=== PATIENT | male | born 1955 | race Caucasian/White ===

== ENCOUNTER 2017-07-11 08:35 | Inpatient (IN) | payer OTHER ==
[~2017-07-11] VITALS: Ht 172.7 cm; Wt 100.2 kg
[2017-07-11 08:41] VITALS: BP 154/80
--- NOTE | 2017-07-11 08:50 | NUR ---
Pt taken to bed 10
--- NOTE | 2017-07-11 08:54 | NUR ---
Patient being evaluated by Dr. Chinchilla at bedside.
[2017-07-11] MEDS ORDERED: LEVOFLOXACIN 500 MG/D5W PREMIX 100 ML IV ONE (09:00)
[2017-07-11] MEDS ORDERED: KETOROLAC 30 MG/ML VIAL IVP ONE (09:00)
[2017-07-11] MEDS ORDERED: CLINDAMYCIN 600 MG in DEXTROSE 5% 50 ML IV ONE (09:00)
--- NOTE | 2017-07-11 09:01 | NUR ---
62/M bib daughter with complaints of left lower leg pain/foot pain x2 days. Pt states he has an ulcer to the bottom of his foot for the past 15 days but just two days ago the foot started to swelling and become erythematous. Leg hot to touch, pedal pulses presents bilaterally, strong and regular. Hx DM, HTN, hyperlipidemia. Ambulatory with steady gait. AOX4, panamanian speaking. VSS.
[2017-07-11] MEDS ORDERED: CLINDAMYCIN 600 MG/4 ML VIAL ONE ×2 (09:16→21:53)
--- NOTE | 2017-07-11 09:31 | NUR ---
XRAY AT BEDSIDE.
[2017-07-11] MEDS ORDERED: OMEP20TC12 PO (09:48)
[2017-07-11] MEDS ORDERED: METF1TAB34 PO (09:48)
[2017-07-11] MEDS ORDERED: MONT10TA35 PO (09:48)
[2017-07-11] MEDS ORDERED: BENA20TA PO (09:48)
[2017-07-11] MEDS ORDERED: FERR325E14 PO (09:48)
[2017-07-11] MEDS ORDERED: ASPI81CT89 PO (09:48)
[2017-07-11] MEDS ORDERED: ATOR40TA PO (09:48)
[2017-07-11] MEDS ORDERED: SIME80CT70 PO (09:48)
[2017-07-11] MEDS ORDERED: CETI10TA71 PO (09:48)
[2017-07-11] MEDS ORDERED: ORE25 PO (09:48)
[2017-07-11 09:59] LABS: BASOPHILS # (AUTO) 0.1 K/uL (0.00-0.22); BASOPHILS % (AUTO) 1.2 % (0.0-2.0); EOSINOPHILS # (AUTO) 0.1 K/uL (0-0.4); EOSINOPHILS % (AUTO) 0.8 % (0.0-4.0); HEMOGLOBIN 11.7 g/dL (12.0-18.0); LYMPHOCYTES % (AUTO) 8.5 % (20.5-51.1); MEAN CORPUSCULAR HEMOGLOBIN 31 pg (27-31); MEAN CORPUSCULAR HGB CONC 33 g/dL (33-37); MEAN CORPUSCULAR VOLUME 93 fL (80-94); MONOCYTES # (AUTO) 0.9 K/uL (0.8-1.0); MONOCYTES % (AUTO) 7.8 % (1.7-9.3); NEUTROPHILS # (AUTO) 9.7 K/uL (1.8-7.7); NEUTROPHILS % (AUTO) 81.7 % (42.2-75.2); PLATELET COUNT (AUTO) 299 K/uL (140-450); RED BLOOD CELL COUNT(AUTO) 3.78 MIL/uL (4.20-6.10); RED CELL DISTRIBUTION WIDTH 13.7 % (11.6-13.7); WHITE BLOOD COUNT (AUTO) 11.8 K/uL (4.8-10.8)
[2017-07-11 10:00] LABS: ANION GAP 11.1 (8-16); CARBON DIOXIDE 29.3 mmol/L (21-32); CREATININE 1.3 mg/dL (0.7-1.3); POTASSIUM 4.4 mmol/L (3.5-5.1)
[2017-07-11 10:01] LABS: PROTHROMBIN TIME 10.7 secs (10.8-13.4)
[2017-07-11 10:06] LABS: ALBUMIN 3.1 g/dL (3.4-5.0); TOTAL BILIRUBIN 0.6 mg/dL (0.0-1.0)
[2017-07-11] MEDS ORDERED: ACETAMINOPHEN 325 MG TAB PO PRN (10:20)
[2017-07-11] MEDS ORDERED: MORPHINE SULFATE 4 MG/ML SYR IVP PRN (10:20)
[2017-07-11] MEDS ORDERED: MORPHINE SULFATE 2 MG/ML SYR IVP PRN (10:20)
[2017-07-11] MEDS ORDERED: ONDANSETRON 4 MG/2 ML VIAL IVP PRN (10:20)
[2017-07-11] MEDS ORDERED: VANCOMYCIN PER PHARMACY MC PRN (10:20)
[2017-07-11] MEDS ORDERED: SIMETHICONE 80 MG TAB.CHEW PO PRN (10:30)
[2017-07-11 11:27] LABS: APPEARANCE,URINE CLEAR (CLEAR); BILIRUBIN,URINE NEGATIVE (NEGATIVE); BLOOD, URINE NEGATIVE (NEGATIVE); COLOR,URINE YELLOW (YELLOW); LEUKOCYTE ESTERASE ,URINE NEGATIVE (NEGATIVE); NITRITE, URINE NEGATIVE (NEGATIVE); PH,URINE 5.5 (5.0-9.0); UGLUCOSE NEGATIVE (NEGATIVE)
[2017-07-11 11:46] LABS: RBC,URINE NONE SEEN /HPF (0-5); WBC,URINE 0-5 (RARE) /HPF (0-5)
--- NOTE | 2017-07-11 11:55 | NUR ---
RECEIVED PATIENT FROM ER UNDER THE CARE OF DR GILLIS WITH A DX OF FOOT ULCER . PATIENT A/OX4 ENGLISH SPEAKING DAUGHTER AT THE BED SIDE HELPING WITH THE TRANSLATION. IV SITE RT AC GAUGE 22 INTACT AND PATIENT LEFT AND RT FOOT DIABETIC ULCER . UNIT ORIENTATION GIVEN SAFETY HAS BEEN TAUGHT , VITALS STABLE WILL CONTINUE TO MONITOR.
[2017-07-11 12:26] VITALS: BP 136/79
[2017-07-11] MEDS: NACL 0.9% 1,000 ML IV SCH (14:04)
[2017-07-11] MEDS: VANCOMYCIN 1GM/DEXT 5% PREMIX 200 ML IV SCH (14:04)
--- NOTE | 2017-07-11 14:37 | NUR ---
ENDORSE THE CARE TO DEYANIRA
[2017-07-11 16:00] VITALS: BP 142/71
[2017-07-11] MEDS: BLOOD GLUCOSE MONITORING 1 DEV DEV FS SCH ×3 (16:00→21:48)
--- NOTE | 2017-07-11 16:33 | NUR ---
DR STEPHENS HERE TO CONSULT. PT IS TO HAVE SURGERY TOMORROW MORNING. I AND D BILATERALLY. NPO AFTER MIDNIGHT.
[2017-07-11] MEDS: INSULIN LISPRO SLIDING SCALE 100 UNITS/ML VIAL SUBQ PRN ×2 (17:07→22:34)
[2017-07-11] MEDS: PIPERACILLIN/TAZOBACTAM 4.5 GM in NACL 0.9% 100 ML IV SCH ×2 (18:08→23:50)
--- NOTE | 2017-07-11 19:06 | NUR ---
PT'S FAMILY IS LEAVING. PT'S SON AND AWARE OF SURGERY TOMORROW. PT ATE 100% OF DINNER. DENIES ANY PAIN. NO COMPLAINTS. WILL CONTINUE TO MONITOR PT.
[2017-07-11 20:00] VITALS: BP 132/72
[2017-07-11] MEDS ORDERED: BLOOD GLUCOSE MONITORING 1 DEV DEV FS SCH (21:00)
[2017-07-11] MEDS: CLINDAMYCIN 600 MG in DEXTROSE 5% 50 ML IV SCH (21:00)
[2017-07-11] MEDS: ATORVASTATIN 20 MG TAB PO SCH (21:49)
--- NOTE | 2017-07-11 22:40 | NUR ---
ENDORSED PT TO THE SOLAR POOL HEATING INSTALLER CHARGE NURSE AT BEDSIDE FOR CONTINUITY OF CARE. PT IN STABLE CONDITION.
[2017-07-12] VITALS (11 sets, daily range): BP systolic 110–153; BP diastolic 51–79
--- NOTE | 2017-07-12 | NUR ---
AWAKE ALERT, UP TO BR WITHOUT DIFFICULTY AND VOIDED, NO COMPLAINTS.
--- NOTE | 2017-07-12 01:05 | NUR ---
RECEIVED REPORT FROM [facility] UGY. PT SLEEPING IN BED. NO S/S OF ACUTE DISTRESS. IV SITE PATENT AND INTACT. CALL LIGHT WITHIN REACH. SAFETY MEASURES ENSURED. WILL CONTINUE TO MONITOR.
[2017-07-12] MEDS: VANCOMYCIN 1GM/DEXT 5% PREMIX 200 ML IV SCH ×2 (03:07→14:05)
--- NOTE | 2017-07-12 04:15 | NUR ---
PT SLEEPING IN BED. NO S/S OF ACUTE DISTRESS. WILL CONTINUE TO MONITOR.
[2017-07-12] MEDS: NACL 0.9% 1,000 ML IV SCH ×3 (04:34→16:18)
[2017-07-12] MEDS ORDERED: CLINDAMYCIN 600 MG/4 ML VIAL ONE (05:50)
[2017-07-12] MEDS: CLINDAMYCIN 600 MG in DEXTROSE 5% 50 ML IV SCH ×2 (05:53→13:29)
[2017-07-12] MEDS: BLOOD GLUCOSE MONITORING 1 DEV DEV FS SCH ×4 (06:23→21:04)
[2017-07-12] MEDS: INSULIN LISPRO SLIDING SCALE 100 UNITS/ML VIAL SUBQ PRN ×3 (06:24→21:14)
[2017-07-12] MEDS: PIPERACILLIN/TAZOBACTAM 4.5 GM in NACL 0.9% 100 ML IV SCH ×3 (06:29→17:27)
--- NOTE | 2017-07-12 07:25 | NUR ---
ENDORSED PLAN OF CARE TO NIGHT RN. PT REMAINS STABLE.
--- NOTE | 2017-07-12 07:30 | NUR ---
RECEIVED PT IN BED. AWAKE. ALERT ORIENTEDX4. NO SOB NOTED. DENIES ANY PAIN OR DISCOMFORT AT THIS TIME. SAFETY PRECAUTION IN PLACE. AMBULATORY. CALL LIGHT WITHIN REACH.
[2017-07-12 07:55] LABS: BASOPHILS # (AUTO) 0.1 K/uL (0.00-0.22); BASOPHILS % (AUTO) 0.9 % (0.0-2.0); EOSINOPHILS # (AUTO) 0.1 K/uL (0-0.4); EOSINOPHILS % (AUTO) 0.9 % (0.0-4.0); HEMATOCRIT 32.9 % (36-52); LYMPHOCYTES # (AUTO) 1.3 K/uL (2.0-11.5); LYMPHOCYTES % (AUTO) 13.3 % (20.5-51.1); MEAN CORPUSCULAR HEMOGLOBIN 31 pg (27-31); MEAN CORPUSCULAR HGB CONC 34 g/dL (33-37); MEAN CORPUSCULAR VOLUME 94 fL (80-94); MONOCYTES # (AUTO) 0.7 K/uL (0.8-1.0); NEUTROPHILS # (AUTO) 7.9 K/uL (1.8-7.7); NEUTROPHILS % (AUTO) 77.9 % (42.2-75.2); PLATELET COUNT (AUTO) 267 K/uL (140-450); RED BLOOD CELL COUNT(AUTO) 3.51 MIL/uL (4.20-6.10); RED CELL DISTRIBUTION WIDTH 13.7 % (11.6-13.7); WHITE BLOOD COUNT (AUTO) 10.1 K/uL (4.8-10.8)
[2017-07-12 08:22] LABS: ALBUMIN 2.5 g/dL (3.4-5.0); ANION GAP 13.8 (8-16); CARBON DIOXIDE 25.2 mmol/L (21-32); CREATININE 1.2 mg/dL (0.7-1.3); TOTAL BILIRUBIN 0.5 mg/dL (0.0-1.0)
--- NOTE | 2017-07-12 08:28 | NUR ---
HELD LOVENOX SQ DUE TO PT SCHEDULED FOR I&D.
[2017-07-12] MEDS: ENOXAPARIN 30 MG/0.3 ML SYR SUBQ SCH (08:29)
--- NOTE | 2017-07-12 08:31 | NUR ---
HELD ALL PO MEDS DUE TO PT SCHEDULED FOR SURGERY. OR NURSE AWARE AND CAME TO FURNITURE DETAILER PT.
[2017-07-12] MEDS: LORATADINE 10 MG TAB PO SCH (08:36)
[2017-07-12] MEDS: BENAZEPRIL 20 MG TAB PO SCH (08:36)
[2017-07-12] MEDS: HYDROCHLOROTHIAZIDE 25 MG TAB PO SCH (08:37)
[2017-07-12] MEDS: MONTELUKAST SODIUM 10 MG TAB PO SCH (08:37)
[2017-07-12] MEDS: PANTOPRAZOLE 40 MG TABEC PO SCH (08:37)
[2017-07-12] MEDS ORDERED: NON-FORMULARY ITEM (Cetirizine HCl (Cetirizine Hcl) 10 MG) PO SCH (09:00)
[2017-07-12] MEDS ORDERED: ASPIRIN 81 MG TAB.CHEW PO SCH (09:00)
[2017-07-12] MEDS ORDERED: NON-FORMULARY ITEM (Omeprazole (Omeprazole) 20 MG) PO SCH (09:00)
--- NOTE | 2017-07-12 09:04 | NUR ---
PATIENT HAS BEEN SCREENED AND CATEGORIZED MODERATE NUTRITION RISK. PATIENT WILL BE SEEN WITHIN 3-5 DAYS OF ADMISSION. 07/14/17-07/16/[address]
[2017-07-12] MEDS ORDERED: SEVOFLURANE 250 ML BTL INH ONE (10:05)
[2017-07-12] MEDS ORDERED: ONDANSETRON 4 MG/2 ML VIAL ONE (10:05)
[2017-07-12] MEDS ORDERED: PROPOFOL 200 MG/20 ML VIAL IV ONE (10:05)
[2017-07-12] MEDS ORDERED: fentaNYL 0.05 MG/ML VIAL ONE (10:13)
[2017-07-12] MEDS ORDERED: BUPIVACAINE-MPF 0.25% 30 ML VIAL INJ ONE (10:32)
[2017-07-12] MEDS ORDERED: HYDROmorphone PFS 2 MG/ML SYR IVP PRN (10:55)
[2017-07-12] MEDS ORDERED: BLOOD GLUCOSE MONITORING 1 DEV DEV FS SCH (10:55)
[2017-07-12] MEDS ORDERED: ONDANSETRON 4 MG/2 ML VIAL IVP PRN (10:55)
--- NOTE | 2017-07-12 11:45 | NUR ---
PT CAME BACK FROM OR ASSISTED BY OR STAFF. PT ASLEEP AROUSABLE TO VOICE. NO SOB NOTED. DENIES ANY PAIN OR DISCOMFORT AT THIS TIME. VITAL SIGNS TAKEN AND RECORDED. DRESSING ON BOTH LEFT AND RIGHT FOOT DRY AND INTACT. PT ON STABLE CONDITION.
--- NOTE | 2017-07-12 15:39 | NUR ---
FAXED INITIAL REVIEW TO [facility] [phone] PHONE DECEMBER [phone]
--- NOTE | 2017-07-12 18:31 | NUR ---
PT KEPT CLEAN, DRY AND COMFORTABLE, NEEDS ATTENDED. WILL ENDORSE TO NEXT SHIFT. PT ON STABLE CONDITION, FOR CONTINUITY OF CARE. NO SOB, DENIES ANY PAIN OR DISCOMFORT AT THIS TIME.
--- NOTE | 2017-07-12 19:30 | NUR ---
RECEIVED PT IN STABLE CONDITION FROM AM NURSE. AWAKE,ALERT AND ORIENTED X4. INDONESIAN SPEAKING. ON TELE MONITOR. WITH NO C/O ANY PAIN. TIANNA FEET WITH DRESSING,ELEVATED ON PILLOW. WITH IV ACCESS LEAKING. DISCONTINUED. WILL START A NEW IV . PLAN OF CARE DISCUSSED AND VERBALIZED UNDERSTANDING. BED ON LOW POSITION. CALL LIGHT AND URINAL WITHIN EASY REACH. WILL CONTINUE TO MONITOR.
[2017-07-12] MEDS: ATORVASTATIN 20 MG TAB PO SCH (21:05)
--- NOTE | 2017-07-12 21:14 | NUR ---
BLOOD SUGAR WAS CHECKED RESULT 167. INSULIN COVERAGE GIVEN SUBQ. PROVIDED SOME SNACK. WILL CONTINUE TO MONITOR.
[2017-07-13] MEDS: NACL 0.9% 1,000 ML IV SCH ×3 (00:04→22:18)
[2017-07-13] MEDS: PIPERACILLIN/TAZOBACTAM 4.5 GM in NACL 0.9% 100 ML IV SCH ×4 (00:05→18:11)
[2017-07-13] MEDS: VANCOMYCIN 1GM/DEXT 5% PREMIX 200 ML IV SCH ×2 (01:56→14:00)
[2017-07-13 04:30] VITALS: BP 113/68
[2017-07-13] MEDS: BLOOD GLUCOSE MONITORING 1 DEV DEV FS SCH ×4 (06:07→20:57)
[2017-07-13] MEDS: INSULIN LISPRO SLIDING SCALE 100 UNITS/ML VIAL SUBQ PRN ×4 (06:08→21:01)
--- NOTE | 2017-07-13 06:08 | NUR ---
BLOOD SUGAR WAS CHECKED RESULT 178. INSULIN COVERAGE GIVEN SUB Q.
--- NOTE | 2017-07-13 07:14 | NUR ---
ENDORSED PT IN STABLE CONDITION TO AM NURSE.
[2017-07-13 07:31] LABS: BASOPHILS # (AUTO) 0.1 K/uL (0.00-0.22); BASOPHILS % (AUTO) 0.6 % (0.0-2.0); EOSINOPHILS # (AUTO) 0.1 K/uL (0-0.4); EOSINOPHILS % (AUTO) 0.9 % (0.0-4.0); HEMATOCRIT 31.1 % (36-52); HEMOGLOBIN 10.4 g/dL (12.0-18.0); LYMPHOCYTES # (AUTO) 1.7 K/uL (2.0-11.5); LYMPHOCYTES % (AUTO) 16.4 % (20.5-51.1); MEAN CORPUSCULAR HEMOGLOBIN 31 pg (27-31); MEAN CORPUSCULAR HGB CONC 34 g/dL (33-37); MEAN CORPUSCULAR VOLUME 94 fL (80-94); MONOCYTES # (AUTO) 0.8 K/uL (0.8-1.0); MONOCYTES % (AUTO) 8.1 % (1.7-9.3); NEUTROPHILS # (AUTO) 7.4 K/uL (1.8-7.7); PLATELET COUNT (AUTO) 274 K/uL (140-450); RED BLOOD CELL COUNT(AUTO) 3.33 MIL/uL (4.20-6.10); RED CELL DISTRIBUTION WIDTH 13.9 % (11.6-13.7); WHITE BLOOD COUNT (AUTO) 10.1 K/uL (4.8-10.8)
[2017-07-13 07:36] VITALS: BP 126/69
--- NOTE | 2017-07-13 07:56 | NUR ---
RECEIVED REPORT FROM NIGHT RN. PT SLEEPING IN BED. NO S/S OF ACUTE DISTRESS. AAOX4. IV SITE PATENT AND INTACT. DRESSINGS TO FEET DRY AND INTACT. PT DENIES PAIN. TELE BOX IN PLACE. PLAN OF CARE DISCUSSED. PT VERBALIZED UNDERSTANDING. CALL LIGHT WITHIN REACH. SAFETY MEASURES ENSURED. WILL CONTINUE TO MONITOR.
[2017-07-13 08:04] LABS: ALBUMIN 2.2 g/dL (3.4-5.0); ANION GAP 11.5 (8-16); CARBON DIOXIDE 27.6 mmol/L (21-32); CREATININE 1.1 mg/dL (0.7-1.3); POTASSIUM 4.1 mmol/L (3.5-5.1); TOTAL BILIRUBIN 0.7 mg/dL (0.0-1.0)
[2017-07-13] MEDS: MONTELUKAST SODIUM 10 MG TAB PO SCH (08:39)
[2017-07-13] MEDS: BENAZEPRIL 20 MG TAB PO SCH (08:39)
[2017-07-13] MEDS: LORATADINE 10 MG TAB PO SCH (08:39)
[2017-07-13] MEDS: HYDROCHLOROTHIAZIDE 25 MG TAB PO SCH (08:39)
[2017-07-13] MEDS: PANTOPRAZOLE 40 MG TABEC PO SCH (08:40)
[2017-07-13] MEDS: ENOXAPARIN 30 MG/0.3 ML SYR SUBQ SCH (08:42)
--- NOTE | 2017-07-13 08:43 | NUR ---
AM MEDS GIVEN WITH EDUCATION. PT DENIES PAIN. PT VERBALIZED UNDERSTANDING. WILL CONTINUE TO MONITOR.
--- NOTE | 2017-07-13 10:37 | NUR ---
SPOKE TO DR. STEPHENS ,CLARIFY ORDER OF FEET TREATMENT. DOCTOR GIVES INSTRUCTION TO REMOVED ALL IODOFORM AND REPACK IT WITHOUT PACKING THE TUNNELING. ORDER ALSO GIVEN TO RIGHT FOOT S/P DEBRIDEMENT.
--- NOTE | 2017-07-13 12:03 | NUR ---
WOUND CARE EVALUATION NOTES: REASON FOR EVALUATION: S/P I&D MULTIPLE WOUNDS COMPLETE SKIN ASSESSMENT DONE ON THIS 62 Y/O MALE PATIENT FROM HOME TO [facility], WITH INITIAL DIAGNOSIS OF LEFT FOOT PAIN AND REDNESS. PAST MEDICAL HISTORY INCLUDE DIABETES, HYPERTENSION AND NEUROPATHY. ALL ABOVE INFORMATION WAS OBTAINED FROM THE ADMISSION H&P AND PT. LABS ARE WBC 10.1, H/H 11.0/32.9, GLUCOSE 172, ALBUMIN 2.9. CURRENT MEDS INCLUDE PIPERACILLIN, VANCOMYCIN, PANTOPRAZOLE AND ATORVASTATIN. PATIENT IS AWAKE, ALERT, AND ABLE TO FOLLOW COMMANDS. SKIN WARM TO TOUCH WNL, THICKENED TOENAILS, NO EDEMA, NO HAIR GROWTH AND BILATERAL PEDAL PULSES PRESENT. PLAN OF CARE DISCUSSED WITH PT WITH FOREST EVANGELISTA IN [place]. PT VERBALIZES UNDERSTAND INTEGUMENTARY: -LEFT FOOT DORSAL S/P I&D WOUND 6X1 CM WOUND BED RED, CLEAN, SMALL AMOUNT SANGUINOUS DRAINAGE, NO ODOR, JAILENE WOUND FLAT, PAIN 0/10 -LEFT FOOT PLANTAR S/P I&D WOUND 5X2 CM WOUND BED RED, CLEAN, NO DRAINAGE, NO ODOR, PAIN 0/10 -RIGHT LATERAL 5TH TOE S/P DEBRIDED WOUND 2X2CM, WOUND BED RED, CLEAN AND MOIST NO ODOR NOTICE RECOMMENDATIONS: -FORMER[facility] TO FOLLOW FOR WOUND CARE DAILY UPON DISCHARGE -FOLLOW UP OUT PATIENT CLINICAL VISIT WITH PODIATRY AND SURGEON HERON SPARKS -CLEANSE LEFT FOOT DORSAL AND PLANTAR WOUND WITH NS PAT DRY AND PACK WITH IODOFORM, COVER WITH DRY DRESSING, WRAP WITH KERLIX QD AND PRN IF SOILING -CLEANSE RIGHT LATERAL 5TH THE S/P DEBRIDED WOUND WITH NS. PAT DRY APPLY SILVERSORB GEL COVER WITH DRYDRESSING AND WRAP WITH KERLIX QD AND PRN IF SOILING -OFFLOAD BILATERAL HEELS BY PLACING PILLOWS UNDER CALVES AT ALL TIMES, UNLESS OTHERWISE CONTRAINDICATED -PRESSURE REDISTRIBUTION SURFACE THERAPY -KEEP SKIN CLEAN AND DRY AT ALL TIMES RECOMMENDATIONS DISCUSSED WITH PRIMARY RN WILL FOLLOW UP PATIENT Q 7 -10 DAYS AND PRN. PLEASE CONTACT WOUND CARE NURSE FOR ANY CONCERNS AND CHANGES IN WOUND CONDITION Addendum: 07/13/17 at 1250 by Beto Samaniego RN (Grace) MEASUREMENT: -LEFT FOOT DORSAL S/P I&D WOUND [id number] -LEFT FOOT PLANTAR S/P I&D WOUND [id number] -TUNNELING IN BETWEEN DORSAL AND PLANTAR WOUNDS -RIGHT LATERAL 5TH TOE S/P DEBRIDED WOUND 2X2X0.1 CM
[2017-07-13] MEDS ORDERED: GAUZE TP PRN (12:30)
[2017-07-13] MEDS ORDERED: NACL 0.9% IRR 250 ML BOTTLE IR PRN (12:30)
[2017-07-13] MEDS: GAUZE TP SCH (12:42)
--- NOTE | 2017-07-13 12:42 | NUR ---
WOUND CARE DONE BY FOREST KHANNA. NO S/S OF ACUTE DISTRESS.PT DENIES PAIN. WILL CONTINUE TO MONITOR.
[2017-07-13] MEDS: NACL 0.9% IRR 250 ML BOTTLE IR SCH (13:53)
--- NOTE | 2017-07-13 14:31 | NUR ---
SPOKE TO DR. LÓPEZ, AND CHECK PT AT BEDSIDE FOR LEFT HALLUX WOUND, PER CHARGE NURSE IT WAS FROM [facility] SITE. RECOMMENDATION PROVIDES TO DR LÓPEZ FOR PODIATRY CONSULT. Addendum: 07/13/17 at 1436 by Beto Samaniego RN (Grace) ERROR ENTRY THE FOLLOWING DOCUMENTATION: "SPOKE TO DR. LÓPEZ, AND CHECK PT AT BEDSIDE FOR LEFT HALLUX WOUND, PER CHARGE NURSE IT WAS FROM [facility] SITE. RECOMMENDATION PROVIDES TO DR LÓPEZ FOR PODIATRY CONSULT."
--- NOTE | 2017-07-13 15:49 | NUR ---
CM NOTE CONCURRENT REVIEW FAXED TO [facility] / FAX# [phone], ATTN: WICHO #[phone]
[2017-07-13 16:00] VITALS: BP_SYST 131; BP_SYST 133; BP_DIAS 53; BP_DIAS 69
--- NOTE | 2017-07-13 16:24 | NUR ---
PT RESTING IN BED. NO S/S OF ACUTE DISTRESS. PT DENIES PAIN. CALL LIGHT WITHIN REACH. SAFETY MEASURES ENSURED. WILL CONTINUE TO MONITOR.
--- NOTE | 2017-07-13 19:12 | NUR ---
ENDORSED PLAN OF CARE TO NIGHT RN.
--- NOTE | 2017-07-13 19:15 | NUR ---
RECEIVED PT IN STABLE CONDITION FROM AM NURSE. AWAKE,ALERT AND ORIENTED X4. UPPER SORBIAN SPEAKING. MED SURG PT. DENIES ANY PAIN AT THIS TIME. WITH BILATERAL FEET WITH DRESSING. CLEAN AND DRY. ELEVATED ON PILLOW. IVF INFUSING WELL ON THE RT FA#[phone]. CLEAR AND PATENT. PLAN OF CARE DISCUSSED AND VERBALIZED UNDERSTANDING. CALL LIGHT AND URINAL PLACED WITHIN EASY REACH. WILL CONTINUE TO MONITOR.
[2017-07-13] MEDS: ATORVASTATIN 20 MG TAB PO SCH (20:39)
--- NOTE | 2017-07-13 21:01 | NUR ---
BLOOD SUGAR WAS CHECKED RESULT 205. INSULIN COVERAGE GIVEN SUBQ. PROVIDED SOME SNACK. WILL CONTINUE TO MONITOR.
--- NOTE | 2017-07-13 23:00 | NUR ---
MADE ROUNDS. PT IS SLEEPING. NO S/S OF ANY DISCOMFORT NOTED.
[2017-07-14 00:04] VITALS: BP 115/64
[2017-07-14] MEDS: VANCOMYCIN 1GM/DEXT 5% PREMIX 200 ML IV SCH ×2 (01:44→14:55)
--- NOTE | 2017-07-14 02:00 | NUR ---
ASLEEP. NO S/S OF ANY DISCOMFORT NOR PAIN NOTED. WILL CONITNUE TO MONITOR.
[2017-07-14] MEDS: NACL 0.9% 1,000 ML IV SCH ×3 (04:28→18:13)
--- NOTE | 2017-07-14 05:00 | NUR ---
AWAKE, BUT NO C/O OF ANY PAIN . WILL CONTINUE TO MONITOR.
[2017-07-14] MEDS: PIPERACILLIN/TAZOBACTAM 4.5 GM in NACL 0.9% 100 ML IV SCH ×6 (05:31→23:44)
[2017-07-14] MEDS: BLOOD GLUCOSE MONITORING 1 DEV DEV FS SCH ×4 (06:10→20:51)
[2017-07-14] MEDS: INSULIN LISPRO SLIDING SCALE 100 UNITS/ML VIAL SUBQ PRN ×4 (06:12→20:53)
--- NOTE | 2017-07-14 06:12 | NUR ---
BLOOD SUGAR THIS AM 245. INSULIN COVERAGE GIVEN SUBQ.
--- NOTE | 2017-07-14 07:13 | NUR ---
ENDORSED PT IN STABLE CONDITION TO AM NURSE.
--- NOTE | 2017-07-14 07:17 | NUR ---
RECEIVED REPORT FROM NIGHT RN. PT RESTING IN BED. AAO4, NO S/S OF ACUTE DISTRESS. PT DENIES PAIN. IV SITE PATENT AND INTACT. DRESSING TO BILATERAL FEET DRY AND INTACT. CALL LIGHT WITHIN REACH. SAFETY MEASURES ENSURED. WILL CONTINUE TO MONITOR.
[2017-07-14 07:41] VITALS: BP 131/70
[2017-07-14] MEDS: HYDROCHLOROTHIAZIDE 25 MG TAB PO SCH (08:29)
[2017-07-14] MEDS: BENAZEPRIL 20 MG TAB PO SCH (08:29)
[2017-07-14] MEDS: MONTELUKAST SODIUM 10 MG TAB PO SCH (08:30)
[2017-07-14] MEDS: PANTOPRAZOLE 40 MG TABEC PO SCH (08:30)
[2017-07-14] MEDS: ENOXAPARIN 30 MG/0.3 ML SYR SUBQ SCH (08:33)
--- NOTE | 2017-07-14 08:33 | NUR ---
AM MEDICATIONS GIVEN WITH EDUCATION. PT DENIES PAIN. PT VERBALIZED UNDERSTANDING. CALL LIGHT WITHIN REACH. SAFETY MEASURES ENSURED. WILL CONTINUE TO MONITOR.
[2017-07-14] MEDS: LORATADINE 10 MG TAB PO SCH (09:39)
--- NOTE | 2017-07-14 10:13 | NUR ---
CALLED PICC LINE NURSE. SHE SAID SHE HAD ONE MORE HOSPITAL THEN WOULD BE HEADING OVER FROM [place].
--- NOTE | 2017-07-14 11:48 | NUR ---
FAXED CONCURRENT REVIEW TO [facility] [phone] PHONE JAZZMINE [phone] RECEIVED ORDER FOR IV ANTIBIOTICS. I CALLED [facility] AND SPOKE WITH JORDAN. SHE SAID TO FAX THE H&P AND ORDER AND FACE SHEET TO HER AT [phone] PHONE [phone] [facility]. I CALLED THEM [phone] AND SPOKE WITH CALOS. SHE SAID TO [facility]CT THE [facility] AND THEN FAX THE ORDER TO HER AT [phone], WHICH I DID.
--- NOTE | 2017-07-14 12:05 | NUR ---
PT RESTING IN BED. NO S/S OF ACUTE DISTRESS.PT DENIES PAIN. CALL LIGHT WITHIN REACH. WILL CONTINUE TO MONITOR.
[2017-07-14] MEDS: GAUZE TP SCH (12:29)
[2017-07-14] MEDS: NACL 0.9% IRR 250 ML BOTTLE IR SCH (12:29)
[2017-07-14 12:43] LABS: PROTHROMBIN TIME 11.3 secs (10.8-13.4)
[2017-07-14] MEDS ORDERED: ACET-5629 PO (13:57)
--- NOTE | 2017-07-14 15:42 | NUR ---
PER GINO GARG, DOCTOR WAITING FOR CULTURE RESULTS. PATIENT NOT TO BE DISCHARGED TODAY. IF PATIENT DISCHARGED OVER THE WEEKEND FOR IV ANTIBIOTICS AND HOME HEALTH, CALL [facility] [phone]. FAX [phone] THE PHONE FOR [facility] IS [phone]. I INFORMED CALOS FROM [facility] THAT WE DON'T HAVE THE ORDER FOR THE IV ANTIBIOTICS OR DISCHARGE DATE YET.
[2017-07-14 16:00] VITALS: BP 139/73
--- NOTE | 2017-07-14 16:17 | NUR ---
ENDORSED PLAN OF CARE TO RN. PT REMAINS STABLE.
--- NOTE | 2017-07-14 16:30 | NUR ---
REPORT RECIEVED FROM TOMASA RN, PT RESTING QUIETLY IN NAD, RESP EVEN UNLABORED, DAUGHTER AT BEDSIDE, DENIES ANY IMMEIDATE NEEDS, WILL CONTINUE TO MONTIOR.
--- NOTE | 2017-07-14 17:15 | NUR ---
PICC NURSE AT BEDSIDE.
--- NOTE | 2017-07-14 19:30 | NUR ---
REPORT GIVEN TO CARMELA GARG, PT IN STABLE CONDITION.
--- NOTE | 2017-07-14 19:34 | NUR ---
RECEIVED REPORT FROM DAY RN, PATIENT RESTING IN BED, AWAKE ALERT ORIENTED X4, NO S/S OF DISTRESS NOTED, RESPIRATION EVEN AND UNLABORED, DENIES PAIN AT THIS TIME. PICC LINE NOTED ON THE RT UPPER ARM, DRESSING DRY AND INTACT. PLAN OF CARE DISCUSSED, PATIENT VERBALIZED UNDERSTANDING, CALL LIGHT WITHIN REACH, SAFETY MEASURE ENSURED, WILL CONTINUE TO MONITOR.
[2017-07-14] MEDS: ATORVASTATIN 20 MG TAB PO SCH (20:56)
--- NOTE | 2017-07-14 20:59 | NUR ---
DUE MEDICATION GIVEN, PATIENT TOLERATED WELL. NO S/S OF DISTRESS NOTED, WILL CONTINUE TO MONITOR.
--- NOTE | 2017-07-14 23:50 | NUR ---
PATIENT WAS SLEEPING, EASY TO AROUSE. NO S/S OF DISTRESS NOTED, RESPIRATION EVEN AND UNLABORED, CALL LIGHT WITHIN REACH, SAFETY MEASURE ENSURED ,WILL CONTINUE TO MONITOR.
[2017-07-15] VITALS: BP 142/67
[2017-07-15] MEDS: VANCOMYCIN 1GM/DEXT 5% PREMIX 200 ML IV SCH ×2 (02:23→14:01)
--- NOTE | 2017-07-15 02:31 | NUR ---
VANCOMYCIN STARTED, PATIENT TOLERATED WELL, WILL CONTINUE TO MONITOR.
[2017-07-15] MEDS: NACL 0.9% 1,000 ML IV SCH ×3 (04:31→23:39)
--- NOTE | 2017-07-15 04:31 | NUR ---
PATIENT IS SLEEPING AT THIS TIME, RESPIRATION EVEN AND UNLABORED, CALL LIGHT WITHIN REACH, SAFETY MEASURE ENSURED, WILL CONTINUE TO MONITOR.
[2017-07-15] MEDS: PIPERACILLIN/TAZOBACTAM 4.5 GM in NACL 0.9% 100 ML IV SCH ×4 (05:23→23:38)
--- NOTE | 2017-07-15 05:29 | NUR ---
DUE ZOSYN STARTED, PATIENT TOLERATED WELL, NO S/S OF DISTRESS NOTED, WILL CONTINUE TO MONITOR.
[2017-07-15] MEDS: BLOOD GLUCOSE MONITORING 1 DEV DEV FS SCH ×4 (06:30→20:36)
[2017-07-15] MEDS: INSULIN LISPRO SLIDING SCALE 100 UNITS/ML VIAL SUBQ PRN ×4 (06:31→20:39)
[2017-07-15 07:13] LABS: BASOPHILS # (AUTO) 0.1 K/uL (0.00-0.22); BASOPHILS % (AUTO) 1.3 % (0.0-2.0); EOSINOPHILS # (AUTO) 0.1 K/uL (0-0.4); EOSINOPHILS % (AUTO) 1.5 % (0.0-4.0); HEMATOCRIT 32.6 % (36-52); HEMOGLOBIN 10.9 g/dL (12.0-18.0); LYMPHOCYTES # (AUTO) 1.8 K/uL (2.0-11.5); LYMPHOCYTES % (AUTO) 22.5 % (20.5-51.1); MEAN CORPUSCULAR HEMOGLOBIN 31 pg (27-31); MEAN CORPUSCULAR HGB CONC 33 g/dL (33-37); MEAN CORPUSCULAR VOLUME 93 fL (80-94); MONOCYTES % (AUTO) 12.3 % (1.7-9.3); NEUTROPHILS % (AUTO) 62.4 % (42.2-75.2); PLATELET COUNT (AUTO) 296 K/uL (140-450); RED CELL DISTRIBUTION WIDTH 13.7 % (11.6-13.7)
--- NOTE | 2017-07-15 07:20 | NUR ---
ENDORSED PLAN OF CARE TO DAY RN, PATIENT IS STABLE, NO S/S OF DISTRESS NOTED.
--- NOTE | 2017-07-15 07:21 | NUR ---
RECEIVED REPORT FROM ANTHROPOLOGIST RN AT BEDSIDE FOR CONTINUITY OF CARE. PATIENT RESTING IN BED, AWAKE ALERT ORIENTED X4, ON ROOM AIR, NO S/S OF DISTRESS NOTED, DENIES PAIN AT THIS TIME. PICC LINE ON THE RT UPPER ARM, DRESSING DRY AND INTACT. LEFT AND RIGHT FOOT HAVE DRESSING, SMALL SIGNS OF DRAINAGE. WILL DO WOUND CARE LATER IN THE DAY. VITAL SIGNS WITHIN NORMAL LIMIT. CALL LIGHT WITHIN REACH, SAFETY MEASURE ENSURED, WILL CONTINUE TO MONITOR.
[2017-07-15 08:00] VITALS: BP 130/75
[2017-07-15] MEDS: LORATADINE 10 MG TAB PO SCH (09:18)
[2017-07-15] MEDS: BENAZEPRIL 20 MG TAB PO SCH (09:18)
[2017-07-15] MEDS: MONTELUKAST SODIUM 10 MG TAB PO SCH (09:19)
[2017-07-15] MEDS: HYDROCHLOROTHIAZIDE 25 MG TAB PO SCH (09:19)
[2017-07-15] MEDS: PANTOPRAZOLE 40 MG TABEC PO SCH (09:19)
[2017-07-15] MEDS: ENOXAPARIN 30 MG/0.3 ML SYR SUBQ SCH (09:20)
--- NOTE | 2017-07-15 09:24 | NUR ---
ADMINISTERED MORNING MEDS. PATIENT TOLERATED THEM WELL.
[2017-07-15] MEDS: NACL 0.9% IRR 250 ML BOTTLE IR SCH (13:00)
--- NOTE | 2017-07-15 13:00 | NUR ---
WOUND DRESSING CHANGE DONE. REMOVED OLD DRESSINGS AND PACKING. CLEANED WITH NS, PAT DRY. REPACKED WOUND AND APPLIED XEROFORM (TO R FOOT) AND GAUZE AND WRAPPED WITH KERLIX. PT TOLERATED WELL. WILL CONTINUE TO MONITOR.
[2017-07-15] MEDS: GAUZE TP SCH (13:04)
--- NOTE | 2017-07-15 14:57 | NUR ---
PT RESTING COMFORTABLY. FRIEND AT BEDSIDE. NO SIGNS OF DISTRESS. NO COMPLAINTS. WILL CONTINUE TO MONITOR PT.
[2017-07-15 16:00] VITALS: BP 144/88
--- NOTE | 2017-07-15 16:00 | NUR ---
OH HERE TO SEE PT'S WOUNDS. REOPENED DRESSING. REAPPLIED DRESSINGS. PT TOLERATED WELL. WILL CONTINUE TO MONITOR PT.
--- NOTE | 2017-07-15 19:21 | NUR ---
ENDORSED CARE TO ITEM REPAIR MANAGER RN AT BEDSIDE FOR CONTINUITY OF CARE. PATIENT IN STABLE CONDITION.
--- NOTE | 2017-07-15 19:23 | NUR ---
RECEIVED REPORT FROM DAY RN, PATIENT RESTING IN BED, NO S/S OF DISTRESS, RESPIRATION EVEN AND UNLABORED, DENIES PAIN AT THIS TIME. PICC LINE PATENT AND INFUSING NS AT 100ML/HR, PICC LINE DRESSING DRY AND INTACT. BOTH DRESSING ON BILATERAL FEET, DRY AND INTACT. PLAN OF CARE DISCUSSED, PATIENT VERBALIZED UNDERSTANDING, CALL LIGHT WITHIN REACH, SAFETY MEASURE ENSURED, WILL CONTINUE TO MONITOR.
[2017-07-15] MEDS: ATORVASTATIN 20 MG TAB PO SCH (20:41)
--- NOTE | 2017-07-15 20:43 | NUR ---
DUE MEDICATION GIVEN, PATIENT TOLERATED WELL. NO S/S OF DISTRESS NOTED, WILL CONTINUE TO MONITOR.
--- NOTE | 2017-07-15 22:18 | NUR ---
PATIENT IS SLEEPING AT THIS TIME. NO S/S OF DISTRESS NOTED, RESPIRATION EVEN AND UNLABORED, CALL LIGHT WITHIN REACH, SAFETY MEASURE ENSURED, WILL CONTINUE TO MONITOR.
[2017-07-16] VITALS: BP 126/65
[2017-07-16] MEDS ORDERED: PIPERACILLIN/TAZOBACTAM 4.5 GM in NACL 0.9% 100 ML IV SCH ×4
--- NOTE | 2017-07-16 00:01 | NUR ---
VITAL SIGNS WITHIN NORMAL RANGE, ZOSYN STARTED. NO S/S OF DISTRESS NOTED, RESPIRATION EVEN AND UNLABORED, CALL LIGHT WITHIN REACH, SAFETY MEASURE ENSURED, WILL CONTINUE TO MONITOR.
--- NOTE | 2017-07-16 02:07 | NUR ---
NO CHANGE IN CONDITION, PATIENT IS SLEEPING AT THIS TIME, RESPIRATION EVEN AND UNLABORED, CALL LIGHT WITHIN REACH, SAFETY MEASURE ENSURED, WILL CONTINUE TO MONITOR.
--- NOTE | 2017-07-16 04:17 | NUR ---
PATIENT WENT TO THE RESTROOM, VOIDED X1, NO S/S OF DISTRESS NOTED, PATIENT IS RESTING IN BED AT THIS TIME, CALL LIGHT WITHIN REACH, SAFETY MEASURE ENSURED, WILL CONTINUE TO MONITOR.
[2017-07-16] MEDS: PIPERACILLIN/TAZOBACTAM 4.5 GM in NACL 0.9% 100 ML IV SCH ×4 (05:25→23:28)
[2017-07-16] MEDS: BLOOD GLUCOSE MONITORING 1 DEV DEV FS SCH ×4 (06:34→20:21)
[2017-07-16] MEDS: INSULIN LISPRO SLIDING SCALE 100 UNITS/ML VIAL SUBQ PRN ×4 (06:35→20:29)
--- NOTE | 2017-07-16 07:17 | NUR ---
ENDORSED PLAN OF CARE TO DAY SHIFT NURSE. PATIENT IS IN STABLE CONDITION. NO S/S OF DISTRESS NOTED.
--- NOTE | 2017-07-16 07:18 | NUR ---
RECEIVED REPORT FROM WEB CONTENT SPECIALIST RN AT BEDSIDE FOR CONTINUITY OF CARE. PATIENT RESTING IN BED, NO S/S OF DISTRESS, ON ROOM AIR, RESPIRATION EVEN AND UNLABORED, DENIES PAIN AT THIS TIME. PICC LINE ON RIGHT UPPER ARM PATENT AND INFUSING NS AT 100ML/HR, PICC LINE DRESSING DRY AND INTACT. BOTH DRESSING ON BILATERAL FEET, DRY AND INTACT. CALL LIGHT WITHIN REACH, SAFETY MEASURE ENSURED, WILL CONTINUE TO MONITOR.
[2017-07-16 07:55] LABS: BASOPHILS # (AUTO) 0.1 K/uL (0.00-0.22); BASOPHILS % (AUTO) 1.7 % (0.0-2.0); EOSINOPHILS # (AUTO) 0.1 K/uL (0-0.4); EOSINOPHILS % (AUTO) 1.6 % (0.0-4.0); HEMATOCRIT 33.1 % (36-52); HEMOGLOBIN 10.9 g/dL (12.0-18.0); LYMPHOCYTES # (AUTO) 1.9 K/uL (2.0-11.5); LYMPHOCYTES % (AUTO) 25.7 % (20.5-51.1); MEAN CORPUSCULAR HEMOGLOBIN 31 pg (27-31); MEAN CORPUSCULAR HGB CONC 33 g/dL (33-37); MEAN CORPUSCULAR VOLUME 93 fL (80-94); MONOCYTES # (AUTO) 0.9 K/uL (0.8-1.0); NEUTROPHILS # (AUTO) 4.4 K/uL (1.8-7.7); PLATELET COUNT (AUTO) 320 K/uL (140-450); RED BLOOD CELL COUNT(AUTO) 3.54 MIL/uL (4.20-6.10); RED CELL DISTRIBUTION WIDTH 13.6 % (11.6-13.7); WHITE BLOOD COUNT (AUTO) 7.4 K/uL (4.8-10.8)
[2017-07-16 08:00] VITALS: BP 127/75
[2017-07-16] MEDS: PANTOPRAZOLE 40 MG TABEC PO SCH (08:52)
[2017-07-16] MEDS: MONTELUKAST SODIUM 10 MG TAB PO SCH (08:52)
[2017-07-16] MEDS: HYDROCHLOROTHIAZIDE 25 MG TAB PO SCH (08:52)
[2017-07-16] MEDS: BENAZEPRIL 20 MG TAB PO SCH (08:52)
[2017-07-16] MEDS: LORATADINE 10 MG TAB PO SCH (08:52)
[2017-07-16] MEDS: ENOXAPARIN 30 MG/0.3 ML SYR SUBQ SCH (08:53)
--- NOTE | 2017-07-16 08:56 | NUR ---
ADMINISTERED MORNING MEDICATIONS. PATIENT TOLERATED THEM WELL. PATIENT SITTING UP IN BED, TALKING TO NEIGHBOR. NO COMPLAINTS. PATIENT SHOWS NO SIGNS OF DISTRESS. WILL CONTINUE TO MONITOR.
[2017-07-16] MEDS: NACL 0.9% 1,000 ML IV SCH ×2 (10:18→18:33)
--- NOTE | 2017-07-16 11:11 | NUR ---
07/16/17 RD INITIAL ASSESSMENT COMPLETED PLEASE REFER TO NUTRITION ASSESSMENT UNDER CARE ACTIVITY FOR ESTIMATED NUTRITIONAL NEEDS. RD RECOMMENDATIONS: 1. CONTINUE ON CCHO DIET TOLERATED. 2. RDN TO PROVIDE DIET HEALTH SHAKES WITH ALL MEALS TID TO HELP MEET NEEDS. 3. CONSULT RDN PRN. 4. RD WILL F/U 7 DAYS; LOW RISK. 5. RDN PROVIDED DIABETIC DIET EDUCATION TO PATIENT; PT AND FAMILY ACCEPTED DIABETIC DIET EDUCATION. ZAHEER BERKOWITZ, MS, RDN
--- NOTE | 2017-07-16 12:12 | NUR ---
PT RESTING COMFORTABLY. WATCHING TV. NO SIGNS OF DISTRESS. NO COMPLAINTS. WILL CONTINUE TO MONITOR PT.
[2017-07-16] MEDS: GAUZE TP SCH (13:22)
[2017-07-16] MEDS: NACL 0.9% IRR 250 ML BOTTLE IR SCH (13:22)
--- NOTE | 2017-07-16 13:22 | NUR ---
PERFORMED WOUND CARE. R FOOT: REMOVED DIRTY DRESSING, REMOVED XEROFORM. CLEANSED AREA WITH NS. PAT DRY. APPLIED SILVASORB GEL AND XEROFORM ON TOP. PLACED GAUZE AND WRAPPED WITH KERLIX. L FOOT: REMOVED DIRTY DRESSING, REMOVED PACKING. CLEANED AREA WITH NS. PAT DRY. REPACKED WITH IODOFORM, PLACED DRY GAUZE ON TOP AND WRAPPED WITH KERLIX. PT TOLERATED WELL. WILL CONTINUE TO MONITOR PT.
--- NOTE | 2017-07-16 15:12 | NUR ---
PT RESTING COMFORTABLY, WATCHING TV. PT DENIES ANY PAIN AT THIS TIME. ALL NEEDS METS. WILL CONTINUE TO MONITOR PT.
--- NOTE | 2017-07-16 15:30 | NUR ---
SPOKE TO NUC [facility] REGARDING DR. JACOBO'S ORDERS FOR BONE SCAN. NUC MED STATED THAT IT WILL BE A FALSE POSITIVE D/T THE FACT THAT I & D HAS ALREADY BEEN PREFORMED. TO HAVE A BONE SCAN, THE WOUND HAS TO BE COMPLETELY HEALED BEFORE THEY DO IT. EXPLAINED TO DR. JACOBO. DR JACOBO STILL WANTS THE BONE SCAN. TOLD THE NUC MED THE SITUATION, THEY STATED, IT WILL NOT BE A DIAGNOSTIC TEST. CAN DO THE SCAN TOMORROW SINCE IT TAKE ABOUT 4 HRS TO PREP FOR THE TEST. CHARGE NURSE AWARE.
[2017-07-16 16:00] VITALS: BP 127/73
--- NOTE | 2017-07-16 16:10 | NUR ---
SPOKE WITH DR HORTA TO CLARIFY THE BONE SCAN NEW ORDER OK TO DO BONE SCAN.
--- NOTE | 2017-07-16 19:17 | NUR ---
ENDORSED TO NEWSPAPER CORRESPONDENT RN. PATIENT IS IN STABLE CONDITION.
[2017-07-16] MEDS: ATORVASTATIN 20 MG TAB PO SCH (21:03)
--- NOTE | 2017-07-16 21:06 | NUR ---
DUE MEDICATION GIVEN, PATIENT TOLERATED WELL, NO S/S OF DISTRESS NOTED, WELL CONTINUE TO MONITOR.
[2017-07-17] VITALS: BP 120/67
--- NOTE | 2017-07-17 02:19 | NUR ---
NO CHANGE IN CONDITION, PATIENT IS SLEEPING AT THIS TIME, RESPIRATION EVEN AND UNLABORED, CALL LIGHT WITHIN REACH, SAFETY MEASURE ENSURED, WILL CONTINUE TO MONITOR.
[2017-07-17] MEDS: PIPERACILLIN/TAZOBACTAM 4.5 GM in NACL 0.9% 100 ML IV SCH ×3 (05:14→17:07)
--- NOTE | 2017-07-17 05:17 | NUR ---
ZOSYN STARTED, NO S/S OF DISTRESS NOTED, PATIENT RESTING IN BED, RESPIRATION EVEN AND UNLABORED, WILL CONTINUE TO MONITOR.
[2017-07-17] MEDS: NACL 0.9% 1,000 ML IV SCH ×2 (05:21→17:06)
[2017-07-17] MEDS: BLOOD GLUCOSE MONITORING 1 DEV DEV FS SCH ×4 (06:32→20:01)
[2017-07-17] MEDS: INSULIN LISPRO SLIDING SCALE 100 UNITS/ML VIAL SUBQ PRN ×4 (06:36→20:10)
--- NOTE | 2017-07-17 07:29 | NUR ---
ENDORSED PLAN OF CARE TO DAY RN, PATIENT RESTING IN BED, NO S/S OF DISTRESS, PATIENT IS IN STABLE CONDITION.
--- NOTE | 2017-07-17 07:32 | NUR ---
ENDORSEMENT RECEIVED FROM AUTOMOBILE DEALER NURSE. PATIENT IS ASLEEP COMFORTABLY. RESPIRATION EVEN, UNLABOR. SKIN DRY AND WARM. IV INFUSING WELL. NO DISTRESS NOTED AT THIS TIME. CALL LIGHT WITHIN REACH. BED AT LOW POSITION. WILL CONTINUE TO MONITOR
[2017-07-17 08:00] VITALS: BP 110/91
--- NOTE | 2017-07-17 08:15 | NUR ---
DR JACOBO WAS MADE AWARE THAT PATIENT HAD I&D ON 07/12/17, BONE SCAN RESULT WILL BE FALSE RESULT PER NUCLEAR MED TECH, ADVISED TO CONTINUE WITH THE TEST.
[2017-07-17] MEDS: PANTOPRAZOLE 40 MG TABEC PO SCH (08:50)
[2017-07-17] MEDS: MONTELUKAST SODIUM 10 MG TAB PO SCH (08:50)
[2017-07-17] MEDS: BENAZEPRIL 20 MG TAB PO SCH (08:50)
[2017-07-17] MEDS: HYDROCHLOROTHIAZIDE 25 MG TAB PO SCH (08:51)
[2017-07-17] MEDS: LORATADINE 10 MG TAB PO SCH (08:51)
[2017-07-17] MEDS: ENOXAPARIN 30 MG/0.3 ML SYR SUBQ SCH (08:52)
--- NOTE | 2017-07-17 09:30 | NUR ---
[facility] IS AT BEDSIDE TO TRANSFER THE PATIENT. PATIENT AMBULATES SELF TO THE WHEELCHAIR WITH STEADY GAIT
--- NOTE | 2017-07-17 13:00 | NUR ---
DRESSING CHANGED WAS DONE ON RIGHT AND LEFT FOOT. NO SIGN OF INFECTION SEEN. PICTURES WERE TAKEN ON THE LEFT FOOT S/P I&D. PATIENT TOLERATED WELL
[2017-07-17] MEDS: NACL 0.9% IRR 250 ML BOTTLE IR SCH (13:33)
[2017-07-17] MEDS: GAUZE TP SCH (13:33)
--- NOTE | 2017-07-17 13:49 | NUR ---
[facility] IS AT THE BEDSIDE TO TRANSFER THE PATIENT. PATIENT WALKED HIMSELF TO THE WHEELCHAIR, STEADY GAIT. DENIED PAIN AT THIS TIME.
--- NOTE | 2017-07-17 15:08 | NUR ---
CM NOTE CONCURRENT REVIEW FAXED TO [facility] / FAX# [phone], ATTN: WICHO #[phone]
[2017-07-17 16:00] VITALS: BP 142/76
--- NOTE | 2017-07-17 16:00 | NUR ---
PATIENT IS AWAKE, ALERT. RESPIRATION EVEN, UNLABOR, NO DISTRESS NOTED. DENIED PAIN AT THIS TIME. PICC LINE INFUSING WELL. CALL LIGHT WITHIN REACH.
--- NOTE | 2017-07-17 18:36 | NUR ---
DR. JACOBO WAS MADE AWARE OF THE RESULT OF THE BONE SCAN. PATIENT WILL BE SEEN BY DR. DONNELL TAVAREZ
--- NOTE | 2017-07-17 19:17 | NUR ---
ENDORSEMENT GIVEN TO THE TAX MANAGER CPA NURSE. PATIENT IS STABLE AT THIS TIME.
--- NOTE | 2017-07-17 19:18 | NUR ---
PATIENT REPORT RECEIVED AT BEDSIDE FROM MORNING NURSE. PATIENT IS AWAKE, ALERT, AND ORIENTED. NO SIGNS AND SYMPTOMS OF DISTRESS NOTED. NO COMPLAINTS OF PAIN AT THIS TIME. PATIENT'S FAMILY IS AT BEDSIDE. PLAN OF CARE DISCUSSED WITH PATIENT AT FAMILY, PATIENT VERBALIZED UNDERSTANDING. PICC LINE NOTED ON RIGHT UPPER ARM, WITH IVF INFUSING WELL. BED IN LOWEST POSITION, SIDE RAILS UP AND CALL LIGHT WITHIN REACH. WILL CONTINUE TO MONITOR.
[2017-07-17] MEDS: ATORVASTATIN 20 MG TAB PO SCH (20:00)
--- NOTE | 2017-07-17 22:00 | NUR ---
CHECKED ON PATIENT. PATIENT IS ASLEEP. NO SIGNS AND SYMPTOMS OF DISTRESS NOTED. WILL CONTINUE TO MONITOR.
[2017-07-17] MEDS: AMPICILLIN/SULBACTAM 3 GM in NACL 0.9% 100 ML IV SCH (23:41)
[2017-07-17] MEDS ORDERED: AMPICILLIN/SULBACTAM 3 GM VIAL ONE (23:43)
[2017-07-18] VITALS: BP 122/65
--- NOTE | 2017-07-18 | NUR ---
CHECKED ON PATIENT. PATIENT IS ASLEEP. NO SIGNS AND SYMPTOMS OF DISTRESS NOTED. WILL CONTINUE TO MONITOR.
[2017-07-18] MEDS: NACL 0.9% 1,000 ML IV SCH ×2 (02:18→12:18)
--- NOTE | 2017-07-18 03:30 | NUR ---
CHECKED ON PATIENT. PATIENT IS ASLEEP. NO SIGNS AND SYMPTOMS OF DISTRESS NOTED. WILL CONTINUE TO MONITOR.
[2017-07-18] MEDS ORDERED: AMPICILLIN/SULBACTAM 3 GM VIAL ONE (05:56)
[2017-07-18] MEDS: AMPICILLIN/SULBACTAM 3 GM in NACL 0.9% 100 ML IV SCH ×3 (06:14→17:07)
[2017-07-18] MEDS: INSULIN LISPRO SLIDING SCALE 100 UNITS/ML VIAL SUBQ PRN ×2 (06:18→17:06)
[2017-07-18] MEDS: BLOOD GLUCOSE MONITORING 1 DEV DEV FS SCH ×4 (06:31→17:07)
--- NOTE | 2017-07-18 07:26 | NUR ---
PATIENT REPORT GIVEN TO MORNING NURSE. PATIENT IS IN STABLE CONDITION.
[2017-07-18 08:00] VITALS: BP 138/77
[2017-07-18] MEDS: PANTOPRAZOLE 40 MG TABEC PO SCH (08:02)
[2017-07-18] MEDS: BENAZEPRIL 20 MG TAB PO SCH (08:02)
[2017-07-18] MEDS: LORATADINE 10 MG TAB PO SCH (08:02)
[2017-07-18] MEDS: HYDROCHLOROTHIAZIDE 25 MG TAB PO SCH (08:02)
[2017-07-18] MEDS: MONTELUKAST SODIUM 10 MG TAB PO SCH (08:02)
[2017-07-18] MEDS: ENOXAPARIN 30 MG/0.3 ML SYR SUBQ SCH (08:05)
--- NOTE | 2017-07-18 08:08 | NUR ---
VTALS TAKEN, DUE MEDS GIVEN, PT KEISHA WELL, DENIES PAIN OR DISCOMFORT, DENIES ANY IMMEDIATE NEEDS, WILL CONTINUE TO MONITOR.
[2017-07-18] MEDS ORDERED: LEVOFLOXACIN 750 MG TAB PO SCH (09:00)
[2017-07-18] MEDS ORDERED: LEVO750T2 PO (09:27)
[2017-07-18] MEDS ORDERED: AMPI1PDS19 IV (09:27)
--- NOTE | 2017-07-18 11:33 | NUR ---
spoke to patient regarding home health arrangment. will have home health iv antibiotic Unasyn for 6 weeks and wound care nurse for his left foot. spoke to Franko from [facility] and obtained the auth number [id number]. patient is aware. Also spoke to Nila from [facility] and faxed her H&P and labs, order . awaiting for call back to verify the approval
--- NOTE | 2017-07-18 12:45 | NUR ---
DR STEPHENS AT BEDSIDE, WOUND PICTURE TAKEN, WOUNDS CLEANED WITH NS, PAT DRIED, PACKED LEFT FOOT WOUNDS X2 4X4 APPLIED, WRAPPED WITH CLING, RIGTH FOOT WOUND APPLEID SILVER OINTMENT COVERED WITH 4X4 DRESSING AND WRAPPED WITH CLING. PT KEISHA WELL.
[2017-07-18] MEDS: NACL 0.9% IRR 250 ML BOTTLE IR SCH (13:00)
[2017-07-18] MEDS: GAUZE TP SCH (13:00)
--- NOTE | 2017-07-18 13:36 | NUR ---
FAXED CONCURRENT REVIEW TO [facility] [phone] PHONE DECEMBER [phone]
--- NOTE | 2017-07-18 14:02 | NUR ---
AWAITING HOMEHEALTH ARRANGEMENT CONFIRMATION BY [facility] BEFORE DC HOME. PT AND FAMILY AWARE OF PLAN, WILL CONTINUE TO MONTIOR.
--- NOTE | 2017-07-18 14:36 | NUR ---
RECEIVED A CALL FROM CALOS FROM [facility]. THEY NEED AN AUTH AND PHARMACY THAT IS CONTRACGED FOR THIS PATIENT. I CALLED ADRIANNE FROM [facility] AND HE SAID THAT THE MEDICATIONS GO THROUGH [facility]. I CALL CALLED ANJANA FAITH;Christopher AND SPOKE WITH DEBBY AND FAXED HIM THE FACE SHEET AND ORDER. I TOLD HIM THAT THE HOME HEALTH WILL BE [facility]. PHONE [phone].
[2017-07-18 16:00] VITALS: BP 135/75
--- NOTE | 2017-07-18 16:40 | NUR ---
SPOKE WITH STEFANIA FROM [facility]. C .[phone] THE MEDICATIONS WILL BE DELIVERED TO THE PATIENT'S HOUSE TOMORROW MORNING. THE PHARMACY WILL CALL THEM WITH A TIME FOR DELIVERY. PHONE [phone]. STEFANIA WILL CALL [facility] AND INFORM THEM TO WHEN THEY WILL DELIVER THE MEDICATION. STEFANIA SAID THEY WILL ALSO FURNISHED THE PUMP AND TUBING. I INFORMED GINO GARGBURR BENCH OPERATOR NURSE ABOUT DELIVERY.
--- NOTE | 2017-07-18 17:15 | NUR ---
DUE UNASYN STARTED, PT TO BE DC'D HOME AFTER INFUSION, SON CALLED BY CHARGE NURSE TO PICK PT UP.
--- NOTE | 2017-07-18 18:20 | NUR ---
DC INSTRUCTION AND RX INFO GIVEN AND EXPLAINED TO PT AND HIS SON, HOME HEALTH TO START TOMORROW AM FOR ANTIBIOTIC AND WOUND CARE, PT TO F/U WITH DR STEPHENS AND DR JACOBO, THEY VERBALIZED FULL UNDERSTANDING, PT UP OUT OF BED WITHOUT PROBLEM, ESCORTED OUT TO LOBBY IN WHEELCHAIR, DC HOME WITH HOME HEALTH.
== END 2017-07-18 18:25 | disposition home health service (06) | DRG 344 ==
LOC: MED 08:35 → MIC 11:20 → MTU 11:37
PROVIDERS: ADMIT Hospitalist; ATTEND Hospitalist
PROC: 0JBQ0ZZ Excision of Right Foot Subcutaneous Tissue and Fascia, Open Approach (ICD-10-PCS; 2017-07-12)
PROC: 0JBR0ZZ Excision of Left Foot Subcutaneous Tissue and Fascia, Open Approach (ICD-10-PCS; principal; 2017-07-12 09:20)
PROC: 02HV33Z Insertion of Infusion Device into Superior Vena Cava, Percutaneous Approach (ICD-10-PCS; 2017-07-17)
PROC: B548ZZA Ultrasonography of Superior Vena Cava, Guidance (ICD-10-PCS; 2017-07-17)
DX: E11.628 Type 2 diabetes mellitus with other skin complications (principal); M86.172 Other acute osteomyelitis, left ankle and foot; E87.2 Acidosis; E11.52 Type 2 diabetes mellitus with diabetic peripheral angiopathy with gangrene; E11.621 Type 2 diabetes mellitus with foot ulcer; E44.0 Moderate protein-calorie malnutrition; E11.42 Type 2 diabetes mellitus with diabetic polyneuropathy; L03.116 Cellulitis of left lower limb; E11.69 Type 2 diabetes mellitus with other specified complication; E11.622 Type 2 diabetes mellitus with other skin ulcer; I10 Essential (primary) hypertension; E78.5 Hyperlipidemia, unspecified; L97.529 Non-pressure chronic ulcer of other part of left foot with unspecified severity; D64.9 Anemia, unspecified; L97.519 Non-pressure chronic ulcer of other part of right foot with unspecified severity; M72.9 Fibroblastic disorder, unspecified; L02.612 Cutaneous abscess of left foot; E78.00 Pure hypercholesterolemia, unspecified; B95.2 Enterococcus as the cause of diseases classified elsewhere; B96.6 Bacteroides fragilis [B. fragilis] as the cause of diseases classified elsewhere; Z68.34 Body mass index [BMI] 34.0-34.9, adult; Z79.82 Long term (current) use of aspirin; Z79.899 Other long term (current) drug therapy; Z79.4 Long term (current) use of insulin
CPT/HCPCS: 36415; 71010; 73630; 78315; 80053; 80202; 81001; 82948; 83036; 83605; 85025; 85610; 85651; 85730; 86140; 86886; 86900; 86901; 87040; 87070; 87075; 87081; 87086; 87186; 87205; 88304; 93005; 93925; 96365; 96367; 96375; 99285; C1751; J0295; J1650; J1815; J1885; J1956; J2405; J2543; J2704; J3010; J3370; J3490; J7030; J7060; Q0092

== ENCOUNTER 2019-05-10 12:40 | Inpatient (IN) | payer OTHER ==
[~2019-05-10] VITALS: Ht 172.7 cm; Wt 91.6 kg
[~2019-05-10 12:40] MED LIST: ASPI-1718 PO; ATOR40TA PO; BENA20TA PO; CLIN300C2 PO; FERR325E14 PO; METF500T PO; NOVN SUBQ; ORE25 PO
[2019-05-10 12:49] VITALS: BP 106/56
--- NOTE | 2019-05-10 12:54 | NUR ---
PATIENT WHEELCHAIR ASSISTED TO BED 3.
--- NOTE | 2019-05-10 13:01 | NUR ---
BIB DAUGHTER C/O CELLULITIS ON LEFT FOOT. PT WAS SENT BY PODIATRY FOR ADMISSION FOR AN I&D AND POSSIBLE BONE DEBRIDEMENT. PT DID AMPUTATION TO HIS LEFT TOES DUE TO DIABETES. LEFT FOOT IS COVERED BY DRESSING AND LEFT ANKLE IS EYRTHYMOUS AND WARM TO TOUCH. PT DENIES ANY OTHER DISCOMFORTS OR PAIN AT THIS TIME. PATIENT STATES HAVING PAIN ON WALKING; VSS; PATIENT POSITIONED FOR COMFORT; HOB ELEVATED; BEDRAILS UP X1; BED DOWN. ER MD MADE AWARE OF PT STATUS. DAUGHTER IS AT BEDSIDE.
[2019-05-10] MEDS ORDERED: METF850T PO (13:25)
[2019-05-10] MEDS ORDERED: OMEP40EC24 PO (13:25)
[2019-05-10] MEDS ORDERED: METO25TA PO (13:25)
[2019-05-10] MEDS ORDERED: TAMS0.4C96 PO (13:25)
[2019-05-10] MEDS ORDERED: TRI48 PO (13:25)
[2019-05-10] MEDS ORDERED: NACL 0.9% 500 ML IV SCH (13:44)
--- NOTE | 2019-05-10 13:51 | NUR ---
XRAY IS AT BEDSIDE.
--- NOTE | 2019-05-10 14:20 | NUR ---
THE RESIDENT IS EVALUATING AT BEDSIDE. WOUND CULTURE COLLECTED BY THE RESIDENT.
[2019-05-10] MEDS ORDERED: VANCOMYCIN PER PHARMACY MC PRN (14:25)
[2019-05-10] MEDS ORDERED: PIPERACILLIN/TAZOBACTAM 3.375 GM in DEXTROSE 5% 50 ML IV ONE (14:25)
[2019-05-10] MEDS ORDERED: VANCOMYCIN 1GM/DEXT 5% PREMIX 200 ML IV ONE (14:25)
[2019-05-10 14:26] LABS: BASOPHILS % (AUTO) 0.1 % (0.0-2.0); EOSINOPHILS % (AUTO) 0.2 % (0.0-4.0); HEMATOCRIT 27.9 % (36-52); HEMOGLOBIN 8.8 g/dL (12.0-18.0); LYMPHOCYTES # (AUTO) 1.3 K/uL (2.0-11.5); LYMPHOCYTES % (AUTO) 9.6 % (20.5-51.1); MEAN CORPUSCULAR HEMOGLOBIN 28 pg (27-31); MEAN CORPUSCULAR HGB CONC 32 g/dL (33-37); MEAN CORPUSCULAR VOLUME 88.4 fL (80-94); MONOCYTES # (AUTO) 1.2 K/uL (0.8-1.0); MONOCYTES % (AUTO) 9.4 % (1.7-9.3); NEUTROPHILS # (AUTO) 10.8 K/uL (1.8-7.7); NEUTROPHILS % (AUTO) 80.7 % (42.2-75.2); PLATELET COUNT (AUTO) 441 K/uL (140-450); RED BLOOD CELL COUNT(AUTO) 3.15 MIL/uL (4.20-6.10); RED CELL DISTRIBUTION WIDTH 16.9 % (11.6-13.7); WHITE BLOOD COUNT (AUTO) 13.4 K/uL (4.8-10.8)
[2019-05-10] MEDS ORDERED: PIPERACILLIN/TAZOBACTAM 3.375 GM VIAL IV ONE (14:32)
[2019-05-10] MEDS ORDERED: VANCOMYCIN 1,000 MG in DEXTROSE 5% 250 ML IV SCH (14:45)
[2019-05-10 14:47] LABS: ANION GAP 15.1 (8-16); CARBON DIOXIDE 25.6 mmol/L (21-32); CREATININE 1.6 mg/dL (0.7-1.3); POTASSIUM 4.7 mmol/L (3.5-5.1)
[2019-05-10 14:51] LABS: PROTHROMBIN TIME 11.3 secs (10.8-13.4)
[2019-05-10 14:54] LABS: ALBUMIN 2.5 g/dL (3.4-5.0); TOTAL BILIRUBIN 0.4 mg/dL (0.0-1.0)
[2019-05-10] MEDS: NACL 0.9% 1,000 ML IV SCH (15:14)
[2019-05-10] MEDS ORDERED: VANCOMYCIN 1,000 MG VIAL ONE (15:14)
[2019-05-10] MEDS ORDERED: ACETAMINOPHEN 325 MG TAB PO PRN (15:15)
[2019-05-10] MEDS ORDERED: DOCUSATE SODIUM 100 MG GELCAP PO PRN (15:15)
[2019-05-10] MEDS ORDERED: MORPHINE SULFATE 2 MG/ML SYR IVP PRN (15:15)
[2019-05-10] MEDS ORDERED: ONDANSETRON 4 MG/2 ML VIAL IM/IVP PRN (15:15)
[2019-05-10 15:17] LABS: APPEARANCE,URINE CLEAR (CLEAR); BILIRUBIN,URINE NEGATIVE (NEGATIVE); BLOOD, URINE NEGATIVE (NEGATIVE); COLOR,URINE AMBER (YELLOW); LEUKOCYTE ESTERASE ,URINE NEGATIVE (NEGATIVE); NITRITE, URINE NEGATIVE (NEGATIVE); UGLUCOSE NEGATIVE (NEGATIVE)
--- NOTE | 2019-05-10 15:42 | NUR ---
TWO MEDICAL STUDENTS ARE EVALUATING PT AT BEDSIDE.
--- NOTE | 2019-05-10 16:34 | NUR ---
RECEIVED REPORT FROM ER NURSE. PT IN STABLE CONDITION. AAOX4, AMBULATORY WITH CANE BUT UNSTEADY DUE TO RECENT AMPUTATION OF ALL TOES TO THE LEFT FOOT. PT ALSO HAS SCAB TO THE LEFT HAND. PHOTOS TAKEN. PT HAS IV IN THE LEFT AC 22G INFUSING NS AT 80ML/HR. PT ON RA. VITAL SIGNS STABLE. EXPLAINED POC TO PT. PT VERBALIZED UNDERSTANDING. BED IN LOW POSITION, CALL LIGHT WITHIN REACH. WILL ROUND FREQUENTLY ON PT.
[2019-05-10] MEDS ORDERED: DEXTROSE 50% 50 ML SYR IVP PRN (16:35)
--- NOTE | 2019-05-10 16:35 | NUR ---
Patient will be admitted to care of Cellulitis, possible Osteomyelitis. Admited to Telemetry. Will go to room 119B. Belongings list completed. Report to [facility].
[2019-05-10 16:39] LABS: BARBITURATE, URINE NEG. ng/ml (NEG <=200); BENZODIAZEPINE, URINE NEG. ng/mL (NEG <=200); CANNABINOID, URINE NEG. ng/mL (NEG <=50); COCAINE, URINE NEG. ng/mL (NEG <=300); OPIATE, URINE NEG. ng/mL (NEG <=2000); PHENCYCLIDINE SCREEN,URINE NEG. ng/mL (NEG <=25)
[2019-05-10 16:52] LABS: CHOL/HDL RATIO 4.7 (1-4.5); MAGNESIUM 1.7 mg/dL (1.8-2.4); PHOSPHORUS 3.4 mg/dL (2.5-4.9)
[2019-05-10 16:53] LABS: FREE T4 (FREE THYROXINE) 1.05 ng/dL (0.76-1.46); THYROID STIMULATING HORMONE 1.01 uIU/mL (0.34-3.74)
--- NOTE | 2019-05-10 18:24 | NUR ---
PT RESTING IN BED. ALL NEEDS MET. WILL CONTINUE TO ROUND FREQUENTLY ON PT.
--- NOTE | 2019-05-10 19:10 | NUR ---
RECEIVED BEDSIDE REPORT FROM DAY SHIFT NURSE. PATIENT IS AWAKE, ALERT, AND COOPERATIVE. RESPIRATION EVEN UNLABORED ON ROOM AIR. NO DISTRESS NOTED. SKIN IS WARM AND DRY. LEFT FOOT CELLULITIS NOTED DRESSING DRY AND INTACT. IV PATENT AND INTACT. PLAN OF CARE WAS DISCUSSED. ALL SAFETY MEASURES IN PLACE. BED IS AT LOW POSITION. CALL LIGHT WITHIN REACH AND VERBALIZES ITS USE. WILL CONTINUE TO MONITOR.
[2019-05-10 20:00] VITALS: BP 97/50
--- NOTE | 2019-05-10 20:00 | NUR ---
INITIAL ASSESSMENT DONE. VITALS WERE TAKEN. PATIENT IN STABLE CONDITION. NO DISTRESS NOTED. WILL CONTINUE TO MONITOR.
--- NOTE | 2019-05-10 20:05 | NUR ---
ENDORSED PT TO DIRECTOR OF UNDERGRADUATE ADMISSIONS FOR CONTINUITY OF CARE. PT IN STABLE CONDITION AT THIS TIME.
[2019-05-10] MEDS: BLOOD GLUCOSE MONITORING 1 DEV DEV FS SCH (20:29)
[2019-05-10] MEDS: ATORVASTATIN 20 MG TAB PO SCH (20:31)
[2019-05-10] MEDS: PIPERACILLIN/TAZOBACTAM 3.375 GM in DEXTROSE 5% 50 ML IV SCH (20:31)
[2019-05-10] MEDS ORDERED: MAGNESIUM OXIDE 400 MG TAB PO SCH (21:00)
--- NOTE | 2019-05-10 21:00 | NUR ---
ALL SCHEDULED MEDS WERE GIVEN PER ORDER. NO ASE NOTED. WILL CONTINUE TO MONITOR.
--- NOTE | 2019-05-10 21:20 | NUR ---
USE [employer] BACK[employer] UP # [id number] (KALEIGH HORN)TO ASK PATIENT IF HE WOULD LIKE TO DO THE DEBRIDEMENT WITH POSSIBLE INCISION AND DRAINAGE OF LEFT FOOT WOUND. PATIENT SAID YES. DR. BOLAND (GANG KNIFE FISH CHOPPER) WILL EXPLAIN THE PROCEDURE TOMORROW AND WILL OBTAIN CONSENT.
[2019-05-11] VITALS: BP 96/50
--- NOTE | 2019-05-11 | NUR ---
VITALS WERE TAKEN. PATIENT IN STABLE CONDITION. NO DISTRESS NOTED. WILL CONTINUE TO MONITOR.
--- NOTE | 2019-05-11 03:00 | NUR ---
CHECKED PATIENT. PATIENT SLEEPING RESPIRATION EVEN UNLABORED ON ROOM AIR. NO DISTRESS NOTED. WILL CONTINUE TO MONITOR.
--- NOTE | 2019-05-11 03:50 | NUR ---
ENDORSED PATIENT TO BROOKS GARG FOR CONTINUITY OF CARE. PATIENT IN STABLE CONDITION
--- NOTE | 2019-05-11 03:53 | NUR ---
RECEIVED REPORT FORM YURI TOE CLOSING MACHINE TENDERCENTRIFUGAL SPINNER NURSE DUE TO CHANGE OF ASSIGNMENT, PT IN STABLE CONDITION.
[2019-05-11 04:00] VITALS: BP 123/66
--- NOTE | 2019-05-11 05:50 | NUR ---
PT IN BED , HE DENIES PAIN, ZOSYN HUNG AND RUNNING AT 100MLS/HR. FINGERSTICK IS 130 NO COVERAGE NEEDED. PT GIVEN ORDERED PROTONIX. V/S FOLLOWS T 97.8 P 98 R 18 B/P 123/6 02 98% ON ROOM AIR. CALL MORTON IN REACH.
[2019-05-11] MEDS: PIPERACILLIN/TAZOBACTAM 3.375 GM in DEXTROSE 5% 50 ML IV SCH ×3 (06:21→21:25)
[2019-05-11] MEDS: NACL 0.9% 1,000 ML IV SCH ×4 (06:22→23:05)
[2019-05-11] MEDS: PANTOPRAZOLE 40 MG TABEC PO SCH (06:27)
[2019-05-11] MEDS: BLOOD GLUCOSE MONITORING 1 DEV DEV FS SCH ×4 (06:30→21:16)
--- NOTE | 2019-05-11 07:15 | NUR ---
RECEIVED REPORT FROM RISK COMPLIANCE MANAGER NURSE. PATIENT LYING DOWN IN BED WATCHING TV. NO DISTRESS NOTED. DENIES ANY PAIN AT THIS TIME. AAXO4, CALM, COOPERATIVE, SKIN COLOR APPROPRIATE TO ETHNICITY, WARM TO TOUCH. HAS LEFT FOOT CELLULITIS WITH DRAINAGE. DRESSING DRY AND INTACT AT THIS TIME, COVERED WITH AMILCAR BANDAGE. IV SITE INTACT, PATENT, AND INFUSING IVF PER MD ORDERS. ABDOMEN SOFT. RESPIRATIONS EVEN, UNLABORED, ON ROOM AIR. REVIEWED PLAN OF CARE WITH PATIENT. PATIENT VERBALIZED UNDERSTANDING. SAFETY MEASURES IN PLACE, CALL LIGHT WITHIN REACH. WILL CONTINUE TO MONITOR.
[2019-05-11 08:00] VITALS: BP 121/57
--- NOTE | 2019-05-11 08:30 | NUR ---
PATIENT HAS BEEN SCREENED AND CATEGORIZED MODERATE NUTRITION RISK. PATIENT WILL BE SEEN WITHIN 3-5 DAYS OF ADMISSION. 05/13/19-05/15/[address]
--- NOTE | 2019-05-11 08:40 | NUR ---
LEFT FOOT I&D AND POSSIBLE DEBRIDEMENT CONSENT AND ANESTHESIA CONSENT OBTAINED USING AUTOMOTIVE TITLE CLERK, [employer] #[id number]. ANSWERED ALL QUESTIONS FROM PATIENT REGARDING SURGERY. PATIENT VERBALIZED UNDERSTANDING AND IS ALRIGHT WITH HAVING THE I&D PROCEDURE.
[2019-05-11] MEDS: METOPROLOL 25 MG TAB PO SCH (09:00)
[2019-05-11] MEDS: BENAZEPRIL 20 MG TAB PO SCH (09:00)
[2019-05-11] MEDS: HYDROCHLOROTHIAZIDE 25 MG TAB PO SCH (09:00)
[2019-05-11] MEDS: FENOFIBRATE 48 MG TAB PO SCH (09:00)
[2019-05-11] MEDS: LACTOBACILLUS RHAMNOSUS GG 1 EACH CAP PO SCH (09:00)
[2019-05-11] MEDS: TAMSULOSIN 0.4 MG CAP PO SCH (09:00)
--- NOTE | 2019-05-11 09:00 | NUR ---
US TECH AT BEDSIDE PERFORMING US BLE. WILL CONTINUE TO MONITOR.
--- NOTE | 2019-05-11 09:47 | NUR ---
PATIENT LYING DOWN IN BED. NO DISTRESS NOTED. DENIES ANY PAIN. SCHEDULED MEDICATIONS NOT GIVEN DUE TO NPO. WILL HAVE I&D AND POSSIBLE DEBRIDEMENT OF LEFT FOOT AT 1400 TODAY. WILL CONTINUE TO MONITOR.
[2019-05-11 10:01] LABS: ANION GAP 13.2 (8-16); CARBON DIOXIDE 27.1 mmol/L (21-32); CREATININE 1.4 mg/dL (0.7-1.3); POTASSIUM 4.3 mmol/L (3.5-5.1)
[2019-05-11] MEDS ORDERED: MAGNESIUM OXIDE 400 MG TAB PO SCH (10:14)
--- NOTE | 2019-05-11 10:28 | NUR ---
PATIENT LYING DOWN IN BED. NO DISTRESS NOTED. SCHEDULED MEDICATIONS DUE GIVEN. WILL CONTINUE TO MONITOR.
[2019-05-11 10:59] LABS: HEMATOCRIT 28.1 % (36-52); HEMOGLOBIN 9.2 g/dL (12.0-18.0); MEAN CORPUSCULAR HEMOGLOBIN 29 pg (27-31); MEAN CORPUSCULAR HGB CONC 33 g/dL (33-37); MEAN CORPUSCULAR VOLUME 88.8 fL (80-94); PLATELET COUNT (AUTO) 468 K/uL (140-450); RED BLOOD CELL COUNT(AUTO) 3.17 MIL/uL (4.20-6.10); RED CELL DISTRIBUTION WIDTH 16.8 % (11.6-13.7); WHITE BLOOD COUNT (AUTO) 11.3 K/uL (4.8-10.8)
[2019-05-11 12:00] VITALS: BP 103/53
--- NOTE | 2019-05-11 12:49 | NUR ---
PATIENT LYING DOWN IN BED COMFORTABLY. DENIES ANY PAIN. CONDITION UNCHANGED. SCHEDULED MEDICATIONS DUE GIVEN. WILL CONTINUE TO MONITOR.
[2019-05-11 12:52] LABS: LYMPHOCYTES % (MANUAL) 11 % (20-46); MONOCYTES % (MANUAL) 9 % (5-12)
[2019-05-11] MEDS ORDERED: BUPIVACAINE-MPF 0.5% 10 ML VIAL INJ ONE (13:31)
[2019-05-11] MEDS ORDERED: LIDOCAINE 1% 500 MG/50 ML VIAL ONE (13:31)
--- NOTE | 2019-05-11 13:40 | NUR ---
OR NURSE AT BEDSIDE TO TAKE PATIENT FOR I&D AND POSSIBLE DEBRIDEMENT. WILL CONTINUE TO MONITOR WHEN PATIENT RETURNS ON UNIT
[2019-05-11] MEDS ORDERED: ONDANSETRON 4 MG/2 ML VIAL IVP ONE (13:45)
[2019-05-11] MEDS ORDERED: PROPOFOL 200 MG/20 ML VIAL IV ONE (13:45)
[2019-05-11] MEDS ORDERED: SEVOFLURANE 250 ML BTL INH ONE (13:45)
[2019-05-11 13:48] LABS: MAGNESIUM 1.8 mg/dL (1.8-2.4); PHOSPHORUS 3.4 mg/dL (2.5-4.9)
[2019-05-11] MEDS ORDERED: MIDAZOLAM 2 MG/2 ML VIAL ONE (13:54)
[2019-05-11] MEDS ORDERED: fentaNYL 0.05 MG/ML VIAL ONE (13:55)
[2019-05-11] MEDS ORDERED: ONDANSETRON 4 MG/2 ML VIAL IVP PRN (14:45)
[2019-05-11] MEDS ORDERED: diphenhydrAMINE 50 MG/ML VIAL IVP PRN (14:45)
[2019-05-11] MEDS ORDERED: BLOOD GLUCOSE MONITORING 1 DEV DEV FS ONE (14:45)
[2019-05-11] MEDS ORDERED: HYDROmorphone 1 MG/ML AMP IVP PRN (14:45)
[2019-05-11] MEDS ORDERED: VANCOMYCIN PER PHARMACY MC PRN (15:20)
[2019-05-11 16:00] VITALS: BP 102/60
[2019-05-11] MEDS: VANCOMYCIN 1,500 MG in DEXTROSE 5% 500 ML IV SCH (17:22)
--- NOTE | 2019-05-11 17:25 | NUR ---
PATIENT LYING DOWN IN BED TALKING WITH DAUGHTER AT BEDSIDE. NO DISTRESS NOTED. DENIES ANY PAIN. SCHEDULED MEDICATIONS DUE GIVEN. WILL CONTINUE TO MONITOR.
[2019-05-11] MEDS: HYDROcodone/APAP 7.5/325 MG 1 TAB PO PRN (18:54)
--- NOTE | 2019-05-11 19:25 | NUR ---
GAVE REPORT TO PRESS BRAKE OPERATOR NURSE FOR CONTINUITY OF CARE. PATIENT IN STABLE CONDITION
--- NOTE | 2019-05-11 19:30 | NUR ---
RECEIVED FROM AM RN IN BED SLEEPING. WOKE UP EASILY WHEN TOUCHED AND CALLED BY NAME. DRESSING INTACT FROM I AND D . PT. DENIES ANY PAIN AT THIS TIME. ENCOURAGED TO USE CALL LIGHT FOR ANY HELP HE MAY NEED OR IF IN PAIN. TELEMETRY MONITORING. IVF SITE INTACT AND PATENT. NO S/S OF INFILTRATION.
[2019-05-11 20:03] VITALS: BP 103/58
[2019-05-11] MEDS: INSULIN LISPRO SLIDING SCALE 100 UNITS/ML VIAL SUBQ PRN (21:16)
[2019-05-11] MEDS: ATORVASTATIN 20 MG TAB PO SCH (21:26)
[2019-05-12] VITALS: BP 104/63
--- NOTE | 2019-05-12 01:15 | NUR ---
VITAL SIGN TAKEN FOR MIDNIGHT AND SEEN SITTING AT EDGE OF BED . STATED HE WANTS TO USE URINAL. PT. AWAKE AND ALERT. ORIENTED X 4. CLEAR SPEECH. WENT BACK TO SLEEP AFTER. NO COMPLAINTS DONE.
--- NOTE | 2019-05-12 02:30 | NUR ---
PT. SITTING AT EDGE OF BED AND USING URINAL TO URINATE. NO COMPLAINTS OF ANY PAIN. DENIES PAIN. DRESSING TO LEFT FOOT INTACT. NO BLEEDING NOTED.
[2019-05-12 04:00] VITALS: BP 108/66
--- NOTE | 2019-05-12 04:15 | NUR ---
SLEEPING WELL. NO COMPLAINTS DONE. CALL LIGHT WITH IN REACH AT ALL TIMES.
[2019-05-12] MEDS: NACL 0.9% 1,000 ML IV SCH ×3 (04:44→17:01)
[2019-05-12] MEDS: BLOOD GLUCOSE MONITORING 1 DEV DEV FS SCH ×4 (05:21→21:53)
[2019-05-12] MEDS: INSULIN LISPRO SLIDING SCALE 100 UNITS/ML VIAL SUBQ PRN ×4 (05:22→21:56)
[2019-05-12] MEDS: PIPERACILLIN/TAZOBACTAM 3.375 GM in DEXTROSE 5% 50 ML IV SCH ×2 (05:23→13:06)
[2019-05-12] MEDS: PANTOPRAZOLE 40 MG TABEC PO SCH (05:25)
--- NOTE | 2019-05-12 06:36 | NUR ---
SLEPT WELL THIS SHIFT. NO COMPLAINTS OF ANY PAIN . ABLE TO VERBALIZE SIMPLE NEEDS WELL WHEN AWAKE. WILL ENDORSE TO AM RN FOR CONTINUITY OF CARE.
--- NOTE | 2019-05-12 07:27 | NUR ---
RECEIVED REPORT FROM MOTOR VEHICLE PARTS INTERPRETER NURSE. PATIENT LYING DOWN IN BED WATCHING TV. NO DISTRESS NOTED. DENIES ANY PAIN AT THIS TIME. AAXO4, CALM, COOPERATIVE, SKIN COLOR APPROPRIATE TO ETHNICITY, WARM TO TOUCH. S/P LEFT FOOT I&D, DRESSING IS DRY AND INTACT. IV SITE INTACT, PATENT, AND INFUSING IVF PER MD ORDERS. ABDOMEN SOFT. RESPIRATIONS EVEN, UNLABORED, ON ROOM AIR. REVIEWED PLAN OF CARE WITH PATIENT. PATIENT VERBALIZED UNDERSTANDING. SAFETY MEASURES IN PLACE, CALL LIGHT WITHIN REACH. WILL CONTINUE TO MONITOR.
[2019-05-12 08:00] VITALS: BP 101/57
[2019-05-12] MEDS: LACTOBACILLUS RHAMNOSUS GG 1 EACH CAP PO SCH (08:57)
[2019-05-12] MEDS: BENAZEPRIL 20 MG TAB PO SCH ×2 (08:57→08:59)
[2019-05-12] MEDS: TAMSULOSIN 0.4 MG CAP PO SCH (08:58)
[2019-05-12] MEDS: HYDROCHLOROTHIAZIDE 25 MG TAB PO SCH (08:58)
[2019-05-12] MEDS: FENOFIBRATE 48 MG TAB PO SCH (08:58)
[2019-05-12] MEDS: METOPROLOL 25 MG TAB PO SCH (08:58)
--- NOTE | 2019-05-12 09:03 | NUR ---
PATIENT LYING DOWN IN BED COMFORTABLY. NO DISTRESS NOTED. DENIES ANY PAIN. SCHEDULED MEDICATIONS DUE GIVEN. WILL CONTINUE TO MONITOR.
[2019-05-12 09:58] LABS: HEMATOCRIT 27.4 % (36-52); HEMOGLOBIN 8.8 g/dL (12.0-18.0); MEAN CORPUSCULAR HEMOGLOBIN 29 pg (27-31); MEAN CORPUSCULAR HGB CONC 32 g/dL (33-37); PLATELET COUNT (AUTO) 506 K/uL (140-450); RED BLOOD CELL COUNT(AUTO) 3.08 MIL/uL (4.20-6.10); RED CELL DISTRIBUTION WIDTH 17.5 % (11.6-13.7); WHITE BLOOD COUNT (AUTO) 10.6 K/uL (4.8-10.8)
[2019-05-12 10:39] LABS: CARBON DIOXIDE 26.3 mmol/L (21-32); CREATININE 1.3 mg/dL (0.7-1.3); POTASSIUM 4.3 mmol/L (3.5-5.1)
[2019-05-12 10:41] LABS: BASOPHILS % (MANUAL) 0 % (0-2); EOSINOPHILS % (MANUAL) 1 % (0-4); LYMPHOCYTES % (MANUAL) 15 % (20-46); MONOCYTES % (MANUAL) 9 % (5-12)
[2019-05-12 10:52] LABS: MAGNESIUM 1.8 mg/dL (1.8-2.4); PHOSPHORUS 2.9 mg/dL (2.5-4.9)
--- NOTE | 2019-05-12 11:05 | NUR ---
PATIENT LYING DOWN IN BED SLEEPING, AROUSABLE BY VOICE. NO DISTRESS NOTED. DENIES ANY PAIN. SCHEDULED MEDICATIONS DUE GIVEN. WILL CONTINUE TO MONITOR.
[2019-05-12 12:00] VITALS: BP 130/65
--- NOTE | 2019-05-12 13:08 | NUR ---
PATIENT WITH LUNCH TRAY IN FRONT. SCHEDULED MEDICATIONS DUE GIVEN. WILL CONTINUE TO MONITOR.
[2019-05-12] MEDS: HYDROcodone/APAP 7.5/325 MG 1 TAB PO PRN (13:16)
--- NOTE | 2019-05-12 13:20 | NUR ---
PATIENT COMPLAINS OF PAIN ON LLE. NORCO GIVEN AT THIS TIME. WILL CONTINUE TO MONITOR.
--- NOTE | 2019-05-12 14:19 | NUR ---
WOUND CARE CONSULT NOT DONE, PT. WAS SEEN BY DR. BORJA WITH I&D TO LEFT FOOT ON 05/11/2019. DR. HAWK NOTIFIED AND WILL HAVE PODIATRY CONTINUE TO FOLLOW UP. PRIMARY RN NOTIFIED. PT. IS TELUGU SPEAKING, UNDERSTANDING LITTLE VIETNAMESE, AIDA RN ASSIST IN TRANSLATING, ALL QUESTIONS ANSWERED.
[2019-05-12 16:00] VITALS: BP 107/48
[2019-05-12] MEDS: ATORVASTATIN 20 MG TAB PO SCH (16:34)
[2019-05-12] MEDS: VANCOMYCIN 1,500 MG in DEXTROSE 5% 500 ML IV SCH (16:34)
--- NOTE | 2019-05-12 16:54 | NUR ---
PATIENT LYING DOWN IN BED COMFORTABLY. DENIES ANY PAIN AT THIS TIME. SCHEDULED MEDICATIONS DUE GIVEN. WILL CONTINUE TO MONITOR.
--- NOTE | 2019-05-12 19:14 | NUR ---
GAVE REPORT TO FLAME HARDENING MACHINE SETTER NURSE FOR CONTINUITY OF CARE. PATIENT IN STABLE CONDITION.
--- NOTE | 2019-05-12 19:20 | NUR ---
RECEIVED FROM AM RN IN BED SLEEPING. WAKES UP EASILY WHEN CALLED BY NAME. CALL LIGHT WITH IN REACH. DRESSING TO LEFT FOOT INTACT. NO BLEEDING. PT. ABLE TO VERBALIZE SIMPLE NEEDS WELL IN TURKMEN AND MALAY. TELEMETRY MONITORING.
[2019-05-12 19:58] VITALS: BP 105/60
--- NOTE | 2019-05-12 22:00 | NUR ---
PT. SLEEPING. WAKES UP EASILY WHEN CALLED BY NAME.
[2019-05-12] MEDS: MEROPENEM 1,000 MG in NACL 0.9% 100 ML IV SCH (23:00)
[2019-05-13] VITALS: BP 108/68
[2019-05-13] MEDS ORDERED: MEROPENEM 500 MG VIAL IV ONE (00:09)
--- NOTE | 2019-05-13 01:14 | NUR ---
SLEEPING AT THIS TIME. NO RESTLESSNESS. NO NOTED ADVERSE REACTIONS TO NEW MEDICATIONS MERREM 1 GM ORDERED BY MD JACOBO . CALL LIGHT WITH IN REACH.
--- NOTE | 2019-05-13 02:43 | NUR ---
PT. ON CONTACT PRECAUTIONS RT WOUND CULTURE RESULTS FROM LEFT FOOT. CHARGE NURSE AWARE. IVF SITE INTACT AND NO INFILTRATION. TELEMETRY MONITORING. DRESSING INTACT AND NO BLEEDING.
[2019-05-13] MEDS: NACL 0.9% 1,000 ML IV SCH ×3 (05:44→16:19)
[2019-05-13] MEDS: BLOOD GLUCOSE MONITORING 1 DEV DEV FS SCH ×4 (05:56→21:50)
[2019-05-13] MEDS: PANTOPRAZOLE 40 MG TABEC PO SCH (05:59)
[2019-05-13] MEDS: INSULIN LISPRO SLIDING SCALE 100 UNITS/ML VIAL SUBQ PRN ×4 (05:59→22:13)
[2019-05-13] MEDS ORDERED: MEROPENEM 1,000 MG VIAL IV ONE (06:00)
[2019-05-13] MEDS: MEROPENEM 1,000 MG in NACL 0.9% 100 ML IV SCH ×3 (06:19→21:45)
[2019-05-13 06:36] LABS: MAGNESIUM 1.6 mg/dL (1.8-2.4); PHOSPHORUS 2.7 mg/dL (2.5-4.9)
[2019-05-13 06:40] LABS: ANION GAP 12.2 (8-16); CARBON DIOXIDE 28.4 mmol/L (21-32); CREATININE 1.2 mg/dL (0.7-1.3); POTASSIUM 4.6 mmol/L (3.5-5.1)
[2019-05-13 06:52] VITALS: BP 110/62
[2019-05-13 07:24] LABS: HEMATOCRIT 28.4 % (36-52); HEMOGLOBIN 9.2 g/dL (12.0-18.0); MEAN CORPUSCULAR HEMOGLOBIN 29 pg (27-31); MEAN CORPUSCULAR HGB CONC 32 g/dL (33-37); MEAN CORPUSCULAR VOLUME 88.2 fL (80-94); PLATELET COUNT (AUTO) 500 K/uL (140-450); RED BLOOD CELL COUNT(AUTO) 3.22 MIL/uL (4.20-6.10); WHITE BLOOD COUNT (AUTO) 9.2 K/uL (4.8-10.8)
--- NOTE | 2019-05-13 07:25 | NUR ---
SLEPT WELL THIS SHIFT. ENDORSED TO AM RN FOR CONTINUITY OF CARE. NO COMPLAINTS DONE.
--- NOTE | 2019-05-13 07:26 | NUR ---
RECEIVED REPORT FROM SECURITIES RESEARCH ANALYST NURSE. PATIENT LYING DOWN IN BED WATCHING TV. NO DISTRESS NOTED. DENIES ANY PAIN AT THIS TIME. AAXO4, CALM, COOPERATIVE, SKIN COLOR APPROPRIATE TO ETHNICITY, WARM TO TOUCH. S/P LEFT FOOT I&D, DRESSING IS DRY AND INTACT. IV SITE INTACT, PATENT, AND INFUSING IVF PER MD ORDERS. ABDOMEN SOFT. RESPIRATIONS EVEN, UNLABORED, ON ROOM AIR. REVIEWED PLAN OF CARE WITH PATIENT. PATIENT VERBALIZED UNDERSTANDING. SAFETY MEASURES IN PLACE, CALL LIGHT WITHIN REACH. WILL CONTINUE TO MONITOR.
[2019-05-13 08:00] VITALS: BP 145/72
[2019-05-13] MEDS ORDERED: MAGNESIUM OXIDE 400 MG TAB PO SCH (09:00)
[2019-05-13] MEDS: BENAZEPRIL 20 MG TAB PO SCH (09:13)
[2019-05-13] MEDS: FENOFIBRATE 48 MG TAB PO SCH (09:14)
[2019-05-13] MEDS: LACTOBACILLUS RHAMNOSUS GG 1 EACH CAP PO SCH (09:14)
[2019-05-13] MEDS: METOPROLOL 25 MG TAB PO SCH (09:14)
[2019-05-13] MEDS: HYDROCHLOROTHIAZIDE 25 MG TAB PO SCH (09:14)
[2019-05-13] MEDS: ASPIRIN 81 MG TAB.CHEW PO SCH (09:14)
[2019-05-13] MEDS: TAMSULOSIN 0.4 MG CAP PO SCH (09:14)
[2019-05-13] MEDS: HYDROcodone/APAP 7.5/325 MG 1 TAB PO PRN (09:24)
--- NOTE | 2019-05-13 09:25 | NUR ---
PATIENT LYING DOWN IN BED COMFORTABLY. NO DISTRESS NOTED. COMPLAINS OF PAIN. NORCO GIVEN AT THIS TIME. SCHEDULED MEDICATIONS DUE GIVEN. WILL CONTINUE TO MONITOR.
[2019-05-13 09:26] LABS: EOSINOPHILS % (MANUAL) 2 % (0-4); LYMPHOCYTES % (MANUAL) 15 % (20-46); MONOCYTES % (MANUAL) 10 % (5-12)
--- NOTE | 2019-05-13 11:00 | NUR ---
DR. BOLAND AT BEDSIDE CHANGING DRESSING ON LEFT FOOT. PICTURES TAKEN. WILL CONTINUE TO MONITOR.
[2019-05-13 12:00] VITALS: BP 92/51
--- NOTE | 2019-05-13 14:00 | NUR ---
PATIENT LYING DOWN IN BED SLEEPING, AROUSABLE BY VOICE. NO DISTRESS NOTED. CONDITION UNCHANGED. WILL CONTINUE TO MONITOR.
--- NOTE | 2019-05-13 14:38 | NUR ---
FOR MRI ORDER AND THE TRANSPORTATION CHECKED WITH IE SPOKE WITH [facility] STATED [facility] DOESN'T PAY FOR THE TRANSPORT. [facility] HAS TO PAY FOR IT OUR DIRECTOR LEFT A MESSAGE WITH DR MILLER, DR BOUDREAUX THE (RESIDENT) WAS TOLD BY DR MILLER PT NEEDS MRI AND OK TO SEND PT FOR MRI TO [place]. SCHEDULE THE [facility] TRANSPORT FOR TOMORROW GAS LINE INSTALLER SUPERVISOR TIME AT 0630 AND WAIT AND RETURN . NOTIFIED BETH GARG.
[2019-05-13 16:00] VITALS: BP 115/61
[2019-05-13] MEDS: VANCOMYCIN 1,000 MG in DEXTROSE 5% 250 ML IV SCH (17:32)
[2019-05-13] MEDS: ATORVASTATIN 20 MG TAB PO SCH (17:35)
--- NOTE | 2019-05-13 17:38 | NUR ---
SCHEDULED MEDICATIONS DUE GIVEN. WILL CONTINUE TO MONITOR.
--- NOTE | 2019-05-13 19:13 | NUR ---
GAVE REPORT TO GIFTED PROGRAM TEACHER NURSE FOR CONTINUITY OF CARE. PATIENT IN STABLE CONDITION.
--- NOTE | 2019-05-13 19:14 | NUR ---
Received endorsement from AM shift RN; patient A/Ox4, able to make needs known, Armenian speaking but can understand Polish, ambulatory. Introduced self, updated board. No SOB or distress noted, on room air. IV site on left antecubital, 20 gauge, running IVF at 100mL/hr. Skin non-intact; patient s/p I&D of left foot. Bed in the lowest position, call light within reach. Initial assessment done. will continue to monitor.
[2019-05-13 20:00] VITALS: BP 136/67
--- NOTE | 2019-05-13 20:30 | NUR ---
Vitals taken, no distress noted.
--- NOTE | 2019-05-13 21:40 | NUR ---
Due meds given, tolerated well.
[2019-05-14] VITALS: BP 121/64
--- NOTE | 2019-05-14 00:01 | NUR ---
Vitals taken, no SOB or distress noted.
--- NOTE | 2019-05-14 02:12 | NUR ---
Rounds done; patient asleep, visible chest rise and fall noted.
[2019-05-14] MEDS: NACL 0.9% 1,000 ML IV SCH ×5 (02:21→22:19)
[2019-05-14] MEDS: VANCOMYCIN 1,000 MG in DEXTROSE 5% 250 ML IV SCH ×2 (03:15→17:38)
[2019-05-14 04:00] VITALS: BP 128/69
--- NOTE | 2019-05-14 04:10 | NUR ---
Vitals taken, no distress noted.
[2019-05-14] MEDS: MEROPENEM 1,000 MG in NACL 0.9% 100 ML IV SCH ×3 (04:35→22:00)
[2019-05-14] MEDS: BLOOD GLUCOSE MONITORING 1 DEV DEV FS SCH ×4 (04:40→21:21)
[2019-05-14] MEDS: INSULIN LISPRO SLIDING SCALE 100 UNITS/ML VIAL SUBQ PRN ×3 (04:42→21:22)
[2019-05-14] MEDS: PANTOPRAZOLE 40 MG TABEC PO SCH (05:47)
--- NOTE | 2019-05-14 06:00 | NUR ---
Vitals stable, due meds given. Will endorse to AM shift RN for continuity of care.
[2019-05-14 06:34] LABS: ANION GAP 13.6 (8-16); CARBON DIOXIDE 25.6 mmol/L (21-32); CREATININE 1.1 mg/dL (0.7-1.3); POTASSIUM 4.2 mmol/L (3.5-5.1)
[2019-05-14 06:36] LABS: BASOPHILS % (AUTO) 0.5 % (0.0-2.0); EOSINOPHILS # (AUTO) 0.2 K/uL (0-0.4); EOSINOPHILS % (AUTO) 2.7 % (0.0-4.0); HEMATOCRIT 26.3 % (36-52); HEMOGLOBIN 8.8 g/dL (12.0-18.0); LYMPHOCYTES # (AUTO) 1.7 K/uL (2.0-11.5); LYMPHOCYTES % (AUTO) 21.7 % (20.5-51.1); MEAN CORPUSCULAR HEMOGLOBIN 29 pg (27-31); MEAN CORPUSCULAR HGB CONC 34 g/dL (33-37); MEAN CORPUSCULAR VOLUME 87.2 fL (80-94); MONOCYTES # (AUTO) 0.8 K/uL (0.8-1.0); MONOCYTES % (AUTO) 10.2 % (1.7-9.3); NEUTROPHILS % (AUTO) 64.9 % (42.2-75.2); PLATELET COUNT (AUTO) 517 K/uL (140-450); RED BLOOD CELL COUNT(AUTO) 3.02 MIL/uL (4.20-6.10); RED CELL DISTRIBUTION WIDTH 16.5 % (11.6-13.7); WHITE BLOOD COUNT (AUTO) 7.7 K/uL (4.8-10.8)
[2019-05-14 06:46] LABS: MAGNESIUM 1.5 mg/dL (1.8-2.4); PHOSPHORUS 2.8 mg/dL (2.5-4.9)
--- NOTE | 2019-05-14 07:13 | NUR ---
[facility] picked up patient at this time. Patient vitals stable, no distress noted.
--- NOTE | 2019-05-14 07:14 | NUR ---
DID NOT SEE THE PATIENT AT THIS TIME. PATIENT LEFT WITH [facility] TO GET MRI DONE. WILL ASSESS WHEN HE IS BACK
[2019-05-14 09:40] VITALS: BP 136/62
--- NOTE | 2019-05-14 09:40 | NUR ---
PATIENT BACK FROM [facility] TO GET MRI. PATIENT IS ALERT AND ORIENTEDX4. NO SIGNS OF DISTRESS ON RA. L LEG HAS WOUND, BANDAGE IS CLEAN, DRY AND INTACT. IV ON L AC 22G SL. CLEAN, DRY AND INTACT. TELE MONITOR IN PLACE. PATIENT IS AMBULATORY W CANE. CONTINENT. URINAL AT BEDSIDE. ABLE TO MAKE NEEDS KNOWN. BED IN LOW POSITION. CALL LIGHT WITHIN REACH
[2019-05-14] MEDS: ASPIRIN 81 MG TAB.CHEW PO SCH (10:04)
[2019-05-14] MEDS: LACTOBACILLUS RHAMNOSUS GG 1 EACH CAP PO SCH (10:06)
[2019-05-14] MEDS: TAMSULOSIN 0.4 MG CAP PO SCH (10:06)
[2019-05-14] MEDS: HYDROCHLOROTHIAZIDE 25 MG TAB PO SCH (10:07)
[2019-05-14] MEDS: FENOFIBRATE 48 MG TAB PO SCH (10:07)
[2019-05-14] MEDS: METOPROLOL 25 MG TAB PO SCH (10:07)
[2019-05-14] MEDS: BENAZEPRIL 20 MG TAB PO SCH (10:07)
--- NOTE | 2019-05-14 10:12 | NUR ---
PATIENT IS NPO. HELD ALL MEDS AT THIS TIME. PT WITH PATIENT AT THIS TIME
--- NOTE | 2019-05-14 12:07 | NUR ---
PATIENT PICKED UP BY OR NURSE. LEFT IN STABLE CONDITION
[2019-05-14] MEDS ORDERED: SEVOFLURANE 250 ML BTL INH ONE (12:20)
[2019-05-14] MEDS ORDERED: PROPOFOL 200 MG/20 ML VIAL IV ONE (12:20)
[2019-05-14] MEDS ORDERED: BUPIVACAINE-MPF 0.5% 30 ML VIAL INJ ONE (12:25)
[2019-05-14] MEDS ORDERED: LIDOCAINE 1% 500 MG/50 ML VIAL ONE (12:25)
[2019-05-14] MEDS ORDERED: MIDAZOLAM 2 MG/2 ML VIAL ONE (12:27)
[2019-05-14] MEDS ORDERED: fentaNYL 0.05 MG/ML VIAL ONE (12:27)
[2019-05-14] MEDS ORDERED: BLOOD GLUCOSE MONITORING 1 DEV DEV FS SCH (12:59)
[2019-05-14] MEDS ORDERED: ONDANSETRON 4 MG/2 ML VIAL IVP PRN (13:00)
[2019-05-14] MEDS ORDERED: diphenhydrAMINE 50 MG/ML VIAL IVP PRN (13:00)
--- NOTE | 2019-05-14 14:20 | NUR ---
PATIENT BACK FROM OR. VITALS ARE STABLE AT THIS TIME. VITALS WILL BE PLACED IN THE CHART
[2019-05-14] MEDS: MAG SULF 2000 MG/WATER PREMIX 100 ML IV SCH ×2 (14:54→21:00)
[2019-05-14 16:00] VITALS: BP 129/64
--- NOTE | 2019-05-14 16:10 | NUR ---
NEW IV PLACED IN L FA 22G. CLEAN, DRY AND INTACT
[2019-05-14] MEDS: ATORVASTATIN 20 MG TAB PO SCH (17:32)
[2019-05-14] MEDS: HYDROcodone/APAP 7.5/325 MG 1 TAB PO PRN (17:37)
--- NOTE | 2019-05-14 17:37 | NUR ---
ADMINISTERED PRN PAIN MED. EDUCATED ON SIDE EFFECTS. PATIENT TOLERATED WELL
--- NOTE | 2019-05-14 19:17 | NUR ---
GAVE BEDSIDE REPORT TO ADJUNCT SPANISH INSTRUCTOR NURSE. PATIENT ENDORSED IN STABLE CONDITION
--- NOTE | 2019-05-14 19:20 | NUR ---
RECEIVED BEDSIDE REPORT FROM AM SHIFT RN KEYSHAWN, FOR PT'S CONTINUITY OF CARE. PT IS AAOX4, FAMILY MEMBERS AT BEDSIDE, IS ON ROOM AIR, HAS LEFT FA 22G INFUSING WITH NS AT 100ML/HR, PT HAS LEFT FOOT AMPUTATED TOES S/P I&D DRESSING DRY AND INTACT, CONTACT PRECAUTION IN PLACE, PT DENIES PAIN AT THIS TIME. EXPLAINED TO PT THE APNS ROUTINE, PT AND FAMILY MEMBERS VERBALIZED UNDERSTANDING. SAFETY MEASURES IN PLACE, CALL LIGHT IS WITHIN REACH. WILL MONITOR PT THROUGHOUT SHIFT.
--- NOTE | 2019-05-14 21:00 | NUR ---
ADMINISTERED SCHEDULED IV MEROPENEM ORDERED. PT DENIES ANY PAIN AT THIS TIME. WILL CONTINUE TO MONITOR PT. Addendum: 05/15/19 at 0406 by Landon Lawson RN CORRECTION: MAGNESIUM IV
--- NOTE | 2019-05-14 22:00 | NUR ---
ADMINISTERED SCHEDULED IV ABX ORDERED. PT ASLEEP WITH NO SIGNS OF DISTRESS. WILL CONTINUE TO MONITOR.
[2019-05-15] VITALS: BP 124/61
--- NOTE | 2019-05-15 | NUR ---
VS CHECKED AND CHARTED. PT WOKE UP AND DENIES ANY PAIN AT THIS TIME. WILL CONTINUE TO MONITOR PT.
--- NOTE | 2019-05-15 02:15 | NUR ---
MADE ROUNDS. PT LYING DOWN ASLEEP WITH NO SIGNS OF DISTRESS. WILL CONTINUE TO MONITOR PT.
[2019-05-15] MEDS: VANCOMYCIN 1,000 MG in DEXTROSE 5% 250 ML IV SCH ×2 (03:58→16:41)
--- NOTE | 2019-05-15 03:58 | NUR ---
ADMINISTERED SCHEDULED IV ANTIBIOTICS ORDERED.
--- NOTE | 2019-05-15 04:35 | NUR ---
PT C/O LEFT ARM PAIN, IV INFILTRATED. DISCONTINUED IV AND NEW IV INSERTED ON RIGHT WRIST 20G. PT TOLERATED IT WELL.
[2019-05-15] MEDS: NACL 0.9% 1,000 ML IV SCH ×2 (05:37→09:59)
[2019-05-15] MEDS: MEROPENEM 1,000 MG in NACL 0.9% 100 ML IV SCH ×3 (06:00→21:08)
[2019-05-15] MEDS: INSULIN LISPRO SLIDING SCALE 100 UNITS/ML VIAL SUBQ PRN ×4 (06:38→21:14)
[2019-05-15] MEDS: PANTOPRAZOLE 40 MG TABEC PO SCH (06:40)
[2019-05-15] MEDS: BLOOD GLUCOSE MONITORING 1 DEV DEV FS SCH ×4 (06:41→20:59)
--- NOTE | 2019-05-15 06:44 | NUR ---
BLOOD GLUCOSE CHECKED AND CHARTED. ADMINISTERED SCHEDULED PO AND SUBQ MEDICATIONS ORDERED. PT TOLERATED THEM WELL. PT DENIES ANY PAIN AT THIS TIME. WILL ENDORSE TO AM SHIFT RN FOR PT'S CONTINUITY OF CARE.
[2019-05-15 06:54] LABS: BASOPHILS % (AUTO) 0.5 % (0.0-2.0); EOSINOPHILS # (AUTO) 0.2 K/uL (0-0.4); EOSINOPHILS % (AUTO) 2.5 % (0.0-4.0); HEMATOCRIT 26.2 % (36-52); HEMOGLOBIN 8.6 g/dL (12.0-18.0); LYMPHOCYTES # (AUTO) 1.5 K/uL (2.0-11.5); LYMPHOCYTES % (AUTO) 17.7 % (20.5-51.1); MEAN CORPUSCULAR HEMOGLOBIN 29 pg (27-31); MEAN CORPUSCULAR HGB CONC 33 g/dL (33-37); MEAN CORPUSCULAR VOLUME 86.6 fL (80-94); MONOCYTES % (AUTO) 11.4 % (1.7-9.3); NEUTROPHILS # (AUTO) 5.7 K/uL (1.8-7.7); NEUTROPHILS % (AUTO) 67.9 % (42.2-75.2); PLATELET COUNT (AUTO) 586 K/uL (140-450); RED BLOOD CELL COUNT(AUTO) 3.03 MIL/uL (4.20-6.10); RED CELL DISTRIBUTION WIDTH 16.4 % (11.6-13.7); WHITE BLOOD COUNT (AUTO) 8.5 K/uL (4.8-10.8)
[2019-05-15 06:57] LABS: MAGNESIUM 2.5 mg/dL (1.8-2.4); PHOSPHORUS 2.4 mg/dL (2.5-4.9)
--- NOTE | 2019-05-15 07:25 | NUR ---
RECEIVED BEDSIDE REPORT FROM CONFERENCE AND EVENT ORGANISER NURSE FOR CONTINUITY OF CARE. PATIENT IS AWAKE AND SITTING UP ON BED. PATIENT IS AAOX4, SPEAKS TANZANIAN, UNDERSTAND SOME SAMI,ABLE TO FOLLOW SIMPLE COMMANDS AND MAKE NEEDS KNOWN. RESPIRATION EVEN AND UNLABORED ON RA. DENIED PAIN, DIZZINESS AND SOB. NO SIGNS OF DISTRESS NOTED. IV INTACT AND CLEAN,INFUSING. L FOOT DRESSING CLEAN AND DRY. PATIENT IS CONTINENT AND ABLE TO AMBULATE WITH ASSIST DUE TO UNSTEADY GAIT. DISCUSSED PLAN OF CARE WITH PATIENT AND PATIENT VERBALIZED UNDERSTANDING. CONTACT PRECAUTION IN PLACE AND SIGN POSTED ON DOOR. SAFETY MEASURES IN PLACE. BED IN LOW POSITION AND CALL LIGHT WITHIN REACH. INSTRUCTED PATIENT TO USE THE CALL LIGHT FOR ANY ASSISTANCE AND PATIENT WAS AWARE.
[2019-05-15 08:00] VITALS: BP 138/76
--- NOTE | 2019-05-15 09:40 | NUR ---
PT IS PARTICIPATING IN PT SESSION WITH RAUL ANGULO AT THIS TIME. NO SIGNS OF DISTRESS NOTED.
[2019-05-15] MEDS: LACTOBACILLUS RHAMNOSUS GG 1 EACH CAP PO SCH (09:58)
[2019-05-15] MEDS: ASPIRIN 81 MG TAB.CHEW PO SCH (09:59)
[2019-05-15] MEDS: HYDROCHLOROTHIAZIDE 25 MG TAB PO SCH (10:00)
[2019-05-15] MEDS: BENAZEPRIL 20 MG TAB PO SCH (10:00)
[2019-05-15] MEDS: METOPROLOL 25 MG TAB PO SCH ×3 (10:01→21:09)
[2019-05-15] MEDS: FENOFIBRATE 48 MG TAB PO SCH (10:02)
[2019-05-15] MEDS: TAMSULOSIN 0.4 MG CAP PO SCH (10:03)
[2019-05-15] MEDS: HYDROcodone/APAP 7.5/325 MG 1 TAB PO PRN (10:05)
--- NOTE | 2019-05-15 10:05 | NUR ---
USED [email or web address] [facility] #[id number] FOR MEDS ADMINISTRATION. ADMINISTERED SCHEDULED MEDS PER MD ORDER, PATIENT TOLERATED WELL. MEDS EDUCATION PROVIDED TO PATIENT, ANSWERED ALL PATIENT'S QUESTIONS, AND PATIENT VERBALIZED UNDERSTANDING. PATIENT COMPLAINED SHE HAS 6/10 PAIN ON HIS LEG,HE FEELS RESTLESS AND SHARP PAIN, AND HEAVINESS. ADMINISTERED PRN PAIN MED PER MD ORDER, PATIENT TOLERATED WELL. MED EDUCATION PROVIDED TO PATIENT AND PATIENT VERBALIZED UNDERSTANDING. PATIENT IS RESTING ON BED AT THIS TIME. SAFETY MEASURES IN PLACE. BED IN LOW POSITION AND CALL LIGHT WITHIN REACH. INSTRUCTED PATIENT TO USE THE CALL LIGHT FOR ANY ASSISTANCE AND PATIENT WAS AWARE.
[2019-05-15 10:58] LABS: ANION GAP 14.6 (8-16); CARBON DIOXIDE 23.8 mmol/L (21-32); CREATININE 1.2 mg/dL (0.7-1.3); POTASSIUM 4.4 mmol/L (3.5-5.1)
--- NOTE | 2019-05-15 11:40 | NUR ---
PATIENT IS AWAKE AND TALKING TO DAUGHTER ANALI AT BEDSIDE. INSTRUCTED ANALI TO PUT ON PPE AT ALL TIME IN PATIENT'S ROOM AND CONTACT ISOLATION EDUCATION PROVIDED, ANALI VERBALIZE UNDERSTANDING. NO SIGNS OF DISTRESS NOTED. SAFETY MEASURES IN PLACE. BED IN LOW POSITION AND CALL LIGHT WITHIN REACH. INSTRUCTED PATIENT AND ANALI TO USE THE CALL LIGHT FOR ANY ASSISTANCE AND BOTH ARE AWARE.
--- NOTE | 2019-05-15 11:45 | NUR ---
DR MCQUEEN IS TALKING TO PATIENT AND DAUGHTER ANALI AT BEDSIDE. NO SIGNS OF DISTRESS NOTED. SAFETY MEASURES IN PLACE.
[2019-05-15] MEDS ORDERED: SODIUM PHOS / POTASSIUM PHOS 1 PKT PDR PO SCH (12:15)
--- NOTE | 2019-05-15 13:09 | NUR ---
DR BOLAND IS CHANGING AND PACKING L FOOT WOUND AT BEDSIDE. NO SIGNS OF DISTRESS NOTED. SAFETY MEASURES IN PLACE.
--- NOTE | 2019-05-15 13:40 | NUR ---
USED [employer] [facility] #[id number] FOR MED ADMINISTRATION AND PICC LINE CONSENT. ADMINISTERED SCHEDULED MED PER MD ORDER, PATIENT TOLERATED WELL. MED EDUCATION PROVIDED TO PATIENT, ANSWERED ALL PATIENT'S QUESTIONS, AND PATIENT VERBALIZED UNDERSTANDING. OBTAINED CONSENT FROM PATIENT'S FOR PICC INSERTION, ANSWERED ALL PATIENT'S QUESTIONS AND PATIENT WAS AWARE OF RISKS AND BENEFITS FOR PICC LINE. PATIENT AGREED TO INSERT PICC LINE AND SIGNED CONSENT. PATIENT IS AWAKE AND RESTING ON BED AT THIS TIME. SAFETY MEASURES IN PLACE. BED IN LOW POSITION AND CALL LIGHT WITHIN REACH. INSTRUCTED PATIENT TO USE THE CALL LIGHT FOR ANY ASSISTANCE AND PATIENT WAS AWARE.
--- NOTE | 2019-05-15 14:13 | NUR ---
CALLED [facility] [phone] AND BO SAID" I WILL NOTIFY THE [facility]EEVES AND LALA WILL RETURN THE CALL." PROVIDED A CALL BACK NUMBER.
--- NOTE | 2019-05-15 15:43 | NUR ---
05/15/19 RD INITIAL ASSESSMENT COMPLETED PLEASE REFER TO NUTRITION ASSESSMENT UNDER CARE ACTIVITY FOR ESTIMATED NUTRITIONAL NEEDS. 1. CONTINUE CCHO 60GM DIET TOLERATED 2. RECOMMEND ALIRIO BID FOR WOUND HEALING 3. RD TO FOLLOW-UP 5-7 DAYS, LOW RISK ELIZ MCCARTHY, RD
[2019-05-15 16:00] VITALS: BP 120/53
--- NOTE | 2019-05-15 16:25 | NUR ---
DISCHARGE PLANNING :PER FAMILY REQUEST AMANDA (DAUGHTER) AND THE SON FAXED ALL THE PAPER WORK TO [facility] , SPOKE WITH BERNADETTE STRESS ANALYST , ACCEPTED PATIENT AND CAN GO TO ROOM 216B #TO GIVE REPORT [phone] BOUDREAUX AND D/C PLAN IS FOR MONDAY CM TO FOLLOW.
--- NOTE | 2019-05-15 16:41 | NUR ---
ADMINISTERED SCHEDULED MEDS PER MD ORDER, PATIENT TOLERATED WELL. MED EDUCATION PROVIDED TO PATIENT AND SON SUAL AT BEDSIDE, BOTH VERBALIZED UNDERSTANDING. PATIENT IS RESTING ON BED AND TALKING TO SON AT THIS TIME. SAFETY MEASURES IN PLACE. BED IN LOW POSITION AND CALL LIGHT WITHIN REACH. INSTRUCTED PATIENT TO USE THE CALL LIGHT FOR ANY ASSISTANCE AND PATIENT WAS AWARE.
[2019-05-15] MEDS ORDERED: GAUZE TP PRN (16:55)
[2019-05-15] MEDS ORDERED: DRY DRESSING TP PRN (16:55)
[2019-05-15] MEDS: ATORVASTATIN 20 MG TAB PO SCH (18:07)
--- NOTE | 2019-05-15 19:30 | NUR ---
RECEIVED BEDSIDE REPORT FROM MORNING NURSE. PATIENT IN BEDREST, AAO X 4, MOZAMBICAN SPEAKING BUT UNDERSTAND ZAMBIAN, ABLE TO MAKE NEEDS KNOWN, ON ROOM AIR, NO ACUTE RESPIRATORY DISTRESS NOTED. BILATERAL LUNGS SOUND CLEAR NOTED. NON-TELE, DENIES CP AT THIS TIME. PERIPHERAL LINE TO RIGHT WRIST AND PICC LINE INSERTED AT MORNING SHIFT, WAITING FOR X-RAY RESULT TO CONFIRM PLACEMENT. CELLULITIS TO LEFT FOOT, S/P TMA 3 MONTHS AGO, DRESSING C/D/I, CHANGED FROM FOOT DOCTOR IN THE MORNING. CONTACT ISOLATION FOR MDRO, MRSA E-COLI WOUND. ON FALL PRECAUTION, BED IN LOW POSITION, CALL LIGHT WITHIN REACH. WILL CONTINUE TO MONITOR.
--- NOTE | 2019-05-15 19:30 | NUR ---
ENDORSED PATIENT AT BEDSIDE TO HAND ETCHER HELPER NURSE FOR CONTINUITY OF CARE, PATIENT IS IN STABLE CONDITION.
--- NOTE | 2019-05-15 22:00 | NUR ---
ADMINISTERED SCHEDULED MEDICATIONS ORDERED. DENIES PAIN AT THIS TIME. WILL CONTINUE TO MONITOR.
[2019-05-16] VITALS: BP 124/62
--- NOTE | 2019-05-16 00:30 | NUR ---
VITAL SIGNS STABLE, NO ACUTE DISTRESS. DENIES PAIN AT THIS TIME. WILL CONTINUE TO MONITOR.
--- NOTE | 2019-05-16 02:00 | NUR ---
RECEIVE PT FROM RADHA RN PT SLEEPING NOT DISTRESS NOTED , PICC LINE ON RT UA INFUSING WELL TKO , LEFT FOOT DRESSING DRY AND INTACT INITIAL ASSESSMENT DONE
--- NOTE | 2019-05-16 04:00 | NUR ---
SPONGE BATH GIVEN LINEN CHANGED NOT DISTRESS NOTED
[2019-05-16] MEDS: VANCOMYCIN 1,000 MG in DEXTROSE 5% 250 ML IV SCH ×2 (04:19→16:40)
[2019-05-16] MEDS: MEROPENEM 1,000 MG in NACL 0.9% 100 ML IV SCH ×3 (05:31→20:31)
[2019-05-16] MEDS: PANTOPRAZOLE 40 MG TABEC PO SCH (05:38)
[2019-05-16] MEDS: BLOOD GLUCOSE MONITORING 1 DEV DEV FS SCH ×4 (05:43→20:41)
[2019-05-16 06:05] LABS: BASOPHILS % (AUTO) 0.6 % (0.0-2.0); EOSINOPHILS # (AUTO) 0.2 K/uL (0-0.4); EOSINOPHILS % (AUTO) 3.4 % (0.0-4.0); HEMATOCRIT 25.4 % (36-52); HEMOGLOBIN 8.3 g/dL (12.0-18.0); LYMPHOCYTES # (AUTO) 1.9 K/uL (2.0-11.5); LYMPHOCYTES % (AUTO) 27.7 % (20.5-51.1); MEAN CORPUSCULAR HEMOGLOBIN 28 pg (27-31); MEAN CORPUSCULAR HGB CONC 33 g/dL (33-37); MEAN CORPUSCULAR VOLUME 86.5 fL (80-94); MONOCYTES # (AUTO) 0.8 K/uL (0.8-1.0); MONOCYTES % (AUTO) 11.5 % (1.7-9.3); NEUTROPHILS % (AUTO) 56.8 % (42.2-75.2); PLATELET COUNT (AUTO) 624 K/uL (140-450); RED BLOOD CELL COUNT(AUTO) 2.94 MIL/uL (4.20-6.10); RED CELL DISTRIBUTION WIDTH 16.4 % (11.6-13.7)
[2019-05-16 06:16] LABS: ANION GAP 9.4 (8-16); CREATININE 1.1 mg/dL (0.7-1.3); POTASSIUM 4.4 mmol/L (3.5-5.1)
[2019-05-16] MEDS: INSULIN LISPRO SLIDING SCALE 100 UNITS/ML VIAL SUBQ PRN ×4 (06:17→21:36)
--- NOTE | 2019-05-16 06:20 | NUR ---
BLOOD SUGAR TEST 201 COVERAGE WITH 4 UNITS SUBQ HUMALOG , FOLLOW PROTOCOL
--- NOTE | 2019-05-16 06:24 | NUR ---
PT WILL BE ENDORSED TO DAY SHIFT NURSE FOR CONTINUE OF CARE
[2019-05-16 06:57] LABS: MAGNESIUM 1.8 mg/dL (1.8-2.4); PHOSPHORUS 2.8 mg/dL (2.5-4.9)
--- NOTE | 2019-05-16 07:15 | NUR ---
ADMINISTERED MORNING MEDICATION TO PATIENT. PATIENT TOLERATED WELL, NO COMPLAINTS. VITAL SIGNS WNL PRIOR TO ADMINISTRATION.
[2019-05-16 08:00] VITALS: BP 125/57
--- NOTE | 2019-05-16 08:45 | NUR ---
ADMINISTERED MORNING MEDICATION. PATIENT TOLERATED WELL. VITAL SIGNS WNL PRIOR TO ADMINISTRATION.
[2019-05-16] MEDS: TAMSULOSIN 0.4 MG CAP PO SCH (08:57)
[2019-05-16] MEDS: BENAZEPRIL 20 MG TAB PO SCH (08:57)
[2019-05-16] MEDS: FENOFIBRATE 48 MG TAB PO SCH (08:57)
[2019-05-16] MEDS: METOPROLOL 25 MG TAB PO SCH ×2 (08:57→21:32)
[2019-05-16] MEDS: ASPIRIN 81 MG TAB.CHEW PO SCH (08:57)
[2019-05-16] MEDS: LACTOBACILLUS RHAMNOSUS GG 1 EACH CAP PO SCH (08:57)
[2019-05-16] MEDS: NACL 0.9% 1,000 ML IV SCH (08:59)
[2019-05-16] MEDS: ABDOMINAL PAD TP SCH (09:00)
--- NOTE | 2019-05-16 11:49 | NUR ---
ADMINISTERED 8U INSULIN FOR BLOOD SUGAR OF 317
[2019-05-16] MEDS: NACL 0.9% IRR 250 ML BOTTLE IR SCH (13:00)
--- NOTE | 2019-05-16 13:00 | NUR ---
DID NOT DO WOUND DRESSING CHANGE PER DR ORDER D/T PATIENT REFUSING. PATIENT STATED "FOR ME, ITS FINE. I DON'T NEED A DRESSING CHANGE".
[2019-05-16 16:00] VITALS: BP 119/54
[2019-05-16] MEDS: ATORVASTATIN 20 MG TAB PO SCH (16:51)
[2019-05-16 20:00] VITALS: BP 119/54
--- NOTE | 2019-05-16 20:00 | NUR ---
PT RECEIVED FROM TELLO GARG. PT AAOX4 . IV PICC LINE STEPHIE WITH 2LUMEN. PT. RESTING IN BED DRESSING DRY AND INTACT ON LEFT FOOT. NO C/O PAIN INTIAL ASSESSMENT COMPLETE.
--- NOTE | 2019-05-16 21:00 | NUR ---
BS 239 4UNITS HUMALOG SQ PER PROTOCOL, PT STABLE AT THIS TIME.
--- NOTE | 2019-05-17 | NUR ---
PT SLEEPING WELL NOT DISTRESS NOTED LEFT FOOT ON PILLOW ELEVATION NOT SIGNS OF PAIN NOTED
[2019-05-17] MEDS: VANCOMYCIN 1,000 MG in DEXTROSE 5% 250 ML IV SCH ×2 (03:26→16:00)
--- NOTE | 2019-05-17 04:00 | NUR ---
SPONGE BATH GIVEN LINEN CHANGED NOT DISTRESS NOTED
[2019-05-17] MEDS: MEROPENEM 1,000 MG in NACL 0.9% 100 ML IV SCH ×3 (05:45→20:55)
[2019-05-17] MEDS: PANTOPRAZOLE 40 MG TABEC PO SCH (05:45)
[2019-05-17] MEDS: BLOOD GLUCOSE MONITORING 1 DEV DEV FS SCH ×4 (05:55→20:46)
[2019-05-17] MEDS: INSULIN LISPRO SLIDING SCALE 100 UNITS/ML VIAL SUBQ PRN ×4 (05:58→21:22)
--- NOTE | 2019-05-17 06:20 | NUR ---
BLOOD SUGAR TEST 204 COVERAGE WITH 4 UNITS HUMALOG SUBQ FOLLOW PROTOCOL
--- NOTE | 2019-05-17 06:21 | NUR ---
PT WILL BE ENDORSED TO DAY SHIFT NURSE FOR CONTINUE OF CARE,
[2019-05-17 06:38] LABS: ANION GAP 11.5 (8-16); CARBON DIOXIDE 27.8 mmol/L (21-32); CREATININE 1.1 mg/dL (0.7-1.3); POTASSIUM 4.3 mmol/L (3.5-5.1)
[2019-05-17 06:53] LABS: MAGNESIUM 1.9 mg/dL (1.8-2.4)
--- NOTE | 2019-05-17 07:20 | NUR ---
RECEIVED REPORT FROM NUCLEAR OPERATIONS SPECIALIST RN. PATIENT IS AAOX4, ON ROOM AIR. RESTING QUIETLY IN BED. FULL CODE, NKA. PLAN IS TO DC TO [facility] FRIDAY 05/18. WILL REVIEW AND CONTINUE WITH CURRENT PLAN OF CARE.
[2019-05-17 07:25] LABS: BASOPHILS % (AUTO) 0.5 % (0.0-2.0); EOSINOPHILS # (AUTO) 0.3 K/uL (0-0.4); HEMOGLOBIN 8.7 g/dL (12.0-18.0); LYMPHOCYTES # (AUTO) 1.6 K/uL (2.0-11.5); MEAN CORPUSCULAR HEMOGLOBIN 28 pg (27-31); MEAN CORPUSCULAR HGB CONC 32 g/dL (33-37); MEAN CORPUSCULAR VOLUME 86.9 fL (80-94); MONOCYTES # (AUTO) 0.6 K/uL (0.8-1.0); MONOCYTES % (AUTO) 9.3 % (1.7-9.3); NEUTROPHILS # (AUTO) 4.1 K/uL (1.8-7.7); NEUTROPHILS % (AUTO) 62.2 % (42.2-75.2); PLATELET COUNT (AUTO) 739 K/uL (140-450); RED CELL DISTRIBUTION WIDTH 16.4 % (11.6-13.7); WHITE BLOOD COUNT (AUTO) 6.6 K/uL (4.8-10.8)
[2019-05-17 08:00] VITALS: BP 131/60
[2019-05-17] MEDS: NACL 0.9% 1,000 ML IV SCH (08:19)
[2019-05-17] MEDS: ABDOMINAL PAD TP SCH (09:00)
[2019-05-17] MEDS: LACTOBACILLUS RHAMNOSUS GG 1 EACH CAP PO SCH (09:19)
[2019-05-17] MEDS: METOPROLOL 25 MG TAB PO SCH ×2 (09:20→20:57)
[2019-05-17] MEDS: FENOFIBRATE 48 MG TAB PO SCH (09:21)
[2019-05-17] MEDS: TAMSULOSIN 0.4 MG CAP PO SCH (09:21)
[2019-05-17] MEDS: ASPIRIN 81 MG TAB.CHEW PO SCH (09:21)
[2019-05-17] MEDS: BENAZEPRIL 20 MG TAB PO SCH (09:22)
--- NOTE | 2019-05-17 10:50 | NUR ---
BEGAN INFUSION OF MAGNESIUM FOR MAG 1.5. PATIENT C/O BURNING AT IV SITE, LOWERED RATE AND TOLD PATIENT WILL REASSESS TO SEE IF IT IS STILL BURNING
--- NOTE | 2019-05-17 11:30 | NUR ---
ADMINISTERED 6 UNITS INSULIN FOR BLOOD SUGAR OF 297
--- NOTE | 2019-05-17 12:10 | NUR ---
CHANGED PATIENTS WOUND TO LEFT FOOT. REMOVED OLD GAUZE, CURAD, AND ABD PADS AND ISHAAN. REPLACED ALL AND RE PACKED CURAD INTO WOUND. PATIENT TOLERATED WELL, NO C/O OF PAIN.
[2019-05-17] MEDS: NACL 0.9% IRR 250 ML BOTTLE IR SCH (12:12)
--- NOTE | 2019-05-17 13:59 | NUR ---
DC PLANNING: CM CONTACTED AZUCENA GARCÍA [facility] @ [phone], SPOKE WITH LENY (ADMISSION COORDINATOR), WHO CONFIRMED ACCEPTING PATIENT AND ROOM NUMBER IS 222B. CM OBTAINED TRANSPORTATION AUTH FROM [facility], SPOKE WITH SHIVAM (CM @ [facility]) @ . TRANSPORTATION AUTH [id number]. TRANSPORTATION HAS BEEN SETUP FOR WILL CALL TOMORROW WITH [facility] @ [phone], SPOKE WITH TATY (DISPATCH). CM TO FOLLOW UP NEEDED.
[2019-05-17 16:00] VITALS: BP 136/64
[2019-05-17] MEDS: ATORVASTATIN 20 MG TAB PO SCH (17:26)
--- NOTE | 2019-05-17 19:35 | NUR ---
REPORT RECEIVED AT BEDSIDE FROM RN DAYSHIFT NURSE AT BEDSIDE FOR CONTINUITY OF CARE, PT IN STABLE CONDITION. PICC LINE INTACT AND RUNNING N/S AT 10MLS/HR TO KVO. DRESSING ON LEFT FOOT DRY AND INTACT.
[2019-05-17 20:00] VITALS: BP 114/54
--- NOTE | 2019-05-17 21:00 | NUR ---
PT IN BED, GIVEN ALL DUE MEDS AT THIS TIME. V/S FOLLOWS T 97.2 P 78 R 18 B/P 114/54 02 97% ON ROOM AIR. PT GIVEN SCHEDULED IVPB MEDICATION FOR INFECTION OF LEFT FOOT.
--- NOTE | 2019-05-17 21:21 | NUR ---
FINGERSTICK IS OVER 200, GIVEN 4 UNITS OF COVERAGE PER S/S.
[2019-05-18] VITALS: BP 104/51
--- NOTE | 2019-05-18 | NUR ---
PT IN BED SLEEPING NO S/S OF PAIN OR DISTRESS NOTED V/S FOLLOWS T 99.3 P 83 R 18 B/P 104/51 02 94% ON ROOM AIR.
--- NOTE | 2019-05-18 04:00 | NUR ---
PT GIVEN IV ABT STEVEN GAMBLE AND RUNNING ORDERED.
[2019-05-18] MEDS: VANCOMYCIN 1,000 MG in DEXTROSE 5% 250 ML IV SCH ×2 (05:27→16:00)
--- NOTE | 2019-05-18 06:00 | NUR ---
PT GIVEN SCHEDULED MERREM AND PROTONIX FINGERSTICK IS 221, PT GIVEN 4 UNITS OF COVERAGE. PT HAD A BM X1 THIS SHIFT.
[2019-05-18] MEDS: INSULIN LISPRO SLIDING SCALE 100 UNITS/ML VIAL SUBQ PRN ×3 (06:29→22:29)
[2019-05-18] MEDS: PANTOPRAZOLE 40 MG TABEC PO SCH (06:31)
[2019-05-18] MEDS: MEROPENEM 1,000 MG in NACL 0.9% 100 ML IV SCH ×3 (06:35→21:52)
[2019-05-18] MEDS: BLOOD GLUCOSE MONITORING 1 DEV DEV FS SCH ×4 (06:38→21:00)
--- NOTE | 2019-05-18 07:15 | NUR ---
RECEIVED REPORT FROM SUPERINTENDENT STEVEDORING NURSE BROOKS FOR CONTINUITY OF CARE. PT IN STABLE CONDITION. RESPIRATIONS EVEN AND UNLABORED, ROOM AIR. IV ACCESS INTACT AND PATENT. SAFETY MEASURES IN PLACE. BED IN LOW POSITION. BED ALARM ON. CALL LIGHT AT BEDSIDE. WILL CONTINUE TO MONITOR.
[2019-05-18 07:47] LABS: BASOPHILS % (AUTO) 0.7 % (0.0-2.0); EOSINOPHILS # (AUTO) 0.3 K/uL (0-0.4); EOSINOPHILS % (AUTO) 4.4 % (0.0-4.0); HEMATOCRIT 25.4 % (36-52); HEMOGLOBIN 8.3 g/dL (12.0-18.0); LYMPHOCYTES # (AUTO) 2.1 K/uL (2.0-11.5); LYMPHOCYTES % (AUTO) 31.7 % (20.5-51.1); MEAN CORPUSCULAR HEMOGLOBIN 28 pg (27-31); MEAN CORPUSCULAR HGB CONC 33 g/dL (33-37); MONOCYTES # (AUTO) 0.6 K/uL (0.8-1.0); MONOCYTES % (AUTO) 9.7 % (1.7-9.3); NEUTROPHILS # (AUTO) 3.5 K/uL (1.8-7.7); NEUTROPHILS % (AUTO) 53.5 % (42.2-75.2); PLATELET COUNT (AUTO) 726 K/uL (140-450); RED BLOOD CELL COUNT(AUTO) 2.92 MIL/uL (4.20-6.10); RED CELL DISTRIBUTION WIDTH 16.4 % (11.6-13.7); WHITE BLOOD COUNT (AUTO) 6.5 K/uL (4.8-10.8)
[2019-05-18 08:00] VITALS: BP 120/62
[2019-05-18 08:18] LABS: ANION GAP 14.2 (8-16); CARBON DIOXIDE 25.3 mmol/L (21-32); CREATININE 1.2 mg/dL (0.7-1.3); POTASSIUM 4.5 mmol/L (3.5-5.1)
[2019-05-18] MEDS: NACL 0.9% 1,000 ML IV SCH (08:19)
[2019-05-18 08:39] LABS: MAGNESIUM 1.8 mg/dL (1.8-2.4); PHOSPHORUS 3.1 mg/dL (2.5-4.9)
--- NOTE | 2019-05-18 09:45 | NUR ---
GAVE ORDERED DUE MEDICATIONS AT THIS TIME. PT TOLERATED WELL. WILL CONTINUE TO MONITOR.
[2019-05-18] MEDS: ASPIRIN 81 MG TAB.CHEW PO SCH (09:54)
[2019-05-18] MEDS: LACTOBACILLUS RHAMNOSUS GG 1 EACH CAP PO SCH (09:55)
[2019-05-18] MEDS: FENOFIBRATE 48 MG TAB PO SCH (09:55)
[2019-05-18] MEDS: TAMSULOSIN 0.4 MG CAP PO SCH (09:55)
[2019-05-18] MEDS: METOPROLOL 25 MG TAB PO SCH ×2 (09:59→21:48)
[2019-05-18] MEDS: BENAZEPRIL 20 MG TAB PO SCH (10:00)
[2019-05-18] MEDS: ABDOMINAL PAD TP SCH (10:00)
--- NOTE | 2019-05-18 11:33 | NUR ---
PT LYING IN BED SLEEP AT THIS TIME. BED IN LOW POSITION. CALL LIGHT AT BEDSIDE. WILL CONTINUE TO MONITOR.
[2019-05-18] MEDS: NACL 0.9% IRR 250 ML BOTTLE IR SCH (13:09)
--- NOTE | 2019-05-18 13:51 | NUR ---
PT TALKING TO FAMILY AT BEDSIDE IN STABLE CONDITION. BED IN LOW POSITION. CALL LIGHT AT BEDSIDE. WILL CONTINUE TO MONITOR.
[2019-05-18 16:00] VITALS: BP 110/52
--- NOTE | 2019-05-18 16:00 | NUR ---
LAB DRAWING VANCO TROUGH AT THIS TIME. WILL HOLD VANCOMYCIN ADMIN FOR VANCO TROUGH RESULTS.
--- NOTE | 2019-05-18 16:40 | NUR ---
CRITICAL LAB VANCOMYCIN 19.7 HIGH.
[2019-05-18] MEDS: ATORVASTATIN 20 MG TAB PO SCH (16:58)
--- NOTE | 2019-05-18 17:43 | NUR ---
PT LYING IN BED SLEEP AT THIS TIME. RESPIRATIONS EVEN AND UNLABORED. BED IN LOW POSITION. CALL LIGHT AT BEDSIDE. WILL CONTINUE TO MONITOR.
--- NOTE | 2019-05-18 19:20 | NUR ---
RECEIVED REPORT AT BEDSIDE FROM ARIE GARG DAYSHIFT NURSE FOR CONTINUITY OF CARE, PT IN STABLE CONDITION.
--- NOTE | 2019-05-18 19:20 | NUR ---
GAVE REPORT TO AIRPORT SALES AGENT NURSE BROOKS FOR CONTINUITY OF CARE. PT IN STABLE CONDITION.
--- NOTE | 2019-05-18 20:00 | NUR ---
PT IN LOW BED WITH SIDE RAILS UP X2. PT HAS PICC LINE INTACT AND RUNNING N/S AT 10MLS/HR TO KVO. PT DRESSING INTACT WITH NO DRAINAGE OR ODOR NOTED. V/S FOLLOWS: T 98.1 P 83 R 18 B/P 118/58 02 96% ON ROOM AIR. ALL UNIVERSAL FALLS PRECAUTIONS IN PLACE WELL CONTACT PRECAUTIONS.
--- NOTE | 2019-05-18 21:00 | NUR ---
PT GIVEN SCHEDULED MEDS OF LOPRESSOR AND IV ABT MERREM. PT HAS NO C/O VOICED AT THIS TIME. FINGERSTICK IS 312, PT GIVEN 8 UNITS OF HUMALOG COVERAGE PER S/S. ALL CONTACT AND UNIVERSAL PRECAUTIONS IN PLACE.
[2019-05-19] VITALS: BP 128/41
--- NOTE | 2019-05-19 | NUR ---
PT IN BED WOUND CARE PROVIDED, WOUND MEASURED 10CM X3.5CM AND 3CM DEPTH. WOUND HAS A VERY MILD ODOR AND MINIMAL SEROSANGUINEOUS DRAINAGE. PICTURE OF WOUND TAKEN. V/S FOLLOWS T 99.1 P 76 R 18 B/P 128/41 02 98% ON ROOM AIR. ALL CONTACT AND FALLS PRECAUTIONS IN PLACE ALL REQUESTED NEEDS ATTENDED BY STAFF.
--- NOTE | 2019-05-19 03:56 | NUR ---
PT VANCO TROUGH 19.7, SPOKE WITH MD LUND , SHE DEFERRED TO PHARMACY. [facility] CALLED AND OK TO GIVEN VANCOMYCIN ORDERED, MD LUND MADE AWARE.
[2019-05-19] MEDS: VANCOMYCIN 1,000 MG in DEXTROSE 5% 250 ML IV SCH (04:14)
--- NOTE | 2019-05-19 06:40 | NUR ---
PT IN BED NO S/S OF PAIN OR DISTRESS NOTED. BLOOD DRAWN DONE VIA PICC LINE, PT ALL SCHEDULED MEDS FINGERSTICK IS 211, PT GIVEN 4 UNITS OF COVERAGE.
[2019-05-19] MEDS: PANTOPRAZOLE 40 MG TABEC PO SCH (06:45)
[2019-05-19] MEDS: INSULIN LISPRO SLIDING SCALE 100 UNITS/ML VIAL SUBQ PRN ×2 (06:58→12:27)
[2019-05-19] MEDS: MEROPENEM 1,000 MG in NACL 0.9% 100 ML IV SCH ×2 (07:02→12:27)
[2019-05-19] MEDS: BLOOD GLUCOSE MONITORING 1 DEV DEV FS SCH ×2 (07:04→11:55)
--- NOTE | 2019-05-19 07:15 | NUR ---
RECEIVED REPORT FROM ASSISTANT MANAGER BILINGUAL NURSE BROOKS FOR CONTINUITY OF CARE. PT IN STABLE CONDITION. RESPIRATIONS EVEN AND UNLABORED, ROOM AIR. IV ACCESS INTACT AND PATENT. SAFETY MEASURES IN PLACE. BED IN LOW POSITION. CALL LIGHT AT BEDSIDE. WILL CONTINUE TO MONITOR.
[2019-05-19 07:45] LABS: BASOPHILS % (AUTO) 0.6 % (0.0-2.0); EOSINOPHILS # (AUTO) 0.3 K/uL (0-0.4); HEMATOCRIT 24.4 % (36-52); HEMOGLOBIN 8.2 g/dL (12.0-18.0); LYMPHOCYTES % (AUTO) 30.2 % (20.5-51.1); MEAN CORPUSCULAR HEMOGLOBIN 29 pg (27-31); MEAN CORPUSCULAR HGB CONC 34 g/dL (33-37); MEAN CORPUSCULAR VOLUME 86.1 fL (80-94); MONOCYTES # (AUTO) 0.5 K/uL (0.8-1.0); MONOCYTES % (AUTO) 7.3 % (1.7-9.3); NEUTROPHILS # (AUTO) 3.8 K/uL (1.8-7.7); NEUTROPHILS % (AUTO) 57.9 % (42.2-75.2); PLATELET COUNT (AUTO) 741 K/uL (140-450); RED BLOOD CELL COUNT(AUTO) 2.84 MIL/uL (4.20-6.10); RED CELL DISTRIBUTION WIDTH 16.8 % (11.6-13.7); WHITE BLOOD COUNT (AUTO) 6.5 K/uL (4.8-10.8)
[2019-05-19 07:49] LABS: ANION GAP 12.2 (8-16); CARBON DIOXIDE 26.2 mmol/L (21-32); CREATININE 1.1 mg/dL (0.7-1.3); POTASSIUM 4.4 mmol/L (3.5-5.1)
[2019-05-19 07:55] LABS: MAGNESIUM 1.7 mg/dL (1.8-2.4); PHOSPHORUS 3.1 mg/dL (2.5-4.9)
[2019-05-19 08:00] VITALS: BP 119/56
[2019-05-19] MEDS: NACL 0.9% 1,000 ML IV SCH (08:19)
[2019-05-19] MEDS: METOPROLOL 25 MG TAB PO SCH (09:00)
[2019-05-19] MEDS: BENAZEPRIL 20 MG TAB PO SCH (09:00)
[2019-05-19] MEDS ORDERED: MERO1PDS7 IV (09:13)
[2019-05-19] MEDS ORDERED: VANC1PLA12 IV (09:13)
[2019-05-19] MEDS: FENOFIBRATE 48 MG TAB PO SCH (09:22)
[2019-05-19] MEDS: TAMSULOSIN 0.4 MG CAP PO SCH (09:22)
[2019-05-19] MEDS: ASPIRIN 81 MG TAB.CHEW PO SCH (09:22)
[2019-05-19] MEDS: LACTOBACILLUS RHAMNOSUS GG 1 EACH CAP PO SCH (09:23)
[2019-05-19] MEDS: ABDOMINAL PAD TP SCH (09:26)
--- NOTE | 2019-05-19 09:27 | NUR ---
GAVE ORDERED DUE MEDICATIONS AT THIS TIME. PT TOLERATED WELL.
--- NOTE | 2019-05-19 09:44 | NUR ---
CALLED AZUCENA GARCÍA AT [phone] SPOKE TO FOR[facility] HOOPER SHE SAID PATIENT WILL STILL GO TO ROOM [address] UNDER DR HUITRON. CALLED [facility] AT [phone] SPOKE TO YONY SHE SAID TRANSPORT IS ARRANGED AT 1430. FOR[facility] SARGENT IS MADE AWARE
--- NOTE | 2019-05-19 11:45 | NUR ---
PT LYING IN BED SLEEP AT THIS TIME. RESPIRATIONS EVEN AND UNLABORED. BED IN LOW POSITION. CALL LIGHT AT BEDSIDE. WILL CONTINUE TO MONITOR.
[2019-05-19] MEDS ORDERED: MAGNESIUM OXIDE 400 MG TAB PO SCH (12:00)
[2019-05-19] MEDS: NACL 0.9% IRR 250 ML BOTTLE IR SCH (12:28)
--- NOTE | 2019-05-19 12:30 | NUR ---
PT EATING LUNCH AT THIS TIME. GAVE 6 UNITS HUMALOG PER SLIDING SCALE FOR BLOOD SUGAR 285. PT TOLERATED WELL. WILL CONTINUE TO MONITOR. BED IN LOW POSITION. CALL LIGHT AT BEDSIDE.
--- NOTE | 2019-05-19 14:15 | NUR ---
GAVE REPORT TO CAROL STAFF NURSE AT [facility] . CAROL VERBALIZED UNDERSTANDING OF INSTRUCTIONS. ALL QUESTIONS ANSWERED AT THIS TIME.
[2019-05-19] MEDS ORDERED: INFLUENZA VACCINE QUAD 0.5 ML SYR IMVAC PRN (14:45)
--- NOTE | 2019-05-19 15:10 | NUR ---
GAVE DISCHARGE INSTRUCTIONS, PT VERBALIZED UNDERSTANDING. GAVE REPORT TO TRANSPORT TEAM ([facility]) FOR CONTINUITY OF CARE. DISCONNECTED IVF. REMOVED ID BAND. PT PLACED ON GURNEY IN STABLE CONDITION.
== END 2019-05-19 15:10 | DRG 853 ==
LOC: MED 12:40 → MTU 15:14
PROVIDERS: ADMIT General Practice; ATTEND General Practice
PROC: 0QBP0ZZ Excision of Left Metatarsal, Open Approach (ICD-10-PCS; 2019-05-11)
PROC: 0LBW0ZZ Excision of Left Foot Tendon, Open Approach (ICD-10-PCS; principal; 2019-05-14 12:30)
PROC: 02HV33Z Insertion of Infusion Device into Superior Vena Cava, Percutaneous Approach (ICD-10-PCS; 2019-05-15)
PROC: B548ZZA Ultrasonography of Superior Vena Cava, Guidance (ICD-10-PCS; 2019-05-15)
PROC: 3E02340 Introduction of Influenza Vaccine into Muscle, Percutaneous Approach (ICD-10-PCS; 2019-05-19)
DX: A41.9 Sepsis, unspecified organism (principal); N17.0 Acute kidney failure with tubular necrosis; E43 Unspecified severe protein-calorie malnutrition; L03.116 Cellulitis of left lower limb; M86.8X7 Other osteomyelitis, ankle and foot; E87.1 Hypo-osmolality and hyponatremia; Z16.12 Extended spectrum beta lactamase (ESBL) resistance; E11.51 Type 2 diabetes mellitus with diabetic peripheral angiopathy without gangrene; E11.69 Type 2 diabetes mellitus with other specified complication; E78.5 Hyperlipidemia, unspecified; I10 Essential (primary) hypertension; K21.9 Gastro-esophageal reflux disease without esophagitis; N40.0 Benign prostatic hyperplasia without lower urinary tract symptoms; D64.9 Anemia, unspecified; E83.42 Hypomagnesemia; E11.65 Type 2 diabetes mellitus with hyperglycemia; B96.20 Unspecified Escherichia coli [E. coli] as the cause of diseases classified elsewhere; B95.62 Methicillin resistant Staphylococcus aureus infection as the cause of diseases classified elsewhere; Z68.30 Body mass index [BMI] 30.0-30.9, adult; Z79.82 Long term (current) use of aspirin; Z79.84 Long term (current) use of oral hypoglycemic drugs; Z79.899 Other long term (current) drug therapy; Z89.432 Acquired absence of left foot; Z23 Encounter for immunization
CPT/HCPCS: 36415; 71045; 73630; 76881; 80048; 80053; 80202; 80305; 81003; 82948; 83036; 83605; 83690; 83735; 83880; 84100; 84439; 84443; 85025; 85610; 85651; 85730; 86140; 87040; 87070; 87075; 87081; 87086; 87186; 87205; 88304; 88305; 88311; 93005; 93925; 93971; 96365; 96367; 97110; 97112; 97116; 97530; 99285; J1815; J2001; J2185; J2250; J2270; J2405; J2543; J2704; J3010; J3370; J3475; J3490; J7030; J7060; Q0092

== ENCOUNTER 2019-06-17 15:49 | Inpatient (IN) | payer OTHER ==
[~2019-06-17] VITALS: Ht 172.7 cm; Wt 90.7 kg
[~2019-06-17 15:49] MED LIST changes: -CLIN300C2 PO; -FERR325E14 PO; +MERO1PDS7 IV; -METF500T PO; +METF850T PO; +METO25TA PO; +OMEP40EC24 PO; +TAMS0.4C96 PO; +TRI48 PO; +VANC1PLA12 IV
[2019-06-17 16:09] VITALS: BP 155/79
--- NOTE | 2019-06-17 16:56 | NUR ---
PT W/C ASSISTED TO BED 10.
--- NOTE | 2019-06-17 17:25 | NUR ---
64 Y/O MALE PRESENTING WITH SOB X4. EDEMA NOTED ON BILATERAL LEGS +1 PITTING, PATIENT CURRENTLY ON ROOM AIR WITH SPO2 GREATER THAN 98%. LUNGS CLEAR IN UPPER; DIMINISHED ON LOWER. PATIENT PRESENTED WITH WOUND VAC ON LEFT FOOT DUE TO TOES AMPUTATION, HX OF DM; PT WITH DOUBLE LUMEN PICC LINE FOR ABX TX. PT IN FULL FOWLERS. HX OF HTN. SIDE RAIL X1. FAMILY AT BEDSIDE.
--- NOTE | 2019-06-17 17:52 | NUR ---
UNABLE TO DRAW LABS FROM PICC LINE, PER PT OKAY TO HAVE LAB ATEMPT TO DRAW LABS
[2019-06-17 18:25] LABS: BASOPHILS % (AUTO) 0.4 % (0.0-2.0); EOSINOPHILS # (AUTO) 0.2 K/uL (0-0.4); EOSINOPHILS % (AUTO) 4.4 % (0.0-4.0); HEMATOCRIT 25.6 % (36-52); HEMOGLOBIN 8.3 g/dL (12.0-18.0); LYMPHOCYTES # (AUTO) 1.9 K/uL (2.0-11.5); LYMPHOCYTES % (AUTO) 37.1 % (20.5-51.1); MEAN CORPUSCULAR HEMOGLOBIN 28 pg (27-31); MEAN CORPUSCULAR HGB CONC 33 g/dL (33-37); MEAN CORPUSCULAR VOLUME 84.7 fL (80-94); MONOCYTES # (AUTO) 0.6 K/uL (0.8-1.0); MONOCYTES % (AUTO) 11.2 % (1.7-9.3); NEUTROPHILS # (AUTO) 2.5 K/uL (1.8-7.7); NEUTROPHILS % (AUTO) 46.9 % (42.2-75.2); PLATELET COUNT (AUTO) 251 K/uL (140-450); RED BLOOD CELL COUNT(AUTO) 3.02 MIL/uL (4.20-6.10); RED CELL DISTRIBUTION WIDTH 18.2 % (11.6-13.7); WHITE BLOOD COUNT (AUTO) 5.2 K/uL (4.8-10.8)
[2019-06-17 18:50] LABS: ANION GAP 13.5 (8-16); CARBON DIOXIDE 27.7 mmol/L (21-32); CREATININE 2.1 mg/dL (0.7-1.3); POTASSIUM 4.2 mmol/L (3.5-5.1)
[2019-06-17 18:57] LABS: TOTAL BILIRUBIN 0.9 mg/dL (0.0-1.0)
[2019-06-17 19:11] LABS: ALBUMIN 3.3 g/dL (3.4-5.0)
--- NOTE | 2019-06-17 19:16 | NUR ---
Pt report given FROM FOR[facility] RYAN . ASSUME CARE at this time. PATIENT IN STABLE CONDITION AT THIS TIME, SATURATIONS 100% ON ROOM AIR, SITTING UP IN BED.
--- NOTE | 2019-06-17 19:16 | NUR ---
GAVE REPORT TO CHAS GARG.
[2019-06-17] MEDS ORDERED: HYDROcodone/APAP 7.5/325 MG 1 TAB PO PRN (19:25)
[2019-06-17] MEDS ORDERED: DOCUSATE SODIUM 100 MG GELCAP PO PRN (19:25)
[2019-06-17] MEDS ORDERED: ACETAMINOPHEN 325 MG TAB PO PRN (19:25)
[2019-06-17] MEDS ORDERED: ONDANSETRON 4 MG/2 ML VIAL IM/IVP PRN (19:25)
--- NOTE | 2019-06-17 19:52 | NUR ---
SPOKE WITH RESIDENT DR. CRAWFORD, STATED HE WILL COMPLETE MED RECONCILIATION
[2019-06-17 19:56] LABS: MAGNESIUM 1.5 mg/dL (1.8-2.4); PHOSPHORUS 4.1 mg/dL (2.5-4.9); THYROID STIMULATING HORMONE 2.71 uIU/mL (0.34-3.74)
--- NOTE | 2019-06-17 20:00 | NUR ---
Patient will be admitted to care of . Admited to [facility]. Will go to room 114. Belongings list completed. Report to [facility] SHE[facility]. TRANSFER OF CARE AT THIS TIME.
[2019-06-17] MEDS ORDERED: VANC1PLA12 IV (20:48)
[2019-06-17] MEDS ORDERED: MERO1PDS7 IV (20:48)
[2019-06-17] MEDS ORDERED: INSU100V6 SQ (20:48)
[2019-06-17] MEDS ORDERED: PANT40EC28 PO (20:48)
[2019-06-17 20:53] LABS: PROTHROMBIN TIME 11.2 secs (10.8-13.4)
[2019-06-17] MEDS ORDERED: VANCOMYCIN PER PHARMACY MC PRN (20:55)
[2019-06-17] MEDS ORDERED: amLODIPine 5 MG TAB PO SCH (21:00)
[2019-06-17] MEDS ORDERED: MEROPENEM 1,000 MG VIAL IV SCH (21:00)
[2019-06-17] MEDS ORDERED: DEXTROSE 50% 50 ML SYR IVP PRN (21:15)
[2019-06-17 21:30] VITALS: BP 160/62
--- NOTE | 2019-06-17 21:30 | NUR ---
RECIEVED PT AAOX4 , NID , O2 SAT 98% , WITH POST AMPUTATION OF ALL FINGERS ON LEFT FOOT 1 MONTH AGO - WITH WOUND VAC DRAINING PINKISH TO BROWISH DISCHARGE , NO ACTIVE BLEEDING NOTED ON THE SITE. , WALKING WITH CANE TO BED , WITH PICC LINE INTACT AND PATENT . ADMISSION ASSESSMENT DONE , MRSA SPECIMEN COLLECTED AND SENT TO LAB , PHOTOGRAPH THE WOUND SITE . - SEEN BY JOSEPHINE - HE SAID LET THE WOUND NURSE REMOVE THE WOUND VAC . PLAN OF CARE DISCUSSED AND VERBALIZE UNDERSTANDING THE SON CAD CAM PROGRAMMER FOR NON MEDICAL CONVERSATION . ON SAFETY / FALL PRECAUTION PROTOCOL - CALL LIGHT WITHIN REACH , PROVIDE URINAL AT BEDSIDE. WILL CONT. TO MONITOR.
[2019-06-17] MEDS ORDERED: MEROPENEM 500 MG VIAL IV ONE ×2 (21:45→22:39)
[2019-06-17] MEDS: ATORVASTATIN 20 MG TAB PO SCH (21:54)
[2019-06-17] MEDS: FUROSEMIDE 40 MG/4 ML VIAL IVP SCH (21:54)
[2019-06-17] MEDS ORDERED: VANCOMYCIN 1GM/DEXT 5% PREMIX 200 ML IV ONE (22:00)
[2019-06-18] VITALS: BP 149/60
--- NOTE | 2019-06-18 | NUR ---
REMOVED THE WOUND VAC ORDERED BY JOSEPHINE - PROCEDURE TOLERATED WELL - NO ACTIVE BLEEDING NOTED AT THIS TIME - DRESSING CHANGED.WILL CONT. TO MONITOR.
[2019-06-18] MEDS ORDERED: MAG SULF 2000 MG/WATER PREMIX 50 ML IV ONE (00:10)
[2019-06-18] MEDS ORDERED: VANCOMYCIN 1,000 MG VIAL ONE (00:14)
[2019-06-18 04:00] VITALS: BP 150/60
[2019-06-18] MEDS: BLOOD GLUCOSE MONITORING 1 DEV DEV FS SCH ×4 (06:00→20:49)
--- NOTE | 2019-06-18 06:07 | NUR ---
C/O CHEST PAIN AND SOB - REFER TO JOSEPHINE - HOOK TO V/S MACHINE - FOR CLOSELY WATCH.
--- NOTE | 2019-06-18 06:13 | NUR ---
S/E BY JOSEPHINE - MADE NEW ORDER AND CARRIED OUT - WILL GIVE TORADOL FOR PAIN.
[2019-06-18] MEDS ORDERED: KETOROLAC 15 MG/ML VIAL IVP PRN (06:15)
[2019-06-18 07:16] LABS: BASOPHILS % (AUTO) 0.3 % (0.0-2.0); EOSINOPHILS # (AUTO) 0.2 K/uL (0-0.4); EOSINOPHILS % (AUTO) 4.7 % (0.0-4.0); HEMATOCRIT 24.9 % (36-52); HEMOGLOBIN 8.1 g/dL (12.0-18.0); LYMPHOCYTES # (AUTO) 1.8 K/uL (2.0-11.5); LYMPHOCYTES % (AUTO) 37.3 % (20.5-51.1); MEAN CORPUSCULAR HEMOGLOBIN 27 pg (27-31); MEAN CORPUSCULAR HGB CONC 33 g/dL (33-37); MEAN CORPUSCULAR VOLUME 84.2 fL (80-94); MONOCYTES # (AUTO) 0.4 K/uL (0.8-1.0); MONOCYTES % (AUTO) 9.2 % (1.7-9.3); NEUTROPHILS # (AUTO) 2.3 K/uL (1.8-7.7); NEUTROPHILS % (AUTO) 48.5 % (42.2-75.2); PLATELET COUNT (AUTO) 253 K/uL (140-450); RED BLOOD CELL COUNT(AUTO) 2.96 MIL/uL (4.20-6.10); RED CELL DISTRIBUTION WIDTH 18.4 % (11.6-13.7); WHITE BLOOD COUNT (AUTO) 4.8 K/uL (4.8-10.8)
--- NOTE | 2019-06-18 07:20 | NUR ---
Shift report received from applied technologist nurse. Pt is in bed in stable condition. Call light in reach.
--- NOTE | 2019-06-18 07:20 | NUR ---
ENDORSED TO AM SHIFT WITH STABLE CONDITION.
[2019-06-18 07:39] LABS: CARBON DIOXIDE 28.1 mmol/L (21-32); CREATININE 2.1 mg/dL (0.7-1.3); POTASSIUM 4.1 mmol/L (3.5-5.1)
[2019-06-18 07:43] LABS: MAGNESIUM 1.6 mg/dL (1.8-2.4); PHOSPHORUS 4.2 mg/dL (2.5-4.9)
[2019-06-18 08:00] VITALS: BP 164/68
--- NOTE | 2019-06-18 08:19 | NUR ---
PATIENT HAS BEEN SCREENED AND CATEGORIZED HIGH NUTRITION RISK. PATIENT WILL BE SEEN WITHIN 1-2 DAYS OF ADMISSION. 06/18/19-06/19/[address]
[2019-06-18] MEDS: TAMSULOSIN 0.4 MG CAP PO SCH (08:26)
[2019-06-18] MEDS: PANTOPRAZOLE 40 MG TABEC PO SCH ×2 (08:26→08:40)
[2019-06-18] MEDS: ASPIRIN 81 MG TAB.CHEW PO SCH (08:26)
[2019-06-18] MEDS: FENOFIBRATE 48 MG TAB PO SCH ×2 (08:30→08:40)
[2019-06-18] MEDS: FUROSEMIDE 40 MG/4 ML VIAL IVP SCH (08:30)
[2019-06-18] MEDS: METOPROLOL 25 MG TAB PO SCH (08:30)
[2019-06-18] MEDS: MEROPENEM 1,000 MG in NACL 0.9% 100 ML IV SCH ×2 (08:31→20:49)
[2019-06-18] MEDS ORDERED: amLODIPine 5 MG TAB PO SCH (09:00)
--- NOTE | 2019-06-18 09:30 | NUR ---
Pt is resting in bed with no signs of distress noted. Call light in reach.
--- NOTE | 2019-06-18 11:17 | NUR ---
DC PLANNING 64 YRS OLD MALE ADMITTED FROM [facility] WITH A DX OF FLUID OVERLOAD. PT HAS A HX OF CHRONIC CELLULITIS WITH OSTEOMYELITIS ON LEFT FOOT , DM, HTN . AMBULATES WITH CANE. ADMINISTERED LASIX 40MG IVP , MEROPENEM AND VANCO IVPB. CARDIO AND PULMO CONSULT ORDERED. DC PLAN MOST LIKELY TO GO BACK TO [facility] FOR MORE THERAPY CM TO FOLLOW. Addendum: 06/19/19 at 1430 by Pattie Paez CM DC PLANNING: PT WENT TO SURGERY WITH PODIATRY FOR EXCISIONAL DEBRIDEMENT OF THE LEFT 4TH METATARSAL , PLAN TO PLACE WOUND VAC ,CONTINUE IV ABX . CM TO FOLLOW. Addendum: 06/19/19 at 1504 by Pattie Paez DC PLAN CLARIFIED THE WOUND VAC ORDER WITH MILLICENT AT [facility] [phone] , NOTIFIED HIM PATIENT TO BE DC TO [facility] PER BILLIE HE IS AWARE THAT PT IS GOING TO [facility] WITH WOUND VAC AND STATED IT SHOULDN'T BE AN ISSUE. Addendum: 06/24/19 at 1317 by Natty Roberts STILL ON MEROPENEM 1000MG Q12H AND VANCOMYCIN PER PHARMACY DOSING. TENTATIVE DC PLAN IS FOR [facility] FOR WOUND CARE AND IV ANTIBIOTIC. CM TO FOLLOW UP. Addendum: 06/25/19 at 1400 by Pattie Paez CM DC PLANNING: PT HAS A DC ORDER TO GO HOME WITH HOME HEALTH. FAXED ALL THE INQUIRY TO [facility] [phone] SPOKE WITH GRETTA AND ACCEPTED PT. NOTIFIED PATIENT IS GOING WITH WOUND VAC AND FOLLOW UP WITH PODIATRY (DR JAMAAL BAUER), CALLED [facility] SPOKE WITH BILLIE NOTIFIED HIM THAT PT IS GOING HOME WITH WOUND VAC WITH [facility]. PER BILLIE JUST TO GIVE HIM THE HOME HEALTH NAME AND NUMBER AND HE WILL FOLLOW UP.
--- NOTE | 2019-06-18 11:22 | NUR ---
As per the adjunct nursing faculty, the resident mentioned that the wound on his left leg was measures at 2cm deep, 5cmx 2.3cms and 3.8cmsx1.8cms proximal wound. No exudate, no odor noted.
[2019-06-18 12:00] VITALS: BP 153/65
--- NOTE | 2019-06-18 12:00 | NUR ---
Pt is resting in bed with no signs of distress noted. Call light in reach.
[2019-06-18] MEDS: INSULIN LISPRO SLIDING SCALE 100 UNITS/ML VIAL SUBQ PRN ×2 (12:30→21:51)
--- NOTE | 2019-06-18 13:26 | NUR ---
06/18/19 RD INITIAL ASSESSMENT COMPLETED PLEASE REFER TO NUTRITION ASSESSMENT UNDER CARE ACTIVITY FOR ESTIMATED NUTRITIONAL NEEDS. 1. RECOMMEND VEGETARIAN CCHO 60GM AND CARDIAC DIET TOLERATED 2. RECOMMEND GLUCERNA BID 3. PENDING WOUND CARE EVAL FOR SUPPLEMENTS 4. RD TO FOLLOW-UP 2-3 DAYS, HIGH RISK ELIZ MCCARTHY RD
[2019-06-18] MEDS ORDERED: FUROSEMIDE 40 MG/4 ML VIAL IVP SCH (13:43)
[2019-06-18] MEDS: MAG SULF 2000 MG/WATER PREMIX 100 ML IV SCH ×2 (14:19→16:53)
[2019-06-18 16:00] VITALS: BP 116/68
--- NOTE | 2019-06-18 16:00 | NUR ---
Pt is resting in bed with no signs of distress noted. Call light in reach. Son by bedside.
[2019-06-18] MEDS ORDERED: hydrALAZINE 20 MG/ML VIAL IVP PRN (18:00)
--- NOTE | 2019-06-18 18:24 | NUR ---
PT IN RESTING IN BED IN STABLE CONDITION. CALL LIGHT IN REACH.
--- NOTE | 2019-06-18 19:14 | NUR ---
Shift report given to maintenance mgr nurse. Pt in stable condition. Call light in reach.
--- NOTE | 2019-06-18 19:15 | NUR ---
RECEIVED REPORT FROM AM SHIFT NURSE. PATIENT ALERT AND ORIENTED X4. NO SOB NOTED. BREATHING EVEN AND UNLABORED. WITH PICC ON RIGHT UPPER ARM DOUBLE LUMEN SALINE LOCKED. BED ON LOW POSITION. ON CONTACT PRECAUTIONS. OBSERVED AT ALL TIMES. WITH DRESSING ON LEFT FOOT. CLEAN, DRY AND INTACT. WILL CONTINUE TO MONITOR.
[2019-06-18 20:00] VITALS: BP 119/56
[2019-06-18] MEDS: ATORVASTATIN 20 MG TAB PO SCH (20:50)
--- NOTE | 2019-06-18 21:10 | NUR ---
DUE MEDICATIONS GIVEN ORDERED. PATIENT DENIES PAIN AT THIS TIME. BED ON LOW POSITION. NO APPARENT DISTRESS NOTED. CALL LIGHT WITHIN REACH. WILL CONTINUE TO MONITOR.
[2019-06-18 21:50] LABS: APPEARANCE,URINE CLEAR (CLEAR); COLOR,URINE YELLOW (YELLOW)
[2019-06-18 21:51] LABS: BILIRUBIN,URINE NEGATIVE (NEGATIVE); BLOOD, URINE NEGATIVE (NEGATIVE); LEUKOCYTE ESTERASE ,URINE NEGATIVE (NEGATIVE); NITRITE, URINE NEGATIVE (NEGATIVE); UGLUCOSE NEGATIVE (NEGATIVE)
--- NOTE | 2019-06-18 23:05 | NUR ---
ROUNDS DONE. PATIENT ASLEEP AT THIS TIME. VISIBLE CHEST RISE AND FALL NOTED. NO APPARENT DISTRESS NOTED. BED ON LOW POSITION. CALL LIGHT WITHIN REACH. WILL CONTINUE TO MONITOR.
[2019-06-19] VITALS: BP 137/65
--- NOTE | 2019-06-19 01:00 | NUR ---
PATIENT ASLEEP AT THIS TIME. VISIBLE CHEST RISE AND FALL NOTED. NO APPARENT DISTRESS NOTED. BED ON LOW POSITION. WILL CONTINUE TO MONITOR.
--- NOTE | 2019-06-19 02:40 | NUR ---
PATIENT ASLEEP IN BED. NO APPARENT DISTRESS NOTED. VISIBLE CHEST RISE AND FALL NOTED. WILL CONTINUE TO MONITOR.
[2019-06-19 04:00] VITALS: BP 159/72
--- NOTE | 2019-06-19 05:35 | NUR ---
PATIENT AWAKE IN BED. CHG CLEANSING WIPES DONE. NO APPARENT DISTRESS NOTED. WILL CONTINUE TO MONITOR.
[2019-06-19] MEDS: BLOOD GLUCOSE MONITORING 1 DEV DEV FS SCH ×4 (06:20→20:37)
--- NOTE | 2019-06-19 06:58 | NUR ---
PATIENT AWAKE IN BED. NO APPARENT DISTRESS NOTED. WILL CONTINUE TO MONITOR.
--- NOTE | 2019-06-19 07:15 | NUR ---
ENDORSED TO AM SHIFT NURSE IN STABLE CONDITION FOR CONTINUITY OF CARE.
--- NOTE | 2019-06-19 07:16 | NUR ---
RECEIVED REPORT FROM POOL HAND NURSE FOR CONTINUITY OF CARE. PT IN STABLE CONDITION. RESPIRATIONS EVEN AND UNLABORED, ROOM AIR. IV ACCESS INTACT AND PATENT. SAFETY MEASURES IN PLACE. BED IN LOW POSITION. CALL LIGHT AT BEDSIDE. WILL CONTINUE TO MONITOR.
[2019-06-19 08:00] VITALS: BP 159/66
[2019-06-19 08:03] LABS: BASOPHILS % (AUTO) 0.6 % (0.0-2.0); EOSINOPHILS # (AUTO) 0.3 K/uL (0-0.4); EOSINOPHILS % (AUTO) 6.7 % (0.0-4.0); HEMOGLOBIN 8.2 g/dL (12.0-18.0); LYMPHOCYTES % (AUTO) 40.9 % (20.5-51.1); MEAN CORPUSCULAR HEMOGLOBIN 28 pg (27-31); MEAN CORPUSCULAR HGB CONC 33 g/dL (33-37); MEAN CORPUSCULAR VOLUME 84.4 fL (80-94); MONOCYTES # (AUTO) 0.4 K/uL (0.8-1.0); MONOCYTES % (AUTO) 8.8 % (1.7-9.3); NEUTROPHILS # (AUTO) 2.1 K/uL (1.8-7.7); PLATELET COUNT (AUTO) 247 K/uL (140-450); RED BLOOD CELL COUNT(AUTO) 2.96 MIL/uL (4.20-6.10); RED CELL DISTRIBUTION WIDTH 18.8 % (11.6-13.7)
[2019-06-19 08:07] LABS: FOLIC ACID 15.5 ng/mL (>3.0)
[2019-06-19 08:22] LABS: ANION GAP 16.9 (8-16); CARBON DIOXIDE 23.9 mmol/L (21-32); CREATININE 2.3 mg/dL (0.7-1.3); POTASSIUM 3.8 mmol/L (3.5-5.1)
--- NOTE | 2019-06-19 08:23 | NUR ---
Wound care consult not done, pt. seen and follow up by Dr. Kline,Debbie Benitez DPM.
[2019-06-19] MEDS: FUROSEMIDE 40 MG/4 ML VIAL IVP SCH (09:24)
[2019-06-19] MEDS: MEROPENEM 1,000 MG in NACL 0.9% 100 ML IV SCH ×2 (09:24→20:38)
--- NOTE | 2019-06-19 09:24 | NUR ---
GAVE ORDERED DUE MEDICATIONS AT THIS TIME. PT TOLERATED WELL. WILL CONTINUE TO MONITOR.
[2019-06-19] MEDS: hydrALAZINE 10 MG TAB PO SCH ×3 (09:25→17:00)
[2019-06-19] MEDS: PANTOPRAZOLE 40 MG TABEC PO SCH (09:25)
[2019-06-19] MEDS: METOPROLOL 25 MG TAB PO SCH (09:25)
[2019-06-19] MEDS: ASPIRIN 81 MG TAB.CHEW PO SCH (09:25)
[2019-06-19] MEDS: FENOFIBRATE 48 MG TAB PO SCH (09:25)
[2019-06-19] MEDS: TAMSULOSIN 0.4 MG CAP PO SCH (09:25)
[2019-06-19] MEDS ORDERED: LIDOCAINE 1% 500 MG/50 ML VIAL ONE (11:07)
[2019-06-19] MEDS ORDERED: BUPIVACAINE-MPF 0.25% 30 ML VIAL INJ ONE (11:07)
--- NOTE | 2019-06-19 11:40 | NUR ---
PT OFF UNIT FOR LEFT FOOT DEBRIDEMENT. PT IN STABLE CONDITION.
[2019-06-19] MEDS ORDERED: fentaNYL 0.05 MG/ML VIAL ONE (11:49)
[2019-06-19] MEDS ORDERED: METOPROLOL 5 MG/5 ML VIAL ONE (12:03)
[2019-06-19] MEDS ORDERED: PROPOFOL 200 MG/20 ML VIAL IV ONE (12:03)
[2019-06-19] MEDS ORDERED: BLOOD GLUCOSE MONITORING 1 DEV DEV FS ONE (12:50)
[2019-06-19] MEDS ORDERED: ONDANSETRON 4 MG/2 ML VIAL IVP PRN (12:50)
[2019-06-19] MEDS ORDERED: HYDROmorphone 1 MG/ML AMP IVP PRN (13:00)
--- NOTE | 2019-06-19 14:05 | NUR ---
PT BACK ON UNIT AFTER LEFT FOOT DEBRIDEMENT. PT IN STABLE CONDITION. BED IN LOW POSITION. CALL LIGHT AT BEDSIDE. WILL CONTINUE TO MONITOR.
--- NOTE | 2019-06-19 14:41 | NUR ---
REENFORCED DRESSING ON LEFT FOOT. MODERATE BLEEDING AT THIS TIME.
[2019-06-19 16:00] VITALS: BP 145/55
--- NOTE | 2019-06-19 16:15 | NUR ---
P.T. NOTES HOLD P.T. TX TODAY DUE TO PATIENT UNAVAILABLE DUE TO HOSPITAL PROCEDURE; FF UP TOMORROW IF PATIENT ABLE TO PARTICIPATE. Addendum: 06/19/19 at 1617 by Sade Orozco PT 06/19/19 L FT I&D; XR CHEST:R UE PICC, LOW LUNG VOLUMES; Hgb=8.2
--- NOTE | 2019-06-19 16:45 | NUR ---
CHANGED BED SHEETS DUE TO WOUND DRAINAGE. PT IN STABLE CONDITION. BED IN LOW POSITION. CALL LIGHT AT BEDSIDE. WILL CONTINUE TO MONITOR.
--- NOTE | 2019-06-19 18:30 | NUR ---
REENFORCED LEFT FOOT DRESSING AT THIS TIME. PT TOLERATED WELL. BED IN LOW POSITION. CALL LIGHT AT BEDSIDE. WILL CONTINUE TO MONITOR.
--- NOTE | 2019-06-19 19:16 | NUR ---
GAVE REPORT TO UPPER TRIMMER NURSE KAYLYNN FOR CONTINUITY OF CARE. PT IN STABLE CONDITION.
--- NOTE | 2019-06-19 19:17 | NUR ---
RECEIVED REPORT FROM AM SHIFT NURSE ARIE FOR CONTINUITY OF CARE. PATIENT ALERT AND ORIENTED X4. NO APPARENT DISTRESS NOTED. WITH PICC LINE DOUBLE LUMEN ON RIGHT UPPER ARM. DRESSING ON LEFT FOOT INTACT. NO BEARING ON LEFT FOOT. PATIENT VERBALIZED UNDERSTANDING. BED ON LOW POSITION. WILL CONTINUE TO MONITOR.
[2019-06-19 20:00] VITALS: BP 145/64
[2019-06-19] MEDS: ATORVASTATIN 20 MG TAB PO SCH (20:38)
[2019-06-19] MEDS: INSULIN LISPRO SLIDING SCALE 100 UNITS/ML VIAL SUBQ PRN (20:41)
--- NOTE | 2019-06-19 20:59 | NUR ---
DUE MEDICATIONS GIVEN ORDERED. RESTING IN BED COMFORTABLY. DENIES PAIN NOR DISCOMFORT. WILL CONTINUE TO MONITOR.
--- NOTE | 2019-06-19 22:27 | NUR ---
PATIENT ASLEEP IN BED. NO APPARENT DISTRESS NOTED. BED ON LOW POSITION. CALL LIGHT WITHIN REACH. WILL CONTINUE TO MONITOR.
[2019-06-20] VITALS: BP 147/67
--- NOTE | 2019-06-20 00:25 | NUR ---
PATIENT ASLEEP IN BED. VISIBLE CHEST RISE AND FALL NOTED. NO APPARENT DISTRESS NOTED. WILL CONTINUE TO MONITOR.
--- NOTE | 2019-06-20 02:20 | NUR ---
PATIENT ASLEEP AT THIS TIME. VISIBLE CHEST RISE AND FALL NOTED. BED ON LOW POSITION. CALL LIGHT WITHIN REACH. WILL CONTINUE TO MONITOR.
[2019-06-20 04:00] VITALS: BP 149/69
--- NOTE | 2019-06-20 04:15 | NUR ---
PATIENT ASLEEP IN BED. NO APPARENT DISTRESS NOTED. VISIBLE CHEST RISE AND FALL NOTED. WILL CONTINUE TO MONITOR.
--- NOTE | 2019-06-20 06:10 | NUR ---
PATIENT ASLEEP IN BED. NO APPARENT DISTRESS NOTED.
[2019-06-20] MEDS: BLOOD GLUCOSE MONITORING 1 DEV DEV FS SCH ×4 (06:33→20:35)
[2019-06-20 06:53] LABS: BASOPHILS % (AUTO) 0.5 % (0.0-2.0); EOSINOPHILS # (AUTO) 0.2 K/uL (0-0.4); EOSINOPHILS % (AUTO) 3.1 % (0.0-4.0); HEMATOCRIT 21.1 % (36-52); LYMPHOCYTES # (AUTO) 1.5 K/uL (2.0-11.5); LYMPHOCYTES % (AUTO) 23.4 % (20.5-51.1); MEAN CORPUSCULAR HEMOGLOBIN 28 pg (27-31); MEAN CORPUSCULAR HGB CONC 33 g/dL (33-37); MEAN CORPUSCULAR VOLUME 84.2 fL (80-94); MONOCYTES # (AUTO) 0.7 K/uL (0.8-1.0); MONOCYTES % (AUTO) 10.7 % (1.7-9.3); NEUTROPHILS # (AUTO) 4.1 K/uL (1.8-7.7); NEUTROPHILS % (AUTO) 62.3 % (42.2-75.2); PLATELET COUNT (AUTO) 206 K/uL (140-450); RED CELL DISTRIBUTION WIDTH 18.2 % (11.6-13.7); WHITE BLOOD COUNT (AUTO) 6.5 K/uL (4.8-10.8)
--- NOTE | 2019-06-20 07:00 | NUR ---
ENDORSED TO AM SHIFT IN STABLE CONDITION FOR CONTINUITY OF CARE.
--- NOTE | 2019-06-20 07:01 | NUR ---
RECEIVED REPORT FROM WOOD PRESERVING PLANT LABORER NURSE FOR CONTINUITY OF CARE. PT IN STABLE CONDITION. RESPIRATIONS EVEN AND UNLABORED. IV ACCESS INTACT AND PATENT. SAFETY MEASURES IN PLACE. BED IN LOW POSITION. CALL LIGHT AT BEDSIDE. WILL CONTINUE TO MONITOR.
[2019-06-20 07:05] LABS: ANION GAP 13.4 (8-16); CARBON DIOXIDE 26.4 mmol/L (21-32); CREATININE 2.1 mg/dL (0.7-1.3); POTASSIUM 3.8 mmol/L (3.5-5.1)
[2019-06-20 08:00] VITALS: BP 127/73
[2019-06-20 08:15] LABS: HEMOGLOBIN 6.9 g/dL (12.0-18.0)
--- NOTE | 2019-06-20 09:30 | NUR ---
GAVE ORDERED DUE MEDICATIONS AT THIS TIME. PT TOLERATED WELL.
[2019-06-20] MEDS: PANTOPRAZOLE 40 MG TABEC PO SCH (09:31)
[2019-06-20] MEDS: TAMSULOSIN 0.4 MG CAP PO SCH (09:31)
[2019-06-20] MEDS: FUROSEMIDE 40 MG/4 ML VIAL IVP SCH (09:31)
[2019-06-20] MEDS: FENOFIBRATE 48 MG TAB PO SCH (09:32)
[2019-06-20] MEDS: ASPIRIN 81 MG TAB.CHEW PO SCH (09:32)
[2019-06-20] MEDS: hydrALAZINE 10 MG TAB PO SCH ×3 (09:32→18:22)
[2019-06-20] MEDS: METOPROLOL 25 MG TAB PO SCH (09:32)
[2019-06-20] MEDS: MEROPENEM 1,000 MG in NACL 0.9% 100 ML IV SCH ×2 (09:33→20:37)
--- NOTE | 2019-06-20 10:30 | NUR ---
P.T. NOTES PATIENT REFUSED TO HAVE THERAPY DUE TO (L) FOOT'S INCREASED SORENESS WITH SOME BLEEDING NOTED (SEEN VIA HIS WOUND DRESSING) AND STATES HE WILL TRY TOMORROW. HIS NURSE ARIE WAS MADE AWARE OF HIS REFUSAL. PLAN: WILL FOLLOW UP AGAIN TOMORROW AND CONTINUE PER PLAN OF CARE IF HE PARTICIPATES.
[2019-06-20] MEDS ORDERED: VANCOMYCIN 1,000 MG in DEXTROSE 5% 250 ML IV SCH (11:00)
[2019-06-20] MEDS: INSULIN LISPRO SLIDING SCALE 100 UNITS/ML VIAL SUBQ PRN (11:53)
[2019-06-20 12:00] VITALS: BP 133/72
--- NOTE | 2019-06-20 12:01 | NUR ---
PT LYING IN BED IN STABLE CONDITION. BED IN LOW POSITION. CALL LIGHT AT BESIDE. WILL CONTINUE TO MONITOR.
--- NOTE | 2019-06-20 12:13 | NUR ---
FOLLOWED UP WITH [facility] REGARDING THE WOUND VAC TEL#: [phone], SPOKE WITH GIBRAN, STATED THAT THEY GOT THE REQUEST YESTERDAY AFTERNOON BUT HE IS UNABLE TO GET THE TRACKING #. HOWEVER, GIBRAN STATED THAT WE SHOULD BE RECEIVING THE WOUND VAC ANYTIME TODAY VIA MAIL. REF# FOR THIS CALL [phone]. JOELLE LYLE WANTED TO BE CALLED (TEL#: [phone]) SOON THE WOUND VAC COMES IN ORDER FOR HER TO COME AND DO THE DRESSING. NUVIA MORRIS MADE AWARE.
[2019-06-20] MEDS ORDERED: ASCORBIC ACID 500 MG TAB PO SCH (13:30)
--- NOTE | 2019-06-20 14:09 | NUR ---
06/20/19 RD FOLLOW UP COMPLETED PLEASE REFER TO NUTRITION ASSESSMENT UNDER CARE ACTIVITY FOR ESTIMATED NUTRITIONAL NEEDS. 1.CONTINUE CCHO 60GM DIET TOLERATED 2. RECOMMEND PROSOURCE TID 3. RECOMMEND VITAMIN C 500 MG FOR WOUND HEALING 4. RD TO FOLLOW-UP 3-5 DAYS, MODERATE RISK ELIZ MCCARTHY RD
--- NOTE | 2019-06-20 14:10 | NUR ---
CONSENT FOR BLOOD TRANSFUSION SIGNED AT THIS TIME.
--- NOTE | 2019-06-20 14:50 | NUR ---
BLOOD TRANSFUSION STARTED. 1 UNIT ISSUED TO BE TRANSFUSED. PT IN STABLE CONDITION.
[2019-06-20 16:00] VITALS: BP 141/54
--- NOTE | 2019-06-20 17:10 | NUR ---
[facility] CALLED STATING THEY WILL LEAVE WOUND VAC AT NURSING STATION DUE TO PT ON CONTACT.
--- NOTE | 2019-06-20 17:45 | NUR ---
BLOOD TRANSFUSION ENDED. PT IN STABLE CONDITION.
--- NOTE | 2019-06-20 18:02 | NUR ---
[facility] CALLED TO INQUIRE ABOUT WOUND VAC FOR DR. STREETER. GAVE [facility] PHONE INFORMATION ( ) AND CONFIRMATION NUMBER ([phone]) FOR WOUND VAC.
--- NOTE | 2019-06-20 19:15 | NUR ---
RECEIVED BEDSIDE REPORT FROM DAY SHIFT NURSE. PATIENT IS AWAKE, ALERT, AND COOPERATIVE. RESPIRATION EVEN UNLABORED ON ROOM AIR. NO DISTRESS NOTED. SKIN IS WARM AND DRY. IV PATENT AND INTACT. LEFT FOOT DRESSING INTACT AND MINIMAL DRAINAGE NOTED. AWAITING FOR DR. MENDEZ FOR WOUND VAC. PLAN OF CARE WAS DISCUSSED. ALL SAFETY MEASURES IN PLACE. BED IS AT LOW POSITION. CALL LIGHT WITHIN REACH AND VERBALIZES ITS USE. WILL CONTINUE TO MONITOR.
--- NOTE | 2019-06-20 19:23 | NUR ---
GAVE REPORT TO MILL ORDER SCHEDULER NURSE KISSPEG FOR CONTINUITY OF CARE. PT IN STABLE CONDITION.
[2019-06-20 20:00] VITALS: BP 144/88
[2019-06-20 20:06] LABS: HEMOGLOBIN 7.4 g/dL (12.0-18.0)
--- NOTE | 2019-06-20 20:27 | NUR ---
CALLED [facility] REGARDING WOUND VAC NO ONES ANSWERING. WILL TRY AGAIN LATER.
[2019-06-20] MEDS: ATORVASTATIN 20 MG TAB PO SCH (20:37)
--- NOTE | 2019-06-20 20:45 | NUR ---
CALLED [facility] FOR REGARDING THE ETA OF THE WOUND VAC. I WAS TOLD ETA 2054.
--- NOTE | 2019-06-20 20:50 | NUR ---
ALL SCHEDULED MEDS WERE GIVEN PER ORDER. NO ASE NOTED. WILL CONTINUE TO MONITOR
--- NOTE | 2019-06-20 22:30 | NUR ---
CALLED [facility] AGAIN REGARDING WOUND VAC. SPOKE WITH EDE I WAS TOLD THAT IT SHOULD BE ON ITS WAY SOON. AWAITING FOR WOUND VAC.
--- NOTE | 2019-06-20 22:40 | NUR ---
WOUND VAC SUPPLY ARRIVED AT THE FACILITY. CALLED DR. BOYCE. NO ANSWER. LEFT A VOICE MAIL REGARDING WOUND VAC AVAILABILITY IN THE FLOOR.
[2019-06-21] VITALS: BP 124/75
--- NOTE | 2019-06-21 | NUR ---
VITALS WERE TAKEN. PATIENT IN STABLE CONDITION. NO DISTRESS NOTED. WILL CONTINUE TO MONITOR.
--- NOTE | 2019-06-21 02:00 | NUR ---
CHECKED PATIENT. PATIENT SLEEPING RESPIRATION EVEN UNLABORED ON ROOM AIR. NO DISTRESS NOTED. WILL CONTINUE TO MONITOR,
[2019-06-21 04:00] VITALS: BP 144/64
--- NOTE | 2019-06-21 04:10 | NUR ---
VITALS WERE TAKEN. PATIENT IN STABLE CONDITION. MODERATE DRAINAGE NOTED ON THE LEFT FOOT. APPLIED REINFORCEMENT. WILL CONTINUE TO MONITOR.
[2019-06-21] MEDS: BLOOD GLUCOSE MONITORING 1 DEV DEV FS SCH ×4 (06:20→20:32)
[2019-06-21 06:28] LABS: MAGNESIUM 1.6 mg/dL (1.8-2.4); PHOSPHORUS 3.9 mg/dL (2.5-4.9)
[2019-06-21 07:13] LABS: BASOPHILS % (AUTO) 0.4 % (0.0-2.0); EOSINOPHILS # (AUTO) 0.3 K/uL (0-0.4); EOSINOPHILS % (AUTO) 5.5 % (0.0-4.0); HEMATOCRIT 21.8 % (36-52); HEMOGLOBIN 7.3 g/dL (12.0-18.0); LYMPHOCYTES # (AUTO) 1.8 K/uL (2.0-11.5); LYMPHOCYTES % (AUTO) 31.2 % (20.5-51.1); MEAN CORPUSCULAR HEMOGLOBIN 28 pg (27-31); MEAN CORPUSCULAR HGB CONC 34 g/dL (33-37); MEAN CORPUSCULAR VOLUME 84.8 fL (80-94); MONOCYTES # (AUTO) 0.6 K/uL (0.8-1.0); MONOCYTES % (AUTO) 10.9 % (1.7-9.3); PLATELET COUNT (AUTO) 196 K/uL (140-450); RED BLOOD CELL COUNT(AUTO) 2.57 MIL/uL (4.20-6.10); RED CELL DISTRIBUTION WIDTH 17.4 % (11.6-13.7); WHITE BLOOD COUNT (AUTO) 5.8 K/uL (4.8-10.8)
--- NOTE | 2019-06-21 07:15 | NUR ---
RECEIVED REPORT FROM STORAGE ARCHITECT NURSE. PATIENT LYING DOWN IN BED, COMFORTABLY. NO DISTRESS NOTED. DENIES ANY PAIN. RESPIRATIONS EVEN, UNLABORED, ON ROOM AIR. AAOX4, CALM, COOPERATIVE, SKIN COLOR APPROPRIATE TO ETHNICITY, WARM TO TOUCH. HAS LEFT FOOT AMPUTATION WITH DRESSING DRY AND INTACT. RIGHT UPPER PICC LINE NOTED, ON SALINE LOCK. REVIEWED PLAN OF CARE WITH PATIENT. PATIENT VERBALIZED UNDERSTANDING. SAFETY MEASURES IN PLACE, CALL LIGHT WITHIN REACH. WILL CONTINUE TO MONITOR .
--- NOTE | 2019-06-21 07:15 | NUR ---
ENDORSED PATIENT TO DAY SHIFT NURSE. PATIENT IN STABLE CONDITION.
[2019-06-21 08:13] LABS: CARBON DIOXIDE 24.9 mmol/L (21-32); CREATININE 1.9 mg/dL (0.7-1.3); POTASSIUM 3.9 mmol/L (3.5-5.1)
[2019-06-21] MEDS: ASCORBIC ACID 500 MG TAB PO SCH (09:29)
[2019-06-21] MEDS: FENOFIBRATE 48 MG TAB PO SCH (09:29)
[2019-06-21] MEDS: METOPROLOL 25 MG TAB PO SCH (09:29)
[2019-06-21] MEDS: TAMSULOSIN 0.4 MG CAP PO SCH (09:29)
[2019-06-21] MEDS: hydrALAZINE 10 MG TAB PO SCH ×3 (09:30→16:50)
[2019-06-21] MEDS: PANTOPRAZOLE 40 MG TABEC PO SCH (09:30)
[2019-06-21] MEDS: ASPIRIN 81 MG TAB.CHEW PO SCH (09:30)
[2019-06-21] MEDS ORDERED: MAG SULF 2000 MG/WATER PREMIX 50 ML IV SCH (09:30)
--- NOTE | 2019-06-21 09:30 | NUR ---
PATIENT HAD A BM, COLLECTED STOOL FOR OCCULT BLOOD. WILL CONTINUE TO MONITOR.
[2019-06-21] MEDS: MEROPENEM 1,000 MG in NACL 0.9% 100 ML IV SCH ×2 (09:55→20:24)
--- NOTE | 2019-06-21 09:56 | NUR ---
PATIENT SITTING IN BED COMFORTABLY. SCHEDULED MEDICATIONS DUE GIVEN. WILL CONTINUE TO MONITOR.
--- NOTE | 2019-06-21 10:00 | NUR ---
P.T. NOTES PATIENT REFUSED TO PARTICIPATE WITH P.T. SERVICES AGAIN TODAY DUE TO INCREASED DISCOMFORT ON HIS (L) FOOT. PLAN: WE'LL FOLLOW UP AGAIN IF HE REMAINS IN THIS HOSPITAL.
[2019-06-21 11:11] VITALS: BP 151/60
--- NOTE | 2019-06-21 11:59 | NUR ---
Wound vac from home sent to central supply, [facility] aware thru Gabrielle
[2019-06-21] MEDS: INSULIN LISPRO SLIDING SCALE 100 UNITS/ML VIAL SUBQ PRN ×2 (13:12→20:32)
--- NOTE | 2019-06-21 13:14 | NUR ---
MEDICATIONS ADMINISTERED, PATIENT CONVERSATING WITH FRIENDS AT BEDSIDE, IN STABLE CONDITION. WILL CONTINUE TO MONITOR.
--- NOTE | 2019-06-21 15:12 | NUR ---
PATIENT SITTING IN BEDSIDE CHAIR TALKING WITH FAMILY AT BEDSIDE. NO DISTRESS NOTED. WILL CONTINUE TO MONITOR.
[2019-06-21 16:00] VITALS: BP 160/61
--- NOTE | 2019-06-21 16:10 | NUR ---
ROUNDS MADE, PATIENT RESTING WITH VISITORS AT BEDSIDE. NO SIGNS OF DISTRESS NOTED AT THIS TIME. WILL CONTINUE TO MONITOR.
--- NOTE | 2019-06-21 18:30 | NUR ---
MEDICATIONS ADMINISTERED, FAMILY AT BEDSIDE. TOLERATED WELL. RESTING IN BED, EATING DINNER IN SITTING POSITION. WILL CONTINUE TO MONITOR.
--- NOTE | 2019-06-21 19:18 | NUR ---
GAVE REPORT TO BANKING MANAGER NURSE, PATIENT IN STABLE CONDITION.
--- NOTE | 2019-06-21 19:19 | NUR ---
RECEIVED BEDSIDE REPORT FROM DAY SHIFT NURSE BETH RN, PT STABLE, NO DISTRESS NOTED, STEPHIE PICC, PATENT INTACT, SL, PT ON ROOM AIR, NO SOB NOTED, PT STATED HAVING NO PAIN AT THIS MOMENT, INITIAL ASSESSMENT DONE, ALL SAFETY PRECAUTION MET, CALL LIGHT WITHIN REACH, WILL CONTINUE TO MONITOR.
[2019-06-21 20:00] VITALS: BP 147/63
[2019-06-21] MEDS: ATORVASTATIN 20 MG TAB PO SCH (20:22)
[2019-06-21] MEDS: METOPROLOL 50 MG TAB PO SCH (20:23)
--- NOTE | 2019-06-21 20:32 | NUR ---
DUE MEDICATION ADMINISTERED, PT TOLERATED WELL, NO DISTRESS NOTED, CALL LIGHT WITHIN REACH, WILL CONTINUE TO MONITOR.
[2019-06-22] VITALS: BP 123/55
--- NOTE | 2019-06-22 00:15 | NUR ---
CHECKED ON PT, PT SLEEPING, V/S TAKEN, WITHIN PT BASELINE, CALL LIGHT WITHIN REACH, WILL CONTINUE TO MONITOR.
--- NOTE | 2019-06-22 01:55 | NUR ---
CHECKED ON PT, PT SLEEPING, NO DISTRESS NOTED, CALL LIGHT WITHIN REACH, WILL CONTINUE TO MONITOR.
--- NOTE | 2019-06-22 02:11 | NUR ---
PT SLEEPING, NO DISTRESS NOTED, CALL LIGHT WITHIN REACH, WILL CONTINUE TO MONITOR.
[2019-06-22 04:00] VITALS: BP 149/60
--- NOTE | 2019-06-22 04:01 | NUR ---
CHECKED ON PT, V/S TAKEN, WITHIN PT BASELINE, CALL LIGHT WITHIN REACH, WILL CONTINUE TO MONITOR
[2019-06-22] MEDS: BLOOD GLUCOSE MONITORING 1 DEV DEV FS SCH ×4 (05:25→21:57)
[2019-06-22 06:35] LABS: BASOPHILS % (AUTO) 0.7 % (0.0-2.0); EOSINOPHILS # (AUTO) 0.5 K/uL (0-0.4); EOSINOPHILS % (AUTO) 10.1 % (0.0-4.0); HEMATOCRIT 21.2 % (36-52); HEMOGLOBIN 7.1 g/dL (12.0-18.0); LYMPHOCYTES # (AUTO) 1.7 K/uL (2.0-11.5); LYMPHOCYTES % (AUTO) 35.2 % (20.5-51.1); MEAN CORPUSCULAR HEMOGLOBIN 28 pg (27-31); MEAN CORPUSCULAR HGB CONC 33 g/dL (33-37); MEAN CORPUSCULAR VOLUME 85.1 fL (80-94); MONOCYTES # (AUTO) 0.6 K/uL (0.8-1.0); MONOCYTES % (AUTO) 12.1 % (1.7-9.3); NEUTROPHILS % (AUTO) 41.9 % (42.2-75.2); PLATELET COUNT (AUTO) 219 K/uL (140-450); RED BLOOD CELL COUNT(AUTO) 2.49 MIL/uL (4.20-6.10); RED CELL DISTRIBUTION WIDTH 17.3 % (11.6-13.7); WHITE BLOOD COUNT (AUTO) 4.9 K/uL (4.8-10.8)
[2019-06-22 06:53] LABS: MAGNESIUM 1.9 mg/dL (1.8-2.4); PHOSPHORUS 4.3 mg/dL (2.5-4.9)
[2019-06-22 07:15] LABS: ANION GAP 14.6 (8-16); CARBON DIOXIDE 25.6 mmol/L (21-32); CREATININE 1.8 mg/dL (0.7-1.3); POTASSIUM 4.2 mmol/L (3.5-5.1)
--- NOTE | 2019-06-22 07:18 | NUR ---
ENDORSED PT TO DAY SHIFT NURSE BETH RN, PT STABLE, NO DISTRESS NOTED, CALL LIGHT WITHIN REACH.
--- NOTE | 2019-06-22 07:19 | NUR ---
RECEIVED BEDSIDE REPORT FROM PROPOSAL CONSULTANT NURSE. PT STABLE, NO DISTRESS NOTED, WILL CONTINUE TO MONITOR
[2019-06-22 08:00] VITALS: BP 162/73
--- NOTE | 2019-06-22 10:00 | NUR ---
PATIENT IN BED, WATCHING TV, NO DISTRESS NOTED. WILL CONTINUE TO MONITOR.
[2019-06-22] MEDS: FENOFIBRATE 48 MG TAB PO SCH (10:02)
[2019-06-22] MEDS: ASCORBIC ACID 500 MG TAB PO SCH (10:02)
[2019-06-22] MEDS: TAMSULOSIN 0.4 MG CAP PO SCH (10:02)
[2019-06-22] MEDS: PANTOPRAZOLE 40 MG TABEC PO SCH (10:03)
[2019-06-22] MEDS: METOPROLOL 50 MG TAB PO SCH ×2 (10:03→21:50)
[2019-06-22] MEDS: hydrALAZINE 10 MG TAB PO SCH ×3 (10:03→16:48)
[2019-06-22] MEDS: ASPIRIN 81 MG TAB.CHEW PO SCH (10:03)
[2019-06-22] MEDS: MEROPENEM 1,000 MG in NACL 0.9% 100 ML IV SCH ×2 (10:04→21:36)
[2019-06-22 12:00] VITALS: BP 157/68
--- NOTE | 2019-06-22 13:09 | NUR ---
PATIENT SITTING IN BED TALKING WITH DAUGHTER AT THE BEDSIDE. PATIENT IN STABLE CONDITION AT THIS TIME. WILL CONTINUE TO MONITOR.
[2019-06-22] MEDS: INSULIN LISPRO SLIDING SCALE 100 UNITS/ML VIAL SUBQ PRN ×2 (14:03→21:59)
[2019-06-22 14:30] LABS: BASOPHILS % (AUTO) 0.8 % (0.0-2.0); EOSINOPHILS # (AUTO) 0.5 K/uL (0-0.4); EOSINOPHILS % (AUTO) 12.4 % (0.0-4.0); HEMOGLOBIN 7.4 g/dL (12.0-18.0); LYMPHOCYTES # (AUTO) 1.5 K/uL (2.0-11.5); LYMPHOCYTES % (AUTO) 35.1 % (20.5-51.1); MEAN CORPUSCULAR HEMOGLOBIN 29 pg (27-31); MEAN CORPUSCULAR HGB CONC 34 g/dL (33-37); MEAN CORPUSCULAR VOLUME 85.4 fL (80-94); MONOCYTES # (AUTO) 0.5 K/uL (0.8-1.0); MONOCYTES % (AUTO) 11.7 % (1.7-9.3); NEUTROPHILS # (AUTO) 1.7 K/uL (1.8-7.7); PLATELET COUNT (AUTO) 224 K/uL (140-450); RED BLOOD CELL COUNT(AUTO) 2.57 MIL/uL (4.20-6.10); RED CELL DISTRIBUTION WIDTH 17.2 % (11.6-13.7); WHITE BLOOD COUNT (AUTO) 4.2 K/uL (4.8-10.8)
[2019-06-22 16:00] VITALS: BP 138/55
--- NOTE | 2019-06-22 16:49 | NUR ---
PATIENT SITTING IN BED WATCHING TV. NO DISTRESS NOTED. DENIES ANY PAIN. SCHEDULED MEDICATIONS DUE GIVEN. RUARM PICC LINE DRESSING CHANGED, INJECTION CAPS CHANGED. WILL CONTINUE TO MONITOR.
--- NOTE | 2019-06-22 19:12 | NUR ---
ENDORSED BEDSIDE REPORT TO CRUSHER SETTER NURSE. PATIENT SLEEPING IN BED IN STABLE CONDITION.
--- NOTE | 2019-06-22 19:13 | NUR ---
RECD. SLEEPING COMFORTABLY IN BED BUT AROUSABLE. RESPIRATION EVEN AND UNLABORED. WITH PICC LINE AT THE RIGHT UPPER ARM, COVERED WITH DRESSING DRY AND INTACT. LEFT FOOT COVERED WITH DRESSING WITH WOUND VAC DRAINING VERY MINIMAL AMOUNT OF SEROSANGUINEOUS BLOOD. WITH 2+ PITTING EDEMA ON BILATERAL LOWER EXTREMITIES. PLAN OF CARE FOR THE SHIFT DISCUSSED. VERBALIZED UNDERSTANDING. TITA P- Addendum: 06/22/19 at 2020 by Antonette Garsia LVN CORRECTION: DENIES PAIN 0.
[2019-06-22 20:00] VITALS: BP 150/72
--- NOTE | 2019-06-22 21:00 | NUR ---
Patient's Plan of Care was discussed and reviewed with CORE WORKER: GARETT MORE
[2019-06-22] MEDS: ATORVASTATIN 20 MG TAB PO SCH (21:49)
--- NOTE | 2019-06-22 21:57 | NUR ---
DUE PO MEDICATIONS GIVEN. REFUSED SNACK FOR THE NIGHT.
[2019-06-23] VITALS: BP 143/52
--- NOTE | 2019-06-23 | NUR ---
STILL AWAKE IN BED. VS STABLE.
[2019-06-23 04:00] VITALS: BP 143/62
--- NOTE | 2019-06-23 04:00 | NUR ---
SLEEPING COMFORTABLY IN BED, VS STABLE.
[2019-06-23] MEDS: BLOOD GLUCOSE MONITORING 1 DEV DEV FS SCH ×4 (06:24→21:15)
[2019-06-23 06:40] LABS: ANION GAP 14.2 (8-16); CREATININE 1.6 mg/dL (0.7-1.3); POTASSIUM 4.2 mmol/L (3.5-5.1)
[2019-06-23 06:43] LABS: BASOPHILS % (AUTO) 0.9 % (0.0-2.0); EOSINOPHILS # (AUTO) 0.6 K/uL (0-0.4); EOSINOPHILS % (AUTO) 12.4 % (0.0-4.0); HEMATOCRIT 21.6 % (36-52); HEMOGLOBIN 7.2 g/dL (12.0-18.0); LYMPHOCYTES # (AUTO) 1.6 K/uL (2.0-11.5); LYMPHOCYTES % (AUTO) 36.6 % (20.5-51.1); MEAN CORPUSCULAR HEMOGLOBIN 29 pg (27-31); MEAN CORPUSCULAR HGB CONC 33 g/dL (33-37); MEAN CORPUSCULAR VOLUME 85.8 fL (80-94); MONOCYTES # (AUTO) 0.5 K/uL (0.8-1.0); MONOCYTES % (AUTO) 10.1 % (1.7-9.3); NEUTROPHILS # (AUTO) 1.8 K/uL (1.8-7.7); PLATELET COUNT (AUTO) 262 K/uL (140-450); RED BLOOD CELL COUNT(AUTO) 2.52 MIL/uL (4.20-6.10); RED CELL DISTRIBUTION WIDTH 17.5 % (11.6-13.7); WHITE BLOOD COUNT (AUTO) 4.5 K/uL (4.8-10.8)
[2019-06-23 06:46] LABS: MAGNESIUM 1.8 mg/dL (1.8-2.4); PHOSPHORUS 4.3 mg/dL (2.5-4.9)
--- NOTE | 2019-06-23 07:00 | NUR ---
VERY MINIMAL OUTPUT FROM WOUND VAC. NO COMPLAINT OF PAIN DURING SHIFT. CONDITION REMAIN STABLE. WILL ENDORSE TO AM SHIFT FOR CONTINUITY OF CARE.
[2019-06-23 08:00] VITALS: BP 158/66
--- NOTE | 2019-06-23 08:07 | NUR ---
RECEIVED BED SIDE REPORT FROM GEOPHYSICAL DRAFTER NURSE. PATIENT IN STABLE CONDITION, WILL CONTINUE TO MONITOR. Addendum: 06/23/19 at 0809 by Jena Agosto RN TIME CORRECTION: 0245
[2019-06-23] MEDS: MEROPENEM 1,000 MG in NACL 0.9% 100 ML IV SCH ×2 (09:18→20:48)
--- NOTE | 2019-06-23 09:18 | NUR ---
PATIENT SITTING UP IN BED, IN STABLE CONDITION.NO DISTRESS NOTED. SCHEDULED MEDICATION WERE GIVEN AT THIS TIME. WILL CONTINUE TO MONITOR.
[2019-06-23] MEDS: METOPROLOL 50 MG TAB PO SCH ×2 (09:19→21:11)
[2019-06-23] MEDS: TAMSULOSIN 0.4 MG CAP PO SCH (09:19)
[2019-06-23] MEDS: PANTOPRAZOLE 40 MG TABEC PO SCH (09:19)
[2019-06-23] MEDS: hydrALAZINE 10 MG TAB PO SCH ×3 (09:20→17:17)
[2019-06-23] MEDS: ASCORBIC ACID 500 MG TAB PO SCH (09:20)
[2019-06-23] MEDS: ASPIRIN 81 MG TAB.CHEW PO SCH (09:20)
[2019-06-23] MEDS: FENOFIBRATE 48 MG TAB PO SCH (09:20)
[2019-06-23] MEDS ORDERED: VANCOMYCIN 1,000 MG in DEXTROSE 5% 250 ML IV SCH (10:30)
[2019-06-23 12:00] VITALS: BP 165/74
[2019-06-23] MEDS: INSULIN LISPRO SLIDING SCALE 100 UNITS/ML VIAL SUBQ PRN ×2 (12:28→21:17)
--- NOTE | 2019-06-23 12:28 | NUR ---
PATIENT SITTING IN BED WITH LUNCH TRAY IN FRONT. NO DISTRESS NOTED. DENIES ANY PAIN. SCHEDULED MEDICATIONS DUE GIVEN. WILL CONTINUE TO MONITOR.
--- NOTE | 2019-06-23 15:00 | NUR ---
PATIENT SITTING IN BED WATCHING TV. NO DISTRESS NOTED. CONDITION UNCHANGED. WILL CONTINUE TO MONITOR.
[2019-06-23 16:00] VITALS: BP 168/72
[2019-06-23] MEDS ORDERED: EPOETIN ALFA 2,000 UNITS/ML VIAL SUBQ SCH (16:00)
[2019-06-23] MEDS: FERROUS SULFATE 325 MG TABEC PO SCH (17:17)
--- NOTE | 2019-06-23 17:23 | NUR ---
PATIENT SITTING IN BED TALKING TO FRIEND AT BEDSIDE. SCHEDULED MEDICATIONS DUE GIVEN. WILL CONTINUE TO MONITOR.
--- NOTE | 2019-06-23 19:15 | NUR ---
ENDORSED TO QUALITY CONTROL SUPERVISOR NURSE. PATIENT IN STABLE CONDITION.
--- NOTE | 2019-06-23 19:16 | NUR ---
RECD. RESTING IN BED, AWAKE, A/OX4. RESPIRATION EVEN AND UNLABORED. PICC LINE AT THE RIGHT UPPER ARM WITH DRESSING DRY AND INTACT. LEFT FOOT WITH DRESSING AND CONNECTED TO WOUND VAC, VERY MINIMAL AMOUNT OF SANGUINOUS DRAINAGE NOTED. PLAN OF CARE FOR THE SHIFT DISCUSSED. VERBALIZED UNDERSTANDING. DENIES PAIN 0/10.
[2019-06-23 20:00] VITALS: BP 138/57
--- NOTE | 2019-06-23 20:00 | NUR ---
Patient's Plan of Care was discussed and reviewed with BROOMMAKING SUPERVISOR: GARETT MORE
[2019-06-23] MEDS: ATORVASTATIN 20 MG TAB PO SCH (21:11)
--- NOTE | 2019-06-23 21:11 | NUR ---
RESTING IN BED, DUE PO MEDICATIONS GIVEN. REFUSED SNACK FOR THE NIGHT.
[2019-06-24] VITALS: BP 132/58
--- NOTE | 2019-06-24 | NUR ---
SLEEPING COMFORTABLY IN BED, NO COMPLAINT OF PAIN 0/10.
[2019-06-24 04:00] VITALS: BP 158/58
--- NOTE | 2019-06-24 04:00 | NUR ---
STILL SLEEPING IN BED, NO APPEARANCE OF DISTRESS. SR ON TELE MONITORING WITH PACs.
--- NOTE | 2019-06-24 07:00 | NUR ---
AWAKE IN BED, STATED HE ONE BM THIS MORNING. CONDITION REMAIN STABLE. WILL ENDORSE TO AM SHIFT NURSE FOR CONTINUITY OF CARE.
[2019-06-24 07:20] LABS: BASOPHILS % (AUTO) 0.9 % (0.0-2.0); EOSINOPHILS # (AUTO) 0.6 K/uL (0-0.4); EOSINOPHILS % (AUTO) 12.6 % (0.0-4.0); HEMATOCRIT 23.1 % (36-52); HEMOGLOBIN 7.8 g/dL (12.0-18.0); LYMPHOCYTES # (AUTO) 1.5 K/uL (2.0-11.5); LYMPHOCYTES % (AUTO) 33.8 % (20.5-51.1); MEAN CORPUSCULAR HEMOGLOBIN 29 pg (27-31); MEAN CORPUSCULAR HGB CONC 34 g/dL (33-37); MEAN CORPUSCULAR VOLUME 85.2 fL (80-94); MONOCYTES # (AUTO) 0.4 K/uL (0.8-1.0); MONOCYTES % (AUTO) 9.3 % (1.7-9.3); NEUTROPHILS % (AUTO) 43.4 % (42.2-75.2); PLATELET COUNT (AUTO) 296 K/uL (140-450); RED BLOOD CELL COUNT(AUTO) 2.72 MIL/uL (4.20-6.10); RED CELL DISTRIBUTION WIDTH 17.1 % (11.6-13.7); WHITE BLOOD COUNT (AUTO) 4.6 K/uL (4.8-10.8)
[2019-06-24] MEDS: BLOOD GLUCOSE MONITORING 1 DEV DEV FS SCH ×4 (07:30→20:20)
[2019-06-24 07:36] LABS: MAGNESIUM 1.8 mg/dL (1.8-2.4); PHOSPHORUS 4.3 mg/dL (2.5-4.9)
--- NOTE | 2019-06-24 07:49 | NUR ---
RECEIVED REPORT FROM GRINDING AND SPRAYING SUPERVISOR RN FOR CONTINUITY. PT IS AAOX4, AMBULATORY BUT FALL RISK DUE TO LEFT FOOT TOE AMPUTATIONS. PT HAS WOUND ON THE LEFT FOOT. S/P I&D FROM 06/20. PT HAS WOUND VAC PLACED AND WILL BE CHANGED BY PEDIATRIST. PT DENIES PAIN, SOB, OR ANY DISTRESS AT THIS TIME. EXPLAINED POC TO PT AND PT VERBALIZED UNDERSTANDING. ALL NEEDS MET. WILL CONTINUE TO ROUND FREQUENTLY ON PT. BED IN LOW POSITION, CALL LIGHT WITHIN REACH.
[2019-06-24 08:00] VITALS: BP 161/72
[2019-06-24] MEDS: FENOFIBRATE 48 MG TAB PO SCH (09:00)
[2019-06-24 09:05] LABS: ANION GAP 13.8 (8-16); CARBON DIOXIDE 24.6 mmol/L (21-32); CREATININE 1.6 mg/dL (0.7-1.3); POTASSIUM 4.4 mmol/L (3.5-5.1)
[2019-06-24] MEDS: TAMSULOSIN 0.4 MG CAP PO SCH (09:51)
[2019-06-24] MEDS: METOPROLOL 50 MG TAB PO SCH ×2 (09:52→20:20)
[2019-06-24] MEDS: ASPIRIN 81 MG TAB.CHEW PO SCH (09:52)
[2019-06-24] MEDS: hydrALAZINE 10 MG TAB PO SCH ×3 (09:52→17:07)
[2019-06-24] MEDS: FERROUS SULFATE 325 MG TABEC PO SCH ×2 (09:52→17:07)
[2019-06-24] MEDS: PANTOPRAZOLE 40 MG TABEC PO SCH (09:52)
[2019-06-24] MEDS: ASCORBIC ACID 500 MG TAB PO SCH (09:52)
[2019-06-24] MEDS: MEROPENEM 1,000 MG in NACL 0.9% 100 ML IV SCH ×2 (09:53→20:19)
--- NOTE | 2019-06-24 09:57 | NUR ---
ADMINISTERED MORNING MEDS TO PT. PT TOLERATED WELL. ALL NEEDS MET. WILL CONTINUE TO ROUND FREQUENTLY ON PT. BED IN LOW POSITION, CALL LIGHT WITHIN REACH.
--- NOTE | 2019-06-24 11:23 | NUR ---
PT RESTING IN BED WITH FAMILY AT BEDSIDE. PT DENIES PAIN OR DISTRESS. WILL CONTINUE TO ROUND FREQUENTLY ON PT. BED IN LOW POSITION, CALL LIGHT WITHIN REACH.
[2019-06-24 12:00] VITALS: BP 146/71
[2019-06-24] MEDS: INSULIN LISPRO SLIDING SCALE 100 UNITS/ML VIAL SUBQ PRN ×2 (13:31→20:29)
--- NOTE | 2019-06-24 13:47 | NUR ---
PT ASLEEP. ALL NEEDS MET. WILL CONTINUE TO ROUND FREQUENTLY ON PT. BED IN LOW POSITION, CALL LIGHT WITHIN REACH.
--- NOTE | 2019-06-24 15:43 | NUR ---
PT RESTING IN BED WATCHING TV. ALL NEEDS MET. WILL CONTINUE TO ROUND FREQUENTLY ON PT. BED IN LOW POSITION, CALL LIGHT WITHIN REACH.
[2019-06-24 16:00] VITALS: BP 120/62
--- NOTE | 2019-06-24 17:45 | NUR ---
PT RESTING IN BEDSIDE CHAIR WATCHING TV. ALL NEEDS EMT. WILL CONTINUE TO ROUND FREQUENTLY ON PT. BED IN LOW POSITION, CALL LIGHT WITHIN REACH
--- NOTE | 2019-06-24 19:30 | NUR ---
ENDORSED PT TO DISTILLERY WORKER FOR CONTINUITY OF CARE. PT IN STABLE CONDITION AT THIS TIME.
--- NOTE | 2019-06-24 19:31 | NUR ---
RECEIVED BEDSIDE REPORT FROM DAY SHIFT RN FOR CONTINUITY. PT IS AAOX4, AMBULATORY BUT FALL RISK DUE TO LEFT FOOT TOE AMPUTATIONS. PT HAS WOUND ON THE LEFT FOOT. S/P I&D FROM 06/20. PT HAS WOUND VAC PLACED CHANGED BY PROTECTION ANALYST TODAY. PICC LINE ON STEPHIE DOUBLE LUMENS. RED IS WORKING BUT PURPLE IS NOT WORKING. PT DENIES PAIN, SOB, OR ANY DISTRESS AT THIS TIME. EXPLAINED POC TO PT AND PT VERBALIZED UNDERSTANDING. PT ON CONTACT PRECAUTION D/T MDRO IN WOUND. ALL NEEDS MET. WILL CONTINUE TO ROUND FREQUENTLY ON PT. BED IN LOW POSITION, CALL LIGHT WITHIN REACH.
[2019-06-24 20:00] VITALS: BP 141/60
[2019-06-24] MEDS: ATORVASTATIN 20 MG TAB PO SCH (20:20)
--- NOTE | 2019-06-24 20:29 | NUR ---
GIVEN MERREM, LIPITOR, LOPRESSOR, AND HEPARIN MD ORDERED. BS CHECKED, 162, GIVEN INSULIN SLIDING SCALE. PT TOLERATED WELL. WILL CONTINUE TO MONITOR.
--- NOTE | 2019-06-24 22:15 | NUR ---
PT SLEEPING IN BED. NO ACUTE DISTRESS NOTED.
[2019-06-25] VITALS: BP 118/43
--- NOTE | 2019-06-25 00:05 | NUR ---
VS CHECKED, WITHIN PT'S BASELINE. WILL CONTINUE TO MONITOR.
--- NOTE | 2019-06-25 02:15 | NUR ---
PT SLEEPING IN BED. NO ACUTE DISTRESS NOTED.
[2019-06-25 04:00] VITALS: BP 127/61
--- NOTE | 2019-06-25 04:09 | NUR ---
VS CHECKED, WITHIN PT'S BASELINE. WILL CONTINUE TO MONITOR.
[2019-06-25] MEDS: BLOOD GLUCOSE MONITORING 1 DEV DEV FS SCH ×4 (05:50→20:53)
--- NOTE | 2019-06-25 05:50 | NUR ---
BS CHECKED, 141, NO INSULIN COVERAGE NEEDED.
--- NOTE | 2019-06-25 06:53 | NUR ---
PT SLEEPING IN BED. NO ACUTE DISTRESS NOTED.
--- NOTE | 2019-06-25 07:05 | NUR ---
RECEIVED BEDSIDE REPORT FROM CROSS TIE CUTTER NURSE. PATIENT IS AWAKE, ALERT AND ORIENTEDX4. [facility] HELENIAN SPEAKER. NO SIGNS OF DISTRESS ON RA. SKIN HAS WOUND ON L FOOT, WOUND VAC PRESENT. AMBULATORY, HAS A POST OP SHOE. STEPHIE PICC LINE DOUBLE LUMEN SL. CLEAN, DRY AND INTACT. CONTINENT. CONTACT PRECAUTIONS MDRO URINE. ABLE TO MAKE NEEDS KNOWN. BED IN LOW POSITION. CALL LIGHT WITHIN REACH, WILL CONTINUE TO MONITOR THE PATIENT.
[2019-06-25 07:20] LABS: BASOPHILS % (AUTO) 0.8 % (0.0-2.0); EOSINOPHILS # (AUTO) 0.5 K/uL (0-0.4); EOSINOPHILS % (AUTO) 10.2 % (0.0-4.0); HEMATOCRIT 22.3 % (36-52); HEMOGLOBIN 7.5 g/dL (12.0-18.0); LYMPHOCYTES # (AUTO) 1.8 K/uL (2.0-11.5); LYMPHOCYTES % (AUTO) 36.5 % (20.5-51.1); MEAN CORPUSCULAR HEMOGLOBIN 29 pg (27-31); MEAN CORPUSCULAR HGB CONC 33 g/dL (33-37); MEAN CORPUSCULAR VOLUME 85.1 fL (80-94); MONOCYTES # (AUTO) 0.5 K/uL (0.8-1.0); MONOCYTES % (AUTO) 9.3 % (1.7-9.3); NEUTROPHILS # (AUTO) 2.1 K/uL (1.8-7.7); NEUTROPHILS % (AUTO) 43.2 % (42.2-75.2); PLATELET COUNT (AUTO) 333 K/uL (140-450); RED BLOOD CELL COUNT(AUTO) 2.62 MIL/uL (4.20-6.10); RED CELL DISTRIBUTION WIDTH 17.1 % (11.6-13.7); WHITE BLOOD COUNT (AUTO) 4.9 K/uL (4.8-10.8)
[2019-06-25 08:00] VITALS: BP 141/75
[2019-06-25 08:32] LABS: ANION GAP 12.6 (8-16); CARBON DIOXIDE 24.8 mmol/L (21-32); POTASSIUM 4.4 mmol/L (3.5-5.1)
[2019-06-25 08:33] LABS: CREATININE 1.6 mg/dL (0.7-1.3)
[2019-06-25] MEDS: ASCORBIC ACID 500 MG TAB PO SCH (08:52)
[2019-06-25] MEDS: PANTOPRAZOLE 40 MG TABEC PO SCH (08:52)
[2019-06-25] MEDS: hydrALAZINE 10 MG TAB PO SCH ×3 (08:52→17:16)
[2019-06-25] MEDS: ASPIRIN 81 MG TAB.CHEW PO SCH (08:52)
[2019-06-25] MEDS: FERROUS SULFATE 325 MG TABEC PO SCH ×2 (08:53→17:16)
[2019-06-25] MEDS: FENOFIBRATE 48 MG TAB PO SCH (08:53)
[2019-06-25] MEDS: METOPROLOL 50 MG TAB PO SCH ×2 (08:53→20:53)
[2019-06-25] MEDS: TAMSULOSIN 0.4 MG CAP PO SCH (08:53)
--- NOTE | 2019-06-25 09:03 | NUR ---
ADMINISTERED MEDS. PATIENT TOLERATED WELL. PATIENT REFUSED TO GET EDUCATED ON MEDS, HE SAID I KNOW! I KNOW! STATED I DONT NEED TO EXPLAIN THE MEDS TO HIM. PATIENT IN NO DISTRESS. WILL CONTINUE TO MONITOR
[2019-06-25] MEDS ORDERED: VANCOMYCIN PER PHARMACY MC PRN (10:00)
[2019-06-25] MEDS ORDERED: VANCOMYCIN 1,000 MG in DEXTROSE 5% 250 ML IV SCH (11:00)
--- NOTE | 2019-06-25 11:54 | NUR ---
ADMINISTERED MEDS. PATIENT TOLERATED WELL. NO SIGNS OF DISTRESS. EDUCATED ON MEDS. WILL CONTINUE TO MONITOR
--- NOTE | 2019-06-25 12:58 | NUR ---
06/25/19 RD FOLLOW UP COMPLETED PLEASE REFER TO NUTRITION ASSESSMENT UNDER CARE ACTIVITY FOR ESTIMATED NUTRITIONAL NEEDS. 1. CONTINUE CCHO 60GM DIET TOLERATED 2. CONTINUE PROSOURCE TID 3. CONTINUE VITAMIN C 500 MG FOR WOUND HEALING 4. RD TO FOLLOW-UP 3-5 DAYS, MODERATE RISK ELIZ MCCARTHY RD
[2019-06-25] MEDS: INSULIN LISPRO SLIDING SCALE 100 UNITS/ML VIAL SUBQ PRN ×3 (13:08→20:59)
--- NOTE | 2019-06-25 13:09 | NUR ---
ADMINISTERED MEDS. PATIENT TOLERATED WELL. NO SIGNS OF DISTRESS. WILL CONTINUE TO MONITOR THE PATIENT
--- NOTE | 2019-06-25 14:42 | NUR ---
PATIENT IS SLEEPING. NO SIGNS OF DISTRESS. WILL CONTINUE TO MONITOR THE PATIENT
[2019-06-25 16:00] VITALS: BP 142/63
--- NOTE | 2019-06-25 16:20 | NUR ---
PATIENT RESTING IN NO DISTRESS
--- NOTE | 2019-06-25 17:22 | NUR ---
ADMINISTERED MEDS. PATIENT TOLERATED WELL. EDUCATED ON SIDE EFFECTS. WILL CONTINUE TO MONITOR THE PATIENT
--- NOTE | 2019-06-25 19:17 | NUR ---
GAVE BEDSIDE REPORT TO DEFENSIVE SECONDARY COACH NURSE. ENDORSED PATIENT IN STABLE CONDITION
--- NOTE | 2019-06-25 19:30 | NUR ---
ASSUMED CARE OF PATIENT, AWAKE, ALERT AND ORIENTED. NO COMPLAINS. CALL LIGHT WITHIN REACH. CARE BOARD UPDATED.
--- NOTE | 2019-06-25 20:00 | NUR ---
DRESSING ON LEFT FOOT DRY AND INTACT, ATTACHED TO WOUND VAC. CARE BOARD UPDATED. PLAN OF CARE DISCUSSED WITH PATIENT, VERBALIZED UNDERSTANDING WELL. CALL LIGHT WITHIN REACH.
[2019-06-25] MEDS: MEROPENEM 1,000 MG in NACL 0.9% 100 ML IV SCH (20:53)
[2019-06-25] MEDS: ATORVASTATIN 20 MG TAB PO SCH (20:53)
--- NOTE | 2019-06-25 21:00 | NUR ---
DUE MEDS GIVEN. HS SNACK GIVEN. NO COMPLAINS. CALL LIGHT WITHIN REACH.
[2019-06-26 00:41] VITALS: BP 109/61
--- NOTE | 2019-06-26 00:44 | NUR ---
VITAL SIGNS STABLE. NO COMPLAINS. CALL LIGHT WITHIN REACH. SLEEPING AROUSABLE.
--- NOTE | 2019-06-26 04:41 | NUR ---
SLEEPING WELL. NO COMPLAINS. CALL LIGHT WITHIN REACH.
[2019-06-26] MEDS: BLOOD GLUCOSE MONITORING 1 DEV DEV FS SCH (05:33)
--- NOTE | 2019-06-26 06:25 | NUR ---
DRESSING CHANGE AND WOUND VAC CHANGE BY PODIATRY DONE TODAY, DRESSING DRY AND INTACT. BLOOD DRAW DONE. CALL LIGHT WITHIN REACH.
[2019-06-26 07:06] LABS: BASOPHILS # (AUTO) 0.1 K/uL (0.00-0.22); BASOPHILS % (AUTO) 1.2 % (0.0-2.0); EOSINOPHILS # (AUTO) 0.5 K/uL (0-0.4); EOSINOPHILS % (AUTO) 9.6 % (0.0-4.0); HEMATOCRIT 23.3 % (36-52); HEMOGLOBIN 7.8 g/dL (12.0-18.0); LYMPHOCYTES # (AUTO) 1.8 K/uL (2.0-11.5); LYMPHOCYTES % (AUTO) 37.5 % (20.5-51.1); MEAN CORPUSCULAR HEMOGLOBIN 29 pg (27-31); MEAN CORPUSCULAR HGB CONC 33 g/dL (33-37); MEAN CORPUSCULAR VOLUME 85.6 fL (80-94); MONOCYTES # (AUTO) 0.4 K/uL (0.8-1.0); MONOCYTES % (AUTO) 8.4 % (1.7-9.3); NEUTROPHILS # (AUTO) 2.1 K/uL (1.8-7.7); NEUTROPHILS % (AUTO) 43.3 % (42.2-75.2); PLATELET COUNT (AUTO) 353 K/uL (140-450); RED BLOOD CELL COUNT(AUTO) 2.73 MIL/uL (4.20-6.10); RED CELL DISTRIBUTION WIDTH 17.2 % (11.6-13.7); WHITE BLOOD COUNT (AUTO) 4.9 K/uL (4.8-10.8)
--- NOTE | 2019-06-26 07:15 | NUR ---
RECEIVED PT FROM NIGHT NURSE. PT AWAKE AAOX4, SITTING IN BED. DENIES PAIN, NO DISTRESS NOTED. RESPIRATIONS EVEN AND UNLABORED ON ROOM AIR, CLEAR BREATH SOUNDS. R UA PICC LINE IN PLACE SOUBLE LUMEN, SALINE LOCKED, ASYMPTOMATIC. LEFT FOOT WOUND, OTHERWISE SKIN INTACT. SAFETY MEASURES IN PLACE. CALL LIGHT WITHIN REACH. BED IN LOW POSITION. WILL CONTINUE TO MONITOR.
[2019-06-26 07:16] LABS: ANION GAP 15.3 (8-16); CARBON DIOXIDE 23.1 mmol/L (21-32); CREATININE 1.5 mg/dL (0.7-1.3); POTASSIUM 4.4 mmol/L (3.5-5.1)
--- NOTE | 2019-06-26 07:27 | NUR ---
ENDORSED CARE AT BEDSIDE WITH SOLO GARG, PATIENT IN STABLE CONDITION.
[2019-06-26 08:00] VITALS: BP 112/67
[2019-06-26] MEDS: PANTOPRAZOLE 40 MG TABEC PO SCH (08:48)
[2019-06-26] MEDS: ASPIRIN 81 MG TAB.CHEW PO SCH (08:48)
[2019-06-26] MEDS: METOPROLOL 50 MG TAB PO SCH (08:48)
[2019-06-26] MEDS: FERROUS SULFATE 325 MG TABEC PO SCH (08:50)
[2019-06-26] MEDS: FENOFIBRATE 48 MG TAB PO SCH (08:50)
[2019-06-26] MEDS: TAMSULOSIN 0.4 MG CAP PO SCH (08:50)
[2019-06-26] MEDS: hydrALAZINE 10 MG TAB PO SCH (08:50)
[2019-06-26] MEDS: ASCORBIC ACID 500 MG TAB PO SCH (08:50)
[2019-06-26] MEDS: MEROPENEM 1,000 MG in NACL 0.9% 100 ML IV SCH (08:51)
--- NOTE | 2019-06-26 09:02 | NUR ---
MEDICATIONS ADMINISTERED PER ORDER. PT TOLERATED WELL. NO DISTRESS NOTED. PT DENIES PAIN. SAFETY MEASURES IN PLACE. WILL CONTINUE TO MONITOR.
[2019-06-26 09:40] VITALS: BP 114/70
[2019-06-26] MEDS ORDERED: APR10 PO (10:40)
[2019-06-26] MEDS ORDERED: VITC500 PO (10:40)
[2019-06-26] MEDS ORDERED: METO50TA99 PO (10:40)
[2019-06-26] MEDS ORDERED: FER325 PO (10:40)
[2019-06-26] MEDS ORDERED: FAMO-90 PO (10:40)
--- NOTE | 2019-06-26 12:10 | NUR ---
PT DISCHARGED AT THIS TIME. FOLLOWUP, DISCHARGE AND MEDICATION TEACHING GIVEN, PT VERBALIZED UNDERSTANDING. DISCHARGE PAPERWORK SIGNED. PT DENIES PAIN. PICC LINE REMOVED WITH MINIMAL BLOOD LOSS AND LUMEN INTACT. RESPIRATIONS EVEN AND UNLABORED ON ROOM AIR, CLEAR BREATH SOUNDS. BELONGINGS VERIFIED AND RETURNED TO PT. ID BANDS REMOVED. SURGICAL DRESSING ON LEFT FOOT S/P I&D TO FOLLOW UP BY PODIATRY. PICTURE NOT TAKEN. ID BANDS REMOVED. PT ESCORTED OFF THE UNIT IN WHEELCHAIR ACCOMPANIED BY SON. PT LEFT IN PRIVATE VEHICLE HOME WHERE HE WILL BE RECEIVING HOME HEALTH WITH [facility].
== END 2019-06-26 12:17 | disposition home or self-care (01) | DRG 628 ==
LOC: MED 15:49 → MTU 19:25
PROVIDERS: ADMIT General Practice; ATTEND General Practice
PROC: 0QBP0ZZ Excision of Left Metatarsal, Open Approach (ICD-10-PCS; principal; 2019-06-19 12:00)
PROC: 30233N1 Transfusion of Nonautologous Red Blood Cells into Peripheral Vein, Percutaneous Approach (ICD-10-PCS; 2019-06-20)
DX: E11.621 Type 2 diabetes mellitus with foot ulcer (principal); I50.43 Acute on chronic combined systolic (congestive) and diastolic (congestive) heart failure; I13.0 Hypertensive heart and chronic kidney disease with heart failure and stage 1 through stage 4 chronic kidney disease, or unspecified chronic kidney disease; L03.116 Cellulitis of left lower limb; D68.59 Other primary thrombophilia; E44.1 Mild protein-calorie malnutrition; M86.672 Other chronic osteomyelitis, left ankle and foot; I31.3 Pericardial effusion (noninflammatory); E11.69 Type 2 diabetes mellitus with other specified complication; N17.0 Acute kidney failure with tubular necrosis; E78.00 Pure hypercholesterolemia, unspecified; E11.21 Type 2 diabetes mellitus with diabetic nephropathy; E11.65 Type 2 diabetes mellitus with hyperglycemia; E83.42 Hypomagnesemia; N40.0 Benign prostatic hyperplasia without lower urinary tract symptoms; E78.5 Hyperlipidemia, unspecified; K21.9 Gastro-esophageal reflux disease without esophagitis; D63.8 Anemia in other chronic diseases classified elsewhere; E11.22 Type 2 diabetes mellitus with diabetic chronic kidney disease; E66.9 Obesity, unspecified; I35.0 Nonrheumatic aortic (valve) stenosis; L97.529 Non-pressure chronic ulcer of other part of left foot with unspecified severity; N18.2 Chronic kidney disease, stage 2 (mild); E78.1 Pure hyperglyceridemia; Z89.432 Acquired absence of left foot; Z79.82 Long term (current) use of aspirin; Z79.899 Other long term (current) drug therapy; Z68.30 Body mass index [BMI] 30.0-30.9, adult; Z82.49 Family history of ischemic heart disease and other diseases of the circulatory system; Z83.3 Family history of diabetes mellitus
CPT/HCPCS: 36415; 71045; 73630; 76770; 80048; 80053; 80202; 81003; 82272; 82550; 82553; 82607; 82728; 82746; 82948; 83036; 83540; 83690; 83735; 83880; 84100; 84443; 84484; 85018; 85025; 85045; 85379; 85610; 85730; 86886; 86900; 86901; 86920; 87070; 87075; 87081; 87205; 88305; 88311; 93005; 93925; 93970; 97116; 97161-GP; 97530; 99285; J0885; J1644; J1885; J1940; J2001; J2185; J2704; J3010; J3370; J3475; J3490; J7030; J7060; P9016; Q0092

== ENCOUNTER 2019-07-11 14:55 | Emergency (ER) | payer OTHER ==
[~2019-07-11] VITALS: Ht 172.7 cm; Wt 86.2 kg
[~2019-07-11 14:55] MED LIST changes: +APR10 PO; -BENA20TA PO; +FAMO-90 PO; +FER325 PO; +INSU100V6 SQ; -MERO1PDS7 IV; -METF850T PO; -METO25TA PO; +METO50TA99 PO; -NOVN SUBQ; -OMEP40EC24 PO; -ORE25 PO; -VANC1PLA12 IV; +VITC500 PO
[2019-07-11 14:56] VITALS: BP 125/54
--- NOTE | 2019-07-11 14:56 | NUR ---
PT ABLE TO STAND AND AMBULATE WITH STANDBY ASSIST, WHEELCHAIR ASSISTED TO BED WITH SIGNIFICANT OTHER
--- NOTE | 2019-07-11 15:15 | NUR ---
64 YEAR OLD MALE COMPLAINS OF 1010 ACHING LEFT LEG PAIN. PATIENT HAS PREVIOUS AMPUTATION SURGERY ON LEFT LEG. LEFT PEDAL PULSE PRESENT, CAP REFILL < 3 SECONDS. PRESSURE DRESSING AT SITE WITH LINE. SITE IS ABSENT OF ANY REDNESS OR DISCHARGE. SWELLING PRESENT. PATIENT DENIES NAUSEA, VOMITTING, AND DIARRHEA. PATIENT DENIES CHEST PAIN, TIREDNESS. PATIENT IS ALERT AND ORIENTED, BREATHING EVEN AND UNLABORED. BED IN LOWEST POSITION, LOCKED, BED RAIL UPX1.
[2019-07-11] MEDS ORDERED: MORPHINE SULFATE 4 MG/ML SYR IVP ONE (15:35)
[2019-07-11] MEDS ORDERED: ONDANSETRON 4 MG/2 ML VIAL IVP ONE (15:35)
--- NOTE | 2019-07-11 15:38 | NUR ---
XRAY AT BEDSIDE
[2019-07-11 16:13] LABS: BASOPHILS % (AUTO) 0.3 % (0.0-2.0); EOSINOPHILS % (AUTO) 0.3 % (0.0-4.0); HEMATOCRIT 23.8 % (36-52); HEMOGLOBIN 7.6 g/dL (12.0-18.0); LYMPHOCYTES # (AUTO) 1.4 K/uL (2.0-11.5); MEAN CORPUSCULAR HEMOGLOBIN 28 pg (27-31); MEAN CORPUSCULAR HGB CONC 32 g/dL (33-37); MEAN CORPUSCULAR VOLUME 87.5 fL (80-94); MONOCYTES # (AUTO) 1.4 K/uL (0.8-1.0); MONOCYTES % (AUTO) 10.3 % (1.7-9.3); NEUTROPHILS # (AUTO) 10.7 K/uL (1.8-7.7); NEUTROPHILS % (AUTO) 79.1 % (42.2-75.2); PLATELET COUNT (AUTO) 270 K/uL (140-450); RED BLOOD CELL COUNT(AUTO) 2.72 MIL/uL (4.20-6.10); RED CELL DISTRIBUTION WIDTH 17.8 % (11.6-13.7); WHITE BLOOD COUNT (AUTO) 13.5 K/uL (4.8-10.8)
[2019-07-11 16:34] LABS: ANION GAP 15.9 (8-16); CARBON DIOXIDE 20.1 mmol/L (21-32); CREATININE 2.2 mg/dL (0.7-1.3)
[2019-07-11 16:42] LABS: ALBUMIN 2.8 g/dL (3.4-5.0); TOTAL BILIRUBIN 0.9 mg/dL (0.0-1.0)
[2019-07-11 17:42] VITALS: BP 139/64
--- NOTE | 2019-07-11 17:43 | NUR ---
Patient discharged with v/s stable. Written and verbal after care instructions ABOUT CELLULITIS given and explained. Patient alert, oriented and verbalized understanding of instructions. Ambulatory with steady gait. All questions addressed prior to discharge. ID band removed. Patient advised to follow up with PMD. Rx of NORCO, KEFLEX, BACTRIM given. Patient educated on indication of medication including possible reaction and side effects. Opportunity to ask questions provided and answered. COPY OF RESULTS GIVEN TO TAKE TO DOCTOR.
== END 2019-07-11 17:43 | disposition home or self-care (01) ==
LOC: MED 14:55
DX: L03.116 Cellulitis of left lower limb (principal); E11.9 Type 2 diabetes mellitus without complications; I10 Essential (primary) hypertension; Z89.432 Acquired absence of left foot; Z79.82 Long term (current) use of aspirin; Z79.4 Long term (current) use of insulin; Z79.899 Other long term (current) drug therapy
CPT/HCPCS: 36415; 73630; 80053; 85025; 93971; 96374; 96375; 99284; J2270; J2405; Q0092

== ENCOUNTER 2019-07-15 10:47 | Inpatient (IN) | payer OTHER ==
[~2019-07-15] VITALS: Ht 172.7 cm; Wt 90.3 kg
[2019-07-15 11:15] VITALS: BP 119/67
--- NOTE | 2019-07-15 11:20 | NUR ---
C/O MECHANICAL FALL 3 DAYS AGO AT HOME PAIN TO LEFT ANTERIOR CHEST WALL PAIN, NO DISCOLORATION NOTED RIGHT HIP PAIN---ABLE TO STAND ---WOUND VAC TO LEFT FOOT S/P AMPUTATION SON JUST NOTICED PT IS JAUNDICE APPEARING TODAY . PT AWAKE ,ALERT ,AMBULATORY WITH ASSISTANCE . AWAKE ,ALERT ,AFEBRILE C/O PAIN AT 8/10 . LIMITATION ON ROM LEFT SIDE EXTREMITIES NO BRUISES. HX--SEE LIST RX--SEE LIST
--- NOTE | 2019-07-15 11:30 | NUR ---
XRAY AT BEDSIDE.
--- NOTE | 2019-07-15 11:36 | NUR ---
labs at bedside.
--- NOTE | 2019-07-15 11:46 | NUR ---
DR CORCORAN AT BEDSIDE.
[2019-07-15 11:52] LABS: BASOPHILS % (AUTO) 0.4 % (0.0-2.0); EOSINOPHILS # (AUTO) 0.1 K/uL (0-0.4); EOSINOPHILS % (AUTO) 1.5 % (0.0-4.0); HEMATOCRIT 23.5 % (36-52); HEMOGLOBIN 7.9 g/dL (12.0-18.0); LYMPHOCYTES # (AUTO) 1.4 K/uL (2.0-11.5); LYMPHOCYTES % (AUTO) 14.2 % (20.5-51.1); MEAN CORPUSCULAR HEMOGLOBIN 29 pg (27-31); MEAN CORPUSCULAR HGB CONC 34 g/dL (33-37); MEAN CORPUSCULAR VOLUME 86.5 fL (80-94); MONOCYTES # (AUTO) 1.1 K/uL (0.8-1.0); MONOCYTES % (AUTO) 11.1 % (1.7-9.3); NEUTROPHILS # (AUTO) 7.4 K/uL (1.8-7.7); NEUTROPHILS % (AUTO) 72.8 % (42.2-75.2); PLATELET COUNT (AUTO) 370 K/uL (140-450); RED BLOOD CELL COUNT(AUTO) 2.72 MIL/uL (4.20-6.10); RED CELL DISTRIBUTION WIDTH 17.6 % (11.6-13.7); WHITE BLOOD COUNT (AUTO) 10.2 K/uL (4.8-10.8)
[2019-07-15 11:55] LABS: APPEARANCE,URINE CLEAR (CLEAR); BILIRUBIN,URINE NEGATIVE (NEGATIVE); BLOOD, URINE 3+ (NEGATIVE); COLOR,URINE YELLOW (YELLOW); LEUKOCYTE ESTERASE ,URINE NEGATIVE (NEGATIVE); NITRITE, URINE NEGATIVE (NEGATIVE); PH,URINE 5.5 (5.0-9.0); UGLUCOSE NEGATIVE (NEGATIVE)
[2019-07-15 12:00] LABS: ANION GAP 19.6 (8-16); CARBON DIOXIDE 18.7 mmol/L (21-32); CREATININE 2.8 mg/dL (0.7-1.3); POTASSIUM 4.3 mmol/L (3.5-5.1)
[2019-07-15] MEDS ORDERED: KETOROLAC 30 MG/ML VIAL IVP ONE (12:00)
[2019-07-15 12:02] LABS: RBC,URINE 50-80 /HPF (0-5)
--- NOTE | 2019-07-15 12:14 | NUR ---
NADRS AT THIS TIME ,PAIN AT 7/10
[2019-07-15 12:18] LABS: ALBUMIN 2.6 g/dL (3.4-5.0); TOTAL BILIRUBIN 0.6 mg/dL (0.0-1.0)
--- NOTE | 2019-07-15 12:30 | NUR ---
PT WENT TO CT SCAN VIA [facility].
[2019-07-15] MEDS ORDERED: VANCOMYCIN PER PHARMACY MC ONE (12:40)
[2019-07-15] MEDS ORDERED: VANCOMYCIN 1GM/DEXT 5% PREMIX 200 ML IV ONE (12:40)
--- NOTE | 2019-07-15 12:44 | NUR ---
PT BACK FROM CT SCAN.
--- NOTE | 2019-07-15 12:54 | NUR ---
IV ACCESS AT RT AC USED GAUGE 20 X1
[2019-07-15] MEDS ORDERED: VANCOMYCIN 1,000 MG VIAL ONE (12:59)
--- NOTE | 2019-07-15 13:18 | NUR ---
IV VANCO STARTED . BP 107/49 WA 77 O2 SAT 99. PAIN LEVEL AT 0.
--- NOTE | 2019-07-15 13:45 | NUR ---
NADR AT THIS TIME
--- NOTE | 2019-07-15 14:35 | NUR ---
Patient will be admitted to care of DR Hood. Admited to M/S. Will go to room 115. Belongings list completed. Report to maria esther valles .
[2019-07-15] MEDS ORDERED: HYDROcodone/APAP 5/325 MG 1 TAB TAB PO PRN (14:45)
[2019-07-15] MEDS ORDERED: LORazepam 2 MG/ML VIAL IM/IVP PRN (14:45)
[2019-07-15] MEDS ORDERED: DOCUSATE SODIUM 100 MG GELCAP PO PRN (14:45)
[2019-07-15] MEDS ORDERED: DEXTROSE 50% 50 ML SYR IVP PRN (14:45)
[2019-07-15] MEDS ORDERED: ACETAMINOPHEN 325 MG TAB PO PRN (14:45)
[2019-07-15] MEDS ORDERED: ONDANSETRON 4 MG/2 ML VIAL IM/IVP PRN (14:45)
[2019-07-15] MEDS ORDERED: ZOLPIDEM 5 MG TAB PO PRN (14:45)
[2019-07-15 15:33] VITALS: BP 128/52
--- NOTE | 2019-07-15 16:30 | NUR ---
PT ASLEEP IN BED. RESPONSIVE TO VERBAL AND TACTILE STIMULI. RESPIRATIONS EVEN AND UNLABORED WITH NO SOB OR RESPIRATORY DISTRESS. SKIN WARM AND DRY TO TOUCH. NO COMPLAINTS OR CONCERNS AT THIS TIME. SAFETY MEASURES IN PLACE. Addendum: 07/15/19 at 2008 by Heidi Og RN WRONG TIME
--- NOTE | 2019-07-15 16:33 | NUR ---
RECEIVED PT FROM ED ON A GURNEY WITH SON AT BEDSIDE. PT TRANSFERRED SAFELY INTO BED. VS RESULTED: 98.0, 99% SPO2, 79 HR, RR 17, AND 128/52BP. PT ASSISTED INTO YELLOW GOWN, YELLOW SOCKS, AND SIGN IS POSTED. ID BAND BAND APPLIED. IV SITE RIGHT AC 20G, CLEAN, DRY, AND INTACT. RESPIRATIONS EVEN AND UNLABORED WITH NO SOB OR RESPIRATORY DISTRESS. SKIN WARM AND DRY TO TOUCH. WILL CONTINUE TO MONITOR
[2019-07-15 16:46] LABS: PHOSPHORUS 5.3 mg/dL (2.5-4.9)
[2019-07-15 16:47] LABS: THYROID STIMULATING HORMONE 0.89 uIU/mL (0.34-3.74)
[2019-07-15] MEDS: BLOOD GLUCOSE MONITORING 1 DEV DEV FS SCH ×2 (17:28→21:09)
[2019-07-15] MEDS ORDERED: NITROGLYCERIN 0.4 MG TAB SL PRN (17:40)
[2019-07-15] MEDS ORDERED: ASPIRIN 81 MG TAB.CHEW PO SCH (17:40)
[2019-07-15] MEDS ORDERED: VANCOMYCIN PER PHARMACY MC PRN (17:45)
--- NOTE | 2019-07-15 17:45 | NUR ---
PT RESTING IN BED WITH FAMILY AT BEDSIDE. ABLE TO MAKE NEEDS KNOWN. NO COMPLAINTS AT THIS TIME. SAFETY MEASURES IN PLACE.
[2019-07-15] MEDS ORDERED: CALCIUM ACETATE 667 MG TAB PO SCH (18:13)
[2019-07-15] MEDS: NACL 0.9% 1,000 ML IV SCH (18:59)
--- NOTE | 2019-07-15 19:20 | NUR ---
RECIEVED PT AAOX4 , NID , IV SITE INTACT AND PATENT , NPO , ON FALL RISK PRECAUTION PROTOCOL ,S/P FALL DAYS AGO . NO COMPLAIN MAD4E AT THIS TIME . WITH CHRONIC WOUND ON LEFT FOOT - WRAPPED WITH BANDAGE - DRY AND INTACT .- AFEBRILE . PLAN OF CARE DISCUSSED AND VERBALIZED UNDERSTANDING . AMBULATES WITH STAND BY ASSIST - FALL RISK - REMAINDS HIM THE USE OF CALL LIGHT WHENEVER HE NEEDS ASSITANCE ON AMBULATION . URINAL PROVIDED AT BED SIDE . WILL CONT. TO MONITOR.
--- NOTE | 2019-07-15 19:20 | NUR ---
ENDORSED TO NIGHTSHIFT NURSE. PT RESTING IN BED. RESPIRATIONS EVEN AND UNLABORED WITH NO SOB OR RESPIRATORY DISTRESS. SKIN WARM AND DRY TO TOUCH. NO COMPLAINTS OR CONCERNS AT THIS TIME. SAFETY MEASURES IN PLACE. PT IS STABLE
[2019-07-15 20:00] VITALS: BP 100/60
[2019-07-15] MEDS: METOPROLOL 50 MG TAB PO SCH (21:00)
[2019-07-15] MEDS ORDERED: ATORVASTATIN 20 MG TAB PO SCH (21:00)
[2019-07-15] MEDS: INSULIN LISPRO 100 UNITS/ML VIAL SUBQ SCH (21:00)
--- NOTE | 2019-07-15 21:00 | NUR ---
METOPROLOL NOT GIVEN DUE TO [place] 58 - INFORMED CHARGED NURSE AND JOSEPHINE.
[2019-07-15] MEDS: ATORVASTATIN 20 MG TAB PO SCH (21:18)
--- NOTE | 2019-07-15 22:45 | NUR ---
MAY HAVE RENAL DIET [id number] - INSTRUCTED TO PT. SANDWICH PROVIDED.
--- NOTE | 2019-07-15 23:00 | NUR ---
RECEIVED REPORT ON PT FROM AM NURSE IN STABLE CONDITION FOR CONTINUITY OF CARE. PT IS ASLEEP. NO S/S DISCOMFORT NOTED. WILL CONTINUE TO MONITOR.
--- NOTE | 2019-07-15 23:00 | NUR ---
ENDORSED TO AMANDA GUERRA FOR CONT. OF CARE . PT WITH STABLE CONDITION.
[2019-07-16] VITALS: BP 125/54
--- NOTE | 2019-07-16 01:00 | NUR ---
MADE ROUNDS. NO S/S OF ANY DISCOMFORT NOTED.
--- NOTE | 2019-07-16 03:00 | NUR ---
MADE ROUNDS. PT ASLEEP. NO S/S OF ANY PAIN OR DISCOMFORT NOTED. WILL CONTINUE TO MONITOR.
[2019-07-16] MEDS: NACL 0.9% 1,000 ML IV SCH ×3 (04:00→20:00)
[2019-07-16 06:12] LABS: T4 (THYROXINE) 4.9 ug/dL (4.5-12.0)
--- NOTE | 2019-07-16 06:30 | NUR ---
BLOOD SUGAR WAS CHECKED THIS AM RESULT 138. NO INSULIN COVERAGE NEEDED.
[2019-07-16 07:00] LABS: MAGNESIUM 2.1 mg/dL (1.8-2.4); PHOSPHORUS 5.4 mg/dL (2.5-4.9)
[2019-07-16] MEDS: MORPHINE SULFATE 2 MG/ML SYR IVP PRN ×2 (07:00→20:43)
--- NOTE | 2019-07-16 07:00 | NUR ---
'S GROUP CAME AND PUT A NEW WOUND VAC TO PT. MEDICATED FOR PAIN ALSO DURING THIS PROCEDURE.
[2019-07-16] MEDS: BLOOD GLUCOSE MONITORING 1 DEV DEV FS SCH ×4 (07:02→20:26)
[2019-07-16 07:26] LABS: ANION GAP 17.2 (8-16); CREATININE 2.9 mg/dL (0.7-1.3); POTASSIUM 4.2 mmol/L (3.5-5.1)
--- NOTE | 2019-07-16 07:40 | NUR ---
ENDORSED PT IN STABLE CONDITION TO AM NURSE.
--- NOTE | 2019-07-16 07:50 | NUR ---
RECEIVED PT FROM NIGHT CHARGE NURSEAMANDA, PT IS AWAKE AND LYING ON THE BED WITH SIDE RAILS UP AND CALL LIGHT WITHIN REACH,M IV LINE ON THE RT AC G. 20 WITH IVF NS INFUSING AT 100ML/HR , PT HAS A LLE CELLULITIS WITH WOUND VACUUM IN PLACE, PT DENIES PAIN AND NO SIGN OF DISTRESS NOTED. WILL MONITOR PT
[2019-07-16 08:00] VITALS: BP 135/63
--- NOTE | 2019-07-16 08:45 | NUR ---
PATIENT HAS BEEN SCREENED AND CATEGORIZED HIGH NUTRITION RISK. PATIENT WILL BE SEEN WITHIN 1-2 DAYS OF ADMISSION. 07/16/19-07/17/[address]
[2019-07-16] MEDS: TAMSULOSIN 0.4 MG CAP PO SCH (08:50)
[2019-07-16] MEDS: CALCIUM ACETATE 667 MG TAB PO SCH ×2 (08:51→11:47)
[2019-07-16] MEDS: ASPIRIN 81 MG TAB.CHEW PO SCH (08:51)
[2019-07-16] MEDS: FAMOTIDINE 20 MG TAB PO SCH (08:51)
[2019-07-16] MEDS: FENOFIBRATE 48 MG TAB PO SCH (08:52)
[2019-07-16] MEDS: ASCORBIC ACID 500 MG TAB PO SCH (08:52)
[2019-07-16] MEDS ORDERED: hydrALAZINE 10 MG TAB PO SCH (09:00)
[2019-07-16] MEDS: METOPROLOL 50 MG TAB PO SCH ×2 (09:03→20:21)
[2019-07-16 09:20] LABS: BASOPHILS % (AUTO) 0.6 % (0.0-2.0); EOSINOPHILS # (AUTO) 0.4 K/uL (0-0.4); EOSINOPHILS % (AUTO) 4.5 % (0.0-4.0); HEMATOCRIT 22.1 % (36-52); HEMOGLOBIN 7.2 g/dL (12.0-18.0); LYMPHOCYTES # (AUTO) 1.2 K/uL (2.0-11.5); LYMPHOCYTES % (AUTO) 15.3 % (20.5-51.1); MEAN CORPUSCULAR HEMOGLOBIN 28 pg (27-31); MEAN CORPUSCULAR HGB CONC 33 g/dL (33-37); MONOCYTES # (AUTO) 0.8 K/uL (0.8-1.0); MONOCYTES % (AUTO) 9.8 % (1.7-9.3); NEUTROPHILS # (AUTO) 5.6 K/uL (1.8-7.7); NEUTROPHILS % (AUTO) 69.8 % (42.2-75.2); PLATELET COUNT (AUTO) 373 K/uL (140-450); RED BLOOD CELL COUNT(AUTO) 2.54 MIL/uL (4.20-6.10); RED CELL DISTRIBUTION WIDTH 17.3 % (11.6-13.7)
[2019-07-16] MEDS: FERROUS SULFATE 325 MG TABEC PO SCH ×2 (09:23→18:28)
[2019-07-16] MEDS: INSULIN LISPRO 100 UNITS/ML VIAL SUBQ SCH ×4 (09:37→21:00)
--- NOTE | 2019-07-16 10:15 | NUR ---
PT IS OFF THE UNIT FOR A X-RAY OF LUMBAR SPINE COMPLETE.
--- NOTE | 2019-07-16 10:30 | NUR ---
PT CAME BACK TO ROOM FROM XR OF LUMBAR SPINE COMPLETE.
--- NOTE | 2019-07-16 10:45 | NUR ---
P.T. NOTES PATIENT REFUSED ANY P.T. SERVICES IN SPITE OF SEVERAL ENCOURAGEMENTS WERE GIVEN. FOREST COELLO MADE AWARE.
[2019-07-16] MEDS ORDERED: SODIUM FERRIC GLUCONATE 125 MG in NACL 0.9% 100 ML IV SCH (11:00)
--- NOTE | 2019-07-16 11:43 | NUR ---
PT IS AWAKE AND SEATED ON THE BED, WOUND VACUUM IN PLACE, BLOOD GLUCOSE CHECK DONE AND RESULT UIS 138., PT REFUSED TO RECEIVED THE SCHEDULED 4 UNITS HUMALOG INSULIN, ORAL AND IVPB MEDICATIONS WERE GIVEN AND TOLERATED IT. WILL MONITOR PT.
[2019-07-16 12:08] LABS: FOLIC ACID 13.3 ng/mL (>3.0)
[2019-07-16 12:25] LABS: CHOL/HDL RATIO 7.6 (1-4.5)
[2019-07-16] MEDS ORDERED: VANCOMYCIN 750 MG in DEXTROSE 5% 250 ML IV SCH (13:00)
--- NOTE | 2019-07-16 14:10 | NUR ---
FARM MANAGEMENT AGENT CALLED AND INFORMED THAT PT REFUSED TO HAVE A BLOOD DRAWN FOR THE TROPONIN LEVEL, DR. ARMENDARIZ MADE AWARE.
--- NOTE | 2019-07-16 14:46 | NUR ---
SW Assessment/Discharge Plan High Risk DC Screen Yes Name: Melisa Perdomo Home Relationship: Pre-Admission Living Arrangements: Lives with Other Other: family Prior ADL Independent Current Home Health Name/Tel: [facility] Current DME/02 Name/Tel: wound vac Current Hospice Name/Tel: N/A Current Dialysis Name/Tel: N/A Healthcare Decision Maker: Patient Advance Directive No Discipline: Case Mgt/Social Svcs Tentative Discharge Plan Summary: Patient is a 64 year old male, admitted for cellulitis l lower extremity. I met with patient and patient's son Marvin Perdomo at bedside. Patient alert and oriented x4. Patient speaks South Korean. Marvin speaks Zambian and [place] Korean. I introduced myself to them and explained my role as a medical instrument technician. They verbalized understanding. Patient lives at home with his family and plans to return home upon discharge. On previous hospital admission at [facility] patient was discharged home with a wound vac and [facility]. If patient has wound care needs upon discharge, his daughter and son (Kristin and Сергей) can assist patient with wound care at home. Patient's pcp is Deon Narayan. He does not have any difficulty filling his prescriptions. He denied hx of mental health. He also denied alcohol/substance abuse. He told me he still has the blank Advance Directive I provided him during previous hospital admission at [facility] and does not want another form. Marvin stated he would like to speak with MD regarding patient's current medical condition and plan of care. was made aware and will speak with Virgie. I provided Marvin with my contact information. [employer] [facility] [employer] and/or Instructional Systems Designer will follow up as needed. Signature: MI Mota Date: Jul 16, 2019
--- NOTE | 2019-07-16 15:19 | NUR ---
DC PLANN[age] YRS OLD MALE PT ADMITTED FROM HOME WITH A DX OF CELLULITIS ON LEFT LOWER EXTREMITY.PT WAS LAST ADMITTED 06/17/19 AND SENT HOME WITH WOUND VAC AND TO F/U WITH PODIATRY. PT HAS A HX OF HTN AND DM . AMBULATE WITH CANE. PT HAS A WOUND VAC AND REMOVED BY PODIATRY DR KAHN ,DRESSING TO BE CHANGED BY PODIATRY WHILE IN HOUSE AND STARTED ON [facility] PROTOCOL ASA 81 MG PO DAILY CONTINUE HOME MEDS . STARTED IV VANCOMYCIN AND IVF. CM TO FOLLOW Addendum: 07/17/19 at 1341 by Pattie Paez CM DC PLANNING CONTINUE MEDICATION AND DRESSING CHANGE BY PODIATRY DC PLAN TO GO HOME 07/18/19 AND F/U OUT PATIENT WITH PODIATRY. CM TO FOLLOW Addendum: 07/19/19 at 1134 by Pattie Paez CM DC PLANNING PT HAS A DISCHARGE ORDER TO GO HOME WITH HOME HEALTH . PT IS WITH [facility] AND WANTED TO CONTINUE WITH [facility] . CALLED [facility] [phone] SPOKE WITH [employer] ,RECEIVED THE FAX AND STATED THEY WILL CONTACT PATIENT AND RESUME THE CARE TOMORROW OR Monday07/21/19
--- NOTE | 2019-07-16 16:38 | NUR ---
07/16/19 RD INITIAL ASSESSMENT COMPLETED PLEASE REFER TO NUTRITION ASSESSMENT UNDER CARE ACTIVITY FOR ESTIMATED NUTRITIONAL NEEDS. 1. CONTINUE CCHO 60GM DIET TOLERATED 2. RECOMMEND GLUCERNA BID AND ALIRIO ONCE DAILY 3. CONTINUE VITAMIN C 500 mg DAILY 4. FOLLOW PATIENT FOOD PREFERENCES 5. RD TO FOLLOW-UP 3-5 DAYS, MODERATE RISK ELIZ MCCARTHY RD
[2019-07-16] MEDS: INSULIN LISPRO SLIDING SCALE 100 UNITS/ML VIAL SUBQ PRN (18:33)
--- NOTE | 2019-07-16 18:35 | NUR ---
PT WAS GIVEN ORAL MEDICATION AND INSULIN 4 UNITS FOR THE BLOOD GLUCOSE OF 238.
[2019-07-16 19:03] VITALS: BP 150/45
--- NOTE | 2019-07-16 19:35 | NUR ---
RECIEVED PT AAOX4 , NID - O2 SAT WNL , C/O HIP PAIN - WILL MEDICATE . WITH LLE WOUND WITH WRAPPED AROUND WITH DRESSING - DRY AND INTACT - ON WOUND VAC . ON FALL / SAFETY PROTOCOL - PUT ON BED ALARM , BUT PT. REFUSED TO HAVE BED ALARM - HE SAID I WILL HIT THE CALL LIGHT WHENEVER I 'LL GO TO THE BATHROOM . EDUCATES PT . THE PURPOSE OF BED ALARM - BUT STILL REFUSED - CALL LIGHT WITHIN REACH. INFORMED CORNER CUTTER STAY TO PT'S ROOM FOR STANDBY ASSISTANCE WHEN THE PT USES RESTROOM BECAUSE PT. IS FALL RISK. WILL CONT. TO MONITOR - NO S/SXS OF ACUTE DISTRESS AT THIS TIME.
--- NOTE | 2019-07-16 19:35 | NUR ---
ENDORSED TO HEEL SEAT FITTER MACHINE NURSE, FOR CONTINUITY OF CARE.
[2019-07-16] MEDS: SULFAMETH/TRIMETH 400/80MG 1 TAB PO SCH (20:22)
[2019-07-16] MEDS: ATORVASTATIN 20 MG TAB PO SCH (20:22)
--- NOTE | 2019-07-16 21:00 | NUR ---
BP 130/70 AZ 92 - DUE METOPROLOL GIVEN - EDUCATES PT HE MAY HAVE DIZZINESS UPON STAND UP . - I TRY TO CONVINCE TO TURN ON BED ALARM - BUT PT. REFUSED . REMINDS HIM THE USE OF CALL LIGHT - CALL LOGHT WITHIN REACH.
--- NOTE | 2019-07-16 22:00 | NUR ---
PT RESTING OF BED . NO S/SXS OF ACUTE DISTRESS NOTED AT THIS TIME - CALL LIGHT WITHIN REACH.
[2019-07-17] VITALS: BP 122/82
--- NOTE | 2019-07-17 | NUR ---
MADE ROUNDS , RESP. EVEN AND UNLABORED . OFFER SNACKS BUT REFUSED. CALL LIGHT WITHIN REACH
--- NOTE | 2019-07-17 01:29 | NUR ---
SLEEPING - CHEST RISE AND FALL EQUALLY - CALL LIGHT WITHIN REACH.
[2019-07-17] MEDS: NACL 0.9% 1,000 ML IV SCH ×2 (05:19→20:00)
[2019-07-17] MEDS: BLOOD GLUCOSE MONITORING 1 DEV DEV FS SCH ×4 (06:36→20:26)
[2019-07-17 07:07] LABS: BASOPHILS # (AUTO) 0.1 K/uL (0.00-0.22); BASOPHILS % (AUTO) 0.8 % (0.0-2.0); EOSINOPHILS # (AUTO) 0.3 K/uL (0-0.4); EOSINOPHILS % (AUTO) 4.1 % (0.0-4.0); HEMATOCRIT 21.7 % (36-52); HEMOGLOBIN 7.2 g/dL (12.0-18.0); LYMPHOCYTES # (AUTO) 1.9 K/uL (2.0-11.5); LYMPHOCYTES % (AUTO) 24.5 % (20.5-51.1); MEAN CORPUSCULAR HEMOGLOBIN 29 pg (27-31); MEAN CORPUSCULAR HGB CONC 33 g/dL (33-37); MEAN CORPUSCULAR VOLUME 86.1 fL (80-94); MONOCYTES # (AUTO) 0.8 K/uL (0.8-1.0); MONOCYTES % (AUTO) 10.7 % (1.7-9.3); NEUTROPHILS # (AUTO) 4.6 K/uL (1.8-7.7); NEUTROPHILS % (AUTO) 59.9 % (42.2-75.2); PLATELET COUNT (AUTO) 420 K/uL (140-450); RED BLOOD CELL COUNT(AUTO) 2.52 MIL/uL (4.20-6.10); RED CELL DISTRIBUTION WIDTH 17.1 % (11.6-13.7); WHITE BLOOD COUNT (AUTO) 7.7 K/uL (4.8-10.8)
[2019-07-17 07:08] LABS: ANION GAP 17.7 (8-16); CARBON DIOXIDE 18.3 mmol/L (21-32); CREATININE 2.3 mg/dL (0.7-1.3)
--- NOTE | 2019-07-17 07:15 | NUR ---
ENDORSED TO AM SHIFT FOR CONT. OF CARE . STABLE CONDITION.
--- NOTE | 2019-07-17 07:15 | NUR ---
RECEIVED REPORT FROM NIGHT FOREST SHETH. PATIENT IS AWAKE AND IN CHAIR AT BEDSIDE. PATIENT IS ON ROOM AIR. FULL CODE, NKA. PATIENT HAS A CONSULT WITH DR RANGEL MANAGER EMERGENCY DEPARTMENT. IV TO RIGHT AC 20G. WILL REVIEW AND CONTINUE WITH PLAN OF CARE FOR THE DAY.
[2019-07-17 07:17] LABS: MAGNESIUM 1.8 mg/dL (1.8-2.4); PHOSPHORUS 3.8 mg/dL (2.5-4.9)
[2019-07-17 08:06] VITALS: BP 125/57
--- NOTE | 2019-07-17 08:25 | NUR ---
ADMINISTERED MORNING MEDICATION. PATIENT TOLERATED WELL. ADMINISTERED MORPHINE IVP FOR PAIN 04/09 TO HIP. WILL RE-ASSESS. NO FURTHER COMPLAINTS AT THIS TIME.
[2019-07-17] MEDS: METOPROLOL 50 MG TAB PO SCH ×2 (08:27→20:19)
[2019-07-17] MEDS: ASCORBIC ACID 500 MG TAB PO SCH (08:27)
[2019-07-17] MEDS: FENOFIBRATE 48 MG TAB PO SCH (08:28)
[2019-07-17] MEDS: FERROUS SULFATE 325 MG TABEC PO SCH ×2 (08:28→17:45)
[2019-07-17] MEDS: SULFAMETH/TRIMETH 400/80MG 1 TAB PO SCH ×2 (08:29→20:19)
[2019-07-17] MEDS: TAMSULOSIN 0.4 MG CAP PO SCH (08:29)
[2019-07-17] MEDS: FAMOTIDINE 20 MG TAB PO SCH (08:29)
[2019-07-17] MEDS: INSULIN LISPRO 100 UNITS/ML VIAL SUBQ SCH ×4 (08:30→20:25)
[2019-07-17] MEDS: ASPIRIN 81 MG TAB.CHEW PO SCH (08:31)
[2019-07-17] MEDS: MORPHINE SULFATE 2 MG/ML SYR IVP PRN (08:32)
--- NOTE | 2019-07-17 10:45 | NUR ---
PATIENT RESTING QUIETLY IN BED. VISIBLE CHEST RISE AND FALL. NO COMPLAINTS AT THIS TIME.
[2019-07-17] MEDS ORDERED: MENTHOL/METHYL 10%-15% 114 GM TUBE TP PRN (11:15)
--- NOTE | 2019-07-17 11:44 | NUR ---
BLOOD SUGAR OF 181. ADMINISTERED 4U HUMALOG PER SCHEDULED ORDER IN EMAR
--- NOTE | 2019-07-17 12:14 | NUR ---
RETRIEVED HEATING PAD FROM CENTRAL SUPPLY AND SET IT UP BEDSIDE NEXT TO PATIENT. INSTRUCTED PATIENT TO APPLY IT TO RIGHT HIP WHEN IT HAS WARMED UP. PATIENT VERBALIZED UNDERSTANDING
--- NOTE | 2019-07-17 12:15 | NUR ---
VANCO TROUGH DRAWN AT THIS TIME.
--- NOTE | 2019-07-17 14:00 | NUR ---
PATIENT RESTING QUIETLY. NO COMPLAINTS AT THIS TIME
[2019-07-17 16:06] VITALS: BP 152/66
--- NOTE | 2019-07-17 16:15 | NUR ---
PATIENT COMPLAINED THAT HEATING PAD ISN'T SUFFICIENT ENOUGH.
--- NOTE | 2019-07-17 18:57 | NUR ---
NEW IV TO LEFT FA 24G. PATIENT MOVED AND REMOVED OTHER IV LINE, CANNULA INTACT.
--- NOTE | 2019-07-17 19:15 | NUR ---
RECEIVED PT ON BED SLEEPING, EASILY AROUSABLE, AAOX4, ABLE TO MAKE NEEDS KNOWN, TOLERABLE LEFT FOOT PAIN 10/07 AT THIS TIME, LEFT FOOT DRESSING DRY AND INTACT AND ATTACHED TO WOUND VAC, REFUSED TO ACTIVATE BED ALARM BUT STATED HE WILL CALL IF HE NEEDS ASSISTANCE, MAINTAINED ON CONTACT ISOLATION, CALL LIGHT WITHIN REACH.
[2019-07-17] MEDS: ATORVASTATIN 20 MG TAB PO SCH (20:18)
--- NOTE | 2019-07-17 20:30 | NUR ---
BLOOD SUGAR CHECKED WITH 116 RESULT, DUE MEDS ADMINISTERED WITH EDUCATION PROVIDED, BEDTIME SNACK PROVIDED, ALL NEEDS ATTENDED.
[2019-07-18] VITALS: BP 113/54
--- NOTE | 2019-07-18 | NUR ---
PT SLEEPING, EASILY AROUSABLE, VITAL SIGNS STABLE, DENIES ANY PAIN, IVF INFUSING WELL, CONTINUE TO MONITOR CLOSELY.
--- NOTE | 2019-07-18 03:30 | NUR ---
ROUNDS MADE, SEEN PT SLEEPING, WITH VISIBLE CHEST RISE AND FALL, NO DISTRESS NOTED, MONITORED CLOSELY.
[2019-07-18] MEDS: NACL 0.9% 1,000 ML IV SCH (03:54)
[2019-07-18] MEDS: BLOOD GLUCOSE MONITORING 1 DEV DEV FS SCH ×4 (06:37→20:21)
[2019-07-18 07:13] LABS: EOSINOPHILS # (AUTO) 0.3 K/uL (0-0.4); MONOCYTES # (AUTO) 0.7 K/uL (0.8-1.0)
--- NOTE | 2019-07-18 07:25 | NUR ---
PT AWAKE, NO DISTRESS NOTED, REPORT GIVEN TO [facility] FOR CONTINUITY OF CARE.
--- NOTE | 2019-07-18 07:27 | NUR ---
RECEIVED BEDSIDE REPORT FROM PORT CRANE OPERATOR NURSE. PATIENT IS AWAKE RESTING IN BED. HE IS AAOX4. RESPIRATION IS EVEN AND UNLABORED ON RA. DENIES ANY PAIN AT THIS TIME. NO SIGNS OF DISTRESS. IV IN LEFT FOREARM, 24G, IS CLEAN, INTACT AND INFUSING. LEFT FOOT WRAPPED IN AMILCAR BANDAGES. BANDAGES ARE CLEAN AND DRY. WOUND VAC IS ATTACHED. OTHERWISE SKIN IS INTACT, APPROPRIATE COLOR FOR ETHNICITY. PT USES CANE AT HOME, BUT BEDREST AT THIS TIME. HE IS USING A URINAL AND IT IS BY BEDSIDE. DISCUSSED PLAN OF CARE WITH PATIENT AND HE VERBALIZED UNDERSTANDING. CONTACT PRECAUTION IN PLACE AND SIGN POSTED ON DOOR. SAFETY MEASURES ASSESSED, BED IS IN LOW POSITION, CALL LIGHT WITHIN REACH. INSTRUCTED PATIENT TO USE CALL LIGHT FOR ANY ASSISTANCE AND PT IS AWARE.
[2019-07-18 07:31] LABS: MAGNESIUM 1.7 mg/dL (1.8-2.4); PHOSPHORUS 4.1 mg/dL (2.5-4.9)
[2019-07-18 07:42] LABS: ANION GAP 17.9 (8-16); CREATININE 2.2 mg/dL (0.7-1.3); POTASSIUM 5.9 mmol/L (3.5-5.1)
[2019-07-18 07:43] LABS: BASOPHILS # (AUTO) 0.1 K/uL (0.00-0.22); BASOPHILS % (AUTO) 0.9 % (0.0-2.0); EOSINOPHILS % (AUTO) 4.1 % (0.0-4.0); HEMATOCRIT 21.6 % (36-52); LYMPHOCYTES # (AUTO) 1.9 K/uL (2.0-11.5); LYMPHOCYTES % (AUTO) 26.9 % (20.5-51.1); MEAN CORPUSCULAR HEMOGLOBIN 28 pg (27-31); MEAN CORPUSCULAR HGB CONC 32 g/dL (33-37); MEAN CORPUSCULAR VOLUME 86.9 fL (80-94); MONOCYTES % (AUTO) 9.1 % (1.7-9.3); NEUTROPHILS # (AUTO) 4.2 K/uL (1.8-7.7); PLATELET COUNT (AUTO) 480 K/uL (140-450); RED BLOOD CELL COUNT(AUTO) 2.48 MIL/uL (4.20-6.10); RED CELL DISTRIBUTION WIDTH 17.2 % (11.6-13.7); WHITE BLOOD COUNT (AUTO) 7.1 K/uL (4.8-10.8)
--- NOTE | 2019-07-18 07:48 | NUR ---
RECEIVED CRITICAL LAB FOR [facility] FROM [email or web address]. WILL NOTIFIED
[2019-07-18 08:00] VITALS: BP 134/64
--- NOTE | 2019-07-18 08:00 | NUR ---
NOTIFIED DR COLEMAN ON CRITICAL LAB OF [facility]. DR COLEMAN WAS AWARE AND NO ORDER RECEIVED AT THIS TIME.
[2019-07-18] MEDS ORDERED: MAG SULF 2000 MG/WATER PREMIX 50 ML IV SCH (08:15)
[2019-07-18] MEDS: ASPIRIN 81 MG TAB.CHEW PO SCH (09:04)
[2019-07-18] MEDS: FAMOTIDINE 20 MG TAB PO SCH (09:05)
[2019-07-18] MEDS: TAMSULOSIN 0.4 MG CAP PO SCH (09:06)
[2019-07-18] MEDS: FERROUS SULFATE 325 MG TABEC PO SCH ×2 (09:06→16:43)
[2019-07-18] MEDS: FENOFIBRATE 48 MG TAB PO SCH (09:07)
[2019-07-18] MEDS: ASCORBIC ACID 500 MG TAB PO SCH (09:07)
[2019-07-18] MEDS: SULFAMETH/TRIMETH 400/80MG 1 TAB PO SCH ×2 (09:08→20:12)
[2019-07-18] MEDS: METOPROLOL 50 MG TAB PO SCH ×2 (09:09→20:12)
[2019-07-18] MEDS: INSULIN LISPRO 100 UNITS/ML VIAL SUBQ SCH ×4 (09:12→20:20)
--- NOTE | 2019-07-18 09:14 | NUR ---
CHECKED BLOOD GLUCOSE AND RECEIVED 155, ADMINISTERED SCHEDULED LISPRO 4 UNITS VIA SUBQ, PT TOLERATED WELL. CHECKED BLOOD PRESSURE AND RECEIVED 111/57 AND PULSE 78, ADMINISTERED SCHEDULED MEDS PER MD ORDER, MEDS ED PROVIDED AND PT VERBALIZED UNDERSTANDING. PT TOLERATED MEDS WELL. PT AWAKE AND WATCHING TV ON BED A THIS TIME. DENIED PAIN, SOB, NAUSEA AND VOMITING. WOUND VAC ATTACHED TO L FOOT. NO SIGNS OF DISTRESS NOTED. SAFETY MEASURES IN PLACE. BED IN LOW POSITION AND CALL LIGHT WITHIN REACH. INSTRUCTED PT TO USE THE CALL LIGHT FOR ANY ASSISTANCE AND PT SAID OK.
--- NOTE | 2019-07-18 11:32 | NUR ---
PT AWAKE AND RESTING ON BED AT THIS TIME. DENIED PAIN, NAUSEA AND VOMITING. NO SIGNS OF DISTRESS NOTED. SAFETY MEASURES IN PLACE. BED IN LOW POSITION AND CALL LIGHT WITHIN REACH. INSTRUCTED PT TO USE THE CALL LIGHT FOR ANY ASSISTANCE AND PT SAID OK.
[2019-07-18] MEDS: INSULIN LISPRO SLIDING SCALE 100 UNITS/ML VIAL SUBQ PRN ×2 (12:40→17:50)
--- NOTE | 2019-07-18 12:40 | NUR ---
PT RECEIVED HIS LUNCH TRAY, CHECKED BLOOD GLUCOSE AND RECEIVED 221, ADMINISTERED SCHEDULED LISPRO 4 UNITS AND PRN LISPRO BASED ON SLIDING SCALES 4 UNITS, MED ED PROVIDED TO PT AND PT SAID OK. PT AWAKE AND EATING LUNCH ON BED AT THIS TIME. NO SIGNS OF DISTRESS NOTED. BED IN LOW POSITION AND CALL LIGHT WITHIN REACH. INSTRUCTED PT TO USE THE CALL LIGHT FOR ANY ASSISTANCE AND PT WAS AWARE.
[2019-07-18] MEDS ORDERED: SODIUM ZIRCONIUM CYCLOSILICATE 10 GM POWD.PACK PO SCH (13:30)
[2019-07-18 13:39] LABS: BASOPHILS # (AUTO) 0.1 K/uL (0.00-0.22); BASOPHILS % (AUTO) 0.8 % (0.0-2.0); EOSINOPHILS # (AUTO) 0.3 K/uL (0-0.4); EOSINOPHILS % (AUTO) 4.7 % (0.0-4.0); HEMATOCRIT 22.2 % (36-52); HEMOGLOBIN 7.1 g/dL (12.0-18.0); LYMPHOCYTES # (AUTO) 1.8 K/uL (2.0-11.5); LYMPHOCYTES % (AUTO) 26.9 % (20.5-51.1); MEAN CORPUSCULAR HEMOGLOBIN 28 pg (27-31); MEAN CORPUSCULAR HGB CONC 32 g/dL (33-37); MEAN CORPUSCULAR VOLUME 86.1 fL (80-94); MONOCYTES # (AUTO) 0.7 K/uL (0.8-1.0); MONOCYTES % (AUTO) 10.3 % (1.7-9.3); NEUTROPHILS # (AUTO) 3.7 K/uL (1.8-7.7); NEUTROPHILS % (AUTO) 57.3 % (42.2-75.2); PLATELET COUNT (AUTO) 488 K/uL (140-450); RED BLOOD CELL COUNT(AUTO) 2.58 MIL/uL (4.20-6.10); RED CELL DISTRIBUTION WIDTH 16.8 % (11.6-13.7); WHITE BLOOD COUNT (AUTO) 6.5 K/uL (4.8-10.8)
[2019-07-18] MEDS ORDERED: HYDR-5122 PO (14:04)
--- NOTE | 2019-07-18 14:05 | NUR ---
PT IS AWAKE AND RESTING, SITTING IN BED. PT BROTHER IS AT BEDSIDE. MEDICATION ADMINISTERED ORDERED. PT WAS EDUCATED ON MEDICATION AND VERBALIZED UNDERSTANDING. THERE IS NO SIGN OF DISTRESS, PT DENIES PAIN AT THIS TIME. SAFETY MEASURES ASSESSED. BED IN LOW POSITION, CALL LIGHT WITHIN REACH.
[2019-07-18] MEDS ORDERED: NACL 0.9% 1,000 ML IV SCH (15:05)
--- NOTE | 2019-07-18 15:07 | NUR ---
CHANGED IVF RATE TO 10 ML/HR PER MD ORDER. PT IS AWAKE AND TALKING TO BROTHER CHRISTINE AT BEDSIDE. DENIED PAIN, SOB, NAUSEA AND VOMITING. NO SIGNS OF DISTRESS NOTED. SAFETY MEASURES IN PLACE. BED IN LOW POSITION AND CALL LIGHT WITHIN REACH. INSTRUCTED PT TO USE THE CALL LIGHT FOR ANY ASSISTANCE AND PT WAS AWARE.
[2019-07-18 16:00] VITALS: BP 138/67
--- NOTE | 2019-07-18 17:00 | NUR ---
PT IS AWAKE, RESTING IN BED AND WATCHING TV. THERE ARE NO SIGNS OF DISTRESS AT THIS TIME. PT DENIES ANY PAIN. SAFETY MEASURES ASSESSED, BED IS IN LOW POSITION AND CALL LIGHT WITHIN REACH. INSTRUCTED PT TO CALL FOR ANY ASSISTANCE AND PT AGREED.
--- NOTE | 2019-07-18 17:50 | NUR ---
PT RECEIVED HIS DINNER TRAY, CHECKED BLOOD GLUCOSE AND RECEIVED 171, ADMINISTERED SCHEDULED LISPRO 4 UNITS AND PRN LISPRO BASED ON SLIDING SCALES 2 UNITS, MED ED PROVIDED TO PT AND PT VERBALIZED OK. PT AWAKE AND EATING DINNER ON BED AT THIS TIME. NO SIGNS OF DISTRESS NOTED. BED IN LOW POSITION AND CALL LIGHT WITHIN REACH. INSTRUCTED PT TO USE THE CALL LIGHT FOR ANY ASSISTANCE AND PT WAS AWARE.
--- NOTE | 2019-07-18 19:15 | NUR ---
GAVE BEDSIDE REPORT TO NIGHT NURSE. PT IS AWAKE RESTING IN BED. NO SIGNS OF DISTRESS NOTED. PT IS IN STABLE CONDITION.
--- NOTE | 2019-07-18 19:16 | NUR ---
RECEIVED PT ON BED, AAOX4, COMPLAINING OF MUSCLE PAIN TO CHEST AREA, NO SOB NOTED, VIAL SIGNS STABLE, WILL MEDICATE PRN, IVF INFUSING WELL, WITH LEFT FOOT DRESSING WRAPPED WITH AMILCAR BANDAGE INTACT ATTACHED TO WOUND VAC, PLAN OF CARE DISCUSSED, SAFETY MEASURES IN PLACE, MAINTAINED ON CONTACT ISOLATION, CALL LIGHT WITHIN REACH.
[2019-07-18] MEDS: MORPHINE SULFATE 2 MG/ML SYR IVP PRN (19:25)
[2019-07-18] MEDS: ATORVASTATIN 20 MG TAB PO SCH (20:12)
[2019-07-18 20:46] LABS: BASOPHILS # (AUTO) 0.1 K/uL (0.00-0.22); EOSINOPHILS # (AUTO) 0.3 K/uL (0-0.4); EOSINOPHILS % (AUTO) 4.9 % (0.0-4.0); HEMATOCRIT 20.7 % (36-52); LYMPHOCYTES # (AUTO) 1.7 K/uL (2.0-11.5); LYMPHOCYTES % (AUTO) 25.1 % (20.5-51.1); MEAN CORPUSCULAR HEMOGLOBIN 28 pg (27-31); MEAN CORPUSCULAR HGB CONC 33 g/dL (33-37); MONOCYTES # (AUTO) 0.7 K/uL (0.8-1.0); MONOCYTES % (AUTO) 9.7 % (1.7-9.3); NEUTROPHILS # (AUTO) 4.1 K/uL (1.8-7.7); NEUTROPHILS % (AUTO) 59.3 % (42.2-75.2); PLATELET COUNT (AUTO) 486 K/uL (140-450); RED BLOOD CELL COUNT(AUTO) 2.41 MIL/uL (4.20-6.10); RED CELL DISTRIBUTION WIDTH 16.8 % (11.6-13.7); WHITE BLOOD COUNT (AUTO) 6.8 K/uL (4.8-10.8)
[2019-07-18 20:50] LABS: HEMOGLOBIN 6.8 g/dL (12.0-18.0)
[2019-07-18] MEDS ORDERED: ACETAMINOPHEN 325 MG TAB PO SCH (21:00)
--- NOTE | 2019-07-18 21:37 | NUR ---
NEW IV SITE STARTED TO RT HAND GAUGE 22 WITH GOOD BLOOD RETURN, PT SIGNED THE CONSENT FOR BLOOD TRANSFUSION, EDUCATION PROVIDED, NO DISTRESS AT THIS TIME, MONITORED CLOSELY.
[2019-07-19 01:00] VITALS: BP 119/54
--- NOTE | 2019-07-19 01:00 | NUR ---
PT SLEEPING, EASILY AROUSABLE, VITAL SIGNS STABLE, DENIES ANY PAIN, AWAITING AVAILABILITY OF PRBC, IVF INFUSIG WELL, CONTINUE TO MONITOR CLOSELY.
--- NOTE | 2019-07-19 04:35 | NUR ---
BLOOD IS READY, VITAL SIGNS STABLE, AFEBRILE, PREMEDICATED WITH TYLENOL AND BENADRYL PO, 1 UNIT PRBC STARTED, VITAL SIGNS CHECKED PER PROTOCOL, MONITOR FOR ANY REACTION.
--- NOTE | 2019-07-19 06:20 | NUR ---
PT SLEEPING, EASILY AROUSABLE, VITAL SIGNS STABLE, BLOOD TRANSFUSION ON-GOING, NO REACTION NOTED, MONITORED CLOSELY.
[2019-07-19] MEDS: BLOOD GLUCOSE MONITORING 1 DEV DEV FS SCH (06:39)
--- NOTE | 2019-07-19 07:10 | NUR ---
PT AWAKE, NO SIGNS OF DISTRESS, BEDSIDE REPORT GIVEN TO FOREST LANGLEY FOR CONTINUITY OF CARE
--- NOTE | 2019-07-19 07:18 | NUR ---
RECEIVED BEDSIDE REPORT FROM PROJECT MANAGEMENT INTERN NURSE, PT IS AWAKE AND ALERT, NO S/S OF ACUTE DISTRESS, NO SOB. PT ON ROOM AIR. SKIN INTACT ASIDE FROM THE LLE WOUND, WRAPPED WITH AMILCAR WRAPS. WOUND VAC IS IN PLACE FOR THE LLE WOUND. IV SITE R HAND 22 G, INFUSING PRBC'S AT THIS TIME. THE UNIT OF PRBC'S IS ALMOST FINISHED. FALL PRECAUTIONS IN PLACE. CALL LIGHT IS WITHIN REACH. WILL CONTINUE TO MONITOR.
--- NOTE | 2019-07-19 07:30 | NUR ---
ENTIRE UNIT OF PRBC'S FINISHED INFUSING. POST INFUSION VS ARE STABLE. NO S/S OF TRANSFUSION REACTIONS NOTED.
[2019-07-19 08:00] VITALS: BP 142/63
[2019-07-19] MEDS: INSULIN LISPRO 100 UNITS/ML VIAL SUBQ SCH (08:00)
--- NOTE | 2019-07-19 08:30 | NUR ---
CALLED LAB TO REMIND THEM TO DRAW CBC NOW, PER DR ROSADO' ORDER.
[2019-07-19] MEDS ORDERED: MENT90CR TP (09:25)
[2019-07-19] MEDS ORDERED: BAC PO (09:25)
[2019-07-19 09:27] LABS: BASOPHILS % (AUTO) 0.6 % (0.0-2.0); EOSINOPHILS # (AUTO) 0.3 K/uL (0-0.4); HEMATOCRIT 26.1 % (36-52); HEMOGLOBIN 8.6 g/dL (12.0-18.0); LYMPHOCYTES % (AUTO) 26.3 % (20.5-51.1); MEAN CORPUSCULAR HEMOGLOBIN 28 pg (27-31); MEAN CORPUSCULAR HGB CONC 33 g/dL (33-37); MEAN CORPUSCULAR VOLUME 86.4 fL (80-94); MONOCYTES # (AUTO) 0.7 K/uL (0.8-1.0); NEUTROPHILS # (AUTO) 4.6 K/uL (1.8-7.7); NEUTROPHILS % (AUTO) 60.1 % (42.2-75.2); PLATELET COUNT (AUTO) 563 K/uL (140-450); RED BLOOD CELL COUNT(AUTO) 3.02 MIL/uL (4.20-6.10); RED CELL DISTRIBUTION WIDTH 16.4 % (11.6-13.7); WHITE BLOOD COUNT (AUTO) 7.6 K/uL (4.8-10.8)
[2019-07-19 09:33] LABS: ANION GAP 15.6 (8-16); CARBON DIOXIDE 20.5 mmol/L (21-32); CREATININE 2.2 mg/dL (0.7-1.3); POTASSIUM 5.1 mmol/L (3.5-5.1)
[2019-07-19] MEDS: FAMOTIDINE 20 MG TAB PO SCH (09:40)
[2019-07-19] MEDS: TAMSULOSIN 0.4 MG CAP PO SCH (09:40)
[2019-07-19] MEDS: FENOFIBRATE 48 MG TAB PO SCH (09:41)
[2019-07-19] MEDS: ASCORBIC ACID 500 MG TAB PO SCH (09:41)
[2019-07-19] MEDS: METOPROLOL 50 MG TAB PO SCH (09:41)
[2019-07-19] MEDS: ASPIRIN 81 MG TAB.CHEW PO SCH (09:42)
[2019-07-19] MEDS: SULFAMETH/TRIMETH 400/80MG 1 TAB PO SCH (09:42)
[2019-07-19] MEDS: FERROUS SULFATE 325 MG TABEC PO SCH (09:53)
[2019-07-19] MEDS ORDERED: HYDR-5122 PO (09:56)
--- NOTE | 2019-07-19 10:01 | NUR ---
AM MEDS ADMINISTERED, PT TOLERATED WELL. BG IS 215 AT THIS TIME, 4 UNITS OF SCHEDULED HUMALOG ADMINISTERED. PT'S SON IS VISITING AT BEDSIDE.
--- NOTE | 2019-07-19 11:45 | NUR ---
PT HAS DC'D. PT AND HIS SON WERE GIVEN DC INSTRUCTIONS, THEY VERBALIZED UNDERSTANDING OF DC TEACHING. IV SITE AND WRIST BANDS WERE REMOVED. PT LEFT WITH ALL OF HIS BELONGINGS BY WHEELCHAIR, IN STABLE CONDITION.
== END 2019-07-19 11:45 | disposition home or self-care (01) | DRG 205 ==
LOC: MED 10:47 → MTU 14:44
PROVIDERS: ADMIT General Practice; ATTEND General Practice
PROC: 30233N1 Transfusion of Nonautologous Red Blood Cells into Peripheral Vein, Percutaneous Approach (ICD-10-PCS; principal; 2019-07-19)
DX: M94.0 Chondrocostal junction syndrome [Tietze] (principal); N17.0 Acute kidney failure with tubular necrosis; E43 Unspecified severe protein-calorie malnutrition; L03.116 Cellulitis of left lower limb; M86.672 Other chronic osteomyelitis, left ankle and foot; E87.1 Hypo-osmolality and hyponatremia; W18.30XA Fall on same level, unspecified, initial encounter; E11.65 Type 2 diabetes mellitus with hyperglycemia; E86.0 Dehydration; R31.9 Hematuria, unspecified; M16.12 Unilateral primary osteoarthritis, left hip; E78.5 Hyperlipidemia, unspecified; N40.0 Benign prostatic hyperplasia without lower urinary tract symptoms; K21.9 Gastro-esophageal reflux disease without esophagitis; E11.21 Type 2 diabetes mellitus with diabetic nephropathy; E83.39 Other disorders of phosphorus metabolism; E11.69 Type 2 diabetes mellitus with other specified complication; T87.81 Dehiscence of amputation stump; Y83.8 Other surgical procedures as the cause of abnormal reaction of the patient, or of later complication, without mention of misadventure at the time of the procedure; N18.3 Chronic kidney disease, stage 3 (moderate); I12.9 Hypertensive chronic kidney disease with stage 1 through stage 4 chronic kidney disease, or unspecified chronic kidney disease; G57.01 Lesion of sciatic nerve, right lower limb; M46.1 Sacroiliitis, not elsewhere classified; E83.42 Hypomagnesemia; D63.8 Anemia in other chronic diseases classified elsewhere; D50.9 Iron deficiency anemia, unspecified; Z68.30 Body mass index [BMI] 30.0-30.9, adult; Y93.89 Activity, other specified; Y92.89 Other specified places as the place of occurrence of the external cause; Y99.8 Other external cause status; Z79.4 Long term (current) use of insulin; Z79.899 Other long term (current) drug therapy; Z89.422 Acquired absence of other left toe(s)
CPT/HCPCS: 36415; 71045; 71100; 71250; 72110; 73502; 73610; 73630; 76770; 80048; 80053; 80202; 81001; 82150; 82607; 82728; 82746; 82948; 83036; 83540; 83605; 83690; 83735; 83880; 84100; 84134; 84436; 84443; 84484; 85025; 85045; 85610; 85730; 86886; 86900; 86901; 86920; 87040; 87081; 87086; 87186; 93005; 93925; 93970; 96365; 96366; 96375; 99285; J1644; J1815; J1885; J2270; J2916; J3370; J3475; J7030; J7060; P9016; Q0092; Q0163

== ENCOUNTER 2019-10-16 16:37 | Emergency (ER) | payer OTHER ==
[~2019-10-16] VITALS: Ht 172.7 cm; Wt 79.8 kg
[~2019-10-16 16:37] MED LIST changes: -ASPI-1718 PO; +ASPI-1822 PO; +BAC PO; +HYDR-5122 PO; +MENT90CR TP
[2019-10-16 16:40] VITALS: BP 133/72
--- NOTE | 2019-10-16 16:53 | NUR ---
Patient ambulated to bed 6. RN evaluating patient at bedside.
--- NOTE | 2019-10-16 17:01 | NUR ---
64/M BIB SELF C/O Left Foot Wound PAIN & BLEEDING TODAY. Bilateral foot ambulation 12/2018. Pt had wound Vac in place on left foot. Monday removed wound Vac. Monday morning wound started bleeding. Pt seen at [facility] admitted 10/13 and d/c'd at 5pm last night. Bleeding was controlled. PATIENT POSITIONED FOR COMFORT; HOB ELEVATED; BEDRAILS UP X1; BED DOWN. ER MD MADE AWARE OF PT STATUS.
--- NOTE | 2019-10-16 17:16 | NUR ---
Dr. Chinchilla is evaluating the patient at bedside.
--- NOTE | 2019-10-16 17:54 | NUR ---
LAB AT BEDSIDE.
[2019-10-16 18:12] LABS: BASOPHILS # (AUTO) 0.1 K/uL (0.00-0.22); BASOPHILS % (AUTO) 0.9 % (0.0-2.0); EOSINOPHILS # (AUTO) 0.2 K/uL (0-0.4); EOSINOPHILS % (AUTO) 1.7 % (0.0-4.0); HEMATOCRIT 26.1 % (36-52); HEMOGLOBIN 8.5 g/dL (12.0-18.0); LYMPHOCYTES % (AUTO) 17.8 % (20.5-51.1); MEAN CORPUSCULAR HEMOGLOBIN 29 pg (27-31); MEAN CORPUSCULAR HGB CONC 33 g/dL (33-37); MEAN CORPUSCULAR VOLUME 87.4 fL (80-94); MONOCYTES # (AUTO) 0.8 K/uL (0.8-1.0); MONOCYTES % (AUTO) 7.1 % (1.7-9.3); NEUTROPHILS # (AUTO) 8.3 K/uL (1.8-7.7); NEUTROPHILS % (AUTO) 72.5 % (42.2-75.2); PLATELET COUNT (AUTO) 347 K/uL (140-450); RED BLOOD CELL COUNT(AUTO) 2.99 MIL/uL (4.20-6.10); RED CELL DISTRIBUTION WIDTH 15.9 % (11.6-13.7); WHITE BLOOD COUNT (AUTO) 11.5 K/uL (4.8-10.8)
[2019-10-16 18:29] LABS: CARBON DIOXIDE 24.5 mmol/L (21-32); CREATININE 1.9 mg/dL (0.6-1.3); POTASSIUM 4.5 mmol/L (3.5-5.1); TOTAL BILIRUBIN 0.2 mg/dL (0.0-1.0)
--- NOTE | 2019-10-16 18:58 | NUR ---
Patient discharged with v/s stable. Written and verbal after care instructions given and explained. Patient verbalized understanding. Ambulatory with W/C. All questions addressed prior to discharge. Advised to follow up with PMD.
[2019-10-16 18:59] VITALS: BP 142/47
== END 2019-10-16 18:58 | disposition home or self-care (01) ==
LOC: MED 16:37
DX: D64.9 Anemia, unspecified (principal); N18.9 Chronic kidney disease, unspecified; I51.89 Other ill-defined heart diseases; E11.9 Type 2 diabetes mellitus without complications; I10 Essential (primary) hypertension; Z79.899 Other long term (current) drug therapy
CPT/HCPCS: 36415; 80053; 85025; 85610; 85730; 86886; 86900; 86901; 99283

== ENCOUNTER 2020-02-04 16:29 | Inpatient (IN) | payer OTHER, SELFPAY ==
[~2020-02-04] VITALS: Ht 172.7 cm; Wt 77.1 kg
[2020-02-04 16:35] VITALS: BP 191/95
--- NOTE | 2020-02-04 16:50 | NUR ---
WAIT AT LOBBY.
[2020-02-04] MEDS ORDERED: HYDROcodone/APAP 10/325 MG 1 TAB TAB PO ONE (17:45)
--- NOTE | 2020-02-04 18:44 | NUR ---
64 Y/O MALE FROM HOME C/O BILATERAL FLANK PAIN X 10 DAYS. STATES HE HAS HAD URINARY INCONTINENCE X 1 YEAR UNRELATED TO FLANK PAIN. DENIES TRAUMA/INJURY. 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 RR EVEN AND UNLABORED. SEATED IN WHEELCHAIR AT THIS TIME. VSS MEDHX: DM
[2020-02-04 19:06] LABS: BASOPHILS # (AUTO) 0.1 K/uL (0.00-0.22); BASOPHILS % (AUTO) 0.6 % (0.0-2.0); EOSINOPHILS % (AUTO) 0.3 % (0.0-4.0); HEMATOCRIT 34.5 % (36-52); HEMOGLOBIN 11.1 g/dL (12.0-18.0); LYMPHOCYTES # (AUTO) 1.8 K/uL (2.0-11.5); LYMPHOCYTES % (AUTO) 15.2 % (20.5-51.1); MEAN CORPUSCULAR HEMOGLOBIN 29 pg (27-31); MEAN CORPUSCULAR HGB CONC 32 g/dL (33-37); MEAN CORPUSCULAR VOLUME 90.6 fL (80-94); MONOCYTES # (AUTO) 0.8 K/uL (0.8-1.0); MONOCYTES % (AUTO) 6.4 % (1.7-9.3); NEUTROPHILS # (AUTO) 9.1 K/uL (1.8-7.7); NEUTROPHILS % (AUTO) 77.5 % (42.2-75.2); PLATELET COUNT (AUTO) 316 K/uL (140-450); RED BLOOD CELL COUNT(AUTO) 3.81 MIL/uL (4.20-6.10); RED CELL DISTRIBUTION WIDTH 18.5 % (11.6-13.7); WHITE BLOOD COUNT (AUTO) 11.8 K/uL (4.8-10.8)
[2020-02-04 19:22] LABS: ALBUMIN 3.2 g/dL (3.4-5.0); ANION GAP 13.7 (8-16); CARBON DIOXIDE 24.4 mmol/L (21-32); CREATININE 1.6 mg/dL (0.6-1.3); TOTAL BILIRUBIN 0.4 mg/dL (0.0-1.0)
--- NOTE | 2020-02-04 19:22 | NUR ---
64 Y/O MALE WITH CHRONIC LOW BACK PAIN THAT FLARED UP X 1 WEEK WITH PAIN 05/09; PT TOOK NORCO AT 1900 WITH MINIMAL RELIEF; DENIES N/V/D; SKIN IS PINK/WARM/DRY; AAOX4 ; PT USES W/C R/T LEFT LEG AMPUTATION; HR EVEN AND REGULAR; PT DENIES ANY FEVER, CP, SOB, OR COUGH AT THIS TIME; VSS; PATIENT POSITIONED FOR COMFORT IN CHAIR B PMH: DM/HTN/LEFT BELOW KNEE AMPUTATION 2 MONTHS AGO R/T DM NKA
[2020-02-04 19:26] LABS: POTASSIUM 6.1 mmol/L (3.5-5.1)
--- NOTE | 2020-02-04 19:32 | NUR ---
INFORMED OF CRITICAL LABS --> K 6.1 / BUN 50 / CREAT 1.5
[2020-02-04] MEDS ORDERED: NACL 0.9% 500 ML IV ONE (19:40)
--- NOTE | 2020-02-04 19:40 | NUR ---
PHONED LAB AND THEY STATED THEY HAVE PT'S URINE SAMPLE
[2020-02-04 19:47] LABS: APPEARANCE,URINE CLEAR (CLEAR); BILIRUBIN,URINE NEGATIVE (NEGATIVE); BLOOD, URINE NEGATIVE (NEGATIVE); COLOR,URINE YELLOW (YELLOW); LEUKOCYTE ESTERASE ,URINE NEGATIVE (NEGATIVE); NITRITE, URINE NEGATIVE (NEGATIVE); PH,URINE 5.5 (5.0-9.0); UGLUCOSE NEGATIVE (NEGATIVE)
[2020-02-04] MEDS ORDERED: NACL 0.9% 500 ML IV STA (19:48)
--- NOTE | 2020-02-04 20:05 | NUR ---
EKG PERFORMED AT BEDSIDE
--- NOTE | 2020-02-04 20:11 | NUR ---
PT TAKEN TO BED 6
--- NOTE | 2020-02-04 20:39 | NUR ---
Dr. Hilario examining patient.
[2020-02-04] MEDS ORDERED: NACL 0.9% 1,000 ML IV SCH (20:49)
[2020-02-04] MEDS ORDERED: LORazepam 2 MG/ML VIAL IM/IVP PRN (20:50)
[2020-02-04] MEDS ORDERED: ZOLPIDEM 5 MG TAB PO PRN (20:50)
[2020-02-04] MEDS ORDERED: ONDANSETRON 4 MG/2 ML VIAL IM/IVP PRN (20:50)
[2020-02-04] MEDS ORDERED: ACETAMINOPHEN 325 MG TAB PO PRN (20:50)
[2020-02-04] MEDS ORDERED: DOCUSATE SODIUM 100 MG GELCAP PO PRN (20:50)
[2020-02-04] MEDS ORDERED: METF500T PO (20:54)
--- NOTE | 2020-02-04 21:00 | NUR ---
XRAY AT BEDSIDE
--- NOTE | 2020-02-04 21:00 | NUR ---
MED RECON DONE.
--- NOTE | 2020-02-04 21:00 | NUR ---
BELONGINGS LIST COMPLETED.
[2020-02-04] MEDS ORDERED: DEXT 5% /NACL 0.9% 1,000 ML IV ONE (21:15)
[2020-02-04] MEDS ORDERED: CALCIUM GLUCONATE 10% 1,000 MG in NACL 0.9% 50 ML IV ONE (21:15)
[2020-02-04] MEDS ORDERED: INSULIN REGULAR, HUMAN 100 UNIT/ML VIAL IV ONE (21:15)
[2020-02-04] MEDS ORDERED: DEXTROSE 50% 50 ML SYR IVP ONE ×2 (21:15→22:41)
[2020-02-04 21:27] LABS: PROTHROMBIN TIME 10.9 secs (10.8-13.4)
[2020-02-04 21:33] LABS: POTASSIUM 6.7 mmol/L (3.5-5.1)
[2020-02-04 21:34] LABS: ANION GAP 16.2 (8-16); CARBON DIOXIDE 24.5 mmol/L (21-32); CREATININE 1.4 mg/dL (0.6-1.3)
[2020-02-04 21:45] LABS: FREE T4 (FREE THYROXINE) 0.85 ng/dL (0.76-1.46); THYROID STIMULATING HORMONE 2.04 uIU/mL (0.34-3.74)
[2020-02-04 21:58] LABS: CHOL/HDL RATIO 5.9 (1-4.5)
--- NOTE | 2020-02-04 22:05 | NUR ---
DR. ARMENDARIZ AT BEDSIDE EVALUATING PT.
[2020-02-04] MEDS ORDERED: CALCIUM GLUCONATE 10% 1000 MG/10 ML VIAL ONE (22:48)
[2020-02-04] MEDS ORDERED: DEXTROSE 50% 50 ML SYR IVP PRN (22:50)
[2020-02-04] MEDS ORDERED: VANCOMYCIN PER PHARMACY MC PRN (22:55)
[2020-02-04] MEDS ORDERED: hydrALAZINE 20 MG/ML VIAL IVP ONE (23:10)
[2020-02-04] MEDS ORDERED: VANCOMYCIN 1,500 MG in DEXTROSE 5% 500 ML IV ONE (23:45)
--- NOTE | 2020-02-05 00:45 | NUR ---
MD ARMENDARIZ MADE AWARE OF BLOOD SUGAR 38 ADVISED TO MEDICATE WITH PRN D50 IVP.
[2020-02-05] MEDS ORDERED: hydrALAZINE 20 MG/ML VIAL ONE (00:52)
[2020-02-05] MEDS ORDERED: VANCOMYCIN 500 MG VIAL ONE ×2 (01:00→01:05)
[2020-02-05] MEDS ORDERED: VANCOMYCIN 1,000 MG VIAL ONE (01:01)
[2020-02-05 01:09] LABS: ANION GAP 11.3 (8-16); CARBON DIOXIDE 25.5 mmol/L (21-32); CREATININE 1.3 mg/dL (0.6-1.3); POTASSIUM 5.8 mmol/L (3.5-5.1)
--- NOTE | 2020-02-05 01:24 | NUR ---
BLOOD SUGAR NOW 138 AFTER SINGLE DOSE D50 AMP.
[2020-02-05] MEDS ORDERED: SODIUM POLYSTYRENE 15 GM/60 ML UDBTL PO ONE (01:25)
--- NOTE | 2020-02-05 01:34 | NUR ---
COVERING PRIMARY RN FOR LUNCH RELIEF, VANCOMYCIN STARTED AND INFUSING WITHOUT ANY INCIDENT.
--- NOTE | 2020-02-05 01:50 | NUR ---
NO ADVERSE REACTION TO VANCOMYCIN. REMAINS INFUSING AT ORDERED RATE.
--- NOTE | 2020-02-05 02:08 | NUR ---
PT PROVIDED WITH BLANKET
--- NOTE | 2020-02-05 04:06 | NUR ---
pt in bed sitting up. no further needs at this time. bed lowest and locked, rails x 2.
[2020-02-05 06:44] LABS: ANION GAP 17.1 (8-16); CARBON DIOXIDE 21.7 mmol/L (21-32); CREATININE 1.1 mg/dL (0.6-1.3); POTASSIUM 4.8 mmol/L (3.5-5.1)
[2020-02-05 06:48] LABS: HEMATOCRIT 32.5 % (36-52); HEMOGLOBIN 10.8 g/dL (12.0-18.0); MEAN CORPUSCULAR HEMOGLOBIN 30 pg (27-31); MEAN CORPUSCULAR HGB CONC 33 g/dL (33-37); MEAN CORPUSCULAR VOLUME 90.6 fL (80-94); PLATELET COUNT (AUTO) 313 K/uL (140-450); RED BLOOD CELL COUNT(AUTO) 3.59 MIL/uL (4.20-6.10); RED CELL DISTRIBUTION WIDTH 18.4 % (11.6-13.7); WHITE BLOOD COUNT (AUTO) 10.6 K/uL (4.8-10.8)
[2020-02-05] MEDS: BLOOD GLUCOSE MONITORING 1 DEV DEV FS SCH ×4 (06:49→20:30)
--- NOTE | 2020-02-05 07:18 | NUR ---
Pt report received from FOREST Armenta. Transfer of care at this time.
[2020-02-05 08:00] VITALS: BP 159/80
--- NOTE | 2020-02-05 08:10 | NUR ---
Patient will be admitted to care of MADAN, and Hyperkalemia. Admited to TELE. Will go to room 107B. Belongings list completed. Report to FOREST POLK.
[2020-02-05] MEDS ORDERED: MAG SULF 2000 MG/WATER PREMIX 50 ML IV PRN (08:20)
[2020-02-05] MEDS ORDERED: MORPHINE SULFATE 2 MG/ML SYR IVP PRN (08:20)
[2020-02-05] MEDS ORDERED: ACETAMINOPHEN 325 MG TAB PO PRN (08:20)
[2020-02-05] MEDS ORDERED: DOCUSATE SODIUM 100 MG GELCAP PO PRN (08:20)
[2020-02-05] MEDS ORDERED: POTASSIUM CHLORIDE 10 MEQ TABER PO PRN (08:20)
[2020-02-05] MEDS ORDERED: LORazepam 2 MG/ML VIAL IVP PRN (08:20)
[2020-02-05] MEDS ORDERED: ONDANSETRON 4 MG/2 ML VIAL IVP PRN (08:20)
[2020-02-05] MEDS ORDERED: ZOLPIDEM 10 MG TAB PO PRN (08:20)
--- NOTE | 2020-02-05 08:34 | NUR ---
PATIENT HAS BEEN SCREENED AND CATEGORIZED MODERATE NUTRITION RISK. PATIENT WILL BE SEEN WITHIN 3-5 DAYS OF ADMISSION. 02/07/20 02/09/[address]
[2020-02-05 08:37] LABS: MAGNESIUM 2.1 mg/dL (1.8-2.4); PHOSPHORUS 4.8 mg/dL (2.5-4.9)
--- NOTE | 2020-02-05 08:57 | NUR ---
RECEIVED REPORT FROM NURSE NEELY FOR CONTINUITY OF CARE, PT IS STABLE
[2020-02-05] MEDS: LACTOBACILLUS RHAMNOSUS GG 1 EACH CAP PO SCH (09:41)
[2020-02-05] MEDS: ASPIRIN 81 MG TAB.CHEW PO SCH (09:41)
[2020-02-05] MEDS: FENOFIBRATE 48 MG TAB PO SCH (09:42)
[2020-02-05] MEDS: METOPROLOL 50 MG TAB PO SCH ×2 (09:42→20:10)
[2020-02-05] MEDS: hydrALAZINE 10 MG TAB PO SCH ×3 (09:42→17:18)
[2020-02-05] MEDS: TAMSULOSIN 0.4 MG CAP PO SCH (09:42)
[2020-02-05] MEDS: metFORMIN 500 MG TAB PO SCH ×2 (09:46→17:17)
--- NOTE | 2020-02-05 09:54 | NUR ---
ADMINISTERED SCHEDULED MEDICATION, MEDICATION EDUCATION GIVEN, PT VERBALIZED UNDERSTANDING, PT TOLERATED MEDICATION WELL, PT IS STABLE, CALL LIGHT WITHIN REACH.
--- NOTE | 2020-02-05 10:07 | NUR ---
DC PLANNIN YRS OLD MALE PATIENT WAS ADMITTED FROM HOME WITH A DX OF HYPERKALEMIA AND MADAN. PT HAS A HX OF DM, HT, DLD, BPH LEFT BKA ON November. POTASSIUM LEVEL 6.7. CT ABD/PELVIS SHOWED CHANGES ON A DISCITIS AND OSTEOMYELITIS AND ENLARGED PROSTATE. STARTED ON IVF, IV ABX VANCOMYCIN , CONTINUE HOME MEDS. CONSULTED WITH SENIOR JAVA SOFTWARE ENGINEER AND ID. DC PLAN TO GO HOME WHEN STABLE CM TO FOLLOW. Addendum: 02/06/20 at 1317 by Pattie Paez CM DC PLANNING: COVID TEST STILL PENDING. FAXED TO [facility] FOR MRI SPOKE WITH ALBERT ROJAS THE TECH WILL BE THER AT 1000 AM TO DO THE MRI .CM TO FOLLOW Addendum: 02/06/20 at 1421 by Pattie Paez CM DC PLANNING: CALLED [facility] MRI SPOKE WITH MARGOTMIKE NOTIFIED HER THAT COVID TEST IS PENDING MIGHT NOT GET THE RESULT BY TOMORROW MORNING PER MERVIN THEY CAN ACCEPT PT WITH SCREENING, FAXED THE SCREENING TEST. CALLED [facility] SPOKE WITH KYRIE HE STATED SINCE THE [facility] HAS NO MRI SERVICES THE HOSPITAL ARE RESPONSIBLE FOR THE TRANSPORT. CM TO FOLLOW Addendum: 02/07/20 at 1305 by Pattie Paez CM DC PLANNING: PT LEFT TO [facility] FOR MRI AT 9:30, AT 1100 AM RECEIVED A CALL FROM [facility] STATED MRI MACHINE IS NOT WORKING AND RETURNING PATIENT BACK TO [facility]. NOTIFIED DR GUERRA AND ORDERED BONE SCAN . PER [facility] STATED ONCE THEY FIX THE MACHINE WILL LET US KNOW IF MRI IS STILL NEEDED. CM TO FOLLOW. Addendum: 02/10/20 at 1546 by Pattie Paez CM DC PLANNING: ARRANGED TRANSPORT WITH [facility] TO GO TO [facility] FOR MRI SPECIALTY SALES CONSULTANT TIME AT 1200 NOON ,WAIT AND RETURN NOTIFIED ANA GARG CM TO FOLLOW Addendum: 02/11/20 at 1158 by Pattie Paez CM DC PLANNING CALLED [facility] SPOKE WITH CLAIR CHECKED THE TIME FOR SPECIALTY SALES CONSULTANT TIME RECEIVED THE VOUCHER GOOD TO GO WILL SPECIALTY SALES CONSULTANT PT AT 1200 AND WILL RETURN AFTER MRI . NOTIFIED [facility] MRI DEPARTMENT AND [facility]. Addendum: 02/11/20 at 1404 by Pattie Paez CM DC PLANNING: PT HAS A DC ORDER TO SNF FOR IV ABX AND WOUND CARE [facility]ED TO [facility] SPOKE WITH YU AND [facility] ACCEPTED PATIENT CM TO FOLLOW Addendum: 02/11/20 at 1456 by Pattie Paez CM DC PLANNING: NOTIFIED DR ROWLAND THAT [facility] ACCEPTED PATIENT, PER MD WILL DISCUSSED WITH DR JACOBO FOR MRI RESULT AND TYPE OF IV ABX AND DURATION OF IV ABX. DC PLAN FOR TOMORROW, CM TO FOLLOW. Addendum: 02/11/20 at 1544 by Pattie Paez CM DC PLANNING PT HAS AN ORDER FOR HIGHER LEVEL OF CARE FAXED TO [facility] AND [facility] CM TO FOLLOW. Addendum: 02/11/20 at 1647 by Jessie Doyle CM CONTACTED KYRIE FROM [facility] FOR AUTH FOR TRANSPORTATION. SHE DID NOT ANSWER, I LEFT HER A VOICEMAIL TO CALL BACK. PROVIDED HER THE NUMBER FOR THE FLOOR Addendum: 02/11/20 at 1656 by Pattie Paez CM DC PLANNING: RECEIVED A CALL FROM [facility] KE[facility]Y SPOKE WITH SARA PROVIDE HER DR'S CELL PHONE PER SARA NO BED AVAILABLE AT THIS TIME, HOWEVER THERE MIGHT BE A POSSIBILITY TO GET A BED, INFORMED ME TO [facility] TRANSPORT WILL CALL AND WILL CALL BACK THE UNIT WHEN BED AVAILABLE. RECEIVED A CALL FROM [facility] SPOKE WITH MELISA STATED THEY ARE AT [facility] AND UNABLE TO ACCEPT AT THIS TIME. PLACE THE TRANSPORT WILL CALL WITH [facility]. BELA CALL [facility] [phone] NOTIFIED RENA Brown CM TO FOLLOW.
[2020-02-05 10:15] LABS: BASOPHILS % (MANUAL) 0 % (0-2); EOSINOPHILS % (MANUAL) 0 % (0-4); LYMPHOCYTES % (MANUAL) 30 % (20-46); METAMYELOCYTES % 2 % (0-0); MONOCYTES % (MANUAL) 5 % (5-12); MYELOCYTES % 1 % (0-0)
[2020-02-05 12:00] VITALS: BP 136/90
[2020-02-05] MEDS: VANCOMYCIN 750 MG in DEXTROSE 5% 250 ML IV SCH (13:00)
--- NOTE | 2020-02-05 13:12 | NUR ---
ADMINISTERED SCHEDULED MEDICATION, MEDICATION EDUCATION GIVEN, PT VERBALIZED UNDERSTANDING, PT TOLERATED WELL, PT IS STABLE, NO SIGNS OF DISTRESS NOTED, CALL LIGHT WITHIN REACH.
[2020-02-05] MEDS: HYDROcodone/APAP 5/325 MG 1 TAB TAB PO PRN ×2 (14:43→23:48)
--- NOTE | 2020-02-05 14:43 | NUR ---
ADMINISTERED NORCO FOR BACK PAIN OF 01/07, PT STATES HIS BACK HURTS BAD, MEDICATION EDUCATION GIVEN, PT VERBALIZED UNDERSTANDING, PT TOLERATED WELL, PT IS STABLE, CALL LIGHT WITHIN REACH.
[2020-02-05 16:00] VITALS: BP 159/76
--- NOTE | 2020-02-05 17:20 | NUR ---
ADMINISTERED SCHEDULED MEDICATION, MEDICATION EDUCATION GIVEN, PT VERBALIZED UNDERSTANDING, PT TOLERATED WELL, PT IS STABLE, NO SIGNS OF DISTRESS NOTED, CALL LIGHT WITHIN REACH.
--- NOTE | 2020-02-05 19:30 | NUR ---
ENDORSE PT TO NIGHT NURSE FOR CONTINUITY OF CARE, PT IS STABLE
--- NOTE | 2020-02-05 19:33 | NUR ---
RECEIVED PT FROM CALOS RN PT PORTUGUESE SPEAKER AAOX4 COMPLAINTS OF GENERALIZED WEAKNESS LEFT BKA, HL O;N RT FA INITIAL ASSESSMENT DONE
[2020-02-05 20:00] VITALS: BP 143/79
[2020-02-05 20:18] LABS: BARBITURATE, URINE NEGATIVE ng/ml (NEG <=200); BENZODIAZEPINE, URINE NEGATIVE ng/mL (NEG <=200); CANNABINOID, URINE NEGATIVE ng/mL (NEG <=50); COCAINE, URINE NEGATIVE ng/mL (NEG <=300); OPIATE, URINE NEGATIVE ng/mL (NEG <=2000); PHENCYCLIDINE SCREEN,URINE NEGATIVE ng/mL (NEG <=25)
--- NOTE | 2020-02-05 20:30 | NUR ---
BLOOD SUGAR TEST 58 PT ASYMPTOMATIC AND ORAL JUICE IS PROVIDED AND WILL BE MO;NITORING, PT ON TELMETRYSR
[2020-02-05] MEDS: ATORVASTATIN 20 MG TAB PO SCH (21:00)
--- NOTE | 2020-02-05 23:00 | NUR ---
DR JACOBO IS HERE AND SEE THE PT
--- NOTE | 2020-02-05 23:25 | NUR ---
BLOOD SUGAR HEIKE 163 PT REMAIN STABLE AT THS TIME, ON TELEMETRY SR
[2020-02-05] MEDS ORDERED: cefTRIAXone 1,000 MG VIAL ONE (23:51)
[2020-02-06] VITALS: BP 136/67
[2020-02-06] MEDS: VANCOMYCIN 750 MG in DEXTROSE 5% 250 ML IV SCH ×2 (02:00→18:55)
--- NOTE | 2020-02-06 03:00 | NUR ---
PT SLEEPING WELL NOT DISTRESS NOTED ON TELE SR
[2020-02-06 04:00] VITALS: BP 115/61
--- NOTE | 2020-02-06 05:00 | NUR ---
SPONGE BATH GIVEN LINEN CHANGED ON TEL SR NOT DISTRESS NOTED
[2020-02-06] MEDS: BLOOD GLUCOSE MONITORING 1 DEV DEV FS SCH ×4 (06:06→21:00)
[2020-02-06] MEDS: HYDROcodone/APAP 5/325 MG 1 TAB TAB PO PRN ×4 (06:07→22:35)
--- NOTE | 2020-02-06 06:26 | NUR ---
BLOOD SUGAR TEST 80
--- NOTE | 2020-02-06 06:38 | NUR ---
PT STABLE WILL BE ENDORSED TO DAY SHIFT NURSE FOR CONTINUE OF CARE
--- NOTE | 2020-02-06 07:15 | NUR ---
RECEIVED PATIENT FROM NIGHT NURSE. PATIENT IS AWAKE AND ALERT. RESP EVEN AND UNLABORED ON ROOM AIR. LW22 NOTED TKO. DROPLET PRECAUTION IN PLACE FOR R/O COVID 19. PLAN OF CARE DISCUSSED WITH PATIENT, PATIENT VERBALIZED UNDERSTANDING. WILL CONTINUE TO MONITOR.
[2020-02-06 08:00] VITALS: BP 167/84
[2020-02-06] MEDS: METOPROLOL 50 MG TAB PO SCH ×2 (08:37→22:37)
[2020-02-06] MEDS: TAMSULOSIN 0.4 MG CAP PO SCH (08:37)
[2020-02-06] MEDS: ASPIRIN 81 MG TAB.CHEW PO SCH (08:37)
[2020-02-06] MEDS: FENOFIBRATE 48 MG TAB PO SCH (08:37)
[2020-02-06] MEDS: metFORMIN 500 MG TAB PO SCH ×2 (08:37→17:45)
[2020-02-06] MEDS: LACTOBACILLUS RHAMNOSUS GG 1 EACH CAP PO SCH (08:37)
--- NOTE | 2020-02-06 08:58 | NUR ---
MORNING ROUTINE MEDICATIONS GIVEN. VITALS 97.8 84 20 167/84 100% RA. HYDRALAZINE HELD. WILL REASSESS VITALS AND ADMINISTER APPROPRIATELY. SKIN IS INTACT. URINAL AT BEDSIDE. WHEELCHAIR AT BEDSIDE. LW22 IV IS INACCESSIBLE. NO IV ACCESS AT THIS TIME. WILL MAKE ATTEMPT FOR INSERTION. NO NOTED DISTRESS. PATIENT DENIES PAIN AT THIS TIME. RESTING COMFORTABLY IN BED. HOB ELEVATED. CALL LIGHT WITHIN REACH. WILL CONTINUE TO MONITOR.
[2020-02-06] MEDS: hydrALAZINE 10 MG TAB PO SCH ×3 (11:18→17:45)
--- NOTE | 2020-02-06 11:20 | NUR ---
VITALS RETAKE BP 163/81 HR 72. MORNING HYDRALAZINE GIVEN. PATIENT ALSO GIVEN NORCO FOR BACK PAIN 01/07. RESP EVEN AND UNLABORED ON ROOM AIR. CALL LIGHT WITHIN REACH. WILL CONTINUE TO MONITOR.
[2020-02-06 12:00] VITALS: BP 130/73
--- NOTE | 2020-02-06 13:10 | NUR ---
HYDRALAZINE HOLDING AT THIS TIME. VITALS 130/73 HR 76. WILL REASSESS FURTHER TO ADMINISTER APPROPRIATELY. MRI QUESTIONNAIRE COMPLETED.
[2020-02-06 14:02] LABS: BASOPHILS % (AUTO) 0.4 % (0.0-2.0); EOSINOPHILS # (AUTO) 0.1 K/uL (0-0.4); EOSINOPHILS % (AUTO) 1.5 % (0.0-4.0); HEMATOCRIT 33.2 % (36-52); HEMOGLOBIN 10.8 g/dL (12.0-18.0); LYMPHOCYTES # (AUTO) 2.1 K/uL (2.0-11.5); LYMPHOCYTES % (AUTO) 21.2 % (20.5-51.1); MEAN CORPUSCULAR HEMOGLOBIN 29 pg (27-31); MEAN CORPUSCULAR HGB CONC 33 g/dL (33-37); MEAN CORPUSCULAR VOLUME 90.5 fL (80-94); MONOCYTES # (AUTO) 0.9 K/uL (0.8-1.0); MONOCYTES % (AUTO) 8.6 % (1.7-9.3); NEUTROPHILS # (AUTO) 6.8 K/uL (1.8-7.7); NEUTROPHILS % (AUTO) 68.3 % (42.2-75.2); PLATELET COUNT (AUTO) 282 K/uL (140-450); RED BLOOD CELL COUNT(AUTO) 3.67 MIL/uL (4.20-6.10); RED CELL DISTRIBUTION WIDTH 18.3 % (11.6-13.7); WHITE BLOOD COUNT (AUTO) 9.9 K/uL (4.8-10.8)
[2020-02-06 14:23] LABS: ANION GAP 14.3 (8-16); CARBON DIOXIDE 25.8 mmol/L (21-32); CREATININE 1.3 mg/dL (0.6-1.3); POTASSIUM 5.1 mmol/L (3.5-5.1)
[2020-02-06] MEDS: MORPHINE SULFATE 2 MG/ML SYR IVP PRN ×2 (15:00→15:19)
--- NOTE | 2020-02-06 15:46 | NUR ---
IV INSERTION TO RIGHT WRIST 18, TKO. PATIENT IS MADE AWARE OF HUMAN GEOGRAPHY INSTRUCTOR TIME FOR MRI L SPINE W/O CONTRAST TOMORROW 02/06 AT 0915 TO [facility]. PATIENT VERBALIZED UNDERSTANDING.
--- NOTE | 2020-02-06 15:49 | NUR ---
THREAD SINGER NOTE: Patient's Orientation Person Situation Place Time Information Provided By PATIENT Comments SW MET WITH PATIENT AT BEDSIDE Mergers And Acquisitions Attorney, Realtionship and Phone Number AMANDA TRAYLOR DAUGHTER [phone] Healthcare Power of Broach Operator No Does Patient Have a POLST No Identifying Problems No Social Work Triggers Is A Social Work Consult Needed No Mandate Report Filed No Admitted From Home Pre-Admission Level Of Functioning Status Independent With DME Prior Resources/Services Used In Last 12 Months No Prior Resources Used Prior DME Walker Wheelchair Living Situation House Patient Had Caregiver No Home Support No Caregiver Issues Financial Issues No Known Financial Issue Referral To The Financial Counselor Needed No Factors/Needs No D/C Needs Identified Pt/Rep Participated In Discharge Plan Yes Patient/Family Agress With Discharge Plan Yes Discharge Plan Comments TENTATIVE DISCHARGE PLAN IS FOR PATIENT TO RETURN HOME. DC Plan Status Initiated
[2020-02-06 16:00] VITALS: BP 133/82
--- NOTE | 2020-02-06 18:35 | NUR ---
IV TO RIGHT WRIST INFILTRATED. IV INSERT TO LEFT HAND 22. VANCOCIN ADMINISTERED TO LEFT HAND. RESP EVEN AND UNLABORED ON ROOM AIR. WILL CONTINUE TO MONITOR.
--- NOTE | 2020-02-06 19:25 | NUR ---
ENDORSED TO NIGHT NURSE. PATIENT IN STABLE CONDITION.
--- NOTE | 2020-02-06 19:26 | NUR ---
RECEIVED ENDORSEMENT FROM AM SHIFT RN. PATIENT IS IN BED, AAOX4 NO SOB, DENIES PAIN, ON ROOM AIR, ASSESSMENT DONE. NOTED LH 22 GAUGE, INTACT, NO IVF. FALL RISK PROTOCOL IN PLACE. PLAN OF CARE WAS DISCUSSED. CALL LIGHT WITHIN REACH. WILL CONTINUE TO MONITOR.
[2020-02-06 20:00] VITALS: BP 133/75
--- NOTE | 2020-02-06 20:02 | NUR ---
PATIENT IS RESTING. DENIES PAIN.
--- NOTE | 2020-02-06 22:30 | NUR ---
PATIENT IS IN STABLE CONDITION. ENDORSED PATIENT TO FOR[facility] SUAREZ FOR CONTINUITY OF CARE.
--- NOTE | 2020-02-06 22:31 | NUR ---
RECEIVED BEDSIDE REPORT FROM RN, ALBERT, FOR CONTINUITY OF CARE. PATIENT IS AAOX4, CHINESE SPEAKING. RESPIRATIONS ARE EVEN AND UNLABORED, BREATHING TO ROOM AIR. LEFT HAND 22 GAUGE, PATENT AND INTACT; SALINE LOCK. SAFETY MEASURES IN PLACE; BED IN LOW POSITION, CALL LIGHT WITHIN REACH. REVIEWED PLAN OF CARE. WILL CONTINUE TO MONITOR
--- NOTE | 2020-02-06 22:35 | NUR ---
PATIENT COMPLAINS OF RT SIDED PAIN; PRN NORCO ADMINISTERED. WILL REASSESS PAIN. SAFETY MEASURES IN PLACE. TELE MONITOR ATTACHED.
[2020-02-06] MEDS: ATORVASTATIN 20 MG TAB PO SCH (22:36)
[2020-02-07] VITALS: BP 132/80
--- NOTE | 2020-02-07 03:30 | NUR ---
PATIENT COMPLAINS OF RT SIDED HIP/LEG PAIN; PRN NORCO ADMINISTERED. WILL REASSESS PAIN. SAFETY MEASURES IN PLACE. TELE MONITOR ATTACHED.
[2020-02-07] MEDS: HYDROcodone/APAP 5/325 MG 1 TAB TAB PO PRN ×2 (03:52→07:58)
[2020-02-07 04:00] VITALS: BP 130/77
[2020-02-07 06:47] LABS: BASOPHILS % (AUTO) 0.4 % (0.0-2.0); EOSINOPHILS # (AUTO) 0.1 K/uL (0-0.4); EOSINOPHILS % (AUTO) 1.6 % (0.0-4.0); HEMATOCRIT 32.5 % (36-52); HEMOGLOBIN 10.8 g/dL (12.0-18.0); LYMPHOCYTES # (AUTO) 2.3 K/uL (2.0-11.5); LYMPHOCYTES % (AUTO) 26.7 % (20.5-51.1); MEAN CORPUSCULAR HEMOGLOBIN 30 pg (27-31); MEAN CORPUSCULAR HGB CONC 33 g/dL (33-37); MEAN CORPUSCULAR VOLUME 90.5 fL (80-94); MONOCYTES # (AUTO) 0.5 K/uL (0.8-1.0); NEUTROPHILS # (AUTO) 5.6 K/uL (1.8-7.7); NEUTROPHILS % (AUTO) 65.3 % (42.2-75.2); PLATELET COUNT (AUTO) 262 K/uL (140-450); RED BLOOD CELL COUNT(AUTO) 3.59 MIL/uL (4.20-6.10); RED CELL DISTRIBUTION WIDTH 18.3 % (11.6-13.7); WHITE BLOOD COUNT (AUTO) 8.6 K/uL (4.8-10.8)
[2020-02-07] MEDS: BLOOD GLUCOSE MONITORING 1 DEV DEV FS SCH ×4 (07:04→20:24)
[2020-02-07 07:20] LABS: ANION GAP 15.1 (8-16); CARBON DIOXIDE 23.3 mmol/L (21-32); CREATININE 1.1 mg/dL (0.6-1.3); POTASSIUM 4.4 mmol/L (3.5-5.1)
[2020-02-07] MEDS: metFORMIN 500 MG TAB PO SCH ×2 (07:57→17:04)
--- NOTE | 2020-02-07 07:58 | NUR ---
PT COMPLAINS OF RT SIDED BACK PAIN. PRN PO NORCO ADMINISTERED.
[2020-02-07 08:00] VITALS: BP 157/68
--- NOTE | 2020-02-07 08:00 | NUR ---
RECEIVED PATIENT ALERT AWAKE ORIENTED X4, YORUBA SPEAKING, NOT IN ANY DISTRESS NOTED. PATIENT KEEP NPO FOR MRI TODAY. CALL LIGHT WITHIN REACH. NEEDS ATTENDED. WILL CONTINUE TO MONITOR.
--- NOTE | 2020-02-07 08:08 | NUR ---
DR MILLER AT BEDSIDE ASSESSING PT. PER DR MILLER, PRN IVP MORPHINE GIVEN FOR SEVERE PAIN.
[2020-02-07] MEDS: MORPHINE SULFATE 2 MG/ML SYR IVP PRN ×3 (08:09→20:08)
--- NOTE | 2020-02-07 08:10 | NUR ---
ENDORSED TO DAYSHIFT RN FOR CONTINUITY OF CARE. PT IS IN STABLE CONDITION.
[2020-02-07] MEDS: hydrALAZINE 10 MG TAB PO SCH ×3 (09:00→17:04)
[2020-02-07] MEDS: CARISOPRODOL 350 MG TAB PO SCH ×2 (09:00→20:12)
[2020-02-07] MEDS: LACTOBACILLUS RHAMNOSUS GG 1 EACH CAP PO SCH (09:00)
[2020-02-07] MEDS: FENOFIBRATE 48 MG TAB PO SCH (09:00)
[2020-02-07] MEDS: METOPROLOL 50 MG TAB PO SCH ×2 (09:00→20:18)
[2020-02-07] MEDS: TAMSULOSIN 0.4 MG CAP PO SCH (09:00)
[2020-02-07] MEDS: ASPIRIN 81 MG TAB.CHEW PO SCH (09:00)
--- NOTE | 2020-02-07 09:30 | NUR ---
[facility] TRANSPORT HERE TO MAINTENANCE HELPER UTILITY ENGINEER PATIENT FOR MRI, NOT IN ANY DISTRESS, IN STABLE CONDITION.
--- NOTE | 2020-02-07 12:00 | NUR ---
PATIENT BACK FROM [facility], MRI NOT DONE, MACHINE IS NOT WORKING. DR. CUNHA AWARE. FOR BONE SCAN TODAY. PATIENT IS CONCERNED REGARDING HIS EYEGLASSES, CALLED [facility] AND THEY SAID THAT ITS IN THERE. TECH WILL BRING THIS AFTERNOON WHEN HE DO THE BONE SCAN, NOTIFIED THE PATIENT.
[2020-02-07 12:24] VITALS: BP 155/68
[2020-02-07] MEDS: VANCOMYCIN 750 MG in DEXTROSE 5% 250 ML IV SCH (12:56)
[2020-02-07] MEDS: INSULIN LISPRO SLIDING SCALE 100 UNITS/ML VIAL SUBQ PRN ×2 (12:58→17:22)
[2020-02-07 16:00] VITALS: BP 128/66
--- NOTE | 2020-02-07 19:38 | NUR ---
REPORT GIVEN TO FOR[facility] CABAN FOR CONTINUITY OF CARE. PATIENT IN STABLE CONDITION.
--- NOTE | 2020-02-07 19:40 | NUR ---
RECEIVED ENDORSEMENT FROM AM SHIFT RN. PATIENT IS LYING IN BED. NO SOB, DENIES PAIN, ASSESSMENT DONE. NOTED LEFT BELOW THE KNEE AMPUTATION. LEFT FA 20G, SALINE LOCK. INTACT AND PATENT. FALL RISK PROTOCOL IN PLACE. TELE MONITOR ATTACHED. PLAN OF CARE WAS DISCUSSED. CALL LIGHT WITHIN REACH. WILL CONTINUE TO MONITOR.
[2020-02-07 20:00] VITALS: BP 152/75
--- NOTE | 2020-02-07 20:08 | NUR ---
PATIENT C/O BACK PAIN 05/09. REPOSITIONED. PAIN MED GIVEN ORDERED. MED EDUCATION PROVIDED.
[2020-02-07] MEDS: ATORVASTATIN 20 MG TAB PO SCH (20:12)
--- NOTE | 2020-02-07 21:08 | NUR ---
PATIENT PAIN LEVEL DECREASED TO 8/10. INFORMED DR. ARMENDARIZ ABOUT THE PAIN COMPLAIN ON THE PATIENT. ORDERED DILAUDID X1 DOSE TO GIVE TO PATIENT BEFORE GOING TO NUCLEAR MED LAB TO DO BONE SCAN. DR. ARMENDARIZ ALSO EXPLAINED THE IMPORTANCE OF THE DIAGNOSTIC PROCEDURE TO THE PATIENT AND THE PATIENT AGREES TO DO IT. DILAUDID IV GIVEN AT 2125, PATIENT TOLERATED WELL.
[2020-02-07] MEDS ORDERED: HYDROmorphone PFS 2 MG/ML SYR IVP SCH (21:15)
--- NOTE | 2020-02-07 22:01 | NUR ---
PATIENT WAS TAKEN TO NUCLEAR MEDICINE LAB FOR BONE SCAN. PATIENT IS IN STABLE CONDITION. PATIENT VOIDED. DENIES PAIN. NO SOB. NOT IN ANY RESPIRATORY DISTRESS
--- NOTE | 2020-02-07 22:25 | NUR ---
PATIENT IS BACK TO HIS ROOM FROM. NO SOB. DENIES PAIN. KEPT COMFORTABLE.
[2020-02-08] VITALS: BP 146/69
[2020-02-08 04:00] VITALS: BP 124/71
[2020-02-08] MEDS: MORPHINE SULFATE 2 MG/ML SYR IVP PRN ×3 (04:40→23:16)
[2020-02-08] MEDS: BLOOD GLUCOSE MONITORING 1 DEV DEV FS SCH ×4 (05:55→21:50)
[2020-02-08] MEDS: INSULIN LISPRO SLIDING SCALE 100 UNITS/ML VIAL SUBQ PRN ×3 (05:56→20:36)
[2020-02-08 07:10] LABS: BASOPHILS # (AUTO) 0.1 K/uL (0.00-0.22); BASOPHILS % (AUTO) 0.9 % (0.0-2.0); EOSINOPHILS # (AUTO) 0.1 K/uL (0-0.4); EOSINOPHILS % (AUTO) 1.2 % (0.0-4.0); HEMOGLOBIN 10.7 g/dL (12.0-18.0); LYMPHOCYTES # (AUTO) 2.1 K/uL (2.0-11.5); LYMPHOCYTES % (AUTO) 19.7 % (20.5-51.1); MEAN CORPUSCULAR HEMOGLOBIN 30 pg (27-31); MEAN CORPUSCULAR HGB CONC 33 g/dL (33-37); MEAN CORPUSCULAR VOLUME 90.8 fL (80-94); MONOCYTES # (AUTO) 0.8 K/uL (0.8-1.0); MONOCYTES % (AUTO) 7.9 % (1.7-9.3); NEUTROPHILS # (AUTO) 7.5 K/uL (1.8-7.7); NEUTROPHILS % (AUTO) 70.3 % (42.2-75.2); PLATELET COUNT (AUTO) 270 K/uL (140-450); RED BLOOD CELL COUNT(AUTO) 3.63 MIL/uL (4.20-6.10); RED CELL DISTRIBUTION WIDTH 18.3 % (11.6-13.7); WHITE BLOOD COUNT (AUTO) 10.7 K/uL (4.8-10.8)
[2020-02-08 07:18] LABS: ANION GAP 10.7 (8-16); CARBON DIOXIDE 28.5 mmol/L (21-32); CREATININE 1.1 mg/dL (0.6-1.3); POTASSIUM 5.2 mmol/L (3.5-5.1)
--- NOTE | 2020-02-08 07:20 | NUR ---
PATIENT IS IN STABLE CONDITION. NO DISTRESS NOTED. ENDORSED TO AM NURSE THAT VANCO IV AT 0600 WAS NOT GIVEN YET DUE TO VANCO TROUGH WAS STILL PENDING. ENDORSED PATIENT FOR CONTINUITY OF CARE.
--- NOTE | 2020-02-08 07:21 | NUR ---
RECEIVED REPORT FROM ALBERT-RN. PT RESTING IN BED, AOX4-ANGOLAN SPEAKING, ON ROOM AIR WITH LEFT FA #20G/SL. PT IS BEDBOUND, LEFT BKA. DISCUSSED PLAN OF CARE AND PT VERBALIZED UNDERSTANDING. CALL LIGHT WITHIN REACH. NO S/S OF RESPIRATORY DISTRESS OR DISCOMFORT NOTED AT THIS TIME. WILL CONTINUE TO MONITOR.
[2020-02-08 08:00] VITALS: BP 125/70
[2020-02-08] MEDS: VANCOMYCIN 750 MG in DEXTROSE 5% 250 ML IV SCH (08:07)
[2020-02-08] MEDS: ASPIRIN 81 MG TAB.CHEW PO SCH (08:08)
[2020-02-08] MEDS: metFORMIN 500 MG TAB PO SCH ×2 (08:08→17:14)
[2020-02-08] MEDS: CARISOPRODOL 350 MG TAB PO SCH ×3 (08:08→17:14)
[2020-02-08] MEDS: LACTOBACILLUS RHAMNOSUS GG 1 EACH CAP PO SCH (08:08)
[2020-02-08] MEDS: hydrALAZINE 10 MG TAB PO SCH ×3 (08:08→17:00)
[2020-02-08] MEDS: TAMSULOSIN 0.4 MG CAP PO SCH (08:09)
[2020-02-08] MEDS: METOPROLOL 50 MG TAB PO SCH ×2 (08:09→20:20)
[2020-02-08] MEDS: FENOFIBRATE 48 MG TAB PO SCH (08:09)
--- NOTE | 2020-02-08 08:12 | NUR ---
SCHEDULED MEDICATIONS GIVEN AND TOLERATED WELL. CALL LIGHT WITHIN REACH. NO S/S OF RESPIRATORY DISTRESS OR DISCOMFORT NOTED AT THIS TIME. WILL CONTINUE TO MONITOR.
--- NOTE | 2020-02-08 08:29 | NUR ---
PT C/O PAIN 05/09 AND MEDICATED WITH MORPHINE. PT TOLERATED WELL. CALL LIGHT WITHIN REACH. NO S/S OF RESPIRATORY DISTRESS OR DISCOMFORT NOTED AT THIS TIME. WILL CONTINUE TO MONITOR.
[2020-02-08] MEDS ORDERED: CARISOPRODOL 350 MG TAB PO SCH (10:00)
[2020-02-08] MEDS ORDERED: SODIUM ZIRCONIUM CYCLOSILICATE 10 GM POWD.PACK PO SCH (10:00)
--- NOTE | 2020-02-08 10:45 | NUR ---
SCHEDULED MEDICATIONS GIVEN AND TOLERATED WELL. CALL LIGHT WITHIN REACH. NO S/S OF RESPIRATORY DISTRESS OR DISCOMFORT NOTED AT THIS TIME. WILL CONTINUE TO MONITOR.
--- NOTE | 2020-02-08 10:57 | NUR ---
PT C/O CONSTIPATION FOR 2 DAYS. EDUCATED PT REGARDING SIDE EFFECTS OF PAIN MEDICATION BEING CONSTIPATION. COLACE GIVEN FOR CONSTIPATION WELL PRUNE JUICE. PT VERBALIZED UNDERSTANDING. CALL LIGHT WITHIN REACH. NO S/S OF RESPIRATORY DISTRESS OR DISCOMFORT NOTED AT THIS TIME. WILL CONTINUE TO MONITOR.
--- NOTE | 2020-02-08 11:30 | NUR ---
BLOOD GLUCOSE 211- WILL ADMINISTER INSULIN COVERAGE.
--- NOTE | 2020-02-08 11:54 | NUR ---
INSULIN COVERAGE GIVEN AND TOLERATED WELL. CALL LIGHT WITHIN REACH. NO S/S OF RESPIRATORY DISTRESS OR DISCOMFORT NOTED AT THIS TIME. WILL CONTINUE TO MONITOR.
[2020-02-08 12:00] VITALS: BP 136/75
--- NOTE | 2020-02-08 12:00 | NUR ---
CALLED FOR THE PICC LINE NURSE LALA WHO WILL BE PAGED AND TO BE EXPECTING A CALL BACK WITH AN ETA. CHARGE NURSE WARREN IS AWARE.
[2020-02-08] MEDS: HYDROcodone/APAP 10/325 MG 1 TAB TAB PO SCH ×2 (13:39→17:14)
--- NOTE | 2020-02-08 13:39 | NUR ---
SCHEDULED MEDICATIONS GIVEN AND TOLERATED WELL. CALL LIGHT WITHIN REACH. NO S/S OF RESPIRATORY DISTRESS OR DISCOMFORT NOTED AT THIS TIME. WILL CONTINUE TO MONITOR.
--- NOTE | 2020-02-08 15:00 | NUR ---
PT SLEEPING IN BED. CALL LIGHT WITHIN REACH. NO S/S OF RESPIRATORY DISTRESS OR DISCOMFORT NOTED AT THIS TIME. WILL CONTINUE TO MONITOR.
[2020-02-08 16:00] VITALS: BP 114/66
--- NOTE | 2020-02-08 16:30 | NUR ---
BLOOD GLUCOSE 116- NO INSULIN COVERAGE NEEDED.
--- NOTE | 2020-02-08 17:14 | NUR ---
SCHEDULED MEDICATIONS GIVEN. APRESOLINE NOT GIVEN DUE TO LOW BLOOD PRESSURE 114/66, HR 84. PT TOLERATED WELL. CALL LIGHT WITHIN REACH. NO S/S OF RESPIRATORY DISTRESS OR DISCOMFORT NOTED AT THIS TIME. WILL CONTINUE TO MONITOR.
--- NOTE | 2020-02-08 19:19 | NUR ---
REPORT GIVEN TO OLGA MASON FOR CONTINUITY OF CARE. PT IN STABLE CONDITION AT THIS TIME.
--- NOTE | 2020-02-08 19:20 | NUR ---
RECEIVED CARE FROM AM NURSE. WILL CONTINUE TO MONITOR.
--- NOTE | 2020-02-08 19:20 | NUR ---
RECEIVED PATIENT IN STABLE CONDITION FROM AM SHIFT NURSE FOR CONTINUITY OF CARE. RESPIRATIONS EVEN, UNLABORED. SKIN WARM, DRY. SALINE LOCK TO LEFT FOREARM PATENT/INTACT. NO C/O PAIN. NO S/S ACUTE DISTRESS. CALL LIGHT WITHIN REACH.
[2020-02-08 20:00] VITALS: BP 119/77
--- NOTE | 2020-02-08 20:12 | NUR ---
ATTEMPTED TO REMOVE LIPITOR 20MG 2 TABS FROM OMNICELL. OMINCELL FAILED. UNABLE TO OBTAIN MEDICATION. REMOVED CORRECT DOSE WITH NUVIA GARG.
--- NOTE | 2020-02-08 20:13 | NUR ---
LIPTOR 20MG 2 TABS REMOVED WITH FOREST OLIVAREZ.
[2020-02-08] MEDS: ATORVASTATIN 20 MG TAB PO SCH (20:19)
[2020-02-08] MEDS: DOCUSATE SODIUM 250 MG GELCAP PO SCH (20:20)
--- NOTE | 2020-02-08 21:00 | NUR ---
PATIENT IN STABLE CONDITION. NO C/O PAIN. NO S/S ACUTE DISTRESS. CALL LIGHT WITHIN REACH.
--- NOTE | 2020-02-08 21:25 | NUR ---
MADE ROUND ON PATIENT. PATIENT IS IN STABLE CONDITION. MEDICATED ORDERED. PATIENT TOLERATED WELL. WILL CONTINUE TO MONITOR.
--- NOTE | 2020-02-08 23:00 | NUR ---
PATIENT ASLEEP. NO C/O PAIN. NO S/S ACUTE DISTRESS. CALL LIGHT WITHIN REACH.
[2020-02-09] VITALS: BP 106/68
[2020-02-09] MEDS: VANCOMYCIN 750 MG in DEXTROSE 5% 250 ML IV SCH ×2 (00:54→17:13)
--- NOTE | 2020-02-09 01:00 | NUR ---
MADE ROUNDS. PATIENT ASLEEP. NO C/O PAIN. NO S/S ACUTE DISTRESS. CALL LIGHT WITHIN REACH.
--- NOTE | 2020-02-09 03:00 | NUR ---
PATIENT ASLEEP AND IN STABLE CONDITION. NO C/O PAIN. NO S/S ACUTE DISTRESS. CALL LIGHT WITHIN REACH.
[2020-02-09 04:00] VITALS: BP 152/71
--- NOTE | 2020-02-09 05:23 | NUR ---
PATIENT AWAKE AND IN STABLE CONDITION. NO C/O PAIN. NO S/S ACUTE DISTRESS. CALL LIGHT WITHIN REACH.
[2020-02-09] MEDS: INSULIN LISPRO SLIDING SCALE 100 UNITS/ML VIAL SUBQ PRN ×3 (06:20→21:32)
--- NOTE | 2020-02-09 07:30 | NUR ---
RECEIVED REPORT FROM RN RELIEF CHARGE RN. PT RESTING IN BED, AAOX4, FILIPINO AND ICELANDIC SPEAKING, ON ROOM AIR. IV LEFT FA #20G. PT C/O MODERATE PAIN TO RIGHT FLANK BUT TOLERABLE AT THIS TIME, WILL RECEIVE SCHEDULED NORCO AT 0900. PT VERBALIZED UNDERSTANDING. PT NON-AMBULATORY, USES W/C, HAS LEFT BKA. STANDARD PRECAUTIONS. DISCUSSED PLAN OF CARE AND PT VERBALIZED UNDERSTANDING. CALL LIGHT WITHIN REACH. WILL CONTINUE TO MONITOR.
[2020-02-09] MEDS: BLOOD GLUCOSE MONITORING 1 DEV DEV FS SCH ×4 (07:51→21:23)
[2020-02-09 08:00] VITALS: BP 136/55
[2020-02-09 08:26] LABS: BASOPHILS # (AUTO) 0.1 K/uL (0.00-0.22); BASOPHILS % (AUTO) 1.6 % (0.0-2.0); EOSINOPHILS # (AUTO) 0.1 K/uL (0-0.4); EOSINOPHILS % (AUTO) 2.3 % (0.0-4.0); HEMATOCRIT 31.8 % (36-52); HEMOGLOBIN 10.4 g/dL (12.0-18.0); LYMPHOCYTES # (AUTO) 1.6 K/uL (2.0-11.5); LYMPHOCYTES % (AUTO) 26.3 % (20.5-51.1); MEAN CORPUSCULAR HEMOGLOBIN 30 pg (27-31); MEAN CORPUSCULAR HGB CONC 33 g/dL (33-37); MEAN CORPUSCULAR VOLUME 90.5 fL (80-94); MONOCYTES # (AUTO) 0.4 K/uL (0.8-1.0); MONOCYTES % (AUTO) 6.7 % (1.7-9.3); NEUTROPHILS # (AUTO) 3.9 K/uL (1.8-7.7); NEUTROPHILS % (AUTO) 63.1 % (42.2-75.2); PLATELET COUNT (AUTO) 282 K/uL (140-450); RED BLOOD CELL COUNT(AUTO) 3.51 MIL/uL (4.20-6.10); RED CELL DISTRIBUTION WIDTH 17.7 % (11.6-13.7); WHITE BLOOD COUNT (AUTO) 6.2 K/uL (4.8-10.8)
[2020-02-09 08:28] LABS: ANION GAP 13.5 (8-16); CARBON DIOXIDE 27.3 mmol/L (21-32); CREATININE 1.3 mg/dL (0.6-1.3); POTASSIUM 3.8 mmol/L (3.5-5.1)
[2020-02-09] MEDS: CARISOPRODOL 350 MG TAB PO SCH ×3 (08:31→17:07)
[2020-02-09] MEDS: TAMSULOSIN 0.4 MG CAP PO SCH (08:31)
[2020-02-09] MEDS: DOCUSATE SODIUM 250 MG GELCAP PO SCH ×2 (08:32→21:04)
[2020-02-09] MEDS: FENOFIBRATE 48 MG TAB PO SCH (08:32)
[2020-02-09] MEDS: hydrALAZINE 10 MG TAB PO SCH ×3 (08:32→17:07)
[2020-02-09] MEDS: LACTOBACILLUS RHAMNOSUS GG 1 EACH CAP PO SCH (08:32)
[2020-02-09] MEDS: metFORMIN 500 MG TAB PO SCH ×2 (08:33→17:06)
[2020-02-09] MEDS: MORPHINE SULFATE 2 MG/ML SYR IVP PRN ×2 (08:33→21:24)
[2020-02-09] MEDS: METOPROLOL 50 MG TAB PO SCH ×2 (08:33→21:04)
[2020-02-09] MEDS: ASPIRIN 81 MG TAB.CHEW PO SCH (08:33)
[2020-02-09] MEDS: HYDROcodone/APAP 10/325 MG 1 TAB TAB PO SCH ×3 (08:40→17:06)
--- NOTE | 2020-02-09 10:47 | NUR ---
PT RESTING IN BED, APPEARS COMFORTABLE, ALL NEEDS MET AT THIS TIME.
[2020-02-09 12:00] VITALS: BP 122/69
[2020-02-09] MEDS ORDERED: VANCOMYCIN PER PHARMACY MC PRN (15:40)
--- NOTE | 2020-02-09 15:45 | NUR ---
REPORT TO FOREST MARSHALL. TRANSFER OF CARE AT THIS TIME.
--- NOTE | 2020-02-09 15:52 | NUR ---
02/09/2020 RD INITIAL ASSESSMENT COMPLETED PLEASE REFER TO NUTRITION ASSESSMENT UNDER CARE ACTIVITY FOR ESTIMATED NUTRITIONAL NEEDS. RD RECOMMENDATIONS: 1. CONTINUE CCHO 60 GM, CARDIAC DIET TOLERATED. 2. RD WILL F/U 7 DAYS; LOW RISK. SAMI GUZMAN RD
[2020-02-09 16:06] VITALS: BP 122/66
[2020-02-09] MEDS ORDERED: LORazepam 2 MG/ML VIAL IM/IVP PRN (16:15)
--- NOTE | 2020-02-09 17:00 | NUR ---
PATIENT WATCHING TV, NO C/O PAIN, ON ROOM AIR, NO SOB NOTED, CALL LIGHT WITHIN EASY REACH.FACE MASK GIVEN TO THE PATIENT, WHEELCHAIR AT BEDSIDE.
--- NOTE | 2020-02-09 19:09 | NUR ---
TALKED TO DR. CUNHA TO VERIFY WHO IS THE NEPHRO, ENDORSING TO DR. ESPINAL, ENDORSED TO SARANYA WILL FOLLOW UP, PATIENT HAS ORDER FOR PICCLINE, PER ENDORSEMENT, NEPHRO CONSULT FIRST BEFORE PICCLINE INSERTION.
--- NOTE | 2020-02-09 19:15 | NUR ---
RECEIVED REPORT FROM AM SHIFT RN. PT IS RESTING IN BED, AAOX4, POLISH AND TURKS AND CAICOS ISLANDER SPEAKING, ON ROOM AIR. IV RIGHT HAND #24G. PT USES W/C, HAS LEFT BKA. STANDARD PRECAUTIONS. DISCUSSED PLAN OF CARE AND PT VERBALIZED UNDERSTANDING. CALL LIGHT WITHIN REACH AND BED IS IN LOWEST POSITION. WILL CONTINUE TO MONITOR.
--- NOTE | 2020-02-09 19:26 | NUR ---
ENDORSED TO PM SHIFT PER DR ESPINAL NO NEED OF NEPHRO CONSULT, JUST CALL THE PICCLINE NURSE.
[2020-02-09 20:00] VITALS: BP 124/66
[2020-02-09] MEDS: ATORVASTATIN 20 MG TAB PO SCH (21:04)
--- NOTE | 2020-02-09 21:22 | NUR ---
BS 195
--- NOTE | 2020-02-09 21:24 | NUR ---
ADMINISTERED MORPHINE2 MG IVP PRN
--- NOTE | 2020-02-09 23:46 | NUR ---
called picc rn and left a message
[2020-02-10] VITALS: BP 122/54
[2020-02-10] MEDS: MORPHINE SULFATE 2 MG/ML SYR IVP PRN ×4 (00:20→22:14)
--- NOTE | 2020-02-10 00:20 | NUR ---
KADY ROMERON 1 GM IVPB
--- NOTE | 2020-02-10 00:20 | NUR ---
ADMINISTERED MORPHINE2 MG IVP PRN
[2020-02-10 04:00] VITALS: BP 118/52
--- NOTE | 2020-02-10 04:53 | NUR ---
ADMINISTERED MORPHINE2 MG IVP PRN
[2020-02-10] MEDS: BLOOD GLUCOSE MONITORING 1 DEV DEV FS SCH ×4 (06:50→21:00)
--- NOTE | 2020-02-10 06:50 | NUR ---
BS 118
--- NOTE | 2020-02-10 07:30 | NUR ---
RECEIVED PT ON BED AAOX4. NO SOB NOTED. NO C/O PAIN AT THIS TIME. IV TO RT HNAD PATENT AND INTACT. CHEST CLEAR, ABDOMEN SOFT, BOWEL SOUNDS PRESENT. NO EDEMA NOTED. LEFT BKA ELEVATED WITH PILLOW, STUMP WRAPPED WITH ELASTIC BANDAGE DRESSING CLEAN AND INTACT. NO C/O PAIN AT THIS TIME. INSTRUCTED PT TO CALL FOR ASSISTANCE. CALL LIGHT WITHIN REACH, PT VERBALIZED UNDERSTANDING.
--- NOTE | 2020-02-10 07:38 | NUR ---
WILL ENDORSE TO DAY SHIFT NURSE FOR CONTINUITY CARE
[2020-02-10 08:00] VITALS: BP 148/64
[2020-02-10] MEDS: metFORMIN 500 MG TAB PO SCH ×2 (08:00→18:52)
[2020-02-10 08:06] LABS: BASOPHILS % (AUTO) 0.5 % (0.0-2.0); EOSINOPHILS # (AUTO) 0.1 K/uL (0-0.4); EOSINOPHILS % (AUTO) 2.2 % (0.0-4.0); HEMATOCRIT 34.1 % (36-52); HEMOGLOBIN 11.1 g/dL (12.0-18.0); LYMPHOCYTES % (AUTO) 30.5 % (20.5-51.1); MEAN CORPUSCULAR HEMOGLOBIN 30 pg (27-31); MEAN CORPUSCULAR HGB CONC 33 g/dL (33-37); MEAN CORPUSCULAR VOLUME 90.6 fL (80-94); MONOCYTES # (AUTO) 0.5 K/uL (0.8-1.0); MONOCYTES % (AUTO) 8.1 % (1.7-9.3); NEUTROPHILS # (AUTO) 3.8 K/uL (1.8-7.7); NEUTROPHILS % (AUTO) 58.7 % (42.2-75.2); PLATELET COUNT (AUTO) 282 K/uL (140-450); RED BLOOD CELL COUNT(AUTO) 3.76 MIL/uL (4.20-6.10); RED CELL DISTRIBUTION WIDTH 17.9 % (11.6-13.7); WHITE BLOOD COUNT (AUTO) 6.4 K/uL (4.8-10.8)
[2020-02-10 08:37] LABS: ANION GAP 15.6 (8-16); CARBON DIOXIDE 25.8 mmol/L (21-32); CREATININE 1.1 mg/dL (0.6-1.3); POTASSIUM 4.4 mmol/L (3.5-5.1)
[2020-02-10] MEDS: ASPIRIN 81 MG TAB.CHEW PO SCH (09:49)
[2020-02-10] MEDS: TAMSULOSIN 0.4 MG CAP PO SCH (09:49)
[2020-02-10] MEDS: CARISOPRODOL 350 MG TAB PO SCH ×3 (09:49→18:50)
[2020-02-10] MEDS: hydrALAZINE 10 MG TAB PO SCH ×3 (09:50→18:50)
[2020-02-10] MEDS: METOPROLOL 50 MG TAB PO SCH ×2 (09:50→22:11)
[2020-02-10] MEDS: LACTOBACILLUS RHAMNOSUS GG 1 EACH CAP PO SCH (09:50)
[2020-02-10] MEDS: FENOFIBRATE 48 MG TAB PO SCH (09:50)
[2020-02-10] MEDS: DOCUSATE SODIUM 250 MG GELCAP PO SCH ×2 (09:51→22:10)
[2020-02-10] MEDS: HYDROcodone/APAP 10/325 MG 1 TAB TAB PO SCH ×3 (09:51→17:00)
--- NOTE | 2020-02-10 10:45 | NUR ---
ALDANA VIRUS SWAB COLLECTED AND SENT TO LAB ORDERED.
[2020-02-10 12:00] VITALS: BP 133/81
[2020-02-10] MEDS: VANCOMYCIN 750 MG in DEXTROSE 5% 250 ML IV SCH (13:07)
[2020-02-10] MEDS: INSULIN LISPRO SLIDING SCALE 100 UNITS/ML VIAL SUBQ PRN ×3 (13:32→22:35)
[2020-02-10 16:00] VITALS: BP 140/69
--- NOTE | 2020-02-10 19:30 | NUR ---
PT RESTING. NO SOB NOTED. NO COMPLAINTS MADE. ENDORSED TO NEXT NURSE FOR CONTINUITY OF CARE.
--- NOTE | 2020-02-10 19:36 | NUR ---
RECEIVED REPORT FROM SHAD RN, FOR CONTINUITY OF CARE. PT IS AA&OX4. R/O COVID-19; RESPIRATIONS ARE EVEN AND UNLABORED, BREATHING TO RA. R UPPER ARM PICC LINE IS PATENT AND INTACT. LEFT LEG AMPUTEE. REVIEWED PLAN OF CARE. PT IS TO TRANSFER TO [facility] TOMORROW FOR MRI WITH CONTRAST. DROPLET PRECAUTIONS IN PLACE. TELE MONITOR ATTACHED. SAFETY MEASURES IN PLACE; CALL LIGHT WITHIN REACH, BED IN LOW POSITION. NO ACUTE DISTRESS NOTED. WILL CONTINUE TO MONITOR.
[2020-02-10 20:00] VITALS: BP 135/66
--- NOTE | 2020-02-10 20:09 | NUR ---
CONSENT OBTAINED FOR MRI WITH CONTRAST TO BE PERFORMED TOMORROW AT [facility]. TRANSFER TO [facility] IS ARRANGED FOR 1200 TOMORROW, PER ENDORSEMENT.
[2020-02-10] MEDS: ATORVASTATIN 20 MG TAB PO SCH (22:10)
--- NOTE | 2020-02-10 22:14 | NUR ---
PRN IVP MORPHINE ADMINISTERED FOR PT COMPLAINTS OF BACK PAIN. WILL REASSESS PAIN. PT'S SCHEDULED MEDICATION GIVEN, WITH MEDICATION EDUCATION PROVIDED. PT TOLERATED PO MEDICATION WELL. 4 UNITS INSULIN COVERAGE GIVEN FOR BGL: 242. BP: 135/66, PULSE: 77. NO ACUTE DISTRESS DISTRESS NOTED. WILL CONTINUE TO MONITOR.
[2020-02-11] VITALS (7 sets, daily range): BP systolic 119–166; BP diastolic 51–74
[2020-02-11] MEDS: MORPHINE SULFATE 2 MG/ML SYR IVP PRN ×3 (01:12→16:02)
--- NOTE | 2020-02-11 01:12 | NUR ---
PRN IVP MORPHINE ADMINISTERED FOR PT COMPLAINTS OF BACK PAIN. WILL REASSESS PAIN.
--- NOTE | 2020-02-11 04:44 | NUR ---
PRN IVP MORPHINE ADMINISTERED FOR PT COMPLAINTS OF BACK PAIN. WILL REASSESS PAIN.
[2020-02-11] MEDS: VANCOMYCIN 750 MG in DEXTROSE 5% 250 ML IV SCH (05:44)
--- NOTE | 2020-02-11 05:44 | NUR ---
IVPB VANCOMYCIN HUNG, AND INFUSING ORDERED. NO DISTRESS NOTED.
[2020-02-11] MEDS: BLOOD GLUCOSE MONITORING 1 DEV DEV FS SCH ×4 (06:17→21:15)
[2020-02-11] MEDS: INSULIN LISPRO SLIDING SCALE 100 UNITS/ML VIAL SUBQ PRN ×2 (06:21→21:18)
--- NOTE | 2020-02-11 06:26 | NUR ---
BLOOD SUGAR CHECKED; BGL: 179. INSULIN COVERAGE NEEDED.
--- NOTE | 2020-02-11 07:18 | NUR ---
RECEIVED REPORT FROM REGIONAL HR MANAGER RN FOR CONTINUITY OF CARE. PT IS AAOX4, COOPERATIVE AND ABLE TO MAKE NEEDS KNOWN. RESPIRATIONS ARE EVEN AND UNLABORED ON RA. R UPPER ARM PICC LINE IS PATENT AND INTACT. LEFT LEG AMPUTEE. PT IS TO TRANSFER TO [place] FOR MRI WITH CONTRAST TODAY. DISCUSSED POC WITH PT NAD PT VERBALIZED UNDERSTANDING. TELE MONITOR ATTACHED. SAFETY MEASURES IN PLACE. CALL LIGHT WITHIN REACH. BED IN LOW POSITION. WILL MONITOR PT CLOSELY THROUGHOUT THE SHIFT.
--- NOTE | 2020-02-11 07:36 | NUR ---
ENDORSED TO DAYSHIFT NURSE, FOR CONTINUITY OF CARE. PT IS IN STABLE CONDITION.
[2020-02-11] MEDS: hydrALAZINE 10 MG TAB PO SCH ×3 (08:59→17:00)
[2020-02-11] MEDS: ASPIRIN 81 MG TAB.CHEW PO SCH (08:59)
[2020-02-11] MEDS: metFORMIN 500 MG TAB PO SCH ×2 (08:59→17:55)
[2020-02-11] MEDS: TAMSULOSIN 0.4 MG CAP PO SCH (09:00)
[2020-02-11] MEDS: CARISOPRODOL 350 MG TAB PO SCH ×3 (09:00→17:00)
[2020-02-11] MEDS: DOCUSATE SODIUM 250 MG GELCAP PO SCH ×2 (09:00→20:32)
[2020-02-11] MEDS: FENOFIBRATE 48 MG TAB PO SCH (09:00)
[2020-02-11] MEDS: METOPROLOL 50 MG TAB PO SCH ×2 (09:00→20:28)
[2020-02-11] MEDS: LACTOBACILLUS RHAMNOSUS GG 1 EACH CAP PO SCH (09:00)
[2020-02-11] MEDS: HYDROcodone/APAP 10/325 MG 1 TAB TAB PO SCH (09:00)
--- NOTE | 2020-02-11 09:21 | NUR ---
ADMINISTERED MORNING MEDS TO PT. PT TOLERATED WELL. ALL NEEDS CURRENTLY MET. WILL CONTINUE TO ROUND FREQUENTLY ON PT.
[2020-02-11] MEDS ORDERED: LORazepam 2 MG/ML VIAL IM/IVP SCH (11:07)
[2020-02-11] MEDS ORDERED: HYDROmorphone 1 MG/ML AMP IVP SCH (11:07)
--- NOTE | 2020-02-11 12:05 | NUR ---
PT TAKEN TO [facility] FOR MRI W/ CONTRAST. PT TAKEN BY [facility] IN STABLE CONDITION. DILAUDID AND ATIVAN ORDERS GIVEN BEFORE DC FOR PT ANXIETY OF MRI PROCEDURE.
[2020-02-11] MEDS ORDERED: MORPHINE SULFATE 4 MG/ML SYR IVP PRN (16:20)
--- NOTE | 2020-02-11 17:17 | NUR ---
APRESOLINE AND SOMA 1700 DOSE HELD B/C LAST DOSE GIVEN AT 1602 DUE TO PT BEING OFF UNIT. PER PHARMACY OK TO HOLD. WILL ENDORSE TO GILL BOX FIXER TO MONITOR PT BP FOR CHANGES.
--- NOTE | 2020-02-11 18:01 | NUR ---
RECEIVED CALL FROM [facility]. PER AUTOMATIC LINE SET UP MECHANIC, THEY ARE UNABLE TO TAKE PT AT THIS TIME DUE TO HOSPITAL BEING AT MAX CAPACITY. I LEFT [facility]INO AUTOM[employer] LINE SET UP MECHANIC A MESSAGE NOTIFYING OF THE ABOVE.
[2020-02-11] MEDS ORDERED: HUMSLIDE SUBQ (18:51)
[2020-02-11] MEDS ORDERED: ROC2I IV (18:51)
[2020-02-11] MEDS ORDERED: VANC750F IV (18:51)
--- NOTE | 2020-02-11 18:59 | NUR ---
WILL ENDORSE PT TO [facility] FOR CONTINUITY OF CARE. PT IN STABLE CONDITION AT THIS TIME.
--- NOTE | 2020-02-11 19:20 | NUR ---
RECEIVED PT IN STABLE CONDITION FROM AM NURSE FOR CONTINUITY OF CARE. AWAKE,ALERT AND ORIENTED X4. MED SURG PT. WITH NO C/O ANY DISCOMFORT NOR PAIN NOTED. BEDREST .WITH LEFT BELOW THE KNEE AMPUTATION. URINAL WITHIN REACH. BED ON LOW POSITION. SIDE RAILS UP X2. FREQ ROUNDS NEEDED. PLAN OF CARE EXPLAINED BY DR. NI. HAS IVF INFUSING ON THE RT UPPER ARM PICC LINE. WILL CONTINUE TO MONITOR.
[2020-02-11] MEDS ORDERED: DEXAMETHASONE 4 MG/ML VIAL IVP SCH (19:30)
[2020-02-11] MEDS: ATORVASTATIN 20 MG TAB PO SCH (20:28)
--- NOTE | 2020-02-11 20:55 | NUR ---
PT FOR TRANSFER TO [facility] IN [place] . ABLE TO TALKED TO FOREST FITZGERALD AND GAVE REPORT ON PT. HE SAID PT IS GOING TO MED SURG ROOM 2143.
--- NOTE | 2020-02-11 21:45 | NUR ---
[facility] WAS CALLED AND FAXED THE FORM WITH ALL INFORMATIONS NEEDED FOR TRANSPORT.
--- NOTE | 2020-02-11 22:44 | NUR ---
PT C/O SEVERE PAIN AGAIN. DR. NI MADE AWARE THAT PT JUST MEDICATED WITH MORPHINE 2MG AT 2036. HE SAID HE WILL ORDER TORADOL IVP ONCE.
[2020-02-11] MEDS ORDERED: KETOROLAC 30 MG/ML VIAL IVP ONE (22:45)
--- NOTE | 2020-02-11 23:20 | NUR ---
[facility] TRANSPORT CAME . GAVE REPORT ON PT. TO PRASANTH ELI . PT IN STABLE CONDITION. PT TRANSFERRED WITH PERSONAL BELONGINGS AND OWN WHEELCHAIR.
== END 2020-02-11 23:20 | disposition short-term general hospital (02) | DRG 539 ==
LOC: MED 16:29 → EEVIPCON 20:53 → MTU 20:53
PROVIDERS: ADMIT General Practice; ATTEND General Practice
DX: M46.26 Osteomyelitis of vertebra, lumbar region (principal); N17.0 Acute kidney failure with tubular necrosis; M46.46 Discitis, unspecified, lumbar region; M48.061 Spinal stenosis, lumbar region without neurogenic claudication; E87.5 Hyperkalemia; I16.0 Hypertensive urgency; I10 Essential (primary) hypertension; E11.9 Type 2 diabetes mellitus without complications; N40.0 Benign prostatic hyperplasia without lower urinary tract symptoms; K40.90 Unilateral inguinal hernia, without obstruction or gangrene, not specified as recurrent; E83.39 Other disorders of phosphorus metabolism; D64.9 Anemia, unspecified; E11.51 Type 2 diabetes mellitus with diabetic peripheral angiopathy without gangrene; M62.838 Other muscle spasm; E78.5 Hyperlipidemia, unspecified; Z20.828 Contact with and (suspected) exposure to other viral communicable diseases
CPT/HCPCS: 36415; 71045; 78315; 80048; 80053; 80202; 80305; 81003; 82150; 82948; 83036; 83690; 83735; 83880; 84100; 84439; 84443; 84484; 85025; 85610; 85651; 85730; 86140; 87040; 87081; 93005; 96365; 96366; 96375; 99285; A9503; C1751; J0360; J0610; J0696; J1170; J1644; J1885; J2060; J2270; J3370; J7030; J7060; Q0092; U0003-CS

== ENCOUNTER 2020-03-08 10:07 | Emergency (ER) | payer OTHER ==
[~2020-03-08] VITALS: Ht 172.7 cm; Wt 74.8 kg
[~2020-03-08 10:07] MED LIST changes: -BAC PO; -FAMO-90 PO; +HUMSLIDE SUBQ; -HYDR-5122 PO; +METF500T PO; +ROC2I IV; +VANC750F IV
--- NOTE | 2020-03-08 10:30 | NUR ---
INSERTED SRI LANKAN 16 FC WITH INITIAL 300ML URINE , SPECIMEN COLLECTED SENT TO LABS.
--- NOTE | 2020-03-08 10:30 | NUR ---
xray at bedside.
--- NOTE | 2020-03-08 10:39 | NUR ---
BROUGHT IN BY EMS FROM PRIVATE HOME; DISCHARGED FROM [facility] 02/18/20 C/O RIGHT HIP PAIN; PT STATES HE FELL WHILE IN THE HOSPITAL NO OBVIOUS DEFORMITY OR DISCOLORATION NOTED---PT AOX4 , AFIBRILE , HYPOGASTRIC AREA FULLNESS NOTED UPON PALPATION. ALSO URINE RETENTION TODAY----PT SOBBING, EMOTIONAL HX--DM, LEFT BKA, BPH, HTN,
--- NOTE | 2020-03-08 11:29 | NUR ---
DR TOLEDO AT BEDSIDE EVALUATING PT.
[2020-03-08] MEDS ORDERED: HYDROcodone/APAP 5/325 MG 1 TAB TAB PO STA (12:07)
--- NOTE | 2020-03-08 12:23 | NUR ---
dc instructions given to pt---attempting to obtain wheelchair service to take pt home.
[2020-03-08 13:32] VITALS: BP 148/75
--- NOTE | 2020-03-08 13:33 | NUR ---
Patient discharged with v/s stable. Written and verbal after care instructions given and explained. Patient alert, oriented and verbalized understanding of instructions. Ambulatory with to home. All questions addressed prior to discharge. ID band removed. Patient advised to follow up with PMD. Rx of tramadol given. Patient educated on indication of medication including possible reaction and side effects. Opportunity to ask questions provided and answered.
--- NOTE | 2020-03-08 13:44 | NUR ---
SORT MANAGER NOTE: YUMIKO SPOKE TO [facility]INK[place] REGARDING TRANSPORTATION FOR PATIENT. YUMIKO WAS INFORMED BY ED RN THAT TRANSPORTATION WAS ATTEMPTED THROUGH [facility]. YUMIKO CONTACTED PATIENT'S SON SOLEDAD PARRISH TO PICK PATIENT UP. YUMIKO CONTACTED RN ALIX WHO STATED THAT TRANSPORTATION HAD ARRIVED FOR PATIENT. YUMIKO CONTACTED [facility] AND LEFT VM THAT PATIENT WILL BE TRANSPORTED HOME.
== END 2020-03-08 13:33 | disposition home or self-care (01) ==
LOC: EEVIPCON 10:07 → MED 10:07
DX: M25.551 Pain in right hip (principal); R33.9 Retention of urine, unspecified; E11.9 Type 2 diabetes mellitus without complications; I10 Essential (primary) hypertension; Z89.512 Acquired absence of left leg below knee
CPT/HCPCS: 73502; 81002; 99283; Q0092

== ENCOUNTER 2020-08-25 12:09 | Emergency (ER) | payer OTHER ==
[~2020-08-25] VITALS: Ht 175.3 cm; Wt 80.7 kg
[2020-08-25 12:12] VITALS: BP 163/79
[2020-08-25 12:41] LABS: BASOPHILS # (AUTO) 0.1 K/uL (0.00-0.22); BASOPHILS % (AUTO) 0.5 % (0.0-2.0); EOSINOPHILS # (AUTO) 0.1 K/uL (0-0.4); EOSINOPHILS % (AUTO) 0.9 % (0.0-4.0); HEMATOCRIT 37.1 % (36-52); HEMOGLOBIN 12.2 g/dL (12.0-18.0); LYMPHOCYTES # (AUTO) 4.1 K/uL (2.0-11.5); LYMPHOCYTES % (AUTO) 36.7 % (20.5-51.1); MEAN CORPUSCULAR HEMOGLOBIN 31 pg (27-31); MEAN CORPUSCULAR HGB CONC 33 g/dL (33-37); MEAN CORPUSCULAR VOLUME 93.1 fL (80-94); MONOCYTES # (AUTO) 0.9 K/uL (0.8-1.0); MONOCYTES % (AUTO) 7.8 % (1.7-9.3); NEUTROPHILS # (AUTO) 6.1 K/uL (1.8-7.7); NEUTROPHILS % (AUTO) 54.1 % (42.2-75.2); PLATELET COUNT (AUTO) 299 K/uL (140-450); RED BLOOD CELL COUNT(AUTO) 3.98 MIL/uL (4.20-6.10); RED CELL DISTRIBUTION WIDTH 15.2 % (11.6-13.7); WHITE BLOOD COUNT (AUTO) 11.2 K/uL (4.8-10.8)
[2020-08-25 12:53] LABS: ANION GAP 10.6 (8-16); CARBON DIOXIDE 31.3 mmol/L (21-32); CREATININE 1.3 mg/dL (0.6-1.3); POTASSIUM 3.9 mmol/L (3.5-5.1)
[2020-08-25 15:30] VITALS: BP 163/79
== END 2020-08-25 15:30 | disposition home or self-care (01) ==
LOC: MED 12:09
DX: I82.491 Acute embolism and thrombosis of other specified deep vein of right lower extremity (principal); I11.9 Hypertensive heart disease without heart failure; E11.9 Type 2 diabetes mellitus without complications; E78.00 Pure hypercholesterolemia, unspecified; Z79.899 Other long term (current) drug therapy
CPT/HCPCS: 36415; 80048; 85025; 93971; 99284

== ENCOUNTER 2022-09-12 13:05 | Inpatient (IN) | payer OTHER ==
[~2022-09-12] VITALS: Ht 172.7 cm; Wt 113.4 kg
[~2022-09-12 13:05] MED LIST changes: +METF-346 PO; -METF500T PO
[2022-09-12 13:25] VITALS: BP 128/84
[2022-09-12] MEDS ORDERED: VANCOMYCIN 1,000 MG in DEXTROSE 5% 250 ML IV ONE (14:35)
[2022-09-12] MEDS ORDERED: PIPERACILLIN/TAZOBACTAM 3.375 GM in DEXTROSE 5% 50 ML IV ONE (14:35)
--- NOTE | 2022-09-12 14:38 | NUR ---
AMBULATED TO ER BED 6
--- NOTE | 2022-09-12 14:47 | NUR ---
67 y/o male referred here from [facility] office for wound to right foot. Patient has 2 wound to his right foot. Patient has left BKA. Denies any fever, chills or SOB. Denies any pain or discomfort. Patient has faint right pedal pulse. Medical History:DM, HTN, Arthritis, HTN, HLD, PVD NKDA
--- NOTE | 2022-09-12 14:54 | NUR ---
X-Ray at bedside.
[2022-09-12] MEDS ORDERED: PIPERACILLIN/TAZOBACTAM 3.375 GM VIAL IV ONE (14:55)
[2022-09-12] MEDS ORDERED: DULO20EC PO (15:23)
[2022-09-12] MEDS ORDERED: HYDR-4004 PO (15:23)
[2022-09-12] MEDS ORDERED: TRAZ-344 PO (15:23)
[2022-09-12] MEDS ORDERED: CARV12.5 PO (15:23)
[2022-09-12] MEDS ORDERED: NOVN SUBQ (15:23)
[2022-09-12] MEDS ORDERED: BENA20TA PO (15:23)
[2022-09-12] MEDS ORDERED: ATA25 PO (15:23)
--- NOTE | 2022-09-12 15:24 | NUR ---
med rec complete
--- NOTE | 2022-09-12 15:27 | NUR ---
Lab at bedside.
[2022-09-12 15:59] LABS: BASOPHILS % (AUTO) 0.4 % (0.0-2.0); EOSINOPHILS # (AUTO) 0.1 K/uL (0-0.4); EOSINOPHILS % (AUTO) 0.5 % (0.0-4.0); HEMATOCRIT 34.4 % (36-52); LYMPHOCYTES # (AUTO) 1.9 K/uL (2.0-11.5); LYMPHOCYTES % (AUTO) 15.2 % (20.5-51.1); MEAN CORPUSCULAR HEMOGLOBIN 29 pg (27-31); MEAN CORPUSCULAR HGB CONC 32 g/dL (33-37); MEAN CORPUSCULAR VOLUME 90.8 fL (80-94); MONOCYTES # (AUTO) 1.5 K/uL (0.8-1.0); MONOCYTES % (AUTO) 11.9 % (1.7-9.3); NEUTROPHILS # (AUTO) 9.1 K/uL (1.8-7.7); PLATELET COUNT (AUTO) 378 K/uL (140-450); RED BLOOD CELL COUNT(AUTO) 3.79 MIL/uL (4.20-6.10); RED CELL DISTRIBUTION WIDTH 14.7 % (11.6-13.7); WHITE BLOOD COUNT (AUTO) 12.7 K/uL (4.8-10.8)
[2022-09-12] MEDS ORDERED: VANCOMYCIN 1,000 MG VIAL ONE (16:06)
[2022-09-12 16:41] LABS: ALBUMIN 3.2 g/dL (3.4-5.0); ANION GAP 14.8 (8-16); CARBON DIOXIDE 23.1 mmol/L (21-32); CREATININE 2.2 mg/dL (0.6-1.3); POTASSIUM 5.9 mmol/L (3.5-5.1); TOTAL BILIRUBIN 0.3 mg/dL (0.0-1.0)
[2022-09-12] MEDS ORDERED: NACL 0.9% 1,000 ML IV ONE (16:55)
--- NOTE | 2022-09-12 17:52 | NUR ---
Patient is sitting in bed, respirations even and unlabored. Patient has no signs of distress.
[2022-09-12] MEDS ORDERED: VANCOMYCIN PER PHARMACY MC PRN (18:05)
[2022-09-12] MEDS ORDERED: MORPHINE SULFATE 4 MG/ML SYR IVP PRN (18:05)
[2022-09-12] MEDS ORDERED: HYDROcodone/APAP 5/325 MG 1 TAB TAB PO PRN (18:05)
[2022-09-12] MEDS ORDERED: ACETAMINOPHEN 325 MG TAB PO PRN (18:05)
[2022-09-12] MEDS ORDERED: POTASSIUM CHLORIDE 10 MEQ TABER PO PRN (18:05)
[2022-09-12] MEDS ORDERED: ONDANSETRON 4 MG/2 ML VIAL IVP PRN (18:05)
--- NOTE | 2022-09-12 19:27 | NUR ---
Report given to ELIZABETH Navarro for transfer of care.
[2022-09-12] MEDS ORDERED: cefTRIAXone 1,000 MG VIAL ONE (20:28)
[2022-09-12] MEDS: NACL 0.9% 1,000 ML IV SCH (21:10)
--- NOTE | 2022-09-12 22:23 | NUR ---
Patient will be admitted to care of DR SENA. Admited to TELE. Will go to room 115. Belongings list completed. Report to RYAN GARG.
--- NOTE | 2022-09-12 22:45 | NUR ---
ADMITTED A 67 Y/O MALE FROM ER AAOX4 ON ROOM AIR, NO SOB NOTED. RESPIRATION EVEN UNLABORED. CC: DIABETIC RIGHT FOOT INFECTION. PATIENT WITH HX: LEFT BKA , DM, HTN , HLD, ARTHRITIS , DVT. MRSA SCREENING DONE. WOUND CARE DONE. NO COMPLAINTS OF PAIN AT THIS TIME. SAFETY MEASURES IN PLACE. CALL LIGHT WITHIN REACH.
[2022-09-13 04:00] VITALS: BP 151/78
[2022-09-13] MEDS ORDERED: INSULIN LISPRO SLIDING SCALE 100 UNITS/ML VIAL SUBQ PRN (05:35)
[2022-09-13] MEDS ORDERED: DEXTROSE 50% 50 ML SYR IVP PRN (05:35)
[2022-09-13] MEDS: BLOOD GLUCOSE MONITORING 1 DEV DEV FS SCH ×4 (06:31→20:52)
--- NOTE | 2022-09-13 06:31 | NUR ---
CHECKED BLOOD SUGAR WAS 193, ADMINISTERED HUMALOG INSULIN ORDERED PER SLIDING SCALE.
[2022-09-13] MEDS: NACL 0.9% 1,000 ML IV SCH ×2 (06:33→18:05)
--- NOTE | 2022-09-13 07:25 | NUR ---
ENDORSED TO AM SHIFT NURSE FOR CONTINUITY OF CARE.
--- NOTE | 2022-09-13 07:30 | NUR ---
RECEIVED REPORT FROM NIGHTSHIFT NURSE. PT A/O X3. MALTESE SPEAKING WITH LITTLE LATVIAN. NO SOB OR RESPIRATORY DISTRESS. ON RA. TELE, SR. CARDIAC DIET. NS @ 80 ML/HR ON LAC #20. DENIES PAIN AT THIS TIME. ON DROPLET PRECAUTION, COVID POSITIVE. ALL SAFETY MEASURES IN PLACE.
[2022-09-13 08:00] VITALS: BP 148/70
[2022-09-13] MEDS ORDERED: FUROSEMIDE 20 MG/2 ML VIAL IVP SCH (08:35)
[2022-09-13] MEDS ORDERED: NACL 0.9% 500 ML IV SCH ×2 (08:35→09:30)
[2022-09-13] MEDS ORDERED: SODIUM POLYSTYRENE 15 GM/60 ML UDBTL PO SCH (09:00)
--- NOTE | 2022-09-13 09:02 | NUR ---
PATIENT HAS BEEN SCREENED AND CATEGORIZED HIGH NUTRITION RISK. PATIENT WILL BE SEEN WITHIN 1-[address] RECEIVED REFERRAL REQUEST AND [facility] NUTRITION CONSULT FOR WOUNDS/PRESSURE ULCERS ON 09/13/[address] REVIEWED BY MIC[address]LE GARCIA RD
[2022-09-13] MEDS: INSULIN LANTUS 100 UNITS/ML 10 ML VIAL SUBQ SCH (09:26)
--- NOTE | 2022-09-13 09:30 | NUR ---
CONTACTED DR. SENA REGARDING LABS YESTERDAY. DR. SENA ORDER FOR KAYEXALATE 30 MG PO, 500 ML NS BOLUS, AND LASIX [address] SEAN ALSO ORDER FOR LABS TODAY. WILL CARRY OUT ORDERS.
--- NOTE | 2022-09-13 11:10 | NUR ---
CONTACTED DR. LEONARD REGARDING KELMA ORDER. ORDER FOR MEDICATION TO BE GIVEN AT 2100 WITH 2 DOSES. SPOKE WITH PHARMACY AND PHARMACIST STATES SHE WILL CHANGE THE ORDER.
[2022-09-13] MEDS: INSULIN LISPRO SLIDING SCALE 100 UNITS/ML VIAL SUBQ PRN ×2 (11:49→16:24)
[2022-09-13 12:00] VITALS: BP 136/82
[2022-09-13 12:56] LABS: BASOPHILS % (AUTO) 0.5 % (0.0-2.0); EOSINOPHILS # (AUTO) 0.1 K/uL (0-0.4); HEMATOCRIT 33.4 % (36-52); LYMPHOCYTES # (AUTO) 1.5 K/uL (2.0-11.5); LYMPHOCYTES % (AUTO) 17.2 % (20.5-51.1); MEAN CORPUSCULAR HEMOGLOBIN 29 pg (27-31); MEAN CORPUSCULAR HGB CONC 33 g/dL (33-37); MEAN CORPUSCULAR VOLUME 89.2 fL (80-94); MONOCYTES # (AUTO) 1.1 K/uL (0.8-1.0); MONOCYTES % (AUTO) 12.5 % (1.7-9.3); NEUTROPHILS # (AUTO) 6.2 K/uL (1.8-7.7); NEUTROPHILS % (AUTO) 68.8 % (42.2-75.2); PLATELET COUNT (AUTO) 395 K/uL (140-450); RED BLOOD CELL COUNT(AUTO) 3.75 MIL/uL (4.20-6.10); RED CELL DISTRIBUTION WIDTH 14.8 % (11.6-13.7)
[2022-09-13 13:00] LABS: ALBUMIN 3.3 g/dL (3.4-5.0); ANION GAP 16.5 (8-16); CARBON DIOXIDE 23.2 mmol/L (21-32); CREATININE 1.6 mg/dL (0.6-1.3); POTASSIUM 4.7 mmol/L (3.5-5.1); TOTAL BILIRUBIN 0.4 mg/dL (0.0-1.0)
[2022-09-13] MEDS: VANCOMYCIN 1,000 MG in DEXTROSE 5% 250 ML IV SCH (15:15)
[2022-09-13 16:00] VITALS: BP 142/72
--- NOTE | 2022-09-13 16:00 | NUR ---
VANCOMYCIN INFUSING ON L AC #20, PATENT, ASYMPTOMATIC. RR EVEN & UNLABORED. ON RA. DENIES PAIN. ALL NEEDS MET. ALL SAFETY MEASURES IN PLACE. DROPLET PRECAUTIONS IN PLACE.
--- NOTE | 2022-09-13 16:07 | NUR ---
09/13/22 RD INITIAL ASSESSMENT COMPLETED PLEASE REFER TO NUTRITION ASSESSMENT UNDER CARE ACTIVITY FOR ESTIMATED NUTRITIONAL NEEDS. 1. RECOMMEND ADDING CCHO 60 GM TO CARDIAC DIET TOLERATED 2. RECOMMEND ALIRIO BID FOR WOUND SUPPORT - PROVIDES 180 KCAL AND 5 GM PROTEIN DAILY MONITOR BG LAB VALUES AND PO INTAKE 3. PROVIDED NUTRITION EDUCATION HANDOUTS FOR DM 4. RD TO FOLLOW-UP 7 DAYS, LOW RISK REVIEWED BY MICHELLE GARCIA RD
--- NOTE | 2022-09-13 19:29 | NUR ---
REPORT GIVEN TO NIGHTSHIFT NURSEMARIA C FOR CONTINUITY OF CARE.
--- NOTE | 2022-09-13 19:30 | NUR ---
PATIENT WAS ENDORSED BY ROXANN RN (REGISTRY), PATIENT WAS STABLE DURING SHIFT REPORT. PATIENT WAS ALERT AND ORIENTED. BREATHING ON ROOM AIR WITHOUT DISTRESS. PATIENT REMAINS CLEAN AND DRY. PATIENT HAD NO NOTED S/S OF PAIN/DISTRESS. SIDE RAILS UP X 2 FOR SAFETY AND COMFORT. DRESSING INTACT ON FOOT. CALL LIGHT IN REACH. PATIENT ABLE TO USE THE CALL LIGHT FOR ALL ASSISTANCE AND NEEDS. [email or web address]
[2022-09-13 20:00] VITALS: BP 130/72
--- NOTE | 2022-09-13 20:00 | NUR ---
Patient's Plan of Care was discussed and reviewed with ELIZABETH LOMBARDI.
[2022-09-13] MEDS: SODIUM ZIRCONIUM CYCLOSILICATE 10 GM POWD.PACK PO SCH (20:46)
[2022-09-13] MEDS: carvediloL 12.5 MG TAB PO SCH (20:46)
--- NOTE | 2022-09-13 20:52 | NUR ---
PATIENT COMPLAINED OF PAIN TO THE THROAT. NURSING GAVE PAIN MEDICATION AND WILL RE-ASSESS X 1 HOUR. ROUTINE MEDICATION WITH ACCUCHECK NOTED 145 WITH NO COVERAGE. [email or web address]
[2022-09-14] VITALS: BP 133/64
--- NOTE | 2022-09-14 00:01 | NUR ---
PATIENT IS NPO IN ANTICIPATION FOR BONE SCAN. WOUND CUTURE WAS COLLECTED AND SENT TO LAB PER MD ORDERS. PATIENT IS AWARE OF NPO STATUS FOR THE PREP FOR BONE SCAN INTHE AM. [email or web address]
--- NOTE | 2022-09-14 02:20 | NUR ---
PATIENT IN BED NO NOTED PAIN/DISCOMFORT. CALL LIGHT WITHIN REACH. [email or web address]
--- NOTE | 2022-09-14 03:27 | NUR ---
PATIENT REPORTED TO JUDICIAL REGISTRAR THAT HE WAS HAVING S/S OF HYPOGLYCEMIA. PATIENT'S BLOOD SUGAR WAS NOTED AT 181. THIS WILL NOT GET COVERAGE D/T UNSCHEDULED TO DUE TO PATIENT'S COMPLAINTS. PATIENT WAS REMINDED OF NOT EATING DINNER AND IF THE FEELING CONTINUES, NURSING WILL CALL THE MD FOR ADVICE OR ORDERS. [email or web address]
[2022-09-14 04:00] VITALS: BP 139/76
--- NOTE | 2022-09-14 04:21 | NUR ---
PATIENT HAS HAD NO MORE S/S OF PAIN. NO NOTED S/S OF HYPO/HYPERGLYCEMIA. ALL NEEDS MET AT THIS TIME. SIDE RAILS UP X 2. PATIENT WAS REMINDED OF BONE SCAN SCHEDULED FOR THIS MORNING. AM SHIFT WILL BE ENDORSED. CALL LIGHT IN REACH AND PATIENT IS AWARE OF HOW TO USE IT FOR ASSISTANCE. [email or web address]
[2022-09-14] MEDS: BLOOD GLUCOSE MONITORING 1 DEV DEV FS SCH ×4 (06:26→21:25)
[2022-09-14] MEDS: INSULIN LISPRO SLIDING SCALE 100 UNITS/ML VIAL SUBQ PRN ×4 (06:27→21:27)
[2022-09-14] MEDS: NACL 0.9% 1,000 ML IV SCH (06:38)
[2022-09-14 07:00] LABS: BASOPHILS # (AUTO) 0.1 K/uL (0.00-0.22); BASOPHILS % (AUTO) 0.6 % (0.0-2.0); EOSINOPHILS # (AUTO) 0.1 K/uL (0-0.4); EOSINOPHILS % (AUTO) 1.4 % (0.0-4.0); HEMATOCRIT 33.4 % (36-52); HEMOGLOBIN 10.8 g/dL (12.0-18.0); LYMPHOCYTES # (AUTO) 1.9 K/uL (2.0-11.5); MEAN CORPUSCULAR HEMOGLOBIN 29 pg (27-31); MEAN CORPUSCULAR HGB CONC 32 g/dL (33-37); MEAN CORPUSCULAR VOLUME 89.8 fL (80-94); MONOCYTES # (AUTO) 0.9 K/uL (0.8-1.0); MONOCYTES % (AUTO) 10.3 % (1.7-9.3); NEUTROPHILS # (AUTO) 6.1 K/uL (1.8-7.7); NEUTROPHILS % (AUTO) 66.7 % (42.2-75.2); PLATELET COUNT (AUTO) 401 K/uL (140-450); RED BLOOD CELL COUNT(AUTO) 3.72 MIL/uL (4.20-6.10); RED CELL DISTRIBUTION WIDTH 14.5 % (11.6-13.7); WHITE BLOOD COUNT (AUTO) 9.1 K/uL (4.8-10.8)
[2022-09-14 07:04] LABS: ANION GAP 14.4 (8-16); CARBON DIOXIDE 25.4 mmol/L (21-32); CREATININE 1.4 mg/dL (0.6-1.3); POTASSIUM 3.8 mmol/L (3.5-5.1)
--- NOTE | 2022-09-14 07:09 | NUR ---
ENDORSED PATIENT CARE TO ROXANN GARG (REGISTRY), PATIENT WAS STABLE DURING THE REPORT. NURSE IS AWARE OF BONE SCAN THIS MORNING. [email or web address]
--- NOTE | 2022-09-14 07:18 | NUR ---
RECEIVED REPORT FROM NIGHTSHIFT NURSE. PT A/O X3. NO SOB OR RESPIRATORY DISTRESS. ON RA. TELE, SR. CARDIAC DIET/CCHO 60GM. NS @ 80 ML/HR ON LAC #20. DENIES PAIN AT THIS TIME. DRESSING ON R FOOT, C/D/I. L BKA. ON DROPLET PRECAUTION, COVID POSITIVE. ALL SAFETY MEASURES IN PLACE.
[2022-09-14 08:00] VITALS: BP 154/76
[2022-09-14] MEDS: INSULIN LANTUS 100 UNITS/ML 10 ML VIAL SUBQ SCH (08:21)
[2022-09-14] MEDS: carvediloL 12.5 MG TAB PO SCH ×2 (08:22→21:12)
[2022-09-14] MEDS: SODIUM ZIRCONIUM CYCLOSILICATE 10 GM POWD.PACK PO SCH (08:22)
--- NOTE | 2022-09-14 09:40 | NUR ---
WOUND CARE NOTE: PT. ADMITTED WITH RIGHT FOOT DIABETIC INFECTED WOUND TO RIGHT LATERAL FOOT 2 SITES: ULCER ON DISTAL SITE 1X1CM WOUND BED 100% YELLOW SLOUGH TISSUE, HYPERKERATOTIC BORDER, SMALL AMOUNT PURULENT DRAINAGE, MILD ODOR, JAILENE-WOUND SKIN WITH ERYTHEMA. ULCER ON PROXIMAL SITE 3X8V4TQ WOUND BED 80% YELLOW SLOUGH TISSUE, MODERATE AMOUNT PURULENT DRAINAGE, MILD ODOR, JAILENE-WOUND SKIN WITH ERYTHEMA. POC DISCUSSED WITH PRIMARY RN ROXANN, PT IS SCHEDULING FOR BONE SCAN. POC DISCUSSED WITH DR. SENA AND RECOMMEND PODIATRY CONSULT. RECOMMENDATIONS: -PODIATRY CONSULT -CLEANSE RIGHT LATERAL FOOT WITH NS, PAT DRY, APPLY SOAKED 4X4 BETADINE GAUZES, COVER WITH ABD PAD, WRAP WITH KERLIX ROLL AND SECURED WITH TAPE, DAILY AND PRN IF SOILING
--- NOTE | 2022-09-14 11:00 | NUR ---
STOPPED IVF, DISCONNECTED PT FROM IV LINE. PT DENIES PAIN. NO SOB OR RESPIRATORY DISTRESS. ON RA. ALL NEEDS MET AT THIS TIME. ALL SAFETY MEASURES IN PLACE. DROPLET PRECAUTIONS IN PLACE.
[2022-09-14 12:00] VITALS: BP 146/77
[2022-09-14] MEDS: GAUZE TP SCH (12:55)
[2022-09-14] MEDS: VANCOMYCIN 1,000 MG in DEXTROSE 5% 250 ML IV SCH (15:00)
--- NOTE | 2022-09-14 15:30 | NUR ---
PT C/O IV SITE PAIN. IVF STOPPLED. L ARM SWOLLEN. ARM ELEVATED, WARM COMPRESS APPLIED. NEW IV RESTART ON R HAND #22 WITH POSITIVE BLOOD RETURN. IVF RESTARTED. NEEDS ALL MET AT THIS TIME. ALL SAFETY MEASURES IN PLACE.
[2022-09-14 16:00] VITALS: BP 132/69
--- NOTE | 2022-09-14 18:04 | NUR ---
PT PERMITTED HIS SON TO BE INCLUDED IN DISCUSSION WITH HIS PLAN OF CARE. DISCUSSED PLAN OF CARE VIA PHONECALL TO PT'S SON SAOL ([phone]). PROVIDED DR. ALMANZAR WITH PT'S DAUGHTER'S PHONE NUMBER FOR AN UPDATE. NEEDS ALL MET. QUESTIONS ALL ANSWERED. ALL SAFETY MEASURES IN PLACE.
--- NOTE | 2022-09-14 19:23 | NUR ---
REPORT GIVEN TO NIGHTSARFT NURSELULU FOR CONTINUITY OF CARE.
--- NOTE | 2022-09-14 19:24 | NUR ---
RECEIVED PT FROM MORNING SHIFT NURSE. PT IS AOX4, KHMER SPEAKING, AMBULATORY, ABLE TO VERBALIZE NEEDS AND ABLE TO FOLLOW COMMANDS. PT IS ON ROOM AIR AND ON CARDIAC DIET. PT HAS IV ON RIGHT HAND GAUGE 22, SALINE LOCK. PT DENIES PAIN AT THIS TIME. NO S/S OF RESPIRATORY DISTRESS NOTED. PT HAS A RIGHT FOOT OPEN WOUND. ALL SAFETY MEASURES IMPLEMENTED. BED IN LOW POSITION, BED WHEELS ON LOCK AND CALL LIGHT WITHIN REACH.
[2022-09-14 20:00] VITALS: BP 142/74
--- NOTE | 2022-09-14 20:00 | NUR ---
PT WAS ACCIDENTALLY REMOVED. INSERTED NEW IV ON RIGHT FOREARM GAUGE 20. IV IS NOW PATENT AND INTACT. ALL SAFETY MEASURES IMPLEMENTED. BED IN LOW POSITION, BED WHEELS ON LOCK AND CALL LIGHT WITHIN REACH.
--- NOTE | 2022-09-14 21:12 | NUR ---
SCHEDULED AND PRESCRIBED MEDICATION WAS GIVEN TO PT PER MD ORDER. ALL SAFETY MEASURES IMPLEMENTED. BED IN LOW POSITION, BED WHEELS ON LOCK AND CALL LIGHT WITHIN REACH.
--- NOTE | 2022-09-14 21:25 | NUR ---
PT BLOOD GLUCOSE IS 183. HUMALOG INSULIN 2 UNITS WAS GIVEN TO PT. ALL SAFETY MEASURES IMPLEMENTED. BED IN LOW POSITION, BED WHEELS ON LOCK AND CALL LIGHT WITHIN REACH.
[2022-09-15] VITALS: BP 148/75
--- NOTE | 2022-09-15 | NUR ---
PT IS SLEEPING. CHEST RISE AND FALL SYMMETRICALLY NOTED. RESPIRATION IS EVEN AND UNLABORED. ALL SAFETY MEASURES IMPLEMENTED. BED IN LOW POSITION, BED WHEELS ON LOCK AND CALL LIGHT WITHIN REACH.
--- NOTE | 2022-09-15 02:00 | NUR ---
CHECKED THE PT, STILL SLEEPING. CHEST RISE AND FALL SYMMETRICALLY NOTED. RESPIRATION IS EVEN AND UNLABORED. ALL SAFETY MEASURES IMPLEMENTED. BED IN LOW POSITION, BED WHEELS ON LOCK AND CALL LIGHT WITHIN REACH.
[2022-09-15] MEDS: VANCOMYCIN 1,000 MG in DEXTROSE 5% 250 ML IV SCH ×2 (03:58→16:20)
[2022-09-15 04:00] VITALS: BP 139/74
[2022-09-15] MEDS: BLOOD GLUCOSE MONITORING 1 DEV DEV FS SCH ×3 (06:31→16:20)
[2022-09-15] MEDS: INSULIN LISPRO SLIDING SCALE 100 UNITS/ML VIAL SUBQ PRN ×3 (06:31→17:53)
--- NOTE | 2022-09-15 06:31 | NUR ---
PT BLOOD GLUCOSE IS 256. HUMALOG INSULIN 6 UNITS WAS GIVEN TO PT. ALL SAFETY MEASURES IMPLEMENTED. BED IN LOW POSITION, BED WHEELS ON LOCK AND CALL LIGHT WITHIN REACH.
--- NOTE | 2022-09-15 07:23 | NUR ---
PT IS STABLE. ENDORSED PT TO MORNING SHIFT NURSE FOR CONTINUITY OF CARE.
--- NOTE | 2022-09-15 07:26 | NUR ---
RECEIVED PT FROM NIGHT RN, PT IS AWAKE, ALERT AND ORIENTED, LYING ON THE BED WITH SIDE RAILS UP AND CALL LIGHT WITHIN REACH, IV LINE NOTED ON THE RIGHT FOREARM G. 20 ON SALINE LOCK, PT IS ON ROOM AIR, ON DROPLET ISOLATION FOR COVID POSITIVE, RIGHT LOWER EXTREMITY WOUND NOTED, COVERED WITH DRESSING, NO SIGN OF DISTRESS NOTED AND WILL CONTINUE TO MONITOR PT.
[2022-09-15 08:00] VITALS: BP 133/71
[2022-09-15 08:32] LABS: BASOPHILS # (AUTO) 0.1 K/uL (0.00-0.22); BASOPHILS % (AUTO) 0.8 % (0.0-2.0); EOSINOPHILS # (AUTO) 0.1 K/uL (0-0.4); EOSINOPHILS % (AUTO) 1.5 % (0.0-4.0); HEMATOCRIT 34.3 % (36-52); HEMOGLOBIN 11.1 g/dL (12.0-18.0); LYMPHOCYTES # (AUTO) 1.8 K/uL (2.0-11.5); LYMPHOCYTES % (AUTO) 20.4 % (20.5-51.1); MEAN CORPUSCULAR HEMOGLOBIN 29 pg (27-31); MEAN CORPUSCULAR HGB CONC 33 g/dL (33-37); MEAN CORPUSCULAR VOLUME 89.4 fL (80-94); MONOCYTES # (AUTO) 0.7 K/uL (0.8-1.0); MONOCYTES % (AUTO) 7.8 % (1.7-9.3); NEUTROPHILS # (AUTO) 6.1 K/uL (1.8-7.7); NEUTROPHILS % (AUTO) 69.5 % (42.2-75.2); PLATELET COUNT (AUTO) 420 K/uL (140-450); RED BLOOD CELL COUNT(AUTO) 3.83 MIL/uL (4.20-6.10); RED CELL DISTRIBUTION WIDTH 14.4 % (11.6-13.7); WHITE BLOOD COUNT (AUTO) 8.7 K/uL (4.8-10.8)
[2022-09-15 08:50] LABS: ANION GAP 13.2 (8-16); CARBON DIOXIDE 28.3 mmol/L (21-32); CREATININE 1.4 mg/dL (0.6-1.3); POTASSIUM 4.5 mmol/L (3.5-5.1)
[2022-09-15] MEDS: carvediloL 12.5 MG TAB PO SCH ×2 (09:07→21:00)
[2022-09-15] MEDS: INSULIN LANTUS 100 UNITS/ML 10 ML VIAL SUBQ SCH (09:09)
--- NOTE | 2022-09-15 09:14 | NUR ---
DC PLANNING ASSESSMENT COMPLETE SEE ASSESSMENT FOR DETAILS [facility] REPORTS DC PLAN IS FOR PT TO RETURN HOME WITH FAMILY PROVIDING TRANSPORTATION, ONCE CLEARED FOR DC. Addendum: 09/15/22 at 0915 by Amauri Garcia SS Amended: Links added. Addendum: 09/19/22 at 1614 by Amauri Garcia SS FIELDED CALL FROM PTS SON SOLEDAD WHO IS INQUIRING ON UPDATED POC. [facility] REPORTS PT DOES NOT WANT TO GO TO SNF AND REPORTS SNF IS OUT OF THE QUESTION. [facility] REQUESTING HH AND ASKING UPDATED POC ONCE PT IS GETTING READY TO DC. [facility] REQUESTING CM OUTREACH TO HIS DYLAN TRAYLOR, , TO PROVIDE UPDATE
[2022-09-15 12:00] VITALS: BP 137/70
[2022-09-15] MEDS: GAUZE TP SCH (12:23)
[2022-09-15 16:00] VITALS: BP 140/71
--- NOTE | 2022-09-15 16:25 | NUR ---
CANDY FEEDER BRENDI SPOKE TO DR. SENA AND SAID TO JUST FEED PT DINNER
--- NOTE | 2022-09-15 19:18 | NUR ---
ENDORSED PT TO NIGHT RN FOR CONTINUITY OF CARE, PT IS STABLE AT THIS TIME.
--- NOTE | 2022-09-15 19:19 | NUR ---
RECEIVED PT FROM MORNING SHIFT NURSE. PT IS AOX4, TURKMEN SPEAKING, AMBULATORY, ABLE TO VERBALIZE NEEDS AND ABLE TO FOLLOW COMMANDS. PT IS ON ROOM AIR AND ON CARDIAC DIET. PT HAS IV ON RIGHT HAND GAUGE 22, SALINE LOCK. PT DENIES PAIN AT THIS TIME. NO S/S OF RESPIRATORY DISTRESS NOTED. PT HAS A RIGHT FOOT OPEN WOUND. ALL SAFETY MEASURES IMPLEMENTED. BED IN LOW POSITION, BED WHEELS ON LOCK AND CALL LIGHT WITHIN REACH.
[2022-09-15 20:00] VITALS: BP 147/71
--- NOTE | 2022-09-15 21:00 | NUR ---
SCHEDULED AND PRESCRIBED MEDICATION WAS GIVEN TO PT PER MD ORDER. PT BLOOD GLUCOSE ID [id number]. HUMALOG INSULIN 8 UNITS WAS GIVEN TO PT. ALL SAFETY MEASURES IMPLEMENTED. BED IN LOW POSITION, BED WHEELS ON LOCK AND CALL LIGHT WITHIN REACH.
--- NOTE | 2022-09-15 21:15 | NUR ---
TOGETHER WITH DR. ALMANZAR, PT WAS SIGNED THE CONSENT FOR PICC LINE INSERTION AND CONSENT FOR I&D USING THE VOYCE DUE TO PT ONLY SPEAK AND UNDERSTAND BOLIVIAN, WITH COAL SAMPLE TESTER ID NUMBER OF [id number] NAMED TRAVIS DELGADO.
[2022-09-16] VITALS (7 sets, daily range): BP systolic 126–151; BP diastolic 62–83
--- NOTE | 2022-09-16 | NUR ---
CLEANED AND COVERED PT WOUND ON FOOT WITH BETADINE AND GAUZE, WRAP WITH BANDAGE. NO COMPLAIN OF PAIN AT THIS TIME. NO S/S OF RESPIRATORY DISTRESS NOTED. ALL SAFETY MEASURES IMPLEMENTED. BED IN LOW POSITION, BED WHEELS ON LOCK AND CALL LIGHT WITHIN REACH.
[2022-09-16] MEDS: INSULIN LISPRO SLIDING SCALE 100 UNITS/ML VIAL SUBQ PRN ×4 (01:25→17:02)
[2022-09-16] MEDS: BLOOD GLUCOSE MONITORING 1 DEV DEV FS SCH ×5 (01:29→20:51)
--- NOTE | 2022-09-16 01:30 | NUR ---
INFORMED LALA PICC LINE NURSE THAT PT WILL HAVE A PICC LINE INSERTION ORDER AND CONSENT WAS MADE.
[2022-09-16] MEDS: VANCOMYCIN 1,000 MG in DEXTROSE 5% 250 ML IV SCH ×3 (04:02→23:51)
--- NOTE | 2022-09-16 05:00 | NUR ---
IV IS INFILTRATED. NEW IV WAS INSERTED TO PT ON LEFT FOREARM GAUGE 22. IV IS NOW PATENT AND INTACT. ALL SAFETY MEASURES IMPLEMENTED. BED IN LOW POSITION, BED WHEELS ON LOCK AND CALL LIGHT WITHIN REACH.
--- NOTE | 2022-09-16 06:36 | NUR ---
PT BLOOD GLUCOSE IS 249. HUMALOG INSULIN 4 UNITS WAS GIVEN TO PT. ALL SAFETY MEASURES IMPLEMENTED. BED IN LOW POSITION, BED WHEELS ON LOCK AND CALL LIGHT WITHIN REACH.
[2022-09-16 06:51] LABS: BASOPHILS % (AUTO) 0.4 % (0.0-2.0); EOSINOPHILS # (AUTO) 0.1 K/uL (0-0.4); EOSINOPHILS % (AUTO) 1.6 % (0.0-4.0); HEMATOCRIT 31.9 % (36-52); HEMOGLOBIN 10.4 g/dL (12.0-18.0); LYMPHOCYTES # (AUTO) 1.7 K/uL (2.0-11.5); LYMPHOCYTES % (AUTO) 20.5 % (20.5-51.1); MEAN CORPUSCULAR HEMOGLOBIN 29 pg (27-31); MEAN CORPUSCULAR HGB CONC 33 g/dL (33-37); MEAN CORPUSCULAR VOLUME 89.5 fL (80-94); MONOCYTES # (AUTO) 0.7 K/uL (0.8-1.0); MONOCYTES % (AUTO) 8.1 % (1.7-9.3); NEUTROPHILS # (AUTO) 5.8 K/uL (1.8-7.7); NEUTROPHILS % (AUTO) 69.4 % (42.2-75.2); PLATELET COUNT (AUTO) 410 K/uL (140-450); RED BLOOD CELL COUNT(AUTO) 3.56 MIL/uL (4.20-6.10); RED CELL DISTRIBUTION WIDTH 14.2 % (11.6-13.7); WHITE BLOOD COUNT (AUTO) 8.4 K/uL (4.8-10.8)
[2022-09-16 07:06] LABS: ANION GAP 11.7 (8-16); CARBON DIOXIDE 28.2 mmol/L (21-32); CREATININE 1.4 mg/dL (0.6-1.3); POTASSIUM 3.9 mmol/L (3.5-5.1)
--- NOTE | 2022-09-16 07:30 | NUR ---
RECIEVED PATIENT FROM ORTHOPEDIC DENTIST NURSE,VITALS ARE STABLE,PATIENT IS COVIDE POSITIVE ON DROPLET PRECATIONS.ALL SAFETY MAESURES IN PLACE.CALL LIGHT WITHIN REACH.POC DISCUSSED.WILL CONTINUE TO MONITOR.
--- NOTE | 2022-09-16 07:31 | NUR ---
PT IS STABLE. ENDORSED PT FROM THE MORNING SHIFT NURSE FOR THE CONTINUITY OF CARE.
[2022-09-16] MEDS: INSULIN LANTUS 100 UNITS/ML 10 ML VIAL SUBQ SCH (08:30)
[2022-09-16] MEDS: carvediloL 12.5 MG TAB PO SCH ×2 (08:37→20:48)
--- NOTE | 2022-09-16 10:33 | NUR ---
PAGED DOCTOR REGARDING THE INCISION AND DRAINAGE DR ADVISED TO CANCEL THE NPO.
--- NOTE | 2022-09-16 11:41 | NUR ---
PATIENT HAS MIDLINE IV ACESS INSERTED.NO SIGNS OF DISTRESS NOTED.VITALS ARE STABLE
[2022-09-16] MEDS: GAUZE TP SCH (13:00)
--- NOTE | 2022-09-16 19:30 | NUR ---
ENDORSED PATIENT TO PACKING CLERK NURSE.PATIENT IS STILL ON NPO FOR INCISION AND DRAINAGE.VANCOMYCIN ON HOLD PER PHARMACY UPDATES.ENDORSED PACKING CLERK NURSE REGARDING THE VANCOMYCIN TROUGH RESULT FOLLOW UP.NO SIGNS OF DISTRESS NOTED.
[2022-09-16 19:53] LABS: BILIRUBIN,URINE NEGATIVE (NEGATIVE); BLOOD, URINE NEGATIVE (NEGATIVE); LEUKOCYTE ESTERASE ,URINE NEGATIVE (NEGATIVE); NITRITE, URINE NEGATIVE (NEGATIVE); UGLUCOSE 3+ (NEGATIVE)
[2022-09-16 20:22] LABS: APPEARANCE,URINE CLEAR (CLEAR); COLOR,URINE YELLOW (YELLOW)
--- NOTE | 2022-09-16 21:10 | NUR ---
rn notes per MD, cancel NPO since 1000 this AM. Patient has no food and BS is at 267 at this time, will hold insulin since he did not eat. Patient was given salad and water, and was told the plan will be more clear tomorrow. Addendum: 09/16/22 at 2113 by [facility] 11 FOREST GARG report was given to me that he was to remain NPO, which the text message clearly does not agree on.
[2022-09-16 21:31] LABS: URINE TOTAL PROTEIN 38.5 mg/dL (0-12)
--- NOTE | 2022-09-16 23:48 | NUR ---
rn notes per pharmacy david, hold vanco for 0400 dose for now. vanco trough elevated
[2022-09-17 04:14] VITALS: BP 124/82
[2022-09-17] MEDS: BLOOD GLUCOSE MONITORING 1 DEV DEV FS SCH ×4 (06:10→21:53)
--- NOTE | 2022-09-17 06:19 | NUR ---
rn notes patient remains on room air, no sob noted. VSS all shift. I and D planned at 1000 today. Vanco trough was 26.7, vanco dose to be held, per pharmacy. Last BS at 242, no coverage given due to NPO status.
[2022-09-17 08:00] VITALS: BP 138/54
[2022-09-17] MEDS: INSULIN LANTUS 100 UNITS/ML 10 ML VIAL SUBQ SCH (09:43)
[2022-09-17] MEDS: carvediloL 12.5 MG TAB PO SCH ×2 (09:43→21:41)
[2022-09-17] MEDS ORDERED: fentaNYL citrate 0.05 MG/ML VIAL ONE (11:45)
[2022-09-17] MEDS ORDERED: PROPOFOL 200 MG/20 ML VIAL IV ONE ×2 (11:46→12:00)
[2022-09-17] MEDS ORDERED: BUPIVACAINE-MPF 0.5% 30 ML VIAL INJ ONE ×2 (11:50→11:51)
[2022-09-17] MEDS ORDERED: LIDOCAINE 2% 1000 MG/50 ML VIAL INJ ONE (11:50)
[2022-09-17] MEDS ORDERED: HYDROGEN PEROXIDE 3% 240 ML BTL TP ONE (11:51)
[2022-09-17] MEDS ORDERED: SEVOFLURANE 250 ML BTL INH ONE (12:00)
[2022-09-17] MEDS ORDERED: fentaNYL citrate 0.05 MG/ML - 50mL vial IV ONE (12:00)
--- NOTE | 2022-09-17 12:00 | NUR ---
PATIENT TRANSPORTED TO OR FOR I7D PROCEDURE. STABLE
[2022-09-17] MEDS ORDERED: ePHEDrine 50 MG/ML VIAL ONE (12:10)
[2022-09-17 12:56] LABS: ANION GAP 13.2 (8-16); CARBON DIOXIDE 25.7 mmol/L (21-32); CREATININE 1.3 mg/dL (0.6-1.3); POTASSIUM 3.9 mmol/L (3.5-5.1)
[2022-09-17] MEDS: GAUZE TP SCH (13:00)
[2022-09-17] MEDS ORDERED: HYDROmorphone 1 MG/ML AMP IVP PRN (13:00)
[2022-09-17] MEDS ORDERED: ONDANSETRON 4 MG/2 ML VIAL IVP PRN (13:00)
[2022-09-17] MEDS ORDERED: diphenhydrAMINE 50 MG/ML VIAL IVP PRN (13:00)
[2022-09-17] MEDS: NACL 0.9% 1,000 ML IV SCH ×2 (13:00→21:20)
[2022-09-17] MEDS ORDERED: BLOOD GLUCOSE MONITORING 1 DEV DEV FS ONE (13:00)
[2022-09-17] MEDS ORDERED: MEPERIDINE 25 MG/ML SYR IVP PRN (13:00)
[2022-09-17] MEDS: VANCOMYCIN 1,000 MG in NACL 0.9% 250 ML IV SCH (14:53)
[2022-09-17 16:00] VITALS: BP 127/67
[2022-09-17] MEDS: INSULIN LISPRO SLIDING SCALE 100 UNITS/ML VIAL SUBQ PRN ×2 (17:07→21:56)
[2022-09-17 20:00] VITALS: BP 146/67
--- NOTE | 2022-09-17 21:56 | NUR ---
BLOOD SUGAR = 377 = 10 UNITS OF HUMOLOG INSULIN ADMINISTERED. PT IS AWAKE, ALERT AND VERBALIZED NEEDS.
--- NOTE | 2022-09-17 22:30 | NUR ---
PT ASLEEP WELL. NO FACIAL GRIMACING, NO SOB OR DISTRESS.
[2022-09-18] VITALS: BP 133/61
[2022-09-18 04:00] VITALS: BP 129/66
[2022-09-18] MEDS: NACL 0.9% 1,000 ML IV SCH ×3 (05:40→22:20)
[2022-09-18] MEDS: INSULIN LISPRO SLIDING SCALE 100 UNITS/ML VIAL SUBQ PRN ×4 (06:38→21:38)
--- NOTE | 2022-09-18 06:38 | NUR ---
BLOOD SUGAR CHECKED = 242 = 4 U NITS HUMALOG INSULIN ADMINISTERED.
[2022-09-18] MEDS: BLOOD GLUCOSE MONITORING 1 DEV DEV FS SCH ×4 (06:44→21:33)
[2022-09-18 08:16] VITALS: BP 133/63
[2022-09-18 09:20] LABS: ANION GAP 10.3 (8-16); CARBON DIOXIDE 26.6 mmol/L (21-32); CREATININE 1.2 mg/dL (0.6-1.3); POTASSIUM 3.9 mmol/L (3.5-5.1)
[2022-09-18] MEDS: carvediloL 12.5 MG TAB PO SCH ×2 (10:09→21:34)
[2022-09-18] MEDS: VANCOMYCIN 1,000 MG in NACL 0.9% 250 ML IV SCH (10:09)
[2022-09-18] MEDS: INSULIN LANTUS 100 UNITS/ML 10 ML VIAL SUBQ SCH (10:14)
[2022-09-18 12:00] VITALS: BP 115/60
[2022-09-18] MEDS: GAUZE TP SCH (13:41)
[2022-09-18 16:00] VITALS: BP 138/66
--- NOTE | 2022-09-18 19:07 | NUR ---
RECEIVED REPORT FROM DAY SHIFT NURSE FOR CONTINUITY OF CARE. PATIENT IN STABLE CONDITION AT THIS TIME, WILL CONTINUE TO MONITOR.
[2022-09-18 20:00] VITALS: BP 104/48
--- NOTE | 2022-09-18 21:30 | NUR ---
PT BLOOD GLUCOSE OF 255. 6 UNITS OF INSULIN ADMINISTERED. ALL OTHER SCHEDULED MEDICATIONS ADMINISTERED, NO SIGNS OF DISTRESS NOTED, WILL CONTINUE TO MONITOR.
[2022-09-19] VITALS: BP 114/67
[2022-09-19] MEDS: VANCOMYCIN 1,000 MG in NACL 0.9% 250 ML IV SCH ×2 (02:04→20:32)
[2022-09-19 04:46] VITALS: BP 121/62
[2022-09-19] MEDS: NACL 0.9% 1,000 ML IV SCH (06:40)
--- NOTE | 2022-09-19 07:30 | NUR ---
RECEIVED REPORT FROM PERL DEVELOPER. AOX4, MAORI SPEAKING, AMBULATORY, ABLE TO VERBALIZE NEEDS AND ABLE TO FOLLOW COMMANDS. PT IS ON ROOM AIR AND ON CARDIAC DIET. PT HAS IV ON RIGHT HAND GAUGE 22, SALINE LOCK, STEPHIE MIDLINE RUNNING IVF ORDERED. PT DENIES PAIN AT THIS TIME. NO S/S OF RESPIRATORY DISTRESS NOTED. PT HAS A RIGHT FOOT OPEN WOUND S/P DEBRIDEMENT. ALL SAFETY MEASURES IMPLEMENTED. BED IN LOW POSITION, BED WHEELS ON LOCK AND CALL LIGHT WITHIN REACH.
[2022-09-19] MEDS: BLOOD GLUCOSE MONITORING 1 DEV DEV FS SCH ×4 (07:31→23:10)
[2022-09-19] MEDS: INSULIN LISPRO SLIDING SCALE 100 UNITS/ML VIAL SUBQ PRN ×4 (07:39→23:16)
--- NOTE | 2022-09-19 07:57 | NUR ---
ENDORSED PATIENT TO DAY SHIFT NURSE FOR CONTINUITY OF CARE. 0730 BLOOD GLUCOSE = 211, 4 UNITS OF HUMALOG GIVEN. NO SIGNS OF DISTRESS NOTED.
[2022-09-19 08:00] VITALS: BP 132/61
[2022-09-19] MEDS: INSULIN LANTUS 100 UNITS/ML 10 ML VIAL SUBQ SCH (08:52)
[2022-09-19] MEDS: carvediloL 12.5 MG TAB PO SCH ×2 (08:52→23:10)
--- NOTE | 2022-09-19 09:09 | NUR ---
RIGHT FOOT S/P I&D, DRESSING DCI. PER DR. ALMANZAR'S PLAN FOR 2ND I&D SOMETIME THIS WEEK.
[2022-09-19 10:47] LABS: ANION GAP 11.7 (8-16); CARBON DIOXIDE 23.1 mmol/L (21-32); CREATININE 1.1 mg/dL (0.6-1.3); POTASSIUM 3.8 mmol/L (3.5-5.1)
[2022-09-19 12:00] VITALS: BP 128/65
[2022-09-19] MEDS: GAUZE TP SCH (12:38)
--- NOTE | 2022-09-19 12:52 | NUR ---
RIGHT FOOT WOUND DRESSING CHANGE DONE
[2022-09-19 16:00] VITALS: BP 147/83
--- NOTE | 2022-09-19 17:00 | NUR ---
BLOOD SUGAR 256, SLIDING SCALE GIVEN
[2022-09-19 20:00] VITALS: BP 118/64
--- NOTE | 2022-09-19 20:09 | NUR ---
Received notice from Lab that Vanco Trough was 15.3. Dr. Casarez notified.
[2022-09-20] MEDS: BLOOD GLUCOSE MONITORING 1 DEV DEV FS SCH ×4 (07:35→20:38)
--- NOTE | 2022-09-20 07:36 | NUR ---
RECIEVED THE PATIENT FROM SPRAY OPERATOR NURSE.PATIENT IS SITTING IN BED,VERBALLY ACTIVE CITIZEN OF [place] SPEAKING.NO SIGNS OF DISTRESS NOTED.POC DISCUSSED.WILL CONTINUE TO MONITOR.
[2022-09-20] MEDS: INSULIN LISPRO SLIDING SCALE 100 UNITS/ML VIAL SUBQ PRN ×4 (07:38→20:39)
[2022-09-20 08:00] VITALS: BP 148/77
[2022-09-20] MEDS: carvediloL 12.5 MG TAB PO SCH ×2 (09:00→20:50)
[2022-09-20] MEDS: INSULIN LANTUS 100 UNITS/ML 10 ML VIAL SUBQ SCH (09:15)
[2022-09-20 12:00] VITALS: BP 132/61
--- NOTE | 2022-09-20 13:04 | NUR ---
ATTEMPTED TO INSERT IV ON PT, UNABLE TO START IV, 2 ATTEMPTS MADE BY MYSELF. PT TOLERATED AND IS STABLE IN BED, PRIMARY NURSE NOTIFIED, NOTIFIED
--- NOTE | 2022-09-20 13:13 | NUR ---
MIDLINE COMPLAINS NOTED AND NOTIFIED MD .ATTEMPTED PERIPHERAL IV BUT FAILED TO GET AN IV ACSESS.IV MED ON HOLD UNTIL CLEARED BY THE USG REGARDING THE MIDLINE .
--- NOTE | 2022-09-20 13:50 | NUR ---
2 RD FOLLOW UP COMPLETED PLEASE REFER TO NUTRITION ASSESSMENT UNDER CARE ACTIVITY FOR ESTIMATED NUTRITIONAL NEEDS. 1. CONTINUE CCHO 60 GM, CARDIAC, ALIRIO BID DIET TOLERATED - ALIRIO BID PROVIDES 160 KCAL AND 5 GM PROTEIN DAILY 2. MONITOR PO INTAKE AND BG LEVELS 3. RD TO FOLLOW-UP 7 DAYS, LOW RISK REVIEWED BY MICHELLE GARCIA RD
[2022-09-20] MEDS: GAUZE TP SCH (13:54)
--- NOTE | 2022-09-20 15:54 | NUR ---
FREQUENT ROUNDS DONE,ASSESSED THE WOUNDS,DONE WOUND DRESSING WITH BETADINE SOLUTION.
[2022-09-20 16:00] VITALS: BP 144/71
--- NOTE | 2022-09-20 19:30 | NUR ---
Patient's Plan of Care was discussed and reviewed with ELIZABETH ROBERT.
--- NOTE | 2022-09-20 19:35 | NUR ---
ENDORSED PATIENT TO LIFE COACH NURSE FOR THE CONTINUITY OF CARE.NO SIGNS OF DISTRESS NOTED.
--- NOTE | 2022-09-20 19:36 | NUR ---
RECEIVED REPORT FROM DAY SHIFT NURSE NATALIIA FOR CONTINUITY OF CARE. PT AWAKE IN BED. ON LEAD ACCOUNTANT. RESPIRATIONS EVEN AND UNLABORED ON RA. NO DISTRESS NOTED. DENIES PAIN. 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 RIGHT FOOT COVERED WITH DRESSING, DRY AND INTACT. POC DISCUSSED WITH PT AND FOREST MINOR. CALL LIGHT WITHIN REACH. SAFETY AND DROPLET PRECAUTIONS IN PLACE.
[2022-09-20 20:00] VITALS: BP 142/71
--- NOTE | 2022-09-20 20:50 | NUR ---
DUE MED ADMINISTERED. SLIDING SCALE INSULIN GIVEN FOR BS 203. PT TOLERATED WELL. DIDN'T EAT DINNER. OFFERED AND GIVEN SNACKS. PT ATE AR CRACKERS.
--- NOTE | 2022-09-20 23:30 | NUR ---
WENT TO PT'S ROOM WITH DR ALMANZAR. DR ALMANZAR EXAMINED WOUND AND CHANGED WOUND DRESSING.
[2022-09-21] VITALS: BP 112/57
[2022-09-21 04:00] VITALS: BP 130/72
[2022-09-21] MEDS: BLOOD GLUCOSE MONITORING 1 DEV DEV FS SCH ×3 (06:37→16:35)
[2022-09-21] MEDS: INSULIN LISPRO SLIDING SCALE 100 UNITS/ML VIAL SUBQ PRN ×3 (06:38→16:37)
--- NOTE | 2022-09-21 06:38 | NUR ---
BLOOD SUGAR CHECK DONE. SLIDING SCALE INSULIN ADMINISTERED. PT NO COMPLAINTS OF PAIN. NO DISTRESS NOTED. SATTING AT 96% ON RA.
[2022-09-21] MEDS ORDERED: ONDANSETRON 4 MG/2 ML VIAL IVP SCH (07:00)
--- NOTE | 2022-09-21 07:30 | NUR ---
GAVE BEDSIDE REPORT TO FOREST BLACK FOR CONTINUITY OF CARE. ENDORSED TO GAVE ZOFRAN BEFORE BREAKFAST PER DR ALMANZAR. ALL NEEDS MET THROUGHOUT SHIFT. PT IS STABLE.
[2022-09-21 08:00] VITALS: BP 128/62
[2022-09-21] MEDS: carvediloL 12.5 MG TAB PO SCH (10:08)
[2022-09-21] MEDS: INSULIN LANTUS 100 UNITS/ML 10 ML VIAL SUBQ SCH (10:14)
--- NOTE | 2022-09-21 11:01 | NUR ---
WOUND CARE RE-EVALUATION NOTE: RIGHT LATERAL FOOT S/P I&D SURGICAL WOUND SUTURES IN PLACE WOUND BED 3X1.5CM DARK BROWN WITH 5TH TOE FIDENCIO PINK, PAIN 2/10 WHEN PRESS,JAILENE WOUND SKIN INTACT WITH REDNESS DIFFUSED TO DORSAL FOOT RIGHT. POC DISCUSSED WITH PT. AND PRIMARY RN WAYNE. DO NOT WRAP WITH AMILCAR BANDAGE. USE KERLIX AND TAPE. PER DR ALMANZAR REFERRAL OUTPATIENT VASCULAR
[2022-09-21 12:00] VITALS: BP 124/61
[2022-09-21] MEDS: GAUZE TP SCH (13:19)
[2022-09-21 15:39] VITALS: BP 99/57
[2022-09-21 16:00] VITALS: BP 99/57
--- NOTE | 2022-09-21 16:13 | NUR ---
DC PLANNING: CM DISCUSSED THE DC PLAN WITH DR SIMS PER DR JACOBO NOTES OFF ABX AND REMOVED PICC LINE CM SPOKE WITH PT'S SON SOLEDAD [phone] UPDATED PT'S CLINICAL AND TO F/U WITH DR ALMANZAR PER SOLEDAD HE SPOKE WITH DR ALMANZAR AND HE TOLD HIM NO NEED FOR IV ABX AND TO CALL THE OFFICE TO SCHEDULE TO SEE HIM ONCE A WEEK. PT WILL BE DC HOME AND FOLLOW UP WITH DR ALMANZAR. NOTIFIED HUSSEIN GARG. YING TO FOLLOW
--- NOTE | 2022-09-21 18:16 | NUR ---
DISCHARGE PATIENT HOME PER PCP ORDER, DISCHARGE INSTRUCTION GIVEN AND PATIENT AND HIS FAMILY WILL FOLLOW UP DR. ALMANZAR TOMORROW FOR POST SURGERY WOUND CARE. PER DR. SIMS ORDER THAT PATIENT WILL CONTINUE HIS HOME MEDICATION WITHOUT NEW ORDER. PRIOR PATIENT LEFT THE FACILITY, IV ACCESS & TEL. MONITOR REMOVED, DISCHARGE CONSENT SIGNED, AND NURSE ALSO ENDORSE PATIENT'S SON REGARDING TO TOMORROW 'S DOCTOR APPOINT AND DISCHARGE INSTRUCTION PRIOR PATIENT GET ON TRUCK
--- NOTE | 2022-09-27 13:41 | NUR ---
BAL KAN: CALLED [facility] AND SPOKE WITH NIC PT HAS A APPOINTMENT 09/29/22 AT 1450 LOCATED AT [address] [facility] [address] . SPOKE WITH DAUGHTER ANALI KLEIN SHE IS AWARE OF THE ABOVE INFORMATION.
== END 2022-09-21 18:00 | disposition home or self-care (01) | DRG 853 ==
LOC: MED 13:05 → MTU 17:32
PROVIDERS: ADMIT Student in an Organized Health Care Education/Training Program; ATTEND Student in an Organized Health Care Education/Training Program
PROC: 0Q9N0ZX Drainage of Right Metatarsal, Open Approach, Diagnostic (ICD-10-PCS; 2022-09-17)
PROC: 05HY33Z Insertion of Infusion Device into Upper Vein, Percutaneous Approach (ICD-10-PCS; 2022-09-17)
PROC: 0Y6M0ZF Detachment at Right Foot, Partial 5th Ray, Open Approach (ICD-10-PCS; principal; 2022-09-17 10:30)
DX: A41.9 Sepsis, unspecified organism (principal); J12.82 Pneumonia due to coronavirus disease 2019; U07.1 COVID-19; N17.9 Acute kidney failure, unspecified; M86.8X7 Other osteomyelitis, ankle and foot; I82.611 Acute embolism and thrombosis of superficial veins of right upper extremity; L03.115 Cellulitis of right lower limb; E11.51 Type 2 diabetes mellitus with diabetic peripheral angiopathy without gangrene; E11.65 Type 2 diabetes mellitus with hyperglycemia; E11.621 Type 2 diabetes mellitus with foot ulcer; E11.69 Type 2 diabetes mellitus with other specified complication; E78.5 Hyperlipidemia, unspecified; N18.30 Chronic kidney disease, stage 3 unspecified; E11.22 Type 2 diabetes mellitus with diabetic chronic kidney disease; B95.2 Enterococcus as the cause of diseases classified elsewhere; I12.9 Hypertensive chronic kidney disease with stage 1 through stage 4 chronic kidney disease, or unspecified chronic kidney disease; E87.5 Hyperkalemia; E86.1 Hypovolemia; Z89.512 Acquired absence of left leg below knee; Z79.4 Long term (current) use of insulin
CPT/HCPCS: 36415; 73630; 76770; 78315; 80048; 80053; 80202; 81003; 82570; 82948; 85025; 85651; 86140; 87040; 87070; 87075; 87081; 87186; 87205; 88305; 88311; 93925; 93971; 96365; 96367; 99285; J0696; J1815; J1940; J2001; J2405; J2543; J2704; J3010; J3370; J3490; J7030; J7060; Q0092